=== PATIENT | male | born 1960 | race Caucasian/White ===

== ENCOUNTER 2020-01-25 19:22 | Emergency (ER) | payer OTHER, SELFPAY ==
--- NOTE | 2020-01-25 | CT_ITS ---
EXAMINATION: CT HEAD WITHOUT CONTRAST CLINICAL INFORMATION: Seizure COMPARISON: MRI 12/31/[address] head 12/30/2019 TECHNIQUE: Contiguous axial imaging was performed from the skull base to vertex without intravenous administration of contrast. This CT examination was performed using dose optimization techniques as appropriate, variously including the following: *Automated exposure control *Adjustment of mA and/or kV according to patient size (this includes techniques or standardized protocols for targeted exams where dose is matched to indication/reason for exam; i.e. extremities or head) *Use of iterative reconstruction technique DLP: 855 mGy-cm FINDINGS: No acute intracranial abnormality seen. No acute intracranial hemorrhage. The previously seen right greater than left basal ganglia have evolved and are now fairly isodense to adjacent cortex, previously hypodense. These are seen superimposed on a background of moderate patchy periventricular and subcortical white matter hypodensity consistent with chronic microvascular white matter ischemic changes. There continues to be abnormal low density throughout the cerebellum, right greater than left. The ventricles and sulci are similar in configuration to the prior study. No hydrocephalus. Globes and orbits are normal. No acute sinusitis. IMPRESSION: No acute intracranial abnormality superimposed on multiple abnormalities evident on the recent prior brain MRI. There has been evolution of the previously seen right greater than left basal ganglia calcifications.
[2020-01-25 19:37] LABS: Glucose, Whole Blood 185 mg/dL (60-115)
[2020-01-25 19:39] VITALS: BP 122/64; BP 123/73; PULSE 74; PULSE 77; RESP 18; TEMP 36.8; O2SAT 94; BMI 40.8
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
--- NOTE | 2020-01-25 19:47 | ECG_ITS ---
Test Reason : SYNCOPE Blood Pressure : / mmHG Vent. Rate : 072 BPM Atrial Rate : 072 BPM P-R Int : 138 ms QRS Dur : 082 ms QT Int : 424 ms P-R-T Axes : 077 -48 052 degrees QTc Int : 464 ms Poor data quality, interpretation may be adversely affected Normal sinus rhythm Left axis deviation Inferior infarct (cited on or before 18-JUL-2018) Abnormal ECG When compared with ECG of 28-DEC-2019 21:17, No significant change was found Referred By: Joss Patel Electronically Signed By:AC RODRIGUEZ
[2020-01-25] MEDS: 0.9 % Sodium Chloride 1,000 ML 999 ML IVCONT (19:51)
--- NOTE | 2020-01-25 20:12 | PC.NURSE ---
senior quality technician at bedside to obtain EKG and labs. Pt off to CT on hospital bed. Pt aware of plan to medicate upon return.
[2020-01-25] MEDS: levETIRAcetam 1,000 MG in 0.9 % Sodium Chloride 100 ML 400 MG IV (20:19)
--- NOTE | 2020-01-25 20:22 | PC.NURSE ---
Pt medicated per EMAR with Keppra and IVF. Awaiting CT results. Continue to monitor.
[2020-01-25 20:24] LABS: MANUAL DIFF FLAG NO
[2020-01-25 20:26] LABS: Basophils Absolute Auto 0.1 X10*3/uL (0.0-0.2); Basophils Percent Auto 0.5 % (0-2); Eosinophils Absolute Auto 0.6 X10*3/uL (0.0-0.4); Hematocrit 33.3 % (42-52); Imm Gran Abs Auto 0.12 X10*3/uL (0.00-0.03); Imm Gran Pct Auto 0.6 % (0.0-0.4); Lymphocytes Absolute Auto 2.3 X10*3/uL (1.2-4.9); Lymphocytes Percent Auto 11.5 % (20-40); Mean Corpuscular Hemoglobin 23.8 pg (27.0-33.0); Mean Corpuscular Volume 79.3 fL (80-98); Mean Platelet Volume 11.9 fL (9.4-12.4); Monocytes Percent Auto 5.1 % (2-11); Neutrophils Absolute Auto 15.6 X10*3/uL (2.0-8.3); Neutrophils Percent Auto 79.3 % (45-73); Platelet Count 400 X10*3/uL (160-400); Red Cell Distribution Width 17.9 % (11.0-16.0); White Blood Count 19.7 X10*3/uL (4.8-10.8)
[2020-01-25 20:48] LABS: Alanine Aminotransferase 50 U/L (0-40); Albumin Level 3.3 g/dL (3.5-5.0); Alkaline Phosphatase 135 U/L (39-117); Anion Gap 14 (12-20); Aspartate Amino Transferase 61 U/L (5-37); Bilirubin Direct 0.2 mg/dL (0.0-0.5); Bilirubin Total 0.3 mg/dL (0.0-1.0); Blood Urea Nitrogen 27 mg/dL (9-16); Calcium 8.3 mg/dL (8.4-10.2); Carbon Dioxide 21 mmol/L (22-29); Chloride 113 mmol/L (96-108); Creatinine Clr Calc Pharmacy 95.5; Estimated Glomerular Filt Rate > 60; Glucose Random 202 mg/dL (60-115); Sodium 144 mmol/L (135-145); Total Protein 7.2 g/dL (6.5-8.0)
[2020-01-25 21:31] VITALS: BP 195/88; PULSE 84; RESP 18; TEMP 37; O2SAT 98
--- NOTE | 2020-01-25 21:44 | PC.NURSE ---
Per MD, to obtain UA via straight cath. As this RN was preparing to straight cath pt, pt started voiding on his own. UA obtained and sent for analysis. Pt denies pain/discomfort at this time. VSSu. at bedside explaining plan of care. Continue to monitor.
[2020-01-25 21:54] LABS: Glucose Urine UA NEG (NEG); Leukocyte Esterase Urine 3+ (NEG); Nitrite Urine NEG (NEG); Urine Blood 1+ (NEG); Urine Ketones NEG (NEG); Urine Protein 1+ MG/DL (NEG-TRACE)
[2020-01-25 21:56] LABS: Appearance Urine CLOUDY; Color Urine STRAW
[2020-01-25 22:12] LABS: Bacteria Urine TRACE /LPF; Squamous Epithelial Cell Urine TRACE /LPF
[2020-01-25 23:04] VITALS: PULSE 85; RESP 16; TEMP 36.8
[2020-01-25 23:06] VITALS: BP 157/61; O2SAT 96
--- NOTE | 2020-01-25 23:10 | PC.NURSE ---
MD at bedside discussing plan of care with pt and family. Pt and family aware of plan to treat UTI with one dose IV ABX and then with an RX at home. Per MD, no BCX necessary. Continue to monitor.
[2020-01-25] MEDS: cefTRIAXone sodium 1 GM in 0.9 % Sodium Chloride 50 ML IV (23:15)
--- NOTE | 2020-01-25 23:15 | PC.NURSE ---
Ashley jon per EMAR.
--- NOTE | 2020-01-26 00:28 | PC.NURSE ---
Pt provided with DC instructions, awaiting EMS to transport pt home.
[2020-01-26 00:32] VITALS: BP 122/83; PULSE 80; RESP 18
--- NOTE | 2020-01-26 00:37 | PC.NURSE ---
IV removed. VSS. Pt found to be incontinent of urine, provided with nery care and a complete bed change. Awaiting EMS.
--- NOTE | 2020-01-26 02:09 | PC.NURSE ---
Pt yelling loudly in room. Pt asking this RN when the ambulance is coming?! Pt states I want to go home!!!!! This RN explaining to pt that the ambulance is on the way. Pt resting in bed, watching TV. Continue to monitor.
== END 2020-01-26 03:15 | disposition home or self-care (01) ==
PROVIDERS: Emergency Provider Internal Medicine
DX: R56.9 Unspecified convulsions (principal); N39.0 Urinary tract infection, site not specified; R53.83 Other fatigue; Z87.891 Personal history of nicotine dependence; Z79.899 Other long term (current) drug therapy
CPT/HCPCS: 36415; 70450; 80048; 80076; 81001; 82947; 85025; 87086; 93005; 93010; 96361; 96365; 96367; 99284

== ENCOUNTER 2020-04-08 23:42 | Inpatient (IN) | payer OTHER, SELFPAY ==
[2020-04-08 23:48] VITALS: BP 102/57; BP 98/56; PULSE 74; PULSE 76; RESP 25; TEMP 37.3; O2SAT 94; O2SAT 98; BMI 29.5
--- NOTE | 2020-04-08 23:51 | ECG_ITS ---
Test Reason : AMS Blood Pressure : / mmHG Vent. Rate : 073 BPM Atrial Rate : 073 BPM P-R Int : 158 ms QRS Dur : 096 ms QT Int : 388 ms P-R-T Axes : 020 -57 059 degrees QTc Int : 427 ms Normal sinus rhythm Left axis deviation Inferior infarct (cited on or before 18-JUL-2018) Abnormal ECG When compared with ECG of 25-JAN-2020 19:57, No significant change was found Referred By: Joss Patel Electronically Signed By:Lázaro Mancilla
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
[2020-04-09] VITALS (11 sets, daily range): BP systolic 134–187; BP diastolic 66–90; PULSE 67–88; RESP 18–22; TEMP 36.4–37.4; O2SAT 4–100
--- NOTE | 2020-04-09 00:10 | XR_ITS ---
EXAMINATION: CHEST 1 VIEW CLINICAL INFORMATION: Altered mental status. COMPARISON: 12/28/2019. TECHNIQUE: An AP view of the chest is provided. FINDINGS: The cardiac silhouette is not enlarged. The mediastinal and hilar contours are unremarkable. There are neither pleural effusions nor pneumothoraces.. There is a small focus of airspace disease in the right midlung. The osseous structures are stable. XR/XR chest 1V IMPRESSION: Small nonspecific focus of airspace disease within the right midlung.
[2020-04-09 00:34] LABS: MANUAL DIFF FLAG NO
[2020-04-09 00:47] LABS: Basophils Absolute Auto 0.1 X10*3/uL (0.0-0.2); Basophils Percent Auto 0.4 % (0-2); Eosinophils Absolute Auto 0.7 X10*3/uL (0.0-0.4); Eosinophils Percent Auto 3.2 % (0-4); Hematocrit 29.9 % (42-52); Hemoglobin 9.3 g/dl (14.0-18.0); Imm Gran Abs Auto 0.11 X10*3/uL (0.00-0.03); Imm Gran Pct Auto 0.5 % (0.0-0.4); Lymphocytes Absolute Auto 2.8 X10*3/uL (1.2-4.9); Lymphocytes Percent Auto 13.6 % (20-40); Mean Corpuscular HGB Conc 31.1 g/dl (31.0-36.0); Mean Corpuscular Volume 77.3 fL (80-98); Mean Platelet Volume 11.7 fL (9.4-12.4); Monocytes Absolute Auto 1.2 X10*3/uL (0.1-1.2); Monocytes Percent Auto 5.6 % (2-11); Neutrophils Absolute Auto 15.7 X10*3/uL (2.0-8.3); Neutrophils Percent Auto 76.7 % (45-73); Platelet Count 397 X10*3/uL (160-400); Red Blood Count 3.87 X10*6/uL (4.60-5.80); Red Cell Distribution Width 20.3 % (11.0-16.0); White Blood Count 20.4 X10*3/uL (4.8-10.8)
[2020-04-09 00:57] LABS: Anion Gap 16 (12-20); Blood Urea Nitrogen 30 mg/dL (9-16); Calcium 8.3 mg/dL (8.4-10.2); Carbon Dioxide 20 mmol/L (22-29); Chloride 106 mmol/L (96-108); Creatinine Clr Calc Pharmacy 101.3; Estimated Glomerular Filt Rate > 60; Glucose Random 119 mg/dL (60-115); Lactic Acid 0.9 mmol/L (0.5-2.0); Potassium 3.9 mmol/l (3.3-5.1); Sodium 138 mmol/L (135-145)
[2020-04-09 01:00] LABS: Alanine Aminotransferase 56 U/L (0-40); Albumin Level 2.9 g/dL (3.5-5.0); Alkaline Phosphatase 129 U/L (39-117); Aspartate Amino Transferase 78 U/L (5-37); Bilirubin Direct 0.2 mg/dL (0.0-0.5); Bilirubin Total 0.3 mg/dL (0.0-1.0); Lipase 10 U/L (8-78)
[2020-04-09 01:03] LABS: Troponin-I High Sensitivity < 3.5 ng/L (<3.5-35.0)
[2020-04-09] MEDS: 0.9 % Sodium Chloride 1,000 ML 999 ML IVCONT (01:03)
[2020-04-09 01:12] LABS: Glucose Urine UA NEG (NEG); Leukocyte Esterase Urine 2+ (NEG); Nitrite Urine NEG (NEG); Urine Blood TRACE (NEG); Urine Ketones NEG (NEG); Urine Protein TRACE MG/DL (NEG-TRACE)
[2020-04-09 01:14] LABS: Appearance Urine CLEAR; Color Urine YELLOW
[2020-04-09 01:28] LABS: Bacteria Urine TRACE /LPF; RBC Urine 0-2 /HPF (0); Squamous Epithelial Cell Urine TRACE /LPF; WBC Clumps Urine NOTED; WBC Urine TNTC /HPF (0-4)
[2020-04-09] MEDS: Piperacillin Sodium/Tazobactam 3.375 GM in 0.9 % Sodium Chloride 50 ML IV ×3 (01:28→17:41)
[2020-04-09 01:44] LABS: Influenza A PCR NEGATIVE (Negative); Influenza B PCR NEGATIVE (Negative); Resp Syncy Virus RNA Qual PCR NEGATIVE (Negative); SARS COV2 PCR INHOUSE NEGATIVE (Negative)
[2020-04-09] MEDS: Ertapenem Sodium 1 GM in 0.9 % Sodium Chloride 50 ML IV (03:11)
--- NOTE | 2020-04-09 04:59 | P.HPHOSP_ITS ---
History of Present Illness Date of Service: 04/09/20 Chief Complaint: AMS This is a 59 yo M with pmhx of stroke s/p paraplegia, among others who presents to the hospital with reported lethargy and low BP readings at home. Pt is lethargic and very hard of hearing and no family memeber at bedside, therefore history is obtained from Ed physician. Per ED physician, pt was brought in by his sister, who is his health proxy, because pt has been more lethargic, she checked his BP at home and found him to have low BP 90s/50s. he has been congested as well as having a cough for 2 days with no sob, no fever or chills. No other Review of system could be obtained. on arrival to the ed pt found to be hypotensive, with BP of 102/57, RR of 25, sating 94% on RA, HR of 78 and temp 97.5. Pt desated in the ED while being repositioned to the high 80s. Labs are significant for WBC of 20.4, last WBC from 02/07 of 19.7, Hgb/Hct of 9.3/29.9, UA positive for LE, and urine WBC with minimal epithelial cells. 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 Family: hypertension Social history: bedboud, lives with sister, hx of tobacco, alcohol and drug use Review of Systems 2 Review of Systems: Yes Unobtainable due to mental condition [facility] Medical History Depression Diabetes Hepatitis C Paraplegia Seizure Stroke TIA (transient ischemic attack) Social History Alcohol intake: never Smoking Status: Unknown if ever smoked Use of substances other than those prescribed or required for medical reasons: No Advance Directives: No Advance Directives Information Provided: No Meds Allergies Allergy/AdvReac Type Severity Reaction Status Date / Time No Known Allergies Allergy Verified 01/25/20 19:38 [No Known Allergies*] Home Medications Medication Instructions Recorded Confirmed Type Januvia 100 mg PO DAILY 04/09/20 04/09/20 History Zestril 20 mg PO DAILY 04/09/20 04/09/20 History albuterol 2 inh INHALATION Q4-6H PRN 04/09/20 04/09/20 History amlodipine benzoate 10 mg PO DAILY 04/09/20 04/09/20 History atorvastatin 40 mg PO DAILY 04/09/20 04/09/20 History carvedilol 25 mg PO BID 04/09/20 04/09/20 History gabapentin 300 mg PO DAILY 04/09/20 04/09/20 History insulin aspart U-100 See Protocol SUBCUT TID 04/09/20 04/09/20 History insulin detemir U-100 46 unit SUBCUT DAILY 04/09/20 04/09/20 History polyethylene glycol 3350 [Miralax] 17 g PO DAILY 04/09/20 04/09/20 History sertraline 200 mg PO BID 04/09/20 04/09/20 History tamsulosin [Flomax] 0.4 mg PO DAILY 04/09/20 04/09/20 History tizanidine [Zanaflex] 2 mg PO BID 04/09/20 04/09/20 History Physical Exam 2 Vital Signs and Narrative: Vital Signs: Last Vital Signs Temp 99.4 F 04/09/20 00:00 Pulse 76 04/09/20 02:00 Resp 18 04/09/20 02:00 BP 134/73 04/09/20 02:00 Pulse Ox 94 04/09/20 02:00 Body Mass Index 29.5 Results Labs CBC and Chem 7: 04/09/20 00:24 04/09/20 00:24 Labs: Laboratory Results - last 24 hr 04/09/20 04/09/20 04/09/20 00:24 00:24 00:24 MCV 77.3 L MCH 24.0 L MCHC 31.1 RDW 20.3 H Plt Count 397 MPV 11.7 Immature Gran % (Auto) 0.5 H Neut % (Auto) 76.7 H Lymph % (Auto) 13.6 L [place] % (Auto) 5.6 Eos % (Auto) 3.2 Baso % (Auto) 0.4 Lymph # (Auto) 2.8 [place] # (Auto) 1.2 Eos # (Auto) 0.7 H Baso # (Auto) 0.1 Abs Immat Gran (auto) 0.11 H Absolute Neuts (auto) 15.7 H Absolute Nucleated RBC 0.000 Nucleated RBC % (auto) 0.0 Anion Gap 16 Estim Creat Clear Calc 101.3 Estimated GFR > 60 Random Glucose 119 H D Lactic Acid Calcium 8.3 L Total Bilirubin 0.3 Direct Bilirubin 0.2 AST 78 H ALT 56 H Alkaline Phosphatase 129 H Troponin I High Sens Total Protein 7.0 Albumin 2.9 L Lipase 10 Urine Color Urine Appearance Urine pH Ur Specific Dinosaur Urine Protein Urine Glucose (UA) Urine Ketones Urine Blood Urine Nitrite Ur Leukocyte Esterase Urine RBC Urine WBC Urine WBC Clumps Ur Squamous Epith Cells Urine Bacteria Urine Yeast Coronavirus (PCR) Influenza Type A (PCR) Influenza Type B (PCR) RSV RNA Qual (PCR) 04/09/20 04/09/20 04/09/20 00:24 00:24 00:46 MCV MCH MCHC RDW Plt Count MPV Immature Gran % (Auto) Neut % (Auto) Lymph % (Auto) [place] % (Auto) Eos % (Auto) Baso % (Auto) Lymph # (Auto) [place] # (Auto) Eos # (Auto) Baso # (Auto) Abs Immat Gran (auto) Absolute Neuts (auto) Absolute Nucleated RBC Nucleated RBC % (auto) Anion Gap Estim Creat Clear Calc Estimated GFR Random Glucose Lactic Acid 0.9 Calcium Total Bilirubin Direct Bilirubin AST ALT Alkaline Phosphatase Troponin I High Sens < 3.5 Total Protein Albumin Lipase Urine Color Urine Appearance Urine pH Ur Specific Dinosaur Urine Protein Urine Glucose (UA) Urine Ketones Urine Blood Urine Nitrite Ur Leukocyte Esterase Urine RBC Urine WBC Urine WBC Clumps Ur Squamous Epith Cells Urine Bacteria Urine Yeast Coronavirus (PCR) NEGATIVE Influenza Type A (PCR) NEGATIVE Influenza Type B (PCR) NEGATIVE RSV RNA Qual (PCR) NEGATIVE 04/09/20 00:49 MCV MCH MCHC RDW Plt Count MPV Immature Gran % (Auto) Neut % (Auto) Lymph % (Auto) [place] % (Auto) Eos % (Auto) Baso % (Auto) Lymph # (Auto) [place] # (Auto) Eos # (Auto) Baso # (Auto) Abs Immat Gran (auto) Absolute Neuts (auto) Absolute Nucleated RBC Nucleated RBC % (auto) Anion Gap Estim Creat Clear Calc Estimated GFR Random Glucose Lactic Acid Calcium Total Bilirubin Direct Bilirubin AST ALT Alkaline Phosphatase Troponin I High Sens Total Protein Albumin Lipase Urine Color YELLOW Urine Appearance CLEAR Urine pH 5.0 Ur Specific Dinosaur 1.020 Urine Protein TRACE Urine Glucose (UA) NEG Urine Ketones NEG Urine Blood TRACE Urine Nitrite NEG Ur Leukocyte Esterase 2+ H Urine RBC 0-2 Urine WBC TNTC H Urine WBC Clumps NOTED Ur Squamous Epith Cells TRACE Urine Bacteria TRACE Urine Yeast 1+ Coronavirus (PCR) Influenza Type A (PCR) Influenza Type B (PCR) RSV RNA Qual (PCR) Imaging Radiologist's Impressions: Impressions Chest X-Ray 04/09/20 00:10 IMPRESSION: Small nonspecific focus of airspace disease within the right midlung. Assessment and Plan (1) Encephalopathy: Status: Acute (2) Sepsis: Qualifiers: Sepsis acute organ dysfunction status: without acute organ dysfunction Sepsis type: sepsis due to unspecified organism Qualified Code(s): A41.9 - Sepsis, unspecified organism Status: Acute (3) Acute UTI: Status: Acute (4) Hypoxic: Status: Acute (5) Pneumonia: Qualifiers: Laterality: right Lung location: middle lobe of lung Pneumonia type: due to unspecified organism Qualified Code(s): J18.9 - Pneumonia, unspecified organism Status: Acute Pt with hx as above presents to the hospital with encephalopathy # Encephalopathy - Most likely 2/2 acute infection - Pt has what appears to be PNA as well as UTI, with increased lethargy Plan: - Treat underlying infection with broad-spectrum abx - Will old sedative meds for now - Follow mental status # Sepsis - 2/2 community acquired pneumonia vs aspiration complicated by UTI - COVID 19 negative - CXR shows right middle lobe consolidation - Tachypneic, increased leukocytosis Plan: - Has hx of ESBL, will start on meropenem, as well as zosyn to cover for CAP as well as aspiration - Will follow blood and urine cultures once collected # Acute hypoxic respiratory failure - most likely secondary to pneumonia - patient desats with minimal effort to high 80s - currently placed on 3 L of oxygen sating 90+% - COVID 19 negative plan: - IV abx - Will follow blood cultures - O2 as required - monitor respiratory status # Pneumonia - Community vs aspiration - consolidation in the right middle lobe - will start abx as above - consult speech to evaluate swallowing # UTI - Hx of ESBL- will start meropenem - Pt incontinent - follow urine culture - ID consulted # DM - Start diabetic diet - LDSSI # HTN - Continue amlodipine, carvedilol DVT ppx: Lovenox
[2020-04-09 06:14] LABS: Glucose, Whole Blood 172 mg/dL (60-115)
[2020-04-09] MEDS: Enoxaparin Sodium 40 MG/0.4 ML SYRINGE SUBCUT (06:42)
[2020-04-09 07:08] LABS: Glucose, Whole Blood 173 mg/dL (60-115)
[2020-04-09] MEDS: lisinopriL 20 MG TABLET PO (08:36)
[2020-04-09] MEDS: Gabapentin 300 MG CAPSULE PO (08:36)
[2020-04-09] MEDS: 0.9 % Sodium Chloride Flush 3 ML SYRINGE IVFLUSH ×2 (08:36→17:41)
[2020-04-09] MEDS: polyethylene glycoL 3350 17 GM POWD.PACK PO (08:36)
[2020-04-09] MEDS: carvediloL 25 MG TABLET PO ×2 (08:36→21:40)
[2020-04-09] MEDS: Insulin Lispro 100 UNIT/ML 3 ML VIAL SUBCUT ×3 (08:36→21:39)
[2020-04-09] MEDS: Atorvastatin Calcium 40 MG TABLET PO (08:37)
[2020-04-09] MEDS: levETIRAcetam 500 MG TABLET PO ×2 (08:37→21:40)
[2020-04-09] MEDS: amLODIPine Besylate 10 MG TABLET PO (08:37)
[2020-04-09] MEDS: Tamsulosin HCL 0.4 MG CAPSULE PO (08:37)
[2020-04-09 11:03] LABS: Glucose, Whole Blood 166 mg/dL (60-115)
--- NOTE | 2020-04-09 12:13 | HO.PM.IMPN ---
Subjective Subjective Date of Service: 04/09/20 Interval History: seen and examined this AM appears comfortable baseline unclear ROS unreliable Physical Exam Vital Signs: Vital Signs: Last Vital Signs Temp 98.0 F 04/09/20 11:33 Pulse 67 04/09/20 11:33 Resp 20 04/09/20 11:33 BP 159/79 H 04/09/20 11:33 Pulse Ox 100 04/09/20 11:33 Body Mass Index 29.5 Const: Other: General - no acute distress, appears comfortable Cardiovascular - regular rate and rhythm, S1-S2 Lungs - no distress Abdomen - soft, nontender, no rebound or guarding Extremities - no edema bilaterally Neuro - awake and alert, no focal deficits Objective Data Current Medications Generic Name Dose Route Start Last Admin Trade Name Freq PRN Reason Stop Dose Admin Acetaminophen 650 mg 04/09/20 05:16 Acetaminophen 325 Mg Tablet PO Q6H PRN Pain, Mild (Pain Scale 1-3) Albuterol Sulfate 2 puff 04/09/20 06:47 Albuterol Sulfate 90 Mcg 8 Gm Inhaler INHALE Q4H PRN ASTHMA Amlodipine Besylate 10 mg 04/09/20 09:00 04/09/20 08:37 Amlodipine Besylate 10 Mg Tablet PO 10 mg DAILY CARNI Administration Atorvastatin Calcium 40 mg 04/09/20 09:00 04/09/20 08:37 Atorvastatin Calcium 40 Mg Tablet PO 40 mg DAILY CARIN Administration Carvedilol 25 mg 04/09/20 09:00 04/09/20 08:36 Carvedilol 25 Mg Tablet PO 25 mg BID CARIN Administration Docusate Sodium 100 mg 04/09/20 05:16 Docusate Sodium 100 Mg Capsule PO DAILY PRN Constipation Enoxaparin Sodium 40 mg 04/09/20 05:16 04/09/20 06:42 Enoxaparin Sodium 40 Mg/0.4 Ml Syringe SUBCUT 40 mg Q24H CARIN Administration Gabapentin 300 mg 04/09/20 09:00 04/09/20 08:36 Gabapentin 300 Mg Capsule PO 300 mg DAILY CARIN Administration Piperacillin Sod/Tazobactam 50 mls @ 100 mls/hr 04/09/20 06:00 04/09/20 11:59 Sod 3.375 gm/ Sodium Chloride IV 100 mls/hr Q6H CARIN Administration Insulin Glargine 32 unit 04/09/20 21:00 Insulin Glargine,Hum.Rec.Anlog 100 Unit/Ml 10 Ml Vial SUBCUT BEDTIME [facility] Insulin Human Lispro 0 unit 04/09/20 07:30 04/09/20 12:00 Insulin Lispro 100 Unit/Ml 3 Ml Vial SUBCUT 2 unit QIDACHS CARIN Administration Protocol Levetiracetam 500 mg 04/09/20 09:00 04/09/20 08:37 Levetiracetam 500 Mg Tablet PO 500 mg BID CARIN Administration Lisinopril 20 mg 04/09/20 09:00 04/09/20 08:36 Lisinopril 20 Mg Tablet PO 20 mg DAILY CARIN Administration Ondansetron HCl 4 mg 04/09/20 05:16 Ondansetron Hcl 4 Mg/2 Ml Vial IVPUSH Q8H PRN Nausea and Vomiting Polyethylene Glycol 17 gm 04/09/20 09:00 04/09/20 08:36 Polyethylene Glycol 3350 17 Gm Powd.Pack PO 17 gm DAILY CARIN Administration Sodium Chloride 3 ml 04/09/20 08:00 04/09/20 08:36 0.9 % Sodium Chloride Flush 3 Ml Syringe IVFLUSH 3 ml QSHIFT CARIN Administration Tamsulosin HCl 0.4 mg 04/09/20 09:00 04/09/20 08:37 Tamsulosin Hcl 0.4 Mg Capsule PO 0.4 mg DAILY CARIN Administration Labs CBC & Chem 7: 04/09/20 00:24 04/09/20 00:24 Assessment and Plan (1) Encephalopathy: Status: Acute Assessment and Plan: This is a 59 yo M with a history of cva, paraplegia, recurrent uti, seizures, htn, dm who presented to the hospital with increased lethargy which is felt to be infectious in etiology. He is admitted for further treatment. 1. Sepsis secondary to UTI vs Aspiration pneumonia received 1 dose invanz in the ED for his history of ESLB UTI -- hold off on Merram for the time being until evaluated by ID continue zosyn for now f/u cultures 2. Dysphagia change diet to pureed swallow eval tomorrow 3. DM basal + bolus 4. seizures keppra 5. htn norvasc / lisinopril 6. Transaminitis chronic, monitor Full Code DVT pptx, lovenox
--- NOTE | 2020-04-09 13:01 | MHC.CM.PN ---
CM SPOKE TO PTS SISTER/CAREGIVER/HCP, NADEEM ([phone]) WHO REPORTS THE PT DOES LIVE ALONE BUT SHE LIVES IN THE SAME BUILDING,. RIGHT NEXT DOOR AND SHE HAS A CAMERA IN THE PTS ROOM SO SHE CAN CHECK IN ON HIM FREQUENTLY. NADEEM REPORTS SHE IS THE PTS PRIMARY CAREGIVER AND HE HAS ANOTHER CIRCULAR HEAD SAW OPERATOR WELL. PT IS WHEEL CHAIR BOUND AT [facility]ELINE BUT [facility] GRANDSON IS USUALLY PRESENT TO HELP HER TRANSFER THE PT. NADEEM REPORTS SHE USUALLY DRIVES THE PT TO HIS APPTS HOWEVER SHE WILL NEED HIM TRANSPORTED HOME VIA BLS HER GRANDSON WILL NOT BE THERE TO ASSIST. NADEEM REPORTS THE PTS PCP IS STILL DR HART. IMM REVIEWED WITH NADEEM WHO REPORTS UNDERSTANDING. A COPY WILL BE SENT TO HER VIA CERTIFIED MAIL, SHE ASKS THAT IT BE SENT TO PTS ADDRESS. CURRENT DC PLAN IS HOME WITH RESUMPTION OF CIRCULAR HEAD SAW OPERATOR SERVICES PT WILL NEED BLS TRANSPORT
[2020-04-09 16:25] LABS: Glucose, Whole Blood 93 mg/dL (60-115)
[2020-04-09 21:07] LABS: Glucose, Whole Blood 209 mg/dL (60-115)
[2020-04-09] MEDS: Insulin Glargine,Hum.rec.anlog 100 UNIT/ML 10 ML VIAL 32 UNIT SUBCUT (21:39)
[2020-04-10] VITALS (10 sets, daily range): BP systolic 128–191; BP diastolic 75–87; PULSE 69–89; RESP 18–20; TEMP 36.4–37.1; O2SAT 94–98; BMI 29.5
[2020-04-10] MEDS: Piperacillin Sodium/Tazobactam 3.375 GM in 0.9 % Sodium Chloride 50 ML IV ×4 (00:04→19:22)
[2020-04-10] MEDS: 0.9 % Sodium Chloride Flush 3 ML SYRINGE IVFLUSH ×3 (00:12→19:09)
[2020-04-10] MEDS: Enoxaparin Sodium 40 MG/0.4 ML SYRINGE SUBCUT (05:04)
[2020-04-10 05:10] LABS: MANUAL DIFF FLAG NO
[2020-04-10 05:11] LABS: Basophils Absolute Auto 0.1 X10*3/uL (0.0-0.2); Basophils Percent Auto 0.5 % (0-2); Eosinophils Absolute Auto 0.4 X10*3/uL (0.0-0.4); Eosinophils Percent Auto 2.4 % (0-4); Hematocrit 32.3 % (42-52); Hemoglobin 9.9 g/dl (14.0-18.0); Imm Gran Abs Auto 0.08 X10*3/uL (0.00-0.03); Imm Gran Pct Auto 0.5 % (0.0-0.4); Lymphocytes Absolute Auto 1.8 X10*3/uL (1.2-4.9); Lymphocytes Percent Auto 11.9 % (20-40); Mean Corpuscular HGB Conc 30.7 g/dl (31.0-36.0); Mean Corpuscular Hemoglobin 23.7 pg (27.0-33.0); Mean Corpuscular Volume 77.5 fL (80-98); Mean Platelet Volume 11.5 fL (9.4-12.4); Monocytes Absolute Auto 0.7 X10*3/uL (0.1-1.2); Monocytes Percent Auto 4.8 % (2-11); Neutrophils Absolute Auto 12.3 X10*3/uL (2.0-8.3); Neutrophils Percent Auto 79.9 % (45-73); Platelet Count 395 X10*3/uL (160-400); Red Blood Count 4.17 X10*6/uL (4.60-5.80); Red Cell Distribution Width 20.2 % (11.0-16.0); White Blood Count 15.4 X10*3/uL (4.8-10.8)
[2020-04-10 05:39] LABS: Anion Gap 14 (12-20); Blood Urea Nitrogen 22 mg/dL (9-16); Calcium 8.3 mg/dL (8.4-10.2); Carbon Dioxide 20 mmol/L (22-29); Chloride 109 mmol/L (96-108); Creatinine Clr Calc Pharmacy 117.3; Estimated Glomerular Filt Rate > 60; Glucose Random 181 mg/dL (60-115); Potassium 4.3 mmol/l (3.3-5.1); Sodium 139 mmol/L (135-145)
[2020-04-10 07:40] LABS: Glucose, Whole Blood 175 mg/dL (60-115)
[2020-04-10] MEDS: polyethylene glycoL 3350 17 GM POWD.PACK PO (08:11)
[2020-04-10] MEDS: Insulin Lispro 100 UNIT/ML 3 ML VIAL SUBCUT ×2 (08:12→20:54)
[2020-04-10] MEDS: amLODIPine Besylate 10 MG TABLET PO (08:12)
[2020-04-10] MEDS: carvediloL 25 MG TABLET PO ×2 (08:12→20:54)
[2020-04-10] MEDS: Tamsulosin HCL 0.4 MG CAPSULE PO (08:12)
[2020-04-10] MEDS: levETIRAcetam 500 MG TABLET PO ×2 (08:12→20:54)
[2020-04-10] MEDS: Gabapentin 300 MG CAPSULE PO (08:12)
[2020-04-10] MEDS: Atorvastatin Calcium 40 MG TABLET PO (08:12)
[2020-04-10] MEDS: lisinopriL 20 MG TABLET PO (08:12)
--- NOTE | 2020-04-10 10:26 | HO.PM.IMPN ---
Subjective Subjective Date of Service: 04/10/20 Interval History: seen and examined this AM no new events reported Physical Exam Vital Signs: Vital Signs: Last Vital Signs Temp 97.6 F 04/10/20 07:45 Pulse 75 04/10/20 08:12 Resp 18 04/10/20 07:45 BP 147/75 H 04/10/20 08:12 Pulse Ox 98 04/10/20 07:45 Body Mass Index 29.5 Const: Other: General - no acute distress, appears comfortable Cardiovascular - regular rate and rhythm, S1-S2 Lungs - no distress Abdomen - soft, nontender, no rebound or guarding Extremities - no edema bilaterally Neuro - awake and alert, no focal deficits Objective Data Current Medications Generic Name Dose Route Start Last Admin Trade Name Freq PRN Reason Stop Dose Admin Acetaminophen 650 mg 04/09/20 05:16 Acetaminophen 325 Mg Tablet PO Q6H PRN Pain, Mild (Pain Scale 1-3) Albuterol Sulfate 2 puff 04/09/20 06:47 Albuterol Sulfate 90 Mcg 8 Gm Inhaler INHALE Q4H PRN ASTHMA Amlodipine Besylate 10 mg 04/09/20 09:00 04/10/20 08:12 Amlodipine Besylate 10 Mg Tablet PO 10 mg DAILY ACRIN Administration Atorvastatin Calcium 40 mg 04/09/20 09:00 04/10/20 08:12 Atorvastatin Calcium 40 Mg Tablet PO 40 mg DAILY CARIN Administration Carvedilol 25 mg 04/09/20 09:00 04/10/20 08:12 Carvedilol 25 Mg Tablet PO 25 mg BID CARIN Administration Docusate Sodium 100 mg 04/09/20 05:16 Docusate Sodium 100 Mg Capsule PO DAILY PRN Constipation Enoxaparin Sodium 40 mg 04/09/20 05:16 04/10/20 05:04 Enoxaparin Sodium 40 Mg/0.4 Ml Syringe SUBCUT 40 mg Q24H CARIN Administration Gabapentin 300 mg 04/09/20 09:00 04/10/20 08:12 Gabapentin 300 Mg Capsule PO 300 mg DAILY CARIN Administration Piperacillin Sod/Tazobactam 50 mls @ 100 mls/hr 04/09/20 06:00 04/10/20 06:24 Sod 3.375 gm/ Sodium Chloride IV Infused Q6H CARIN Infusion Insulin Glargine 32 unit 04/09/20 21:00 04/09/20 21:39 Insulin Glargine,Hum.Rec.Anlog 100 Unit/Ml 10 Ml Vial SUBCUT 32 unit BEDTIME CARIN Administration Insulin Human Lispro 0 unit 04/09/20 07:30 04/10/20 08:12 Insulin Lispro 100 Unit/Ml 3 Ml Vial SUBCUT 2 unit QIDACHS CARIN Administration Protocol Levetiracetam 500 mg 04/09/20 09:00 04/10/20 08:12 Levetiracetam 500 Mg Tablet PO 500 mg BID CARIN Administration Lisinopril 20 mg 04/09/20 09:00 04/10/20 08:12 Lisinopril 20 Mg Tablet PO 20 mg DAILY CARIN Administration Ondansetron HCl 4 mg 04/09/20 05:16 Ondansetron Hcl 4 Mg/2 Ml Vial IVPUSH Q8H PRN Nausea and Vomiting Polyethylene Glycol 17 gm 04/09/20 09:00 04/10/20 08:11 Polyethylene Glycol 3350 17 Gm Powd.Pack PO 17 gm DAILY CARIN Administration Sodium Chloride 3 ml 04/09/20 08:00 04/10/20 08:11 0.9 % Sodium Chloride Flush 3 Ml Syringe IVFLUSH 3 ml QSHIFT CARIN Administration Tamsulosin HCl 0.4 mg 04/09/20 09:00 04/10/20 08:12 Tamsulosin Hcl 0.4 Mg Capsule PO 0.4 mg DAILY CARIN Administration Labs CBC & Chem 7: 04/10/20 04:42 04/10/20 04:42 Microbiology Microbiology Results: Microbiology 04/09/20 00:00 Urine clean catch - Catheterized Urine Culture - Preliminary Yeast 04/09/20 00:24 Blood - Venous Blood Culture - Preliminary No growth after 24 hours. 04/09/20 00:24 Blood - Venous Blood Culture - Preliminary No growth after 24 hours. Assessment and Plan (1) Encephalopathy: Status: Acute Assessment and Plan: This is a 59 yo M with a history of cva, paraplegia, recurrent uti, seizures, htn, dm who presented to the hospital with increased lethargy which is felt to be infectious in etiology. He is admitted for further treatment. 1. Sepsis secondary to UTI vs Aspiration pneumonia urine growing yeast continue zosyn for aspiration coverage blood cx negative to date ID consult 2. Dysphagia Pureed + nectar thick 3. DM basal + bolus 4. seizures keppra 5. htn norvasc / lisinopril 6. Transaminitis chronic, monitor Full Code DVT pptx, lovenox dispo: home with resumption of services, anticipate next 24-48 hours
--- NOTE | 2020-04-10 10:45 | P.CDIC_ITS ---
CDI Concurrent Query Service Date: 04/10/20 Documentation Clarification: Please clarify if you are treating a proba ble/suspected/likely or confirmed: SPECIFICS: Septic encephalopathy Toxic/metabolic encephalopathy Acute encephalopathy Please specify if known Toxic/Metabolic Encephalopathy Provider Response: Other Other Diagnosis: Toxic/Metabolic Encephalopathy PLEASE DO NOT DELETE/MODIFY EXISTING CONTENT Additional information is needed in order to code to the highest accuracy and appropriate Severity of Illness (SOI). Please clarify the information noted below in your progress notes and discharge summary. Risk Factors/Clinical Indicators/Treatments Increased lethargy which is felt infectious in etiology. Sepsis secondary for UTI vs Aspiration pneumonia. Zosyn, ID consult, b/c negative CDS: Alissa Orlando CCS, CDIS Contact Number: [phone] Please Review the information above and exercise your independent professional judgment in responding to the query. If you concur, pleas document in the PROGRESS NOTES and DISCHARGE SUMMARY. If you do not agree with the query, please document in the query above. THIS QUERY IS PART OF THE PERMANENT MEDICAL RECORD
[2020-04-10 11:11] LABS: Glucose, Whole Blood 147 mg/dL (60-115)
--- NOTE | 2020-04-10 11:46 | MHC.CM.PN ---
Patient is on IV Zosyn for PNA and UTI, BC negative x 24 hrs. Waiting for ID input. Discharge plan is home with resumption of [employer] services. CM will continue to follow patient for discharge needs.
--- NOTE | 2020-04-10 14:36 | W.PM.IDCN ---
History of Present Illness Data of Consult Service Date: 04/10/20 Requesting physician: Aj Bush Primary Care Provider: Unknown Physician HPI Reason for consult: lethargy,hypotension He presents to hospital after being asked to by family member who reported he had lethargy day of admission and was found to be hypotensive with SBP in 80s. He has no nausea,vomiting or diarrhea No one else is ill He has urine unremarkable at this time CXR right middle lobe pneumonia Review of Systems Review of Systems: Yes Unobtainable due to mental status PMFSH Past Medical History Medical History Depression Diabetes Hepatitis C Paraplegia Seizure Stroke TIA (transient ischemic attack) Family History Family history: reviewed and not pertinent Social History Social History Alcohol intake: never Smoking Status: Unknown if ever smoked Use of substances other than those prescribed or required for medical reasons: No Currently Displaying Signs/Symptoms of Drug Intoxication Withdrawal: No Advance Directives: No Advance Directives Information Provided: No Do you have thoughts of harming others: None Do you have a plan to hurt others: No Plan Meds Allergies Allergy/AdvReac Type Severity Reaction Status Date / Time No Known Allergies Allergy Verified 01/25/20 19:38 [No Known Allergies*] Home Medications Medication Instructions Recorded Confirmed Type Januvia 100 mg PO DAILY 04/09/20 04/09/20 History Zestril 20 mg PO DAILY 04/09/20 04/09/20 History albuterol 2 inh INHALATION Q4-6H PRN 04/09/20 04/09/20 History amlodipine benzoate 10 mg PO DAILY 04/09/20 04/09/20 History atorvastatin 40 mg PO DAILY 04/09/20 04/09/20 History carvedilol 25 mg PO BID 04/09/20 04/09/20 History gabapentin 300 mg PO DAILY 04/09/20 04/09/20 History insulin aspart U-100 See Protocol SUBCUT TID 04/09/20 04/09/20 History insulin detemir U-100 46 unit SUBCUT DAILY 04/09/20 04/09/20 History polyethylene glycol 3350 [Miralax] 17 g PO DAILY 04/09/20 04/09/20 History sertraline 200 mg PO BID 04/09/20 04/09/20 History tamsulosin [Flomax] 0.4 mg PO DAILY 04/09/20 04/09/20 History tizanidine [Zanaflex] 2 mg PO BID 04/09/20 04/09/20 History Physical Exam Vital Signs: Vital Signs: Last Vital Signs Temp 97.8 F 04/10/20 11:17 Pulse 89 04/10/20 11:17 Resp 18 04/10/20 11:17 BP 128/78 04/10/20 11:17 Pulse Ox 96 04/10/20 11:17 Body Mass Index 29.5 Const: General: cooperative HENMT: Head: Yes normal to inspection Mouth: Normal oral and palatal mucosa present Eyes: Other: left eye strabismus Resp: Effort & Inspection: normal respiratory effort Cardio: Rate: regular rate Rhythm: regular rhythm GI: Inspection: Yes normal to inspection Palpation (GI): nontender : General: Yes no CVA tenderness Back/Spine/Pelvis: Back: no CVA tenderness Skin: General skin exam: no rashes or lesions noted Neuro: Other: weakness due to CVA motor weakness arms and legs Plantar Reflex Responses: downgoing: right and left Assessment and Plan (1) Pneumonia: Qualifiers: Laterality: right Lung location: middle lobe of lung Pneumonia type: due to unspecified organism Qualified Code(s): J18.9 - Pneumonia, unspecified organism Problem details: Patient is not hypoxic He however has RML pneumonia,likely aspiration with anerobes and gram negatives There doesnt seem to be evidence of UTI at this time Status: Acute Would continue Piperacillin/Tazobactam likely 5-7 days Would involve swallowing testing (2) Encephalopathy: Problem details: Probably due to pneumonia Status: Acute (3) Hypoxic: Status: Acute Results Labs CBC & Chem 7: 04/10/20 04:42 04/10/20 04:42 Labs: Short CBC 04/10/20 Range/Units 04:42 WBC 15.4 H (4.8-10.8) X10*3/uL Hgb 9.9 L (14.0-18.0) g/dl Hct 32.3 L (42-52) % Plt Count 395 (160-400) X10*3/uL BMP 04/10/20 04:42 Sodium 139 Potassium 4.3 Chloride 109 H Carbon Dioxide 20 L BUN 22 H Creatinine 0.70 Calcium 8.3 L Microbiology Microbiology Results: Microbiology 04/09/20 00:00 Urine clean catch - Catheterized Urine Culture - Preliminary Yeast 04/09/20 00:24 Blood - Venous Blood Culture - Preliminary No growth after 24 hours. 04/09/20 00:24 Blood - Venous Blood Culture - Preliminary No growth after 24 hours.
[2020-04-10 16:06] LABS: Glucose, Whole Blood 358 mg/dL (60-115)
[2020-04-10 19:00] LABS: Glucose, Whole Blood 165 mg/dL (60-115)
--- NOTE | 2020-04-10 19:10 | PC.NURSE ---
PATIENT POC AT 1602 WAS 358.INSULIN WAS NOT GIVEN ON TIME. RECHECKED POC AT 1857 POC WAS 165. NOTIFIED DOCTOR CANDIS. AWARE STATES RECHECK AT BEDTIME AND COVER WITH INSULIN ORDERED.
[2020-04-10 20:25] LABS: Glucose, Whole Blood 153 mg/dL (60-115)
[2020-04-10] MEDS: Insulin Glargine,Hum.rec.anlog 100 UNIT/ML 10 ML VIAL 32 UNIT SUBCUT (20:55)
[2020-04-11] MEDS: Piperacillin Sodium/Tazobactam 3.375 GM in 0.9 % Sodium Chloride 50 ML IV ×4 (00:06→19:15)
[2020-04-11] MEDS: 0.9 % Sodium Chloride Flush 3 ML SYRINGE IVFLUSH ×3 (00:07→16:28)
[2020-04-11 03:03] VITALS: BP 153/80; PULSE 68; RESP 18; TEMP 36.8; O2SAT 97
[2020-04-11] MEDS: Enoxaparin Sodium 40 MG/0.4 ML SYRINGE SUBCUT (05:29)
[2020-04-11 07:34] VITALS: BP 111/64; PULSE 65; RESP 16; TEMP 36.5; O2SAT 96
[2020-04-11 07:44] LABS: Glucose, Whole Blood 109 mg/dL (60-115)
[2020-04-11] MEDS: lisinopriL 20 MG TABLET PO (08:14)
[2020-04-11] MEDS: Gabapentin 300 MG CAPSULE PO (08:14)
[2020-04-11] MEDS: Atorvastatin Calcium 40 MG TABLET PO (08:14)
[2020-04-11] MEDS: levETIRAcetam 500 MG TABLET PO ×2 (08:14→22:32)
[2020-04-11] MEDS: Tamsulosin HCL 0.4 MG CAPSULE PO (08:14)
[2020-04-11] MEDS: carvediloL 25 MG TABLET PO ×2 (08:15→22:32)
[2020-04-11] MEDS: amLODIPine Besylate 10 MG TABLET PO (08:15)
[2020-04-11 11:29] VITALS: BP 156/82; PULSE 70; RESP 16; TEMP 36.1; O2SAT 95
[2020-04-11 11:38] LABS: Glucose, Whole Blood 195 mg/dL (60-115)
[2020-04-11] MEDS: Insulin Lispro 100 UNIT/ML 3 ML VIAL SUBCUT ×2 (12:50→22:31)
[2020-04-11 15:50] VITALS: BP 132/67; PULSE 71; RESP 20; TEMP 36.6; O2SAT 95
--- NOTE | 2020-04-11 16:06 | P.PNIM_ITS ---
Subjective Subjective Date of Service: 04/11/20 Interval History: the patient was seen and evaluated this morning Laying in bed, feels comfortable Denies any fever, chills or shortness of breath but has general lethargy and weakness No reported other overnight events. Systemic review: No fever, chills or weakness No chest pain, palpitation mild shortness of breath and coughing No abdominal pain, nausea or vomiting No urinary symptoms No any rash or wounds Physical Exam Vital Signs: Vital Signs: Last Vital Signs Temp 97.8 F 04/11/20 15:50 Pulse 71 04/11/20 15:50 Resp 20 04/11/20 15:50 BP 132/67 04/11/20 15:50 Pulse Ox 95 04/11/20 15:50 Body Mass Index 29.5 Constitutional : Alert, oriented, not in distress Neck : Normal inspection, Supple Cardiovascular : RRR, S1 S2, no lower extremity edema Respiratory : fair bilateral air entry decreased on right lower area, right lower lobe crackles, rhonchi but no wheezes Gastrointestinal: soft, lax, Normal bowel sounds, Non tender Skin : Warm/Dry, No rash Neurological : Alert & oriented to self and place, No focal deficit Objective Data Current Medications Generic Name Dose Route Start Last Admin Trade Name Freq PRN Reason Stop Dose Admin Acetaminophen 650 mg 04/09/20 05:16 Acetaminophen 325 Mg Tablet PO Q6H PRN Pain, Mild (Pain Scale 1-3) Albuterol Sulfate 2 puff 04/09/20 06:47 Albuterol Sulfate 90 Mcg 8 Gm Inhaler INHALE Q4H PRN ASTHMA Amlodipine Besylate 10 mg 04/09/20 09:00 04/11/20 08:15 Amlodipine Besylate 10 Mg Tablet PO 10 mg DAILY CARIN Administration Atorvastatin Calcium 40 mg 04/09/20 09:00 04/11/20 08:14 Atorvastatin Calcium 40 Mg Tablet PO 40 mg DAILY CARIN Administration Carvedilol 25 mg 04/09/20 09:00 04/11/20 08:15 Carvedilol 25 Mg Tablet PO 25 mg BID CARIN Administration Docusate Sodium 100 mg 04/09/20 05:16 Docusate Sodium 100 Mg Capsule PO DAILY PRN Constipation Enoxaparin Sodium 40 mg 04/09/20 05:16 04/11/20 05:29 Enoxaparin Sodium 40 Mg/0.4 Ml Syringe SUBCUT 40 mg Q24H CARIN Administration Gabapentin 300 mg 04/09/20 09:00 04/11/20 08:14 Gabapentin 300 Mg Capsule PO 300 mg DAILY CARIN Administration Piperacillin Sod/Tazobactam 50 mls @ 100 mls/hr 04/09/20 06:00 04/11/20 13:25 Sod 3.375 gm/ Sodium Chloride IV Infused Q6H CARIN Infusion Insulin Glargine 32 unit 04/09/20 21:00 04/10/20 20:55 Insulin Glargine,Hum.Rec.Anlog 100 Unit/Ml 10 Ml Vial SUBCUT 32 unit BEDTIME [facility] Administration Insulin Human Lispro 0 unit 04/09/20 07:30 04/11/20 12:50 Insulin Lispro 100 Unit/Ml 3 Ml Vial SUBCUT 2 unit QIDACHS [facility] Administration Protocol Levetiracetam 500 mg 04/09/20 09:00 04/11/20 08:14 Levetiracetam 500 Mg Tablet PO 500 mg BID [facility] Administration Lisinopril 20 mg 04/09/20 09:00 04/11/20 08:14 Lisinopril 20 Mg Tablet PO 20 mg DAILY [facility] Administration Ondansetron HCl 4 mg 04/09/20 05:16 Ondansetron Hcl 4 Mg/2 Ml Vial IVPUSH Q8H PRN Nausea and Vomiting Polyethylene Glycol 17 gm 04/09/20 09:00 04/11/20 08:16 Polyethylene Glycol 3350 17 Gm Powd.Pack PO Not Given DAILY [facility] Sodium Chloride 3 ml 04/09/20 08:00 04/11/20 08:15 0.9 % Sodium Chloride Flush 3 Ml Syringe IVFLUSH 3 ml QSHIFT [facility] Administration Tamsulosin HCl 0.4 mg 04/09/20 09:00 04/11/20 08:14 Tamsulosin Hcl 0.4 Mg Capsule PO 0.4 mg DAILY [facility] Administration Labs CBC & Chem 7: 04/10/20 04:42 04/10/20 04:42 Microbiology Microbiology Results: Microbiology 04/09/20 00:00 Urine clean catch - Catheterized Urine Culture - Final Faye rugosa 04/09/20 00:24 Blood - Venous Blood Culture - Preliminary No growth after 48 hours. 04/09/20 00:24 Blood - Venous Blood Culture - Preliminary No growth after 48 hours. Assessment and Plan (1) Encephalopathy: Problem details: Probably due to pneumonia Status: Acute Assessment and Plan: This is a 59 yo M with a history of cva, paraplegia, recurrent uti, seizures, htn, dm who presented to the hospital with increased lethargy which is felt to be infectious in etiology. He is admitted for further treatment. 1. Sepsis secondary to Aspiration pneumonia WBCs trending down next [place] urine growing yeast continue zosyn for aspiration coverage blood cx negative to date ID input appreciated 2. Dysphagia Pureed + nectar thick To do bedside swallow evaluation 3. DM continue Lantus SSI 4. seizures keppra 5. htn norvasc / lisinopril 6. Transaminitis chronic, monitor Full Code DVT pptx, lovenox dispo: home with resumption of services, anticipate next 24-48 hours
[2020-04-11 16:26] LABS: Glucose, Whole Blood 150 mg/dL (60-115)
[2020-04-11 19:17] VITALS: BP 153/75; PULSE 75; RESP 20; TEMP 36.4; O2SAT 95
--- NOTE | 2020-04-11 20:22 | PC.NURSE ---
04/11/20 20:00 monitor reading recorded by XAIV and verified by Otto HESTER RN.
[2020-04-11 21:15] LABS: Glucose, Whole Blood 205 mg/dL (60-115)
[2020-04-11] MEDS: Insulin Glargine,Hum.rec.anlog 100 UNIT/ML 10 ML VIAL 32 UNIT SUBCUT (22:31)
[2020-04-12] VITALS (8 sets, daily range): BP systolic 141–173; BP diastolic 72–77; PULSE 65–72; RESP 16–18; TEMP 36.4–36.7; O2SAT 94–96
[2020-04-12] MEDS: 0.9 % Sodium Chloride Flush 3 ML SYRINGE IVFLUSH ×3 (00:20→17:12)
[2020-04-12] MEDS: Piperacillin Sodium/Tazobactam 3.375 GM in 0.9 % Sodium Chloride 50 ML IV ×4 (00:21→20:41)
[2020-04-12] MEDS: Enoxaparin Sodium 40 MG/0.4 ML SYRINGE SUBCUT (06:11)
[2020-04-12 06:49] LABS: Hematocrit 32.5 % (42-52); Hemoglobin 9.9 g/dl (14.0-18.0); Mean Corpuscular HGB Conc 30.5 g/dl (31.0-36.0); Mean Corpuscular Hemoglobin 23.7 pg (27.0-33.0); Mean Corpuscular Volume 77.9 fL (80-98); Mean Platelet Volume 11.6 fL (9.4-12.4); Platelet Count 435 X10*3/uL (160-400); Red Blood Count 4.17 X10*6/uL (4.60-5.80); Red Cell Distribution Width 20.5 % (11.0-16.0)
[2020-04-12 07:00] LABS: Anion Gap 16 (12-20); Blood Urea Nitrogen 23 mg/dL (9-16); Calcium 8.3 mg/dL (8.4-10.2); Carbon Dioxide 20 mmol/L (22-29); Chloride 110 mmol/L (96-108); Creatinine Clr Calc Pharmacy 112.4; Estimated Glomerular Filt Rate > 60; Glucose Random 139 mg/dL (60-115); Sodium 142 mmol/L (135-145)
[2020-04-12 07:35] LABS: Glucose, Whole Blood 139 mg/dL (60-115)
[2020-04-12] MEDS: lisinopriL 20 MG TABLET PO (09:45)
[2020-04-12] MEDS: Gabapentin 300 MG CAPSULE PO (09:45)
[2020-04-12] MEDS: amLODIPine Besylate 10 MG TABLET PO (09:45)
[2020-04-12] MEDS: levETIRAcetam 500 MG TABLET PO ×2 (09:45→20:41)
[2020-04-12] MEDS: Tamsulosin HCL 0.4 MG CAPSULE PO (09:45)
[2020-04-12] MEDS: polyethylene glycoL 3350 17 GM POWD.PACK PO (09:46)
[2020-04-12] MEDS: Atorvastatin Calcium 40 MG TABLET PO (09:46)
[2020-04-12] MEDS: carvediloL 25 MG TABLET PO ×2 (09:46→20:41)
[2020-04-12 11:30] LABS: Glucose, Whole Blood 157 mg/dL (60-115)
--- NOTE | 2020-04-12 13:06 | P.PNIM_ITS ---
Subjective Subjective Date of Service: 04/12/20 Interval History: the patient was seen and evaluated this morning Laying in bed, feels comfortable Denies any fever, chills or shortness of breath No reported other overnight events. Systemic review: No fever, chills or weakness No chest pain, palpitation No shortness of breath or coughing No abdominal pain, nausea or vomiting No urinary symptoms No any rash or wounds Physical Exam 2 Vital Signs: Vital Signs: Last Vital Signs Temp 97.9 F 04/12/20 11:04 Pulse 69 04/12/20 11:04 Resp 17 04/12/20 11:04 BP 159/76 H 04/12/20 11:04 Pulse Ox 94 04/12/20 11:04 Body Mass Index 29.5 Constitutional : Alert, difficult to assist given verbal difficulty Neck : Normal inspection, Supple Cardiovascular : RRR, S1 S2, no lower extremity edema Respiratory : Good bilateral air entry, right basal crackles, wheezes or rhonchi Gastrointestinal: soft, lax, Normal bowel sounds, Non tender Skin : Warm/Dry, No rash Neurological : Alert & speech is difficult but can be understood, No new focal deficit Objective Data Current Medications Generic Name Dose Route Start Last Admin Trade Name Freq PRN Reason Stop Dose Admin Acetaminophen 650 mg 04/09/20 05:16 Acetaminophen 325 Mg Tablet PO Q6H PRN Pain, Mild (Pain Scale 1-3) Albuterol Sulfate 2 puff 04/09/20 06:47 Albuterol Sulfate 90 Mcg 8 Gm Inhaler INHALE Q4H PRN ASTHMA Amlodipine Besylate 10 mg 04/09/20 09:00 04/12/20 09:45 Amlodipine Besylate 10 Mg Tablet PO 10 mg DAILY CARIN Administration Atorvastatin Calcium 40 mg 04/09/20 09:00 04/12/20 09:46 Atorvastatin Calcium 40 Mg Tablet PO 40 mg DAILY CARIN Administration Carvedilol 25 mg 04/09/20 09:00 04/12/20 09:46 Carvedilol 25 Mg Tablet PO 25 mg BID CARIN Administration Docusate Sodium 100 mg 04/09/20 05:16 Docusate Sodium 100 Mg Capsule PO DAILY PRN Constipation Enoxaparin Sodium 40 mg 04/09/20 05:16 04/12/20 06:11 Enoxaparin Sodium 40 Mg/0.4 Ml Syringe SUBCUT 40 mg Q24H CARIN Administration Gabapentin 300 mg 04/09/20 09:00 04/12/20 09:45 Gabapentin 300 Mg Capsule PO 300 mg DAILY CARIN Administration Piperacillin Sod/Tazobactam 50 mls @ 100 mls/hr 04/09/20 06:00 04/12/20 07:52 Sod 3.375 gm/ Sodium Chloride IV Infused Q6H CARIN Infusion Insulin Glargine 32 unit 04/09/20 21:00 04/11/20 22:31 Insulin Glargine,Hum.Rec.Anlog 100 Unit/Ml 10 Ml Vial SUBCUT 32 unit BEDTIME [facility] Administration Insulin Human Lispro 0 unit 04/09/20 07:30 04/12/20 09:45 Insulin Lispro 100 Unit/Ml 3 Ml Vial SUBCUT Not Given QIDACHS [facility] Protocol Levetiracetam 500 mg 04/09/20 09:00 04/12/20 09:45 Levetiracetam 500 Mg Tablet PO 500 mg BID CARIN Administration Lisinopril 20 mg 04/09/20 09:00 04/12/20 09:45 Lisinopril 20 Mg Tablet PO 20 mg DAILY [facility] Administration Ondansetron HCl 4 mg 04/09/20 05:16 Ondansetron Hcl 4 Mg/2 Ml Vial IVPUSH Q8H PRN Nausea and Vomiting Polyethylene Glycol 17 gm 04/09/20 09:00 04/12/20 09:46 Polyethylene Glycol 3350 17 Gm Powd.Pack PO 17 gm DAILY CARIN Administration Sodium Chloride 3 ml 04/09/20 08:00 04/12/20 09:45 0.9 % Sodium Chloride Flush 3 Ml Syringe IVFLUSH 3 ml QSHIFT [facility] Administration Tamsulosin HCl 0.4 mg 04/09/20 09:00 04/12/20 09:45 Tamsulosin Hcl 0.4 Mg Capsule PO 0.4 mg DAILY [facility] Administration Labs CBC & Chem 7: 04/12/20 05:33 04/12/20 05:33 Microbiology Microbiology Results: Microbiology 04/09/20 00:00 Urine clean catch - Catheterized Urine Culture - Final Faye rugosa 04/09/20 00:24 Blood - Venous Blood Culture - Preliminary No growth after 48 hours. 04/09/20 00:24 Blood - Venous Blood Culture - Preliminary No growth after 48 hours. Assessment and Plan (1) Encephalopathy: Status: Acute (2) Pneumonia: Status: Acute (3) Sepsis: Status: Acute (4) Hypoxic: Status: Acute (5) Acute UTI: Status: Acute Assessment and Plan: This is a 59 yo M with a history of cva, paraplegia, recurrent uti, seizures, htn, dm who presented to the hospital with increased lethargy which is felt to be infectious in etiology. He is admitted for further treatment. 1. Sepsis secondary to Aspiration pneumonia WBCs trending down urine growing yeast continue zosyn for aspiration coverage blood cx negative to date ID input appreciated 2. Dysphagia Pureed + nectar thick bedside swallow evaluation 3. DM continue Lantus SSI 4. seizures keppra 5. htn norvasc / lisinopril 6. Transaminitis chronic, monitor Full Code DVT pptx, lovenox dispo: home with resumption of services, anticipate next 24 hours
[2020-04-12] MEDS: Insulin Lispro 100 UNIT/ML 3 ML VIAL SUBCUT ×2 (13:14→20:41)
--- NOTE | 2020-04-12 14:23 | MHC.CM.PN ---
Discharge plan is home tomorrow with sister Nalini via BLS transport. CM spoke with Nalini by phone and updated to discharge tomorrow, address verified. Home with resumption of [employer] services. Patient will need BLS transport. CM will continue to follow patient for discharge needs.
[2020-04-12 16:30] LABS: Glucose, Whole Blood 116 mg/dL (60-115)
[2020-04-12 20:40] LABS: Glucose, Whole Blood 177 mg/dL (60-115)
[2020-04-12] MEDS: Insulin Glargine,Hum.rec.anlog 100 UNIT/ML 10 ML VIAL 32 UNIT SUBCUT (21:33)
[2020-04-13] MEDS: Piperacillin Sodium/Tazobactam 3.375 GM in 0.9 % Sodium Chloride 50 ML IV ×3 (00:49→13:05)
[2020-04-13] MEDS: 0.9 % Sodium Chloride Flush 3 ML SYRINGE IVFLUSH ×2 (00:49→05:35)
[2020-04-13 03:42] VITALS: BP 139/66; PULSE 61; RESP 18; TEMP 36.1; O2SAT 96
[2020-04-13] MEDS: Enoxaparin Sodium 40 MG/0.4 ML SYRINGE SUBCUT (05:35)
[2020-04-13 08:00] VITALS: BP 160/70; PULSE 63; RESP 17; TEMP 36.7; O2SAT 97
[2020-04-13 08:15] LABS: Glucose, Whole Blood 122 mg/dL (60-115)
[2020-04-13] MEDS: Tamsulosin HCL 0.4 MG CAPSULE PO (09:55)
[2020-04-13 09:56] VITALS: BP 160/70; PULSE 72
[2020-04-13] MEDS: Atorvastatin Calcium 40 MG TABLET PO (09:56)
[2020-04-13] MEDS: amLODIPine Besylate 10 MG TABLET PO (09:56)
[2020-04-13] MEDS: Gabapentin 300 MG CAPSULE PO (09:56)
[2020-04-13] MEDS: carvediloL 25 MG TABLET PO (09:56)
[2020-04-13] MEDS: levETIRAcetam 500 MG TABLET PO (09:56)
[2020-04-13 09:57] VITALS: BP 160/70; PULSE 72
[2020-04-13] MEDS: lisinopriL 20 MG TABLET PO (09:57)
[2020-04-13] MEDS: polyethylene glycoL 3350 17 GM POWD.PACK PO (09:57)
[2020-04-13 11:32] LABS: Glucose, Whole Blood 197 mg/dL (60-115)
[2020-04-13 12:00] VITALS: BP 148/77; PULSE 76; RESP 18; TEMP 37.1; O2SAT 96
--- NOTE | 2020-04-13 12:59 | MHC.CM.PN ---
Patient is discharging home today no services, lives with sister/[employer]. BLS transport at 3pm. Nurse, sister Nalini updated
[2020-04-13] MEDS: Insulin Lispro 100 UNIT/ML 3 ML VIAL SUBCUT (13:06)
--- NOTE | 2020-04-13 16:42 | PM.DS ---
DS: Providers Provider Date of admission: 04/09/20 03:43 Primary care physician: Unknown Physician Consults: 04/09/20 05:16 Consult to Infectious Diseases Routine Consulting Provider: Latanya Acevedo Reason for consultation: ESBL UTI Has provider been notified: No DS: Diagnosis Discharge Diagnosis (1) Encephalopathy: Status: Acute (2) Pneumonia: Status: Acute (3) Sepsis: Status: Acute (4) Hypoxic: Status: Acute (5) Acute UTI: Status: Acute DS: Medications Discharge Medications Home Medications: Home Medications Medication Instructions Recorded Confirmed Januvia 100 mg PO DAILY 04/09/20 04/09/20 Zestril 20 mg PO DAILY 04/09/20 04/09/20 albuterol 2 inh INHALATION Q4-6H PRN 04/09/20 04/09/20 amlodipine benzoate 10 mg PO DAILY 04/09/20 04/09/20 atorvastatin 40 mg PO DAILY 04/09/20 04/09/20 carvedilol 25 mg PO BID 04/09/20 04/09/20 gabapentin 300 mg PO DAILY 04/09/20 04/09/20 insulin aspart U-100 See Protocol SUBCUT TID 04/09/20 04/09/20 insulin detemir U-100 46 unit SUBCUT DAILY 04/09/20 04/09/20 polyethylene glycol 3350 [Miralax] 17 g PO DAILY 04/09/20 04/09/20 sertraline 200 mg PO BID 04/09/20 04/09/20 tamsulosin [Flomax] 0.4 mg PO DAILY 04/09/20 04/09/20 tizanidine [Zanaflex] 2 mg PO BID 04/09/20 04/09/20 Previous Rx's Medication Instructions Recorded levetiracetam [Keppra] 500 mg PO BID #60 tab 01/25/20 cefuroxime axetil 500 mg PO BID #10 tab 04/13/20 doxycycline monohydrate 100 mg PO BID #10 cap 04/13/20 DS: Summary Hospital Course Hospital Course: Admission note HPI This is a 59 yo M with pmhx of stroke s/p paraplegia, among others who presents to the hospital with reported lethargy and low BP readings at home. Pt is lethargic and very hard of hearing and no family memeber at bedside, therefore history is obtained from Ed physician. Per ED physician, pt was brought in by his sister, who is his health proxy, because pt has been more lethargic, she checked his BP at home and found him to have low BP 90s/50s. he has been congested as well as having a cough for 2 days with no sob, no fever or chills. No other Review of system could be obtained. on arrival to the ed pt found to be hypotensive, with BP of 102/57, RR of 25, sating 94% on RA, HR of 78 and temp 97.5. Pt desated in the ED while being repositioned to the high 80s. Labs are significant for WBC of 20.4, last WBC from 02/07 of 19.7, Hgb/Hct of 9.3/29.9, UA positive for LE, and urine WBC with minimal epithelial cells. Hospital course Of sepsis secondary to aspiration pneumonia. He was started on IV antibiotics of Zosyn and evaluated by infectious disease specialist who recommended total of 5 days of IV medication before discharging him home to finish total of 10 days. The patient was weaned off the oxygen and his blood cultures remain negative during the hospital stay. He was evaluated by [employer] team for swallowing difficulties with recommendation to do pureed diet with nectar thick fluid and assistance with food. To be discharged on doxycycline and Ceftin to finish total 10 days of antibiotic To follow-up with PCP as scheduled Time Spent with Patient Time attestation: Total time spent providing and/or coordinating discharge services: Physical Exam Vital Signs: Vital Signs: Last Vital Signs Temp 98.8 F 04/13/20 12:00 Pulse 76 04/13/20 12:00 Resp 18 04/13/20 12:00 BP 148/77 H 04/13/20 12:00 Pulse Ox 96 04/13/20 12:00 Body Mass Index 29.5 Constitutional : Alert, difficult to assist given verbal difficulty Neck : Normal inspection, Supple Cardiovascular : RRR, S1 S2, no lower extremity edema Respiratory : Good bilateral air entry, right basal crackles, wheezes or rhonchi Gastrointestinal: soft, lax, Normal bowel sounds, Non tender Skin : Warm/Dry, No rash Neurological : Alert & speech is difficult but can be understood, No new focal deficit DS: Data Data Completed and Pending Labs on day of discharge: 04/08/20 23:45 0.9 % Sodium Chloride [Ns] 1,000 ml IVCONT 999 mls/hr 04/08/20 23:51 ECG 12 lead EKG Stat EKG Documentation DIRECTED IV insert/maintain .Now Basic Metabolic Panel Stat Complete Blood Count Auto Diff Stat 04/08/20 23:52 Straight Urinary Catheterization .Now Lactic Acid Stat Lipase Stat Liver Panel Stat Troponin-I High Sensitivity Stat 04/08/20 23:53 SARS-CoV2/FLU/RSV Stat 04/09/20 00:00 Urine Culture Routine 04/09/20 00:10 XR chest 1V Stat 04/09/20 01:11 Piperacillin Sodium/Tazobactam [Zosyn] 3.375 gm 0.9 % Sodium Chloride [Ns] 50 ml IV ONCE 04/09/20 01:21 Piperacillin Sodium/Tazobactam [Zosyn] 3.375 gm IV .STK-MED ONE 04/09/20 02:47 Ertapenem Sodium [INVanz] 1 gm 0.9 % Sodium Chloride [Ns] 50 ml IV ONCE 04/09/20 03:05 Ertapenem Sodium [INVanz] 1 gm .ROUTE .STK-MED ONE 04/09/20 03:30 Transfer Order Routine 04/09/20 03:32 Code Status Routine 04/09/20 05:10 Glucose, blood poc QIDACHS 04/09/20 05:16 Acetaminophen [Tylenol] 650 mg PO Q6H PRN Docusate Sodium [Colace] 100 mg PO DAILY PRN Enoxaparin Sodium [Lovenox] 40 mg SUBCUT Q24H ondansetron HCL [Zofran] 4 mg IVPUSH Q8H PRN 04/09/20 05:16 Cont. Telemetry w/Vital Sign limit Q4HR IV insert/maintain Q4HR Intake and Output Q8HR Out of bed with assist QSHIFT WHILE AWAKE Pulse Oximetry Q4HR Vital Signs Q4HR 04/09/20 06:00 Meropenem 500 mg 0.9 % Sodium Chloride [Ns] 50 ml IV Q8H Piperacillin Sodium/Tazobactam [Zosyn] 3.375 gm 0.9 % Sodium Chloride [Ns] 50 ml IV Q6H 04/09/20 06:10 Glucose, Whole Blood Routine 04/09/20 06:35 Straight Urinary Catheterization .Now 04/09/20 06:36 Speech Bedside Swallow Evaluation DIRECTED 04/09/20 06:47 Albuterol Sulfate [Ventolin] 2 puff INHALE Q4H PRN 04/09/20 07:04 Glucose, Whole Blood Routine 04/09/20 07:30 Insulin Lispro [Humalog] See Protocol SUBCUT QIDACHS 04/09/20 08:00 0.9 % Sodium Chloride Flush [NS Flush] 3 ml IVFLUSH QSHIFT 04/09/20 09:00 Atorvastatin Calcium [Lipitor] 40 mg PO DAILY Gabapentin [Neurontin] 300 mg PO DAILY Tamsulosin HCL [Flomax] 0.4 mg PO DAILY amLODIPine Besylate [Norvasc] 10 mg PO DAILY carvediloL [Coreg] 25 mg PO BID levETIRAcetam [Keppra] 500 mg PO BID lisinopriL [Zestril] 20 mg PO DAILY polyethylene glycoL 3350 [Miralax] 17 gm PO DAILY 04/09/20 09:39 Airloss Bed ONCE 04/09/20 10:58 Glucose, Whole Blood Routine 04/09/20 11:38 Piperacillin Sodium/Tazobactam [Zosyn] 3.375 gm IV .STK-MED ONE 04/09/20 16:21 Glucose, Whole Blood Routine 04/09/20 17:37 Piperacillin Sodium/Tazobactam [Zosyn] 3.375 gm IV .STK-MED ONE 04/09/20 21:00 Insulin Glargine,Hum.rec.anlog [Lantus] 32 unit SUBCUT BEDTIME 04/09/20 21:03 Glucose, Whole Blood Routine 04/09/20 23:59 Piperacillin Sodium/Tazobactam [Zosyn] 3.375 gm IV .STK-MED ONE 04/10/20 04:42 Basic Metabolic Panel Routine Complete Blood Count Auto Diff Routine 04/10/20 05:45 Piperacillin Sodium/Tazobactam [Zosyn] 3.375 gm IV .STK-MED ONE 04/10/20 07:26 Glucose, Whole Blood Routine 04/10/20 08:00 Speech Bedside Swallow Evaluation DIRECTED 04/10/20 11:01 Glucose, Whole Blood Routine 04/10/20 12:41 Piperacillin Sodium/Tazobactam [Zosyn] 3.375 gm IV .STK-MED ONE 04/10/20 16:02 Glucose, Whole Blood Routine 04/10/20 18:57 Glucose, Whole Blood Routine 04/10/20 19:10 Piperacillin Sodium/Tazobactam [Zosyn] 3.375 gm IV .STK-MED ONE 04/10/20 20:15 Glucose, Whole Blood Routine 04/10/20 23:53 Piperacillin Sodium/Tazobactam [Zosyn] 3.375 gm IV .STK-MED ONE 04/11/20 05:16 Piperacillin Sodium/Tazobactam [Zosyn] 3.375 gm IV .STK-MED ONE 04/11/20 07:36 Glucose, Whole Blood Routine 04/11/20 11:30 Glucose, Whole Blood Routine 04/11/20 12:44 Piperacillin Sodium/Tazobactam [Zosyn] 3.375 gm IV .STK-MED ONE 04/11/20 16:14 Glucose, Whole Blood Routine 04/11/20 19:05 Piperacillin Sodium/Tazobactam [Zosyn] 3.375 gm IV .STK-MED ONE 04/11/20 20:49 Glucose, Whole Blood Routine 04/12/20 00:14 Piperacillin Sodium/Tazobactam [Zosyn] 3.375 gm IV .STK-MED ONE 04/12/20 05:33 Basic Metabolic Panel DAILY@0600 Complete Blood Count no Diff DAILY@0600 04/12/20 06:02 Piperacillin Sodium/Tazobactam [Zosyn] 3.375 gm IV .STK-MED ONE 04/12/20 07:26 Glucose, Whole Blood Routine 04/12/20 11:23 Glucose, Whole Blood Routine 04/12/20 13:09 Piperacillin Sodium/Tazobactam [Zosyn] 3.375 gm IV .STK-MED ONE 04/12/20 16:24 Glucose, Whole Blood Routine 04/12/20 20:29 Glucose, Whole Blood Routine 04/12/20 20:35 Piperacillin Sodium/Tazobactam [Zosyn] 3.375 gm IV .STK-MED ONE 04/13/20 00:42 Piperacillin Sodium/Tazobactam [Zosyn] 3.375 gm IV .STK-MED ONE 04/13/20 05:03 Piperacillin Sodium/Tazobactam [Zosyn] 3.375 gm IV .STK-MED ONE 04/13/20 08:10 Glucose, Whole Blood Routine 04/13/20 11:23 Glucose, Whole Blood Routine 04/13/20 13:03 Piperacillin Sodium/Tazobactam [Zosyn] 3.375 gm IV .STK-MED ONE Laboratory Last Values WBC 17.0 X10*3/uL (4.8-10.8) H 04/12/20 05:33 RBC 4.17 X10*6/uL (4.60-5.80) L 04/12/20 05:33 Hgb 9.9 g/dl (14.0-18.0) L 04/12/20 05:33 Hct 32.5 % (42-52) L 04/12/20 05:33 MCV 77.9 fL (80-98) L 04/12/20 05:33 MCH 23.7 pg (27.0-33.0) L 04/12/20 05:33 MCHC 30.5 g/dl (31.0-36.0) L 04/12/20 05:33 RDW 20.5 % (11.0-16.0) H 04/12/20 05:33 Plt Count 435 X10*3/uL (160-400) H 04/12/20 05:33 MPV 11.6 fL (9.4-12.4) 04/12/20 05:33 Immature Gran % (Auto) 0.5 % (0.0-0.4) H 04/10/20 04:42 Neut % (Auto) 79.9 % (45-73) H 04/10/20 04:42 Lymph % (Auto) 11.9 % (20-40) L 04/10/20 04:42 [place] % (Auto) 4.8 % (2-11) 04/10/20 04:42 Eos % (Auto) 2.4 % (0-4) 04/10/20 04:42 Baso % (Auto) 0.5 % (0-2) 04/10/20 04:42 Lymph # (Auto) 1.8 X10*3/uL (1.2-4.9) 04/10/20 04:42 [place] # (Auto) 0.7 X10*3/uL (0.1-1.2) 04/10/20 04:42 Eos # (Auto) 0.4 X10*3/uL (0.0-0.4) 04/10/20 04:42 Baso # (Auto) 0.1 X10*3/uL (0.0-0.2) 04/10/20 04:42 Abs Immat Gran (auto) 0.08 X10*3/uL (0.00-0.03) H 04/10/20 04:42 Absolute Neuts (auto) 12.3 X10*3/uL (2.0-8.3) H 04/10/20 04:42 Absolute Nucleated RBC 0.000 X10*3/uL (0.0-0.012) 04/12/20 05:33 Nucleated RBC % (auto) 0.0 /100WBC (0.0-0.2) 04/12/20 05:33 Sodium 142 mmol/L (135-145) 04/12/20 05:33 Potassium 4.0 mmol/l (3.3-5.1) 04/12/20 05:33 Chloride 110 mmol/L (96-108) H 04/12/20 05:33 Carbon Dioxide 20 mmol/L (22-29) L 04/12/20 05:33 Anion Gap 16 (-20) 04/12/20 05:33 BUN 23 mg/dL (9-16) H 04/12/20 05:33 Creatinine 0.73 mg/dL (0.5-1.4) 04/12/20 05:33 Estim Creat Clear Calc 112.4 04/12/20 05:33 Estimated GFR > 60 04/12/20 05:33 POC Glucose 197 mg/dL (60-115) H 04/13/20 11:23 Random Glucose 139 mg/dL (60-115) H 04/12/20 05:33 Lactic Acid 0.9 mmol/L (0.5-2.0) 04/09/20 00:24 Calcium 8.3 mg/dL (8.4-10.2) L 04/12/20 05:33 Total Bilirubin 0.3 mg/dL (0.0-1.0) 04/09/20 00:24 Direct Bilirubin 0.2 mg/dL (0.0-0.5) 04/09/20 00:24 AST 78 U/L (5-37) H 04/09/20 00:24 ALT 56 U/L (0-40) H 04/09/20 00:24 Alkaline Phosphatase 129 U/L (39-117) H 04/09/20 00:24 Troponin I High Sens < 3.5 ng/L (<3.5-35.0) 04/09/20 00:24 Total Protein 7.0 g/dL (6.5-8.0) 04/09/20 00:24 Albumin 2.9 g/dL (3.5-5.0) L 04/09/20 00:24 Lipase 10 U/L (8-78) 04/09/20 00:24 Urine Color YELLOW 04/09/20 00:49 Urine Appearance CLEAR 04/09/20 00:49 Urine pH 5.0 (5.0-8.0) 04/09/20 00:49 Ur Specific [place] 1.020 (1.005-1.025) 04/09/20 00:49 Urine Protein TRACE MG/DL (NEG-TRACE) 04/09/20 00:49 Urine Glucose (UA) NEG MG/DL (NEG) 04/09/20 00:49 Urine Ketones NEG MG/DL (NEG) 04/09/20 00:49 Urine Blood TRACE (NEG) 04/09/20 00:49 Urine Nitrite NEG (NEG) 04/09/20 00:49 Ur Leukocyte Esterase 2+ (NEG) H 04/09/20 00:49 Urine RBC 0-2 /HPF (0) 04/09/20 00:49 Urine WBC TNTC /HPF (0-4) H 04/09/20 00:49 Urine WBC Clumps NOTED 04/09/20 00:49 Ur Squamous Epith Cells TRACE /LPF 04/09/20 00:49 Urine Bacteria TRACE /LPF 04/09/20 00:49 Urine Yeast 1+ /HPF 04/09/20 00:49 Coronavirus (PCR) NEGATIVE (Negative) 04/09/20 00:46 Influenza Type A (PCR) NEGATIVE (Negative) 04/09/20 00:46 Influenza Type B (PCR) NEGATIVE (Negative) 04/09/20 00:46 RSV RNA Qual (PCR) NEGATIVE (Negative) 04/09/20 00:46 Preliminary micro results at discharge 04/09/20 00:24 Blood Culture - Preliminary Blood - Venous No growth after 48 hours. 04/09/20 00:24 Blood Culture - Preliminary Blood - Venous No growth after 48 hours. Discharge Plan Discharge Patient Disposition: Home Health Service Referrals: Physician,Unknown [Primary Care Provider] - Discharge Medications: New doxycycline monohydrate 100 mg capsule 100 mg PO BID Qty: 10 RF: 0 cefuroxime axetil 500 mg tablet 500 mg PO BID Qty: 10 RF: 0 Continued levetiracetam [Keppra] 500 mg tablet 500 mg PO BID Qty: 60 RF: 0 atorvastatin 40 mg Tablet 40 mg PO DAILY RF: 0 gabapentin 300 mg Tablet 300 mg PO DAILY RF: 0 tizanidine [Zanaflex] 2 mg Capsule 2 mg PO BID RF: 0 insulin detemir U-100 100 unit/mL Solution 46 unit SUBCUT DAILY RF: 0 Januvia 100 mg PO DAILY RF: 0 albuterol 2 inh inhalation Q4-6H PRN (Reason: ASTHMA) RF: 0 amlodipine benzoate 10 mg PO DAILY RF: 0 insulin aspart U-100 See Protocol unit subcut TID RF: 0 sertraline 200 mg PO BID RF: 0 polyethylene glycol 3350 [Miralax] 17 gram Powder In Packet 17 g PO DAILY RF: 0 tamsulosin [Flomax] 0.4 mg Capsule 0.4 mg PO DAILY RF: 0 Zestril 20 mg PO DAILY RF: 0 carvedilol 25 mg PO BID RF: 0 Discharge Orders: Discharge Order (Routine); Ordered 04/13/20 Ordered By: Kostas De La Rosa Diet: advance to usual diet Activity on Discharge: As tolerated Discharge Date/Time: 04/13/20 15:36 Visit Report Forms: Patient Portal Discharge page Care Plan Goals: Read below Health Concerns: Read below Plan of Treatment: You were admitted to the hospital for difficulty breathing and drop in your oxygen level. Treated for aspiration pneumonia with IV antibiotics with fair response. Evaluated by infectious disease specialist and swallowing team who recommended pureed solid with nectar thick liquids and pills crushed Continue doxycycline and Ceftin for 5 more days continue home medications as prescribed To follow-up with PCP as scheduled
== END 2020-04-13 15:36 | disposition home health service (06) | DRG 871 ==
LOC: HO.ED 04-09 03:41 → HO.IMC 04-09 04:37
PROVIDERS: Family Medicine; Admitting Provider Internal Medicine; Emergency Provider Internal Medicine; Visit Provider Student in an Organized Health Care Education/Training Program
DX: A41.9 Sepsis, unspecified organism (principal); G92 Toxic encephalopathy; J69.0 Pneumonitis due to inhalation of food and vomit; N39.0 Urinary tract infection, site not specified; G82.20 Paraplegia, unspecified; E11.9 Type 2 diabetes mellitus without complications; I10 Essential (primary) hypertension; F32.9 Major depressive disorder, single episode, unspecified; Z20.828 Contact with and (suspected) exposure to other viral communicable diseases; Z79.4 Long term (current) use of insulin; Z79.899 Other long term (current) drug therapy
CPT/HCPCS: 0241U; 36415; 71045; 80048; 80076; 81001; 82947; 83605; 83690; 84484; 85025; 85027; 87040; 87086; 87088; 92526; 92610; 93005; 96361; 96365; 96367; 99285; J1335; J1650; J2543

== ENCOUNTER 2020-05-25 22:11 | Inpatient (IN) | payer OTHER, SELFPAY ==
--- NOTE | ~2020-05-25 | MR_ITS ---
EXAMINATION: MR BRAIN WITHOUT CONTRAST MRA HEAD WITHOUT CONTRAST CLINICAL INFORMATION: Vasculitis. COMPARISON: Head CT 01/25/2020. Brain MRI 12/31/2019. TECHNIQUE: Multiplanar multisequence MRI of the brain was performed without contrast. Head MRA was performed without contrast. Examination is significantly degraded by motion artifact. FINDINGS: Brain MRI: A small focus of acute infarction is seen within the right centrum semiovale on diffusion series 4 image 22/32. An additional small focus of infarction is seen involving the left ala of the corpus callosum splenium as seen on series 4 image 19/32. The previously seen subacute hematoma within the right basal ganglia has resolved. Extensive superficial siderosis is demonstrated throughout the posterior fossa and to lesser extent within the supratentorial compartment. Scattered areas of chronic parenchymal hemorrhage/hemosiderin are also demonstrated. Areas of chronic lacunar infarction are again seen within the basal ganglia, thalami, margret, and bilateral cerebellar hemispheres. Extensive patchy and confluent T2/FLAIR hyperintensity throughout the supratentorial and infratentorial white matter is similar to prior. The major arterial flow voids appear grossly preserved at the skull base. Head MRA: The exam is nearly nondiagnostic. Flow related enhancement is seen within the basilar artery, ICAs, M1 MCAs, P1 and proximal P2 teachers assistant. The ACAs are not well evaluated. MR/MR angio head wo con IMPRESSION: Brain MRI: Small focus of acute infarction the right centrum semiovale and within the left ala of the corpus callosum splenium. Redemonstration of chronic findings including extensive superficial siderosis extensive areas of chronic lacunar infarction. The degree of white matter signal abnormality within the supratentorial and infratentorial white matter appears similar to prior. Head MRA: Significantly limited an essentially nondiagnostic.
--- NOTE | ~2020-05-25 | XR_ITS ---
EXAMINATION: XR SHOULDER, LEFT CLINICAL INFORMATION: Left shoulder pain. COMPARISON: None TECHNIQUE: Two views of the left shoulder. FINDINGS: The humeral head is positioned mildly superiorly relative to the bony glenoid. Mild left glenohumeral and acromio clavicular degenerative joint changes are seen. There is no acute fracture or dislocation. The soft tissues are unremarkable. XR/XR shoulder LT min 2V IMPRESSION: Evidence for chronic rotator cuff tear with mild degenerative changes. No acute abnormality.
--- NOTE | ~2020-05-25 | CT_ITS ---
CT ANGIOGRAM BRAIN, HEAD CLINICAL INFORMATION: Rule out vasculitis. COMPARISON: MRI brain 05/29/2020. TECHNIQUE: Test bolus sequences followed by intravenous administration 75 mL of Omnipaque 350 intravenous contrast. Helical imaging was performed in the axial plane from the skull base to the vertex. Delayed postcontrast imaging of the head was also performed. The data was processed at the biochemistry technologist workstation for generation of MIP sequences. Three-dimensional volume rendered reformatted images were also generated at an offline 3-D workstation. This CT examination was performed using dose optimization techniques as appropriate, variously including the following: *Automated exposure control *Adjustment of mA and/or kV according to patient size (this includes techniques or standardized protocols for targeted exams where dose is matched to indication/reason for exam; i.e. extremities or head) *Use of iterative reconstruction technique FINDINGS: A few of the left MCA sylvian branches appear moderately stenotic. Intracranial arterial circulation is otherwise widely patent. No acute arterial occlusions intracranially. No aneurysms and no high flow vascular malformations are appreciated. Small acute infarcts within the right centrum semiovale and within the left corpus callosum are better demonstrated on the previous MRI. Extensive hypoattenuation throughout the supratentorial white matter and cerebellar white matter again noted with multiple superimposed chronic infarcts within the cerebellar hemispheres and the deep hoff nuclei bilaterally. There is no intracranial hemorrhage, hydrocephalus, extra-axial surface collection, midline shift, or other herniation pattern. Hoff to white matter differentiation is diffusely maintained without evidence of an evolved acute territorial infarct. The basilar cisterns are preserved. No significant soft tissue abnormality. No acute osseous abnormality. The paranasal sinuses and the mastoid air cells are well aerated. CT/CT angio head IMPRESSION: Small acute infarcts within the right centrum semiovale and within the left corpus callosum are better demonstrated on the previous MRI. Extensive hypoattenuation throughout the supratentorial white matter and cerebellar white matter again noted with multiple superimposed chronic infarcts within the cerebellar hemispheres and the deep hoff nuclei bilaterally. A few of the left MCA sylvian branches appear moderately stenotic. Intracranial arterial circulation is otherwise widely patent.
--- NOTE | ~2020-05-25 | FL_ITS ---
EXAMINATION: FLUOROSCOPY-GUIDED LUMBAR PUNCTURE CLINICAL INFORMATION: AMS. Dysarthria COMPARISON: None TECHNIQUE: Following explaining procedure, benefits and risk by phone to patient's sister, a telephone consent was obtained in presence of Ara the x-ray tech. Patient was placed in left thickness U on fluoroscopy table and low back area was cleaned and draped in usual sterile manner. 1% lidocaine was injected at the puncture site. A 22-gauge spinal needle was then inserted at the L3-L4 disc level on the lateral fluoroscopy. The stylet was removed and CSF was collected in 3 test tubes. The stylet was reintroduced and needle withdrawn and complete hemostasis achieved at puncture site. Patient tolerated procedure extremely well. Simple band aid applied post procedure. FINDINGS: On lateral fluoroscopy image there is a mild straightening of lumbar lordosis. The vertebral heights, alignment and disc heights are normal. At approximately 6.5 mL of clear CSF fluid was collected in 3 test tubes and sent to lab for further analysis. FLUOROSCOPY TIME: 2.2 minutes DOSE AREA PRODUCT: 42.364 uGy-m2 (microgray-meter squared) FL/FL guided lumbar puncture LP IMPRESSION: Successful fluoroscopy-guided L3-L4 lumbar puncture performed without immediate complications.
--- NOTE | ~2020-05-25 | MR_ITS ---
EXAMINATION: MR BRAIN WITHOUT CONTRAST MRA HEAD WITHOUT CONTRAST CLINICAL INFORMATION: Vasculitis. COMPARISON: Head CT 01/25/2020. Brain MRI 12/31/2019. TECHNIQUE: Multiplanar multisequence MRI of the brain was performed without contrast. Head MRA was performed without contrast. Examination is significantly degraded by motion artifact. FINDINGS: Brain MRI: A small focus of acute infarction is seen within the right centrum semiovale on diffusion series 4 image 22/32. An additional small focus of infarction is seen involving the left ala of the corpus callosum splenium as seen on series 4 image 19/32. The previously seen subacute hematoma within the right basal ganglia has resolved. Extensive superficial siderosis is demonstrated throughout the posterior fossa and to lesser extent within the supratentorial compartment. Scattered areas of chronic parenchymal hemorrhage/hemosiderin are also demonstrated. Areas of chronic lacunar infarction are again seen within the basal ganglia, thalami, margret, and bilateral cerebellar hemispheres. Extensive patchy and confluent T2/FLAIR hyperintensity throughout the supratentorial and infratentorial white matter is similar to prior. The major arterial flow voids appear grossly preserved at the skull base. Head MRA: The exam is nearly nondiagnostic. Flow related enhancement is seen within the basilar artery, ICAs, M1 MCAs, P1 and proximal P2 inorganic chemist. The ACAs are not well evaluated. MR/MR head/brain wo con IMPRESSION: Brain MRI: Small focus of acute infarction the right centrum semiovale and within the left ala of the corpus callosum splenium. Redemonstration of chronic findings including extensive superficial siderosis extensive areas of chronic lacunar infarction. The degree of white matter signal abnormality within the supratentorial and infratentorial white matter appears similar to prior. Head MRA: Significantly limited an essentially nondiagnostic.
--- NOTE | ~2020-05-25 | XR_ITS ---
EXAMINATION: CHEST 1 VIEW CLINICAL INFORMATION: Altered mental status. Fever. COMPARISON: 04/09/2020. TECHNIQUE: An AP view of the chest is provided. FINDINGS: The cardiac silhouette is not enlarged. The mediastinal and hilar contours are unremarkable. There are neither pleural effusions nor pneumothoraces. There is mild atelectasis or scarring within the right midlung. There are no consolidations. The osseous structures are unremarkable. XR/XR chest 1V IMPRESSION: No consolidations. Mild atelectasis or scarring within the right midlung.
--- NOTE | ~2020-05-25 | XR_ITS ---
EXAMINATION: XR SHOULDER, RIGHT CLINICAL INFORMATION: Right shoulder pain. COMPARISON: None TECHNIQUE: Two views of the right shoulder. FINDINGS: The humeral head is positioned mildly superior relative to the bony glenoid. Mild right glenohumeral and acromioclavicular degenerative joint changes are seen. There is no acute fracture or dislocation. The soft tissues are unremarkable. XR/XR shoulder RT min 2V IMPRESSION: Evidence for chronic rotator cuff tear with mild degenerative joint changes. No acute abnormality.
[2020-05-25 22:14] VITALS: BP 179/75; PULSE 87; RESP 24; TEMP 38.9; O2SAT 95; BMI 28.6
[2020-05-25 22:24] LABS: Glucose, Whole Blood 110 mg/dL (60-115)
--- NOTE | 2020-05-25 22:32 | ECG_ITS ---
Test Reason : SEPSIS Blood Pressure : / mmHG Vent. Rate : 091 BPM Atrial Rate : 091 BPM P-R Int : 110 ms QRS Dur : 104 ms QT Int : 404 ms P-R-T Axes : 066 -60 072 degrees QTc Int : 496 ms Baseline artifact Sinus rhythm with short LA Low voltage QRS Left axis deviation Nonspecific ST abnormality Prolonged QT Abnormal ECG No significant changes when compared with the previous EKG of 09 apr 2020 Referred By: Generic ED Physician Electronically Signed By:GRISELDA GARZON
--- NOTE | 2020-05-25 22:48 | ED_ITS ---
HPI - Altered Mental Status General Chief Complaint: Altered Mental Status Stated Complaint: ams fever Time Seen by Provider: 05/25/20 22:33 Source: patient and EMS Mode of arrival: EMS Limitations: altered mental status History of Present Illness HPI narrative: 59-year-old male with past medical history of paraplegia secondary to spinal cord injury, seizure disorder, stroke, hepatitis-C, hypertension, diabetes, urinary incontinence, orchidectomy and history of ESBL presents with altered mental status. Family called EMS because they believed that he was having a hypotensive event. Patient was treated by his primary care physician for community-acquired pneumonia and finished antibiotics on Friday. Blood sugar on arrival was 111, patient did have a large BM as well. Related Data Home Medications Medication Instructions Recorded Confirmed Januvia 100 mg PO DAILY 04/09/20 05/25/20 Zestril 20 mg PO DAILY 04/09/20 05/25/20 albuterol 2 inh INHALATION Q4-6H PRN 04/09/20 05/25/20 amlodipine benzoate 10 mg PO DAILY 04/09/20 05/25/20 atorvastatin 40 mg PO DAILY 04/09/20 05/25/20 carvedilol 25 mg PO BID 04/09/20 05/25/20 gabapentin 300 mg PO DAILY 04/09/20 05/25/20 insulin aspart U-100 See Protocol SUBCUT TID 04/09/20 05/25/20 insulin detemir U-100 46 unit SUBCUT DAILY 04/09/20 05/25/20 polyethylene glycol 3350 [Miralax] 17 g PO DAILY 04/09/20 05/25/20 sertraline 200 mg PO BID 04/09/20 05/25/20 tamsulosin [Flomax] 0.4 mg PO DAILY 04/09/20 05/25/20 tizanidine [Zanaflex] 2 mg PO BID 04/09/20 05/25/20 quetiapine 25 mg PO BEDTIME 05/25/20 05/25/20 Previous Rx's Medication Instructions Recorded levetiracetam [Keppra] 500 mg PO BID #60 tab 01/25/20 cefuroxime axetil 500 mg PO BID #10 tab 04/13/20 doxycycline monohydrate 100 mg PO BID #10 cap 04/13/20 Allergies Allergy/AdvReac Type Severity Reaction Status Date / Time No Known Allergies Allergy Verified 01/25/20 19:38 [No Known Allergies*] Review of Systems Review of Systems: Yes Unobtainable due to mental status PMFSH Past Medical History Attestation statement: The following information was validated with the patient. Source: old records reviewed Medical History Depression Diabetes Hepatitis C Paraplegia Seizure Stroke TIA (transient ischemic attack) Social History Social History Alcohol intake: former Smoking Status: Unknown if ever smoked Use of substances other than those prescribed or required for medical reasons: No Any prior treatment program specific to substance use: No Advance Directives: No Advance Directives Information Provided: No Physical Exam Vital Signs: Vital Signs: Last Vital Signs Temp 99.0 F 05/26/20 02:41 Pulse 69 05/26/20 02:41 Resp 20 05/26/20 02:41 BP 101/60 05/26/20 02:41 Pulse Ox 96 05/26/20 02:41 Body Mass Index 28.6 Const: General: ill appearing, lethargic and tired appearing Nutritional Appearance: obese Orientation/consciousness: oriented to person and lethargic Limitations: wheelchair and other limitations (Paraplegic) HENMT: Head: Yes normal to inspection Eyes: General: appearance normal, both eyes and all related structures Neck: Neck: Yes normal visual inspection Chest: Chest palpation & inspection: normal inspection of the chest Resp: Effort & Inspection: audible wheezes Auscultation: crackles and diminished lung sounds Cardio: Rate: regular rate Rhythm: regular rhythm Heart sounds: S1 normal heart sound present and S2 normal heart sound present Peripheral pulses: Peripheral pulses 2+ throughout GI: Inspection: Yes normal to inspection and Yes obesity Palpation (GI): Soft to palpation Auscultation: normal bowel sounds Rectal Exam - Male: Yes deferred Skin: General skin exam: no rashes or lesions noted Neuro: General: oriented to person Extrem: Other: Paraplegic, atrophied Course Course Course Narrative: 59-year-old male recently treated for pneumonia by primary care physician presents with altered mental status. Plan of care is to rule out sepsis, we will initiate fluid resuscitation. Patient is COVID positive, fluid resuscitation stopped after 1200 mL because this is a viral illness, discussion with family regarding plan of care, plan is for case management, social worker delinquency prevention and PT eval. Urinalysis is positive for UTI, he does have a history of ESBL, started ertapenem. Discussion with hospitalist regarding plan of care, plan is for admission. Sign-out to Dr. Coley. Consultations Consultation #1: kwabena Time: 02:20 MDM - Altered Mental Status MDM Narrative Medical decision making narrative: UTI, sepsis, viral infection, pneumonia Medical Records Attestation: I reviewed the patient's medical records. Lab Data Attestation: I reviewed the patient's lab results. Result diagrams: 05/25/20 22:45 05/25/20 22:44 Labs: Lab Results 05/25/20 05/25/20 05/25/20 Range/Units 22:21 22:44 22:44 WBC (4.8-10.8) X10*3/uL RBC (4.60-5.80) X10*6/uL Hgb (14.0-18.0) g/dl Hct (42-52) % MCV (80-98) fL MCH (27.0-33.0) pg MCHC (31.0-36.0) g/dl RDW (11.0-16.0) % Plt Count (160-400) X10*3/uL MPV (9.4-12.4) fL Immature Gran % (Auto) (0.0-0.4) % Neut % (Auto) (45-73) % Lymph % (Auto) (20-40) % [place] % (Auto) (2-11) % Eos % (Auto) (0-4) % Baso % (Auto) (0-2) % Lymph # (Auto) (1.2-4.9) X10*3/uL [place] # (Auto) (0.1-1.2) X10*3/uL Eos # (Auto) (0.0-0.4) X10*3/uL Baso # (Auto) (0.0-0.2) X10*3/uL Abs Immat Gran (auto) (0.00-0.03) X10*3/uL Absolute Neuts (auto) (2.0-8.3) X10*3/uL Absolute Nucleated RBC (0.0-0.012) X10*3/uL Nucleated RBC % (auto) (0.0-0.2) /100WBC PT 14.4 H (10.8-13.0) SEC INR 1.2 H (0.9-1.1) APTT 27.2 (24.1-38.0) SEC Sodium 145 (135-145) mmol/L Potassium 4.0 (3.3-5.1) mmol/L Chloride 111 H (96-108) mmol/L Carbon Dioxide 24 (22-29) mmol/L Anion Gap 14 (12-20) BUN 17 H (9-16) mg/dL Creatinine 0.72 (0.5-1.4) mg/dL Estim Creat Clear Calc 108.8 Estimated GFR > 60 POC Glucose 110 (60-115) mg/dL Random Glucose 108 (60-115) mg/dL Lactic Acid (0.5-2.0) mmol/L Calcium 7.9 L (8.4-10.2) mg/dL Urine Color Urine Appearance Urine pH (5.0-8.0) Ur Specific [place] (1.005-1.025) Urine Protein (NEG-TRACE) MG/DL Urine Glucose (UA) (NEG) MG/DL Urine Ketones (NEG) MG/DL Urine Blood (NEG) Urine Nitrite (NEG) Ur Leukocyte Esterase (NEG) Urine RBC (0) /HPF Urine WBC (0-4) /HPF Ur Squamous Epith Cells /LPF Ur Renal Epithelial Cell /LPF Urine Bacteria /LPF Urine Mucus /LPF Coronavirus (PCR) (Negative) Influenza Type A (PCR) (Negative) Influenza Type B (PCR) (Negative) RSV RNA Qual (PCR) (Negative) 05/25/20 05/25/20 05/25/20 Range/Units 22:45 22:45 22:57 WBC 11.4 H (4.8-10.8) X10*3/uL RBC 4.09 L (4.60-5.80) X10*6/uL Hgb 9.6 L (14.0-18.0) g/dl Hct 31.8 L (42-52) % MCV 77.8 L (80-98) fL MCH 23.5 L (27.0-33.0) pg MCHC 30.2 L (31.0-36.0) g/dl RDW 18.9 H (11.0-16.0) % Plt Count 376 (160-400) X10*3/uL MPV 11.6 (9.4-12.4) fL Immature Gran % (Auto) 0.3 (0.0-0.4) % Neut % (Auto) 77.3 H (45-73) % Lymph % (Auto) 11.6 L (20-40) % [place] % (Auto) 7.1 (2-11) % Eos % (Auto) 3.1 (0-4) % Baso % (Auto) 0.6 (0-2) % Lymph # (Auto) 1.3 (1.2-4.9) X10*3/uL [place] # (Auto) 0.8 (0.1-1.2) X10*3/uL Eos # (Auto) 0.4 (0.0-0.4) X10*3/uL Baso # (Auto) 0.1 (0.0-0.2) X10*3/uL Abs Immat Gran (auto) 0.04 H (0.00-0.03) X10*3/uL Absolute Neuts (auto) 8.8 H (2.0-8.3) X10*3/uL Absolute Nucleated RBC 0.000 (0.0-0.012) X10*3/uL Nucleated RBC % (auto) 0.0 (0.0-0.2) /100WBC PT (10.8-13.0) SEC INR (0.9-1.1) APTT (24.1-38.0) SEC Sodium (135-145) mmol/L Potassium (3.3-5.1) mmol/L Chloride (96-108) mmol/L Carbon Dioxide (22-29) mmol/L Anion Gap (12-20) BUN (9-16) mg/dL Creatinine (0.5-1.4) mg/dL Estim Creat Clear Calc Estimated GFR POC Glucose (60-115) mg/dL Random Glucose (60-115) mg/dL Lactic Acid 1.4 (0.5-2.0) mmol/L Calcium (8.4-10.2) mg/dL Urine Color Urine Appearance Urine pH (5.0-8.0) Ur Specific [place] (1.005-1.025) Urine Protein (NEG-TRACE) MG/DL Urine Glucose (UA) (NEG) MG/DL Urine Ketones (NEG) MG/DL Urine Blood (NEG) Urine Nitrite (NEG) Ur Leukocyte Esterase (NEG) Urine RBC (0) /HPF Urine WBC (0-4) /HPF Ur Squamous Epith Cells /LPF Ur Renal Epithelial Cell /LPF Urine Bacteria /LPF Urine Mucus /LPF Coronavirus (PCR) POSITIVE A (Negative) Influenza Type A (PCR) NEGATIVE (Negative) Influenza Type B (PCR) NEGATIVE (Negative) RSV RNA Qual (PCR) NEGATIVE (Negative) 05/25/20 Range/Units 22:57 WBC (4.8-10.8) X10*3/uL RBC (4.60-5.80) X10*6/uL Hgb (14.0-18.0) g/dl Hct (42-52) % MCV (80-98) fL MCH (27.0-33.0) pg MCHC (31.0-36.0) g/dl RDW (11.0-16.0) % Plt Count (160-400) X10*3/uL MPV (9.4-12.4) fL Immature Gran % (Auto) (0.0-0.4) % Neut % (Auto) (45-73) % Lymph % (Auto) (20-40) % [place] % (Auto) (2-11) % Eos % (Auto) (0-4) % Baso % (Auto) (0-2) % Lymph # (Auto) (1.2-4.9) X10*3/uL [place] # (Auto) (0.1-1.2) X10*3/uL Eos # (Auto) (0.0-0.4) X10*3/uL Baso # (Auto) (0.0-0.2) X10*3/uL Abs Immat Gran (auto) (0.00-0.03) X10*3/uL Absolute Neuts (auto) (2.0-8.3) X10*3/uL Absolute Nucleated RBC (0.0-0.012) X10*3/uL Nucleated RBC % (auto) (0.0-0.2) /100WBC PT (10.8-13.0) SEC INR (0.9-1.1) APTT (24.1-38.0) SEC Sodium (135-145) mmol/L Potassium (3.3-5.1) mmol/L Chloride (96-108) mmol/L Carbon Dioxide (22-29) mmol/L Anion Gap (12-20) BUN (9-16) mg/dL Creatinine (0.5-1.4) mg/dL Estim Creat Clear Calc Estimated GFR POC Glucose (60-115) mg/dL Random Glucose (60-115) mg/dL Lactic Acid (0.5-2.0) mmol/L Calcium (8.4-10.2) mg/dL Urine Color YELLOW Urine Appearance CLEAR Urine pH 7.0 (5.0-8.0) Ur Specific [place] 1.020 (1.005-1.025) Urine Protein 2+ H (NEG-TRACE) MG/DL Urine Glucose (UA) NEG (NEG) MG/DL Urine Ketones NEG (NEG) MG/DL Urine Blood 1+ H (NEG) Urine Nitrite NEG (NEG) Ur Leukocyte Esterase 1+ H (NEG) Urine RBC 5-9 H (0) /HPF Urine WBC 15-29 H (0-4) /HPF Ur Squamous Epith Cells 1+ /LPF Ur Renal Epithelial Cell 1+ /LPF Urine Bacteria 2+ /LPF Urine Mucus 1+ /LPF Coronavirus (PCR) (Negative) Influenza Type A (PCR) (Negative) Influenza Type B (PCR) (Negative) RSV RNA Qual (PCR) (Negative) Imaging Data Chest x-ray: Attestation: I personally reviewed and interpreted this imaging study as follows: Radiologist's impression: [address] [id number] ReportSigned Patient: Gustavo GomezMR#: [id number]: [id number]:[id number]/Sex: 59 / MADM Date: 05/25/20Loc: E[address]tt[address] Dr: Ordering Physician: Generic ED Physician Date of Service: 05/25/20 Procedure(s): XR chest 1V Accession Number(s): [id number] cc: Generic ED Physician~ EXAMINATION: CHEST 1 VIEW CLINICAL INFORMATION: Altered mental status. Fever. COMPARISON: 04/09/2020. TECHNIQUE: An AP view of the chest is provided. FINDINGS: The cardiac silhouette is not enlarged. The mediastinal and hilar contours are unremarkable. There are neither pleural effusions nor pneumothoraces. There is mild atelectasis or scarring within the right midlung. There are no consolidations. The osseous structures are unremarkable. XR/XR chest 1V IMPRESSION: No consolidations. Mild atelectasis or scarring within the right midlung. Critical Care Time Critical Care Time Critical Care Time: Yes Total Critical Care Time: 65 Attestation: I have personally provided critical care time exclusive of time spent on separately billable procedures. Time includes review of laboratory data, radiology results, discussion with consultants, and monitoring for potential decompensation. Interventions were performed as documented. Discharge Plan Discharge Clinical Impression: COVID-19, Acute UTI Altered mental status Qualifiers: Altered mental status type: unspecified Qualified Code(s): R41.82 - Altered mental status, unspecified Patient Disposition: Admitted As Inpatient
--- NOTE | 2020-05-25 22:49 | PC.NURSE ---
pt contact phone number mary [phone]
[2020-05-25 22:53] LABS: Basophils Absolute Auto 0.1 X10*3/uL (0.0-0.2); Basophils Percent Auto 0.6 % (0-2); Eosinophils Absolute Auto 0.4 X10*3/uL (0.0-0.4); Eosinophils Percent Auto 3.1 % (0-4); Hematocrit 31.8 % (42-52); Hemoglobin 9.6 g/dl (14.0-18.0); Imm Gran Abs Auto 0.04 X10*3/uL (0.00-0.03); Imm Gran Pct Auto 0.3 % (0.0-0.4); Lymphocytes Absolute Auto 1.3 X10*3/uL (1.2-4.9); Lymphocytes Percent Auto 11.6 % (20-40); MANUAL DIFF FLAG NO; Mean Corpuscular HGB Conc 30.2 g/dl (31.0-36.0); Mean Corpuscular Hemoglobin 23.5 pg (27.0-33.0); Mean Corpuscular Volume 77.8 fL (80-98); Mean Platelet Volume 11.6 fL (9.4-12.4); Monocytes Absolute Auto 0.8 X10*3/uL (0.1-1.2); Monocytes Percent Auto 7.1 % (2-11); Neutrophils Absolute Auto 8.8 X10*3/uL (2.0-8.3); Neutrophils Percent Auto 77.3 % (45-73); Platelet Count 376 X10*3/uL (160-400); Red Blood Count 4.09 X10*6/uL (4.60-5.80); Red Cell Distribution Width 18.9 % (11.0-16.0); White Blood Count 11.4 X10*3/uL (4.8-10.8)
[2020-05-25 22:59] LABS: INTERNATIONAL NORM RATIO 1.2 (0.9-1.1); Prothrombin Time 14.4 SEC (10.8-13.0)
[2020-05-25] MEDS: 0.9 % Sodium Chloride 1,000 ML 999 ML IV (23:01)
[2020-05-25 23:02] LABS: Partial Thromboplastin Time 27.2 SEC (24.1-38.0)
[2020-05-25] MEDS: Ketorolac Tromethamine 30 MG/ML VIAL IVPUSH (23:02)
[2020-05-25 23:13] LABS: Lactic Acid 1.4 mmol/L (0.5-2.0)
--- NOTE | 2020-05-25 23:15 | PC.NURSE ---
update given to sister mary at [phone], per md order temp sensing gomez placed. airway patent. vss. concerns for sepsis due to fever, tachypenic, skin breakdown (small skin tear approx 2cm by 4 cm) noted along with reddend coccyx. contusions noted on bilateral thighs.
[2020-05-25 23:16] LABS: Anion Gap 14 (12-20); Blood Urea Nitrogen 17 mg/dL (9-16); Calcium 7.9 mg/dL (8.4-10.2); Carbon Dioxide 24 mmol/L (22-29); Chloride 111 mmol/L (96-108); Creatinine Clr Calc Pharmacy 108.8; Estimated Glomerular Filt Rate > 60; Glucose Random 108 mg/dL (60-115); Sodium 145 mmol/L (135-145)
--- NOTE | 2020-05-25 23:51 | PC.NURSE ---
MLP NOTIFIED THIS SECURITY OPERATIONS SPECIALIST THAT SEPSIS BOLUS NEEDED TO BE GIVEN RATHER THAN 1000ML NS BOLUS. RATE OF 30ML/KG. DOSE TO BE 2400ML. ADDITIONAL FLUID HUNG AT THIS TIME.
[2020-05-25 23:53] VITALS: BP 143/60; PULSE 82; RESP 24; TEMP 38.3; O2SAT 97
[2020-05-25 23:57] LABS: Influenza A PCR NEGATIVE (Negative); Influenza B PCR NEGATIVE (Negative); Resp Syncy Virus RNA Qual PCR NEGATIVE (Negative)
[2020-05-26] VITALS (15 sets, daily range): BP systolic 100–191; BP diastolic 54–85; PULSE 67–74; RESP 14–22; TEMP 37–37.4; O2SAT 95–98
[2020-05-26 00:02] LABS: SARS COV2 PCR INHOUSE POSITIVE (Negative)
--- NOTE | 2020-05-26 00:02 | PC.NURSE ---
Late entry: 2300: temperature sensing gomez. placed by this senior grant writer and ert due to concerns for severe sepsis
--- NOTE | 2020-05-26 00:04 | PC.NURSE ---
pt is covid postive. rest of 1400ml ns bolus for sepsis is d/c per mlp verbal order.
--- NOTE | 2020-05-26 00:09 | PC.NURSE ---
family updated with postive covid status. family advised to follow cdc guidelines, quarantine, and seek outpatient patient covid testing.
--- NOTE | 2020-05-26 01:21 | PC.NURSE ---
family okay to become pt tomer/ case management.
[2020-05-26 02:01] LABS: Glucose Urine UA NEG (NEG); Leukocyte Esterase Urine 1+ (NEG); Nitrite Urine NEG (NEG); Urine Blood 1+ (NEG); Urine Ketones NEG (NEG); Urine Protein 2+ MG/DL (NEG-TRACE)
[2020-05-26 02:02] LABS: Appearance Urine CLEAR; Color Urine YELLOW
[2020-05-26 02:19] LABS: Bacteria Urine 2+ /LPF; Mucus Urine 1+ /LPF; Renal Epithelial Cells Urine 1+ /LPF; Squamous Epithelial Cell Urine 1+ /LPF
[2020-05-26] MEDS: Ertapenem Sodium 1 GM in 0.9 % Sodium Chloride 50 ML IV (02:39)
--- NOTE | 2020-05-26 04:24 | PM.IMHP ---
History of Present Illness Date of Service: 05/26/20 Chief Complaint: AMS 59-year-old male with a past medical history of hypertension, hyperlipidemia, diabetes, history of CVA/spinal injury-paraplegic, history of seizures, hep C, history of recurrent UTI, dysphagia presented to the hospital with a chief complaint of altered mental status. Patient is a poor historian Most of the history obtained from the patient's healthcare proxy cal, ER team and records. For family about 10 days ago patient has been having cough and PCP diagnosed her with pneumonia and given antibiotics which he finished on 05/22/2020; patient did well on Friday and Friday and patient was not himself not talking to Nalini, eyes rolling back and appears significantly weak and tired; Patient's healthcare proxy ashly mentions that he had history of seizures and a near the seizure sometime he had tonic clonic episodes and sometimes his extremely lethargic and altered. She is unsure if he had a seizure episode today. And sent him to the hospital for further evaluation. Mentioned that patient has been having cough denied any shortness of breath. Denied any chest pain. Also reported that patient has been having right-sided abdominal pain over the past month and has stool red in color. Also mentioned patient has been having constipation issues. Ashly also mentioned patient had hematuria/pinkish urine about a week ago. Complains of shoulder pain daily. Patient is mostly bedridden. Patient is on pureed diet and appetite have been good except for the last couple days. Review of all other systems is negative except mentioned above ER course: Per ER team patient noted to have a temperature of 101.0? subsequently care which came back positive. Patient was saturating at 90 7% on room air. Chest x-ray was clear. Urinalysis was abnormal consistent with UTI-given prior history of ESBL UTI patient was started on ertapenem. Admitted to the hospital for further management. Blood cultures have been sent. [facility] Medical History Depression Diabetes Hepatitis C Paraplegia Seizure Stroke TIA (transient ischemic attack) Social History Alcohol intake: former Smoking Status: Unknown if ever smoked Use of substances other than those prescribed or required for medical reasons: No Any prior treatment program specific to substance use: No Advance Directives: No Advance Directives Information Provided: No Meds Allergies Allergy/AdvReac Type Severity Reaction Status Date / Time No Known Allergies Allergy Verified 01/25/20 19:38 [No Known Allergies*] Home Medications Medication Instructions Recorded Confirmed Type Januvia 100 mg PO DAILY 04/09/20 05/25/20 History Zestril 20 mg PO DAILY 04/09/20 05/25/20 History albuterol 2 inh INHALATION Q4-6H PRN 04/09/20 05/25/20 History amlodipine benzoate 10 mg PO DAILY 04/09/20 05/25/20 History atorvastatin 40 mg PO DAILY 04/09/20 05/25/20 History carvedilol 25 mg PO BID 04/09/20 05/25/20 History gabapentin 300 mg PO DAILY 04/09/20 05/25/20 History insulin aspart U-100 See Protocol SUBCUT TID 04/09/20 05/25/20 History insulin detemir U-100 46 unit SUBCUT DAILY 04/09/20 05/25/20 History polyethylene glycol 3350 [Miralax] 17 g PO DAILY 04/09/20 05/25/20 History sertraline 200 mg PO BID 04/09/20 05/25/20 History tamsulosin [Flomax] 0.4 mg PO DAILY 04/09/20 05/25/20 History tizanidine [Zanaflex] 2 mg PO BID 04/09/20 05/25/20 History quetiapine 25 mg PO BEDTIME 05/25/20 05/25/20 History Physical Exam Vital Signs and Narrative: Vital Signs: Last Vital Signs Temp 99.0 F 05/26/20 02:41 Pulse 69 05/26/20 02:41 Resp 20 05/26/20 02:41 BP 101/60 05/26/20 02:41 Pulse Ox 96 05/26/20 02:41 Body Mass Index 28.6 Gen: Appears be in no acute distress HEENT: NCAT, Moist mucosa. Pulmonary: Vesicular breath sounds, fair air entry CVS: Normal S1-S2 Abdomen: BS+, Soft, mildly tender on the right side; no guarding no rigidity Extremities: Warm well perfused Neuro: Alert and awake. Paraplegia Results Labs CBC and Chem 7: 05/25/20 22:45 05/25/20 22:44 Labs: Laboratory Results - last 24 hr 05/25/20 05/25/20 05/25/20 22:21 22:44 22:44 MCV MCH MCHC RDW Plt Count MPV Immature Gran % (Auto) Neut % (Auto) Lymph % (Auto) [place] % (Auto) Eos % (Auto) Baso % (Auto) Lymph # (Auto) [place] # (Auto) Eos # (Auto) Baso # (Auto) Abs Immat Gran (auto) Absolute Neuts (auto) Absolute Nucleated RBC Nucleated RBC % (auto) PT 14.4 H INR 1.2 H APTT 27.2 Anion Gap 14 Estim Creat Clear Calc 108.8 Estimated GFR > 60 POC Glucose 110 Random Glucose 108 Lactic Acid Calcium 7.9 L Urine Color Urine Appearance Urine pH Ur Specific [place] Urine Protein Urine Glucose (UA) Urine Ketones Urine Blood Urine Nitrite Ur Leukocyte Esterase Urine RBC Urine WBC Ur Squamous Epith Cells Ur Renal Epithelial Cell Urine Bacteria Urine Mucus Coronavirus (PCR) Influenza Type A (PCR) Influenza Type B (PCR) RSV RNA Qual (PCR) 05/25/20 05/25/20 05/25/20 22:45 22:45 22:57 MCV 77.8 L MCH 23.5 L MCHC 30.2 L RDW 18.9 H Plt Count 376 MPV 11.6 Immature Gran % (Auto) 0.3 Neut % (Auto) 77.3 H Lymph % (Auto) 11.6 L [place] % (Auto) 7.1 Eos % (Auto) 3.1 Baso % (Auto) 0.6 Lymph # (Auto) 1.3 [place] # (Auto) 0.8 Eos # (Auto) 0.4 Baso # (Auto) 0.1 Abs Immat Gran (auto) 0.04 H Absolute Neuts (auto) 8.8 H Absolute Nucleated RBC 0.000 Nucleated RBC % (auto) 0.0 PT INR APTT Anion Gap Estim Creat Clear Calc Estimated GFR POC Glucose Random Glucose Lactic Acid 1.4 Calcium Urine Color Urine Appearance Urine pH Ur Specific [place] Urine Protein Urine Glucose (UA) Urine Ketones Urine Blood Urine Nitrite Ur Leukocyte Esterase Urine RBC Urine WBC Ur Squamous Epith Cells Ur Renal Epithelial Cell Urine Bacteria Urine Mucus Coronavirus (PCR) POSITIVE A Influenza Type A (PCR) NEGATIVE Influenza Type B (PCR) NEGATIVE RSV RNA Qual (PCR) NEGATIVE 05/25/20 22:57 MCV MCH MCHC RDW Plt Count MPV Immature Gran % (Auto) Neut % (Auto) Lymph % (Auto) [place] % (Auto) Eos % (Auto) Baso % (Auto) Lymph # (Auto) [place] # (Auto) Eos # (Auto) Baso # (Auto) Abs Immat Gran (auto) Absolute Neuts (auto) Absolute Nucleated RBC Nucleated RBC % (auto) PT INR APTT Anion Gap Estim Creat Clear Calc Estimated GFR POC Glucose Random Glucose Lactic Acid Calcium Urine Color YELLOW Urine Appearance CLEAR Urine pH 7.0 Ur Specific [place] 1.020 Urine Protein 2+ H Urine Glucose (UA) NEG Urine Ketones NEG Urine Blood 1+ H Urine Nitrite NEG Ur Leukocyte Esterase 1+ H Urine RBC 5-9 H Urine WBC 15-29 H Ur Squamous Epith Cells 1+ Ur Renal Epithelial Cell 1+ Urine Bacteria 2+ Urine Mucus 1+ Coronavirus (PCR) Influenza Type A (PCR) Influenza Type B (PCR) RSV RNA Qual (PCR) Imaging Radiologist's Impressions: Impressions Chest X-Ray 05/25/20 22:34 IMPRESSION: No consolidations. Mild atelectasis or scarring within the right midlung. Assessment and Plan (1) Altered mental status: Qualifiers: Altered mental status type: unspecified Qualified Code(s): R41.82 - Altered mental status, unspecified Status: Acute 59-year-old male with a past medical history of hypertension, hyperlipidemia, diabetes, CVA/spinal injury/paraplegia, history of recurrent UTIs, history of seizures, hep C, dysphagia, bed-bound presented to the hospital with a chief complaint of altered mental status. Alter mental status: Likely toxic metabolic encephalopathy in the setting of UTI versus postictal secondary to seizure episode. Mental status improving. Neurology consult Eeg Ativan p.r.n. for any seizure NPO for now History of seizures: Continue home antiepileptics. UTI: Patient had recurrent UTIs. Family also reported hematuria. Currently noticed microscopic hematuria. Urology consult. Blood cultures and urine cultures have been sent. Continue ertapenem Abdominal pain/question dark stool: Will obtain CT abdomen pelvis and stool guaiac. Shoulder pain: Will obtain shoulder x-rays. COVID-19 positive: Patient currently denies shortness of breath. Saturating 97% on room air. No acute findings. Id consulted Diabetes: Will give the patient on Lantus 30 units and insulin sliding scale. Monitor fingerstick glucose and adjust insulins as needed. Hypertension/hyperlipidemia: Continue home medications. History of CVA/paraplegia: Chronic. Pressure ulcer prevention care per RN. Diet: Speech and swallow eval Code status: Full code. Spoke to the patient's healthcare proxy Nalini as well.
--- NOTE | 2020-05-26 05:01 | PC.NURSE ---
per hospitalist, patient to remain npo due to ? of seziure activity. furthermore, speech therapy to do swallow eval. monitoring at this time.
--- NOTE | 2020-05-26 05:07 | PC.NURSE ---
per hospitalist, patient is to have am meds held due to pending swallow eval.
--- NOTE | 2020-05-26 05:20 | PC.NURSE ---
per md, ángela to give patient jello and nursing swallow eval preformed earlier in night. patient swallowed water without difficulty. patient to wait on meals until speech therapy to eval.
[2020-05-26] MEDS: Enoxaparin Sodium 40 MG/0.4 ML SYRINGE SUBCUT (05:46)
[2020-05-26 05:51] LABS: Basophils Percent Auto 0.3 % (0-2); Eosinophils Absolute Auto 0.2 X10*3/uL (0.0-0.4); Eosinophils Percent Auto 1.7 % (0-4); Hematocrit 29.7 % (42-52); Hemoglobin 8.9 g/dl (14.0-18.0); Imm Gran Abs Auto 0.04 X10*3/uL (0.00-0.03); Imm Gran Pct Auto 0.3 % (0.0-0.4); Lymphocytes Absolute Auto 1.9 X10*3/uL (1.2-4.9); Lymphocytes Percent Auto 15.8 % (20-40); MANUAL DIFF FLAG NO; Mean Corpuscular Hemoglobin 23.6 pg (27.0-33.0); Mean Corpuscular Volume 78.8 fL (80-98); Mean Platelet Volume 11.6 fL (9.4-12.4); Monocytes Absolute Auto 0.9 X10*3/uL (0.1-1.2); Monocytes Percent Auto 7.8 % (2-11); Neutrophils Absolute Auto 8.7 X10*3/uL (2.0-8.3); Neutrophils Percent Auto 74.1 % (45-73); Platelet Count 313 X10*3/uL (160-400); Red Blood Count 3.77 X10*6/uL (4.60-5.80); White Blood Count 11.8 X10*3/uL (4.8-10.8)
[2020-05-26 06:06] LABS: D Dimer 842 NG/ML
[2020-05-26 06:25] LABS: Anion Gap 13 (12-20); Blood Urea Nitrogen 19 mg/dL (9-16); Calcium 7.8 mg/dL (8.4-10.2); Carbon Dioxide 23 mmol/L (22-29); Chloride 112 mmol/L (96-108); Creatinine Clr Calc Pharmacy 111.9; Estimated Glomerular Filt Rate > 60; Glucose Random 123 mg/dL (60-115); Sodium 144 mmol/L (135-145)
[2020-05-26 06:54] LABS: Glucose, Whole Blood 127 mg/dL (60-115)
--- NOTE | 2020-05-26 07:58 | PC.NURSE ---
lg soft bm x 1 noted.
[2020-05-26] MEDS: 0.9 % Sodium Chloride Flush 3 ML SYRINGE IVFLUSH ×2 (08:07→15:46)
--- NOTE | 2020-05-26 10:22 | P.CNNE_ITS ---
History of Present Illness Data of Consult Service Date: 05/26/20 Primary Care Provider: Unknown Physician 59 years old man with underlying history of paraparesis related to a spinal cord injury and also seizure disorder who was brought to hospital with change in mental status. Really etiology was unclear and it was not clear if he had a seizure or not. He was telling me that he had a history flexed. Also he was trying to tell me in dysarthric speech that I could not understand. He did not seem to be in any distress. Review of Systems Review of Systems: He was unable to answer questions for review of system. [facility] Past Medical History Medical History Depression Diabetes Hepatitis C Paraplegia Seizure Stroke TIA (transient ischemic attack) Social History Social History Alcohol intake: former Smoking Status: Unknown if ever smoked Use of substances other than those prescribed or required for medical reasons: No Any prior treatment program specific to substance use: No Advance Directives: No Advance Directives Information Provided: No Meds Allergies Allergy/AdvReac Type Severity Reaction Status Date / Time No Known Allergies Allergy Verified 01/25/20 19:38 [No Known Allergies*] Home Medications Medication Instructions Recorded Confirmed Type Januvia 100 mg PO DAILY 04/09/20 05/25/20 History atorvastatin 40 mg PO DAILY 04/09/20 05/25/20 History gabapentin 300 mg PO DAILY 04/09/20 05/25/20 History insulin aspart U-100 See Protocol SUBCUT TID 04/09/20 05/25/20 History insulin detemir U-100 46 unit SUBCUT DAILY 04/09/20 05/25/20 History polyethylene glycol 3350 [Miralax] 17 g PO DAILY 04/09/20 05/25/20 History sertraline 200 mg PO BID 04/09/20 05/25/20 History tamsulosin [Flomax] 0.4 mg PO DAILY 04/09/20 05/25/20 History tizanidine [Zanaflex] 2 mg PO BID 04/09/20 05/25/20 History quetiapine 25 mg PO BEDTIME 05/25/20 05/25/20 History albuterol sulfate [ProAir HFA] 2 puff INHALATION Q4-6H PRN 05/26/20 05/26/20 History amlodipine 10 mg PO DAILY 05/26/20 05/26/20 History carvedilol 25 mg PO BID 05/26/20 05/26/20 History lisinopril 20 mg PO DAILY 05/26/20 05/26/20 History Physical Exam Vital Signs: Vital Signs: Last Vital Signs Temp 98.6 F 05/26/20 07:33 Pulse 74 05/26/20 07:33 Resp 21 H 05/26/20 07:33 BP 155/72 H 05/26/20 07:33 Pulse Ox 97 05/26/20 07:33 Body Mass Index 28.6 He was alert and awake and speaking in dysphasic/dysarthric speech. He was able to comprehend and answer simple questions. There was horizontal nystagmus bilaterally. Face seemed pendulous and symmetrical. Teeth were missing. He was using his both times and did not move his legs. Exam was limited. Results Labs CBC & Chem 7: 05/26/20 05:45 05/26/20 05:45 Labs: Short CBC 05/25/20 05/26/20 Range/Units 22:45 05:45 WBC 11.4 H 11.8 H (4.8-10.8) X10*3/uL Hgb 9.6 L 8.9 L (14.0-18.0) g/dl Hct 31.8 L 29.7 L (42-52) % Plt Count 376 313 (160-400) X10*3/uL BMP 05/25/20 05/26/20 22:44 05:45 Sodium 145 144 Potassium 4.0 4.0 Chloride 111 H 112 H Carbon Dioxide 24 23 BUN 17 H 19 H Creatinine 0.72 0.70 Calcium 7.9 L 7.8 L Urine 05/25/20 Range/Units 22:57 Urine Color YELLOW Urine Appearance CLEAR Urine pH 7.0 (5.0-8.0) Ur Specific [place] 1.020 (1.005-1.025) Urine Protein 2+ H (NEG-TRACE) MG/DL Urine Glucose (UA) NEG (NEG) MG/DL His CT scan of brain this time an MRI of brain in December of last year reviewed. His MRI brain in December revealed extensive T2 signal abnormalities in posterior fossa structures including cerebellum margret and brachium pontis with the larger right basal ganglia area bleed. This time there was no obvious bleed but hypodense signal abnormalities in posterior fossa was again noted. There was some mild to moderate diffuse atrophy. 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 This time he presented with change in mental status. His examination revealed significant dysarthria which could be explained based upon posterior fossa pathology. His unsteadiness and tremulousness can also be explained based upon that. Its exact etiology was unclear. One should consider possibility of vasculitis. My recommendation at this time is to repeat MRI of brain with and without contrast and obtain a CTA of brain to rule out any sign of vasculitis. Vasculitis was not an easy di agnosis to make but it could present in this fashion with combinations of intracerebral hemorrhage in ischemic lesions. I would also recommend obtaining serum ammonia level, antinuclear antibody titer and sed rate. We might also have to obtain a lumbar puncture to analyze the spinal fluid. Until then, if there was no obvious contraindication, I suggest trying Solu-Medrol 250 mg q.6 hours or 500 mg twice a day for 2-3 days to see if he would have any significant improvement.
--- NOTE | 2020-05-26 11:22 | PC.NURSE ---
swallow eval is being done at this time.
--- NOTE | 2020-05-26 11:39 | PC.NURSE ---
per speech for pt's swallow eval - pt needs nectar thick with puree. pills crushed and pureed. pt aware of plan of care.
[2020-05-26] MEDS: Atorvastatin Calcium 40 MG TABLET PO (11:53)
[2020-05-26] MEDS: Tamsulosin HCL 0.4 MG CAPSULE PO (11:53)
[2020-05-26] MEDS: Gabapentin 300 MG CAPSULE PO (11:53)
[2020-05-26] MEDS: levETIRAcetam 500 MG TABLET PO ×2 (11:54→20:07)
[2020-05-26] MEDS: amLODIPine Besylate 10 MG TABLET PO (11:54)
[2020-05-26] MEDS: carvediloL 25 MG TABLET PO ×2 (11:54→20:07)
[2020-05-26] MEDS: Sertraline HCL 100 MG TABLET 200 MG PO ×2 (11:55→20:07)
[2020-05-26 11:59] LABS: Ammonia 33 umol/L (13-55)
[2020-05-26 12:48] LABS: HIV AB/AG Nonreactive (Nonreactive); HIV Num 1 0.07 S/CO (0.00-0.99)
[2020-05-26 12:50] LABS: Syphilis Screen Nonreactive (Nonreactive)
[2020-05-26 13:49] LABS: Erythrocyte Sedimentation Rate 89 MM/HR (0-15)
[2020-05-26 14:49] LABS: Glucose, Whole Blood 155 mg/dL (60-115)
[2020-05-26] MEDS: Sodium Chloride 0.45 % 1,000 ML 80 ML IVCONT (14:53)
--- NOTE | 2020-05-26 14:59 | PC.NURSE ---
iv in r lower forearm infilitrated.
[2020-05-26 16:11] LABS: Glucose, Whole Blood 134 mg/dL (60-115)
--- NOTE | 2020-05-26 16:59 | P.CNID_ITS ---
History of Present Illness Data of Consult Service Date: 05/26/20 Requesting physician: Crescencio Serrano Primary Care Provider: Unknown Physician HPI Reason for consult: possible urinary or lung infection Patient brought in for lethargy He has fatigue and hypotension Fatigue for 7 days Review of Systems Review of Systems: Yes Unobtainable due to mental condition [facility] Past Medical History Medical History Depression Diabetes Hepatitis C Paraplegia Seizure Stroke TIA (transient ischemic attack) Family History Family history: reviewed and not pertinent Social History Social History Alcohol intake: former Smoking Status: Unknown if ever smoked Use of substances other than those prescribed or required for medical reasons: No Any prior treatment program specific to substance use: No Advance Directives: No Advance Directives Information Provided: No Meds Allergies Allergy/AdvReac Type Severity Reaction Status Date / Time No Known Allergies Allergy Verified 01/25/20 19:38 [No Known Allergies*] Home Medications Medication Instructions Recorded Confirmed Type Januvia 100 mg PO DAILY 04/09/20 05/25/20 History atorvastatin 40 mg PO DAILY 04/09/20 05/25/20 History gabapentin 300 mg PO DAILY 04/09/20 05/25/20 History insulin aspart U-100 See Protocol SUBCUT TID 04/09/20 05/25/20 History insulin detemir U-100 46 unit SUBCUT DAILY 04/09/20 05/25/20 History polyethylene glycol 3350 [Miralax] 17 g PO DAILY 04/09/20 05/25/20 History sertraline 200 mg PO BID 04/09/20 05/25/20 History tamsulosin [Flomax] 0.4 mg PO DAILY 04/09/20 05/25/20 History tizanidine [Zanaflex] 2 mg PO BID 04/09/20 05/25/20 History quetiapine 25 mg PO BEDTIME 05/25/20 05/25/20 History albuterol sulfate [ProAir HFA] 2 puff INHALATION Q4-6H PRN 05/26/20 05/26/20 History amlodipine 10 mg PO DAILY 05/26/20 05/26/20 History carvedilol 25 mg PO BID 05/26/20 05/26/20 History lisinopril 20 mg PO DAILY 05/26/20 05/26/20 History Physical Exam Vital Signs: Vital Signs: Last Vital Signs Temp 99.3 F 05/26/20 16:02 Pulse 71 05/26/20 16:02 Resp 22 H 05/26/20 16:02 BP 164/85 H 05/26/20 16:02 Pulse Ox 96 05/26/20 16:02 Body Mass Index 28.6 Const: General: cooperative HENMT: Head: Yes normal to inspection Mouth: Normal oral and palatal mucosa present Resp: Effort & Inspection: normal respiratory effort Cardio: Rate: regular rate Rhythm: regular rhythm GI: Palpation (GI): Soft to palpation and nontender Neuro: Other: weakness legs Extrem: General: Yes normal to inspection Assessment and Plan (1) Encephalopathy: Status: Acute (2) Altered mental status: Qualifiers: Altered mental status type: unspecified Qualified Code(s): R41.82 - Altered mental status, unspecified Status: Acute (3) Acute UTI: Problem details: May continue Ertapenem at this time Status: Acute Results Labs CBC & Chem 7: 05/26/20 05:45 05/26/20 05:45 Labs: Short CBC 05/25/20 05/26/20 Range/Units 22:45 05:45 WBC 11.4 H 11.8 H (4.8-10.8) X10*3/uL Hgb 9.6 L 8.9 L (14.0-18.0) g/dl Hct 31.8 L 29.7 L (42-52) % Plt Count 376 313 (160-400) X10*3/uL BMP 05/25/20 05/26/20 22:44 05:45 Sodium 145 144 Potassium 4.0 4.0 Chloride 111 H 112 H Carbon Dioxide 24 23 BUN 17 H 19 H Creatinine 0.72 0.70 Calcium 7.9 L 7.8 L Urine 05/25/20 Range/Units 22:57 Urine Color YELLOW Urine Appearance CLEAR Urine pH 7.0 (5.0-8.0) Ur Specific [place] 1.020 (1.005-1.025) Urine Protein 2+ H (NEG-TRACE) MG/DL Urine Glucose (UA) NEG (NEG) MG/DL
--- NOTE | 2020-05-26 16:59 | PC.NURSE ---
pt's sister mary cummins , ) called [facility] [place] and was updated on pt status.
--- NOTE | 2020-05-26 18:22 | PC.NURSE ---
PATIENT WAS FED BY THIS PCT ,PATIENT ATE 100% OF MEAL AND DRANK 480 CC OF JUICE .
--- NOTE | 2020-05-26 18:29 | PC.NURSE ---
patient is a1:1 feed on diabetic puree diet with nectar thicken liquids.
--- NOTE | 2020-05-26 18:33 | PM.EVENT ---
Event Note Date of Service: 05/27/20 Event Note: Patient already has been seen and examined by the hospital Team and this morning seen and examined again Seems more weak and could able to answer few questions-speaks low tone. Physical exam: Cvs: rrr, [id number] , no murmur res: clear to auscultation ,no rhonchii or wheezing abd: no rebound or guarding ,nt, bs present. ext pulses present , no cyanosis neuro: nonfocal. Assessment and plan coordinated in H&P note Id evaluation
[2020-05-26 18:48] LABS: OBS Int Ctl Valid YES; OBS1 NEG (NEG)
[2020-05-26] MEDS: Acetaminophen Supp 650 MG SUPP.RECT PR (19:09)
[2020-05-26] MEDS: QUEtiapine Fumarate 25 MG TABLET PO (20:07)
[2020-05-26 20:24] LABS: Glucose, Whole Blood 197 mg/dL (60-115)
[2020-05-26] MEDS: Insulin Glargine,Hum.rec.anlog 100 UNIT/ML 10 ML VIAL 30 UNIT SUBCUT (20:44)
[2020-05-26] MEDS: Insulin Lispro 100 UNIT/ML 3 ML VIAL SUBCUT (20:44)
--- NOTE | 2020-05-26 23:19 | MHC.CM.PN ---
Cm attempted to meet with patient. Pt alert, but very difficult to understand. Speech slurred and muffled. Did understand pt wants to go home. Explained that pt has UTI and needs to stay in hospital. Pt also +Covid. Conversation with HCP/Sister Nalini Chicas ([phone]). who tells CM that pt. cannot hear, and writing in large letters works best. Have to speak very loudly. IMM reviewed with HCP. Copy left at bedside. HCP is CONTROLS ENGINEER along with an additional CONTROLS ENGINEER. Services provided by [facility]. Pt has hospital bed and wheelchair. Requesting respite. Would like [facility]. Explained that CM would refer there if they accept [facility] and COVID+. Understands that facility depends on who [facility] contracts with and if they accept COVID. Referrals placed to 5 facilities that accept [facility] and +covid- [facility] ,[facility] and [facility]. [facility] is contracted with [facility] but does not accept +COVID. Nalini is requesting OT evaluation, as brother is having difficulty holding utensils, feeding himself and holding cup. Was previously feeding himself with minimal assistance. Dr. Serrano texted. Will order for am. CM will continue to follow for d/c needs.
[2020-05-27] VITALS (11 sets, daily range): BP systolic 124–180; BP diastolic 59–88; PULSE 70–84; RESP 16–22; TEMP 36.3–37.3; O2SAT 96–99
--- NOTE | 2020-05-27 00:20 | PC.NURSE ---
PATIENT REFUSED BEDTIME SNACK ,RN AWARE.
--- NOTE | 2020-05-27 01:12 | PC.NURSE ---
PATIENT HAVING AN XL BOWEL MOVEMENT, PATIENT INCONTINENT OF STOOL. PATIENT REPOSITIONED NO DISTRESS AT THIS TIME.
[2020-05-27] MEDS: Sodium Chloride 0.45 % 1,000 ML 80 ML IVCONT ×2 (02:16→20:45)
[2020-05-27] MEDS: 0.9 % Sodium Chloride Flush 3 ML SYRINGE IVFLUSH (02:16)
[2020-05-27] MEDS: Enoxaparin Sodium 40 MG/0.4 ML SYRINGE SUBCUT (06:08)
[2020-05-27 07:22] LABS: Glucose, Whole Blood 140 mg/dL (60-115)
[2020-05-27 07:33] LABS: C Reactive Protein 4.59 mg/dL (< or = 0.50); Glucose Random 149 mg/dL (60-115); Lactate Dehydrogenase 250 U/L (118-273); Magnesium 1.7 mg/dL (1.6-2.6)
[2020-05-27 07:36] LABS: Magnesium 1.7 mg/dL (1.6-2.6)
[2020-05-27] MEDS: polyethylene glycoL 3350 17 GM POWD.PACK PO (09:01)
[2020-05-27] MEDS: carvediloL 25 MG TABLET PO ×2 (09:01→20:49)
[2020-05-27] MEDS: Atorvastatin Calcium 40 MG TABLET PO (09:02)
[2020-05-27] MEDS: levETIRAcetam 500 MG TABLET PO ×2 (09:02→20:49)
[2020-05-27] MEDS: amLODIPine Besylate 10 MG TABLET PO (09:02)
[2020-05-27] MEDS: Ertapenem Sodium 1 GM in 0.9 % Sodium Chloride 50 ML IV (09:02)
[2020-05-27] MEDS: Gabapentin 300 MG CAPSULE PO (09:02)
[2020-05-27] MEDS: Tamsulosin HCL 0.4 MG CAPSULE PO (09:02)
[2020-05-27] MEDS: Sertraline HCL 100 MG TABLET 200 MG PO ×2 (09:02→20:49)
[2020-05-27 11:56] LABS: Glucose, Whole Blood 136 mg/dL (60-115)
--- NOTE | 2020-05-27 14:26 | PC.NURSE ---
spoke with sister mary. reports pt is bed bound at home. md bowen aware
--- NOTE | 2020-05-27 15:25 | HO.PM.IMPN ---
Subjective Subjective Date of Service: 05/28/20 Interval History: UTI Review of Systems Patient is loud on hearing: But denies any pain even when pressed in the abdomen. No nausea no vomiting No fever or chills Physical Exam Vital Signs: Vital Signs: Last Vital Signs Temp 98.6 F 05/27/20 13:22 Pulse 76 05/27/20 13:22 Resp 22 H 05/27/20 13:22 BP 124/59 L 05/27/20 13:22 Pulse Ox 97 05/27/20 13:22 Body Mass Index 28.6 physical exam: Cvs: [id number], [id number] , no murmur res: clear to auscultation ,no rhonchii or wheezing abd: no rebound or guarding ,nt, bs present. ext pulses present , no cyanosis neuro: nonfocal. Objective Data Current Medications Generic Name Dose Route Start Last Admin Trade Name Freq PRN Reason Stop Dose Admin Acetaminophen 650 mg 05/26/20 04:01 05/26/20 19:09 Acetaminophen Supp 650 Mg Supp.Rect [place] 650 mg Q6H PRN Administration Pain, Mild (Pain Scale 1-3) Amlodipine Besylate 10 mg 05/26/20 09:00 05/27/20 09:02 Amlodipine Besylate 10 Mg Tablet PO 10 mg DAILY CARIN Administration Atorvastatin Calcium 40 mg 05/26/20 09:00 05/27/20 09:02 Atorvastatin Calcium 40 Mg Tablet PO 40 mg DAILY CARIN Administration Carvedilol 25 mg 05/26/20 09:00 05/27/20 09:01 Carvedilol 25 Mg Tablet PO 25 mg BID CARIN Administration Enoxaparin Sodium 40 mg 05/26/20 06:00 05/27/20 06:08 Enoxaparin Sodium 40 Mg/0.4 Ml Syringe SUBCUT 40 mg Q24H CARIN Administration Gabapentin 300 mg 05/26/20 09:00 05/27/20 09:02 Gabapentin 300 Mg Capsule PO 300 mg DAILY CARIN Administration Ertapenem 1 gm/ Sodium 50 mls @ 100 mls/hr 05/27/20 09:00 05/27/20 09:35 Chloride IV Infused DAILY CARIN Infusion Sodium Chloride 1,000 mls @ 80 mls/hr 05/26/20 10:30 05/27/20 14:49 IVCONT Infused .[id number] CARIN Infusion Insulin Glargine 30 unit 05/26/20 21:00 05/26/20 20:44 Insulin Glargine,Hum.Rec.Anlog 100 Unit/Ml 10 Ml Vial SUBCUT 30 unit BEDTIME CARIN Administration Insulin Human Lispro 0 unit 05/26/20 07:30 05/27/20 12:02 Insulin Lispro 100 Unit/Ml 3 Ml Vial SUBCUT Not Given QIDACHS COUNT INCLUDES THE [facility] Protocol Levetiracetam 500 mg 05/26/20 09:00 05/27/20 09:02 Levetiracetam 500 Mg Tablet PO 500 mg BID CARIN Administration Lisinopril 20 mg 05/26/20 09:00 05/27/20 09:02 Lisinopril 20 Mg Tablet PO 20 mg DAILY CARIN Administration Lorazepam 1 mg 05/26/20 04:29 Lorazepam 2 Mg/Ml Vial IVPUSH Q2H PRN Seizures Pharmacy Consult 1 each 05/26/20 01:25 Consult Rx Perform Med Rec MISCELLANE ONCE PRN Consult order Polyethylene Glycol 17 gm 05/26/20 09:00 05/27/20 09:01 Polyethylene Glycol 3350 17 Gm Powd.Pack PO 17 gm DAILY CARIN Administration Quetiapine Fumarate 25 mg 05/26/20 21:00 05/26/20 20:07 Quetiapine Fumarate 25 Mg Tablet PO 25 mg BEDTIME CARIN Administration Sertraline HCl 200 mg 05/26/20 09:00 05/27/20 09:02 Sertraline Hcl 100 Mg Tablet PO 200 mg BID CARIN Administration Sodium Chloride 3 ml 05/26/20 08:00 05/27/20 07:21 0.9 % Sodium Chloride Flush 3 Ml Syringe IVFLUSH Not Given QSHIFT COUNT INCLUDES THE [facility] Tamsulosin HCl 0.4 mg 05/26/20 09:00 05/27/20 09:02 Tamsulosin Hcl 0.4 Mg Capsule PO 0.4 mg DAILY CARIN Administration Labs CBC & Chem 7: 05/28/20 09:19 05/27/20 06:47 Microbiology Microbiology Results: Microbiology 05/25/20 22:57 Urine Catheterized - Rogers Catheter Urine Culture - Final No growth. 05/25/20 22:45 Blood - Venous Blood Culture - Preliminary No growth after 24 hours. 05/25/20 22:45 Blood - Venous Blood Culture - Preliminary No growth after 24 hours. Assessment and Plan (1) Encephalopathy: Status: Acute (2) COVID-19: Status: Acute (3) Encephalopathy: Status: Resolved (4) Pneumonia: Status: Acute (5) Sepsis: Status: Resolved (6) Hypoxic: Status: Resolved (7) Acute UTI: Status: Resolved Assessment and Plan: 59-year-old male with a past medical history of hypertension, hyperlipidemia, diabetes, CVA/spinal injury/paraplegia, history of recurrent UTIs, history of seizures, hep C, dysphagia, bed-bound presented to the hospital with a chief complaint of altered mental status. 1.Alter mental status: Likely toxic metabolic encephalopathy in the setting of UTI versus postictal secondary to seizure episode. Mental status improving. Ativan p.r.n. for any seizure Swallow nj doing better so updated diet as per swallow evaluation. Neurology evaluation pending 2. History of seizures: Continue home antiepileptics. 3. UTI: Patient had recurrent UTIs. Family also reported hematuria. Currently noticed microscopic hematuria. Urology consult. Blood cultures and urine cultures pending Continue ertapenem day 1 4. Initially was question of Abdominal pain/question dark stool: On exam patient does not even feel any discomfort with deep abdominal palpation Fecal occult blood negative H&H is near baseline 9-10 range 5. COVID-19 positive: Patient currently not shortness of breath. Saturating 97% on room air. No acute findings. Id consulted 6.Diabetes: Continue on Lantus 30 units and insulin sliding scale. Monitor fingerstick glucose and adjust insulins as needed. 7.Hypertension/hyperlipidemia: Continue home medications. 8.History of CVA/paraplegia: Chronic. Pressure ulcer prevention care per RN. Diet: Speech and swallow eval
--- NOTE | 2020-05-27 15:26 | PC.NURSE ---
called for report
--- NOTE | 2020-05-27 16:11 | PC.NURSE ---
second attempt to give report
[2020-05-27 17:31] LABS: Lyme Abs Screen <0.90 index
[2020-05-27 18:15] LABS: Glucose, Whole Blood 125 mg/dL (60-115)
[2020-05-27 20:45] LABS: Glucose, Whole Blood 112 mg/dL (60-115)
[2020-05-27] MEDS: QUEtiapine Fumarate 25 MG TABLET PO (20:49)
[2020-05-28] VITALS (9 sets, daily range): BP systolic 135–167; BP diastolic 68–92; PULSE 62–82; RESP 18; TEMP 36.2–37.1; O2SAT 95–99
[2020-05-28] MEDS: Enoxaparin Sodium 40 MG/0.4 ML SYRINGE SUBCUT (05:03)
[2020-05-28 08:04] LABS: Glucose, Whole Blood 103 mg/dL (60-115)
[2020-05-28] MEDS: Ertapenem Sodium 1 GM in 0.9 % Sodium Chloride 50 ML IV (10:09)
[2020-05-28] MEDS: polyethylene glycoL 3350 17 GM POWD.PACK PO (10:09)
[2020-05-28] MEDS: carvediloL 25 MG TABLET PO ×2 (10:09→21:49)
[2020-05-28] MEDS: Atorvastatin Calcium 40 MG TABLET PO (10:10)
[2020-05-28] MEDS: Tamsulosin HCL 0.4 MG CAPSULE PO (10:10)
[2020-05-28] MEDS: levETIRAcetam 500 MG TABLET PO ×2 (10:10→21:50)
[2020-05-28] MEDS: Sertraline HCL 100 MG TABLET 200 MG PO ×2 (10:10→21:48)
[2020-05-28] MEDS: amLODIPine Besylate 10 MG TABLET PO (10:10)
[2020-05-28] MEDS: 0.9 % Sodium Chloride Flush 3 ML SYRINGE IVFLUSH ×2 (10:10→16:59)
[2020-05-28] MEDS: Gabapentin 300 MG CAPSULE PO (10:12)
[2020-05-28 10:20] LABS: Hematocrit 31.9 % (42-52); Hemoglobin 9.8 g/dl (14.0-18.0)
[2020-05-28 11:30] LABS: Glucose, Whole Blood 135 mg/dL (60-115)
--- NOTE | 2020-05-28 14:11 | HO.PM.IMPN ---
Subjective Subjective Date of Service: 05/28/20 Interval History: uti Review of Systems Patient seems awake, no new went over diet as per staff One BM Physical Exam Vital Signs: Vital Signs: Last Vital Signs Temp 97.2 F 05/28/20 11:21 Pulse 62 05/28/20 11:21 Resp 18 05/28/20 11:21 BP 165/92 H 05/28/20 11:21 Pulse Ox 99 05/28/20 11:21 Body Mass Index 28.6 Physical exam: Cvs: rrr, [id number] , no murmur res: clear to auscultation ,no rhonchii or wheezing abd: no rebound or guarding ,nt, bs present. ext pulses present , no cyanosis neuro: nonfocal. Objective Data Current Medications Generic Name Dose Route Start Last Admin Trade Name Freq PRN Reason Stop Dose Admin Acetaminophen 650 mg 05/26/20 04:01 05/26/20 19:09 Acetaminophen Supp 650 Mg Supp.Rect [place] 650 mg Q6H PRN Administration Pain, Mild (Pain Scale 1-3) Amlodipine Besylate 10 mg 05/26/20 09:00 05/28/20 10:10 Amlodipine Besylate 10 Mg Tablet PO 10 mg DAILY CARIN Administration Atorvastatin Calcium 40 mg 05/26/20 09:00 05/28/20 10:10 Atorvastatin Calcium 40 Mg Tablet PO 40 mg DAILY CARIN Administration Carvedilol 25 mg 05/26/20 09:00 05/28/20 10:09 Carvedilol 25 Mg Tablet PO 25 mg BID CARIN Administration Enoxaparin Sodium 40 mg 05/26/20 06:00 05/28/20 05:03 Enoxaparin Sodium 40 Mg/0.4 Ml Syringe SUBCUT 40 mg Q24H CARIN Administration Gabapentin 300 mg 05/26/20 09:00 05/28/20 10:12 Gabapentin 300 Mg Capsule PO 300 mg DAILY CARIN Administration Ertapenem 1 gm/ Sodium 50 mls @ 100 mls/hr 05/27/20 09:00 05/28/20 10:54 Chloride IV Infused DAILY [facility] Infusion Insulin Glargine 30 unit 05/26/20 21:00 05/27/20 20:46 Insulin Glargine,Hum.Rec.Anlog 100 Unit/Ml 10 Ml Vial SUBCUT Not Given BEDTIME [facility] Insulin Human Lispro 0 unit 05/26/20 07:30 05/28/20 12:02 Insulin Lispro 100 Unit/Ml 3 Ml Vial SUBCUT Not Given QIDACHS [facility] Protocol Levetiracetam 500 mg 05/26/20 09:00 05/28/20 10:10 Levetiracetam 500 Mg Tablet PO 500 mg BID CARIN Administration Lisinopril 20 mg 05/26/20 09:00 05/28/20 10:10 Lisinopril 20 Mg Tablet PO 20 mg DAILY CARIN Administration Lorazepam 1 mg 05/26/20 04:29 Lorazepam 2 Mg/Ml Vial IVPUSH Q2H PRN Seizures Pharmacy Consult 1 each 05/26/20 01:25 Consult Rx Perform Med Rec MISCELLANE ONCE PRN Consult order Polyethylene Glycol 17 gm 05/26/20 09:00 05/28/20 10:09 Polyethylene Glycol 3350 17 Gm Powd.Pack PO 17 gm DAILY CARIN Administration Quetiapine Fumarate 25 mg 05/26/20 21:00 05/27/20 20:49 Quetiapine Fumarate 25 Mg Tablet PO 25 mg BEDTIME CARIN Administration Sertraline HCl 200 mg 05/26/20 09:00 05/28/20 10:10 Sertraline Hcl 100 Mg Tablet PO 200 mg BID CARIN Administration Sodium Chloride 3 ml 05/26/20 08:00 05/28/20 10:10 0.9 % Sodium Chloride Flush 3 Ml Syringe IVFLUSH 3 ml QSHIFT CARIN Administration Tamsulosin HCl 0.4 mg 05/26/20 09:00 05/28/20 10:10 Tamsulosin Hcl 0.4 Mg Capsule PO 0.4 mg DAILY CARIN Administration Labs CBC & Chem 7: 05/28/20 09:19 05/27/20 06:47 Microbiology Microbiology Results: Microbiology 05/25/20 22:45 Blood - Venous Blood Culture - Preliminary No growth after 48 hours. 05/25/20 22:45 Blood - Venous Blood Culture - Preliminary No growth after 48 hours. 05/25/20 22:57 Urine Catheterized - Rogers Catheter Urine Culture - Final No growth. Assessment and Plan (1) Acute UTI: Problem details: May continue Ertapenem at this time Status: Acute (2) Encephalopathy: Status: Acute (3) COVID-19: Status: Acute (4) Encephalopathy: Status: Resolved (5) Pneumonia: Status: Acute (6) Sepsis: Status: Resolved (7) Hypoxic: Status: Resolved (8) Acute UTI: Status: Resolved Assessment and Plan: 59-year-old male with a past medical history of hypertension, hyperlipidemia, diabetes, CVA/spinal injury/paraplegia, history of recurrent UTIs, history of seizures, hep C, dysphagia, bed-bound presented to the hospital with a chief complaint of altered mental status. 1.Alter mental status: Likely toxic metabolic encephalopathy in the setting of UTI versus postictal secondary to seizure episode. Mental status improving. Ativan p.r.n. for any seizure, continue keppra. Swallow nj doing better so updated diet as per swallow evaluation. Neurology evaluation 2. History of seizures: Continue continue keppra. 3. UTI: Patient had recurrent UTIs. Family also reported hematuria. Currently noticed microscopic hematuria. Urology consult. Blood cultures and urine cultures pending Continue ertapenem day 2 4. Initially was question of Abdominal pain/question dark stool: no abd pain ,passed bm Fecal occult blood negative H&H is near baseline 9-10 range 5. COVID-19 positive: Patient currently not shortness of breath. Saturating 97% on room air. No acute findings. Id consulted 6.Diabetes: Continue on Lantus 30 units and insulin sliding scale. Monitor fingerstick glucose and adjust insulins as needed. 7.Hypertension/hyperlipidemia: Continue home medications. 8.History of CVA/paraplegia: Chronic. Pressure ulcer prevention care per RN.
[2020-05-28 16:32] LABS: Glucose, Whole Blood 196 mg/dL (60-115)
[2020-05-28] MEDS: Insulin Lispro 100 UNIT/ML 3 ML VIAL SUBCUT (16:58)
[2020-05-28 20:28] LABS: Glucose, Whole Blood 125 mg/dL (60-115)
[2020-05-28] MEDS: QUEtiapine Fumarate 25 MG TABLET PO (21:48)
[2020-05-28] MEDS: Insulin Glargine,Hum.rec.anlog 100 UNIT/ML 10 ML VIAL 30 UNIT SUBCUT (21:49)
[2020-05-29] VITALS (9 sets, daily range): BP systolic 124–169; BP diastolic 59–77; PULSE 69–78; RESP 18–22; TEMP 35.9–36.9; O2SAT 95–98
[2020-05-29] MEDS: 0.9 % Sodium Chloride Flush 3 ML SYRINGE IVFLUSH ×3 (00:22→15:08)
[2020-05-29] MEDS: Enoxaparin Sodium 40 MG/0.4 ML SYRINGE SUBCUT (05:30)
[2020-05-29 07:34] LABS: Glucose, Whole Blood 100 mg/dL (60-115)
[2020-05-29] MEDS: Ertapenem Sodium 1 GM in 0.9 % Sodium Chloride 50 ML IV (08:51)
[2020-05-29] MEDS: amLODIPine Besylate 10 MG TABLET PO (08:51)
[2020-05-29] MEDS: Tamsulosin HCL 0.4 MG CAPSULE PO (08:51)
[2020-05-29] MEDS: Sertraline HCL 100 MG TABLET 200 MG PO (08:51)
[2020-05-29] MEDS: Atorvastatin Calcium 40 MG TABLET PO (08:51)
[2020-05-29] MEDS: polyethylene glycoL 3350 17 GM POWD.PACK PO (08:52)
[2020-05-29] MEDS: carvediloL 25 MG TABLET PO (08:52)
[2020-05-29] MEDS: levETIRAcetam 500 MG TABLET PO (08:52)
[2020-05-29] MEDS: Gabapentin 300 MG CAPSULE PO (08:52)
--- NOTE | 2020-05-29 10:38 | P.CDIC_ITS ---
CDI Concurrent Query Service Date: 05/29/20 Documentation Clarification: Please clarify if you are treating a proba ble/suspected/likely or confirmed: UTI No Sepsis Provider Response: Other Other Diagnosis: uti PLEASE DO NOT DELETE/MODIFY EXISTING CONTENT Additional information is needed in order to code to the highest accuracy and appropriate Severity of Illness (SOI). Please clarify the information noted below in your progress notes and discharge summary. Risk Factors/Clinical Indicators/Treatments 59 year old male admitted with altered mental status, fever WBC 11.4 T 99.0, P 69, R 20, BP 101/60 LA 1.4 Per ED Impression: Sepsis, Acute UTI, COVID +, Viral infection, Pneumonia, Altered Mental Status Per MD progress note, sepsis resolved CDS: Sherley Wasserman RN Contact Number: [phone] Please Review the information above and exercise your independent professional judgment in responding to the query. If you concur, pleas document in the PROGR ESS NOTES and DISCHARGE SUMMARY. If you do not agree with the query, please document in the query above. THIS QUERY IS PART OF THE PERMANENT MEDICAL RECORD
--- NOTE | 2020-05-29 11:35 | MHC.CM.PN ---
Goal for dc is SNF/RESPITE. Patient is receiving IV Ertapenam r/t UTI, COVID (+) and not yet medically cleared for dc. CM will continue to follow.
[2020-05-29 11:42] LABS: Glucose, Whole Blood 150 mg/dL (60-115)
--- NOTE | 2020-05-29 13:45 | P.CNUR_ITS ---
History of Present Illness Consult details Consult date: 05/29/20 Narrative: 59-year-old male Background significant diabetes Known BPH with incomplete emptying and recurrent UTI Admitted to hospital with Cough, weakness and a question of UTI Current microbiology results show no known UTI Rogers catheter is in place PMF Past Medical History Medical History Depression Diabetes Hepatitis C Paraplegia Seizure Stroke TIA (transient ischemic attack) Family History Family history: reviewed and not pertinent Social History Social History Household Members: Family Do you presently have visiting nurse or other home services: Yes Unable to assess alcohol history related to: Unknown and Refusing to respond Alcohol intake: former Smoking Status: Smoker, status unknown Use of substances other than those prescribed or required for medical reasons: Refusing to respond Currently Displaying Signs/Symptoms of Drug Intoxication Withdrawal: No Any prior treatment program specific to substance use: No Advance Directives: No Advance Directives Information Provided: No Do you have thoughts of harming others: None Do you have a plan to hurt others: No Plan Recently lost weight without trying: Unsure service: No Current occupational status: disabled Meds Allergies Allergy/AdvReac Type Severity Reaction Status Date / Time No Known Allergies Allergy Verified 01/25/20 19:38 [No Known Allergies*] Home Medications Medication Instructions Recorded Confirmed Type Januvia 100 mg PO DAILY 04/09/20 05/25/20 History atorvastatin 40 mg PO DAILY 04/09/20 05/25/20 History gabapentin 300 mg PO DAILY 04/09/20 05/25/20 History insulin aspart U-100 See Protocol SUBCUT TID 04/09/20 05/25/20 History insulin detemir U-100 46 unit SUBCUT DAILY 04/09/20 05/25/20 History polyethylene glycol 3350 [Miralax] 17 g PO DAILY 04/09/20 05/25/20 History sertraline 200 mg PO BID 04/09/20 05/25/20 History tamsulosin [Flomax] 0.4 mg PO DAILY 04/09/20 05/25/20 History tizanidine [Zanaflex] 2 mg PO BID 04/09/20 05/25/20 History quetiapine 25 mg PO BEDTIME 05/25/20 05/25/20 History albuterol sulfate [ProAir HFA] 2 puff INHALATION Q4-6H PRN 05/26/20 05/26/20 History amlodipine 10 mg PO DAILY 05/26/20 05/26/20 History carvedilol 25 mg PO BID 05/26/20 05/26/20 History lisinopril 20 mg PO DAILY 05/26/20 05/26/20 History Physical Exam Vital Signs: Vital Signs: Last Vital Signs Temp 96.8 F 05/29/20 12:00 Pulse 69 05/29/20 12:00 Resp 20 05/29/20 12:00 BP 127/59 L 05/29/20 12:00 Pulse Ox 95 05/29/20 12:00 Body Mass Index 28.6 Const: General: cooperative, healthy appearing, comfortable and no acute distress Nutritional Appearance: average body habitus Orie ntation/consciousness: oriented to person, oriented to place and oriented to time Eyes: General: appearance normal, both eyes and all related structures Chest: Chest palpation & inspection: normal inspection of the chest Resp: Effort & Inspection: normal respiratory effort Cardio: Rate: regular rate GI: Inspection: Yes normal to inspection Skin: Hair: normal Neuro: General: oriented to person, oriented to place and oriented to time Extrem: General: Yes normal to inspection Results Labs Result diagrams: 05/28/20 09:19 05/27/20 06:47 Labs: Abnormal lab results 05/28/20 05/28/20 05/29/20 Range/Units 16:00 20:06 11:39 POC Glucose 196 H 125 H 150 H (60-115) mg/dL Urine 05/25/20 Range/Units 22:57 Urine Color YELLOW Urine Appearance CLEAR Urine pH 7.0 (5.0-8.0) Ur Specific [place] 1.020 (1.005-1.025) Urine Protein 2+ H (NEG-TRACE) MG/DL Urine Glucose (UA) NEG (NEG) MG/DL All other labs normal. Assessment and Plan (1) Incomplete emptying of bladder due to benign prostatic hyperplasia: Status: Acute (2) Acute UTI: Problem details: May continue Ertapenem at this time Status: Acute Bladder emptying should be optimized on Flomax and finasteride Catheter should be removed tomorrow morning He should be started on vitamin-C a 1000 mg and methenamine to try to prevent UTIs
[2020-05-29 14:17] LABS: Anti DNA DS Antibody 5 IU/mL; Myeloperoxidase Antibody <1.0 AI; Proteinase 3 PR3 Antibodies <1.0 AI
[2020-05-29 15:27] LABS: Anti Nuclear Antibody Screen NEGATIVE (NEGATIVE)
[2020-05-29 16:31] LABS: Glucose, Whole Blood 206 mg/dL (60-115)
[2020-05-29] MEDS: Insulin Lispro 100 UNIT/ML 3 ML VIAL SUBCUT (16:49)
--- NOTE | 2020-05-29 17:32 | HO.PM.IMPN ---
Subjective Subjective Date of Service: 05/29/20 Interval History: UTI, COVID infection positive Review of Systems Patient seems awake, no improvement moving his upper extremities no new events Physical Exam Vital Signs: Vital Signs: Last Vital Signs Temp 98.5 F 05/29/20 15:44 Pulse 70 05/29/20 15:44 Resp 18 05/29/20 15:44 BP 140/65 H 05/29/20 15:44 Pulse Ox 96 05/29/20 15:44 Body Mass Index 28.6 Physical exam: Cvs: rrr, [id number] , no murmur res: clear to auscultation ,no rhonchii or wheezing abd: no rebound or guarding ,nt, bs present. ext pulses present , no cyanosis neuro: awake , nonfocal. Objective Data Current Medications Generic Name Dose Route Start Last Admin Trade Name Freq PRN Reason Stop Dose Admin Acetaminophen 650 mg 05/26/20 04:01 05/26/20 19:09 Acetaminophen Supp 650 Mg Supp.Rect [place] 650 mg Q6H PRN Administration Pain, Mild (Pain Scale 1-3) Amlodipine Besylate 10 mg 05/26/20 09:00 05/29/20 08:51 Amlodipine Besylate 10 Mg Tablet PO 10 mg DAILY CARIN Administration Ascorbic Acid 1,000 mg 05/30/20 09:00 Ascorbic Acid 500 Mg Tablet PO DAILY CARIN Atorvastatin Calcium 40 mg 05/26/20 09:00 05/29/20 08:51 Atorvastatin Calcium 40 Mg Tablet PO 40 mg DAILY CARIN Administration Carvedilol 25 mg 05/26/20 09:00 05/29/20 08:52 Carvedilol 25 Mg Tablet PO 25 mg BID CARIN Administration Enoxaparin Sodium 40 mg 05/26/20 06:00 05/29/20 05:30 Enoxaparin Sodium 40 Mg/0.4 Ml Syringe SUBCUT 40 mg Q24H CARIN Administration Finasteride 5 mg 05/30/20 09:00 Finasteride 5 Mg Tablet PO DAILY CARIN Gabapentin 300 mg 05/26/20 09:00 05/29/20 08:52 Gabapentin 300 Mg Capsule PO 300 mg DAILY CARIN Administration Ertapenem 1 gm/ Sodium 50 mls @ 100 mls/hr 05/27/20 09:00 05/29/20 09:44 Chloride IV Infused DAILY [facility] Infusion Insulin Glargine 30 unit 05/26/20 21:00 05/28/20 21:49 Insulin Glargine,Hum.Rec.Anlog 100 Unit/Ml 10 Ml Vial SUBCUT 30 unit BEDTIME CARIN Administration Insulin Human Lispro 0 unit 05/26/20 07:30 05/29/20 16:49 Insulin Lispro 100 Unit/Ml 3 Ml Vial SUBCUT 4 unit QIDACHS CARIN Administration Protocol Levetiracetam 500 mg 05/26/20 09:00 05/29/20 08:52 Levetiracetam 500 Mg Tablet PO 500 mg BID CARIN Administration Lisinopril 20 mg 05/26/20 09:00 05/29/20 08:51 Lisinopril 20 Mg Tablet PO 20 mg DAILY CARIN Administration Lorazepam 1 mg 05/26/20 04:29 Lorazepam 2 Mg/Ml Vial IVPUSH Q2H PRN Seizures Pharmacy Consult 1 each 05/26/20 01:25 Consult Rx Perform Med Rec MISCELLANE ONCE PRN Consult order Polyethylene Glycol 17 gm 05/26/20 09:00 05/29/20 08:52 Polyethylene Glycol 3350 17 Gm Powd.Pack PO 17 gm DAILY CARIN Administration Quetiapine Fumarate 25 mg 05/26/20 21:00 05/28/20 21:48 Quetiapine Fumarate 25 Mg Tablet PO 25 mg BEDTIME CARIN Administration Sertraline HCl 200 mg 05/26/20 09:00 05/29/20 08:51 Sertraline Hcl 100 Mg Tablet PO 200 mg BID CARIN Administration Sodium Chloride 3 ml 05/26/20 08:00 05/29/20 15:08 0.9 % Sodium Chloride Flush 3 Ml Syringe IVFLUSH 3 ml QSHIFT CARIN Administration Tamsulosin HCl 0.4 mg 05/26/20 09:00 05/29/20 08:51 Tamsulosin Hcl 0.4 Mg Capsule PO 0.4 mg DAILY CARIN Administration Labs CBC & Chem 7: 05/28/20 09:19 05/27/20 06:47 Microbiology Microbiology Results: Microbiology 05/25/20 22:45 Blood - Venous Blood Culture - Preliminary No growth after 48 hours. 05/25/20 22:45 Blood - Venous Blood Culture - Preliminary No growth after 48 hours. 05/25/20 22:57 Urine Catheterized - Rogers Catheter Urine Culture - Final No growth. Assessment and Plan (1) Acute UTI: Problem details: May continue Ertapenem at this time Status: Acute (2) Encephalopathy: Status: Acute (3) COVID-19: Status: Acute (4) Encephalopathy: Status: Resolved (5) Pneumonia: Status: Acute (6) Sepsis: Status: Resolved (7) Hypoxic: Status: Resolved (8) Acute UTI: Status: Resolved Assessment and Plan: 59-year-old male with a past medical history of hypertension, hyperlipidemia, diabetes, CVA/spinal injury/paraplegia, history of recurrent UTIs, history of seizures, hep C, dysphagia, bed-bound presented to the hospital with a chief complaint of altered mental status. 1.Alter mental status: Likely toxic metabolic encephalopathy in the setting of UTI versus postictal secondary to seizure episode. Mental status improving. Ativan p.r.n. for any seizure, continue keppra. Swallow nj doing better so updated diet as per swallow evaluation. Neurology evaluation noted-added solumedrole , mr /cta : added ammnia normal , esr elevated . If does not improve may need further workup 2. History of seizures: Continue continue keppra. 3. UTI: Patient had recurrent UTIs. Family also reported hematuria. Currently noticed microscopic hematuria. Urology consult. Blood cultures and urine cultures pending Continue ertapenem day 3 4. Initially was question of Abdominal pain/question dark stool: no abd pain ,passed bm Fecal occult blood negative H&H is near baseline 9-10 range 5. COVID-19 positive: Patient currently not shortness of breath. Saturating 97% on room air. No acute findings. Id consulted 6.Diabetes: Continue on Lantus 30 units and insulin sliding scale. Monitor fingerstick glucose and adjust insulins as needed. 7.Hypertension/hyperlipidemia: Continue home medications. 8.History of CVA/paraplegia: Chronic. Pressure ulcer prevention care per RN.
[2020-05-29] MEDS: Omeprazole 20 MG CAPSULE.DR PO (18:21)
[2020-05-29 19:21] LABS: Ammonia 29 umol/L (13-55)
[2020-05-29 21:12] LABS: Glucose, Whole Blood 103 mg/dL (60-115)
[2020-05-29 21:39] LABS: Anion Gap 12 (12-20); Blood Urea Nitrogen 16 mg/dL (9-16); Calcium 8.2 mg/dL (8.4-10.2); Carbon Dioxide 25 mmol/L (22-29); Chloride 108 mmol/L (96-108); Creatinine Clr Calc Pharmacy 105.8; Estimated Glomerular Filt Rate > 60; Glucose Random 100 mg/dL (60-115); Sodium 141 mmol/L (135-145)
[2020-05-29] MEDS: iohexoL 350 MG/ML 100 ML INFUS..BTL IV (23:03)
[2020-05-30] VITALS (10 sets, daily range): BP systolic 138–187; BP diastolic 72–97; PULSE 67–80; RESP 18–20; TEMP 36.4–37; O2SAT 95–98
[2020-05-30] MEDS: 0.9 % Sodium Chloride Flush 3 ML SYRINGE IVFLUSH ×4 (00:03→23:36)
[2020-05-30] MEDS: Enoxaparin Sodium 40 MG/0.4 ML SYRINGE SUBCUT (05:31)
[2020-05-30] MEDS: Omeprazole 20 MG CAPSULE.DR PO ×2 (05:31→16:35)
[2020-05-30 07:31] LABS: Glucose, Whole Blood 252 mg/dL (60-115)
[2020-05-30] MEDS: Insulin Lispro 100 UNIT/ML 3 ML VIAL SUBCUT ×4 (07:33→21:18)
[2020-05-30] MEDS: carvediloL 25 MG TABLET PO ×2 (07:33)
[2020-05-30] MEDS: amLODIPine Besylate 10 MG TABLET PO (07:34)
[2020-05-30] MEDS: Tamsulosin HCL 0.4 MG CAPSULE PO (08:36)
[2020-05-30] MEDS: Sertraline HCL 100 MG TABLET 200 MG PO ×3 (08:36→21:19)
[2020-05-30] MEDS: Finasteride 5 MG TABLET PO (08:36)
[2020-05-30] MEDS: Atorvastatin Calcium 40 MG TABLET PO (08:37)
[2020-05-30] MEDS: Aspirin Enteric Coated 81 MG TABLET.DR PO (08:37)
[2020-05-30] MEDS: levETIRAcetam 500 MG TABLET PO ×3 (08:37→21:19)
[2020-05-30] MEDS: Ascorbic Acid 500 MG TABLET 1000 MG PO (08:37)
[2020-05-30] MEDS: polyethylene glycoL 3350 17 GM POWD.PACK PO (08:37)
[2020-05-30] MEDS: Ertapenem Sodium 1 GM in 0.9 % Sodium Chloride 50 ML IV (09:41)
[2020-05-30 10:27] LABS: Alanine Aminotransferase 65 U/L (0-40); Alkaline Phosphatase 138 U/L (39-117); Aspartate Amino Transferase 122 U/L (5-37); Bilirubin Direct 0.3 mg/dL (0.0-0.5); Bilirubin Total 0.3 mg/dL (0.0-1.0); Cholesterol 86 mg/dL; HDL Cholesterol 12 mg/dL; LDL Cholesterol Calculated 41 mg/dl; Total Protein 7.4 g/dL (6.5-8.0); Triglycerides 169 mg/dL
[2020-05-30 11:23] LABS: Glucose, Whole Blood 238 mg/dL (60-115)
--- NOTE | 2020-05-30 12:43 | P.CNNE_ITS ---
History of Present Illness Data of Consult Service Date: 05/30/20 Primary Care Provider: Unknown Physician Somewhat more alert and answering questions in gestures. Family stated that he was probably back to baseline except his hand dexterity was not. [facility] Past Medical History Medical History Depression Diabetes Hepatitis C Paraplegia Seizure Stroke TIA (transient ischemic attack) Family History Family history: reviewed and not pertinent Social History Social History Household Members: Family Do you presently have visiting nurse or other home services: Yes Unable to assess alcohol history related to: Unknown and Refusing to respond Alcohol intake: former Smoking Status: Smoker, status unknown Use of substances other than those prescribed or required for medical reasons: Refusing to respond Currently Displaying Signs/Symptoms of Drug Intoxication Withdrawal: No Any prior treatment program specific to substance use: No Advance Directives: No Advance Directives Information Provided: No Do you have thoughts of harming others: None Do you have a plan to hurt others: No Plan Recently lost weight without trying: Unsure service: No Current occupational status: disabled Meds Allergies Allergy/AdvReac Type Severity Reaction Status Date / Time No Known Allergies Allergy Verified 01/25/20 19:38 [No Known Allergies*] Home Medications Medication Instructions Recorded Confirmed Type Januvia 100 mg PO DAILY 04/09/20 05/25/20 History atorvastatin 40 mg PO DAILY 04/09/20 05/25/20 History gabapentin 300 mg PO DAILY 04/09/20 05/25/20 History insulin aspart U-100 See Protocol SUBCUT TID 04/09/20 05/25/20 History insulin detemir U-100 46 unit SUBCUT DAILY 04/09/20 05/25/20 History polyethylene glycol 3350 [Miralax] 17 g PO DAILY 04/09/20 05/25/20 History sertraline 200 mg PO BID 04/09/20 05/25/20 History tamsulosin [Flomax] 0.4 mg PO DAILY 04/09/20 05/25/20 History tizanidine [Zanaflex] 2 mg PO BID 04/09/20 05/25/20 History quetiapine 25 mg PO BEDTIME 05/25/20 05/25/20 History albuterol sulfate [ProAir HFA] 2 puff INHALATION Q4-6H PRN 05/26/20 05/26/20 History amlodipine 10 mg PO DAILY 05/26/20 05/26/20 History carvedilol 25 mg PO BID 05/26/20 05/26/20 History lisinopril 20 mg PO DAILY 05/26/20 05/26/20 History Physical Exam Vital Signs: Vital Signs: Last Vital Signs Temp 98.0 F 05/30/20 11:39 Pulse 70 05/30/20 11:39 Resp 18 05/30/20 11:39 BP 165/97 H 05/30/20 11:39 Pulse Ox 95 05/30/20 11:39 Body Mass Index 28.6 Alert and awake answering simple questions. dystonic posturing of hands. Results Labs CBC & Chem 7: 05/28/20 09:19 05/29/20 20:54 Labs: BMP 05/29/20 20:54 Sodium 141 Potassium 4.0 Chloride 108 Carbon Dioxide 25 BUN 16 Creatinine 0.74 Calcium 8.2 L Liver Function 05/30/20 Range/Units 09:30 Total Bilirubin 0.3 (0.0-1.0) mg/dL Direct Bilirubin 0.3 (0.0-0.5) mg/dL AST 122 H (5-37) U/L ALT 65 H (0-40) U/L Alkaline Phosphatase 138 H (39-117) U/L Albumin 3.0 L (3.5-5.0) g/dL MRI, MRA, CTA reviewed: most remarkable finding is FLAIR hyperintensity around brainsetem and mid cerebellum Microbiology Microbiology Results: Microbiology 05/25/20 22:45 Blood - Venous Blood Culture - Preliminary No growth after 48 hours. 05/25/20 22:45 Blood - Venous Blood Culture - Preliminary No growth after 48 hours. 05/25/20 22:57 Urine Catheterized - Rogers Catheter Urine Culture - Final No growth. 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 There is no particular treatment except that steroid might help. I recommend continuing the plan of getting LP and treatment with solumedrol for 3 days, followed by prednisone 60mg daily and taper. Otherwise, treatment is conservative and supportive.
--- NOTE | 2020-05-30 15:02 | P.PNIM_ITS ---
Subjective Subjective Date of Service: 05/30/20 Interval History: UTI, COVID infection positive, ? neuro Bechet dis Review of Systems Patient seems more awake, able to answer his name and able to talk little bit when we write , also on the face time seems like Physical Exam Vital Signs: Vital Signs: Last Vital Signs Temp 98.0 F 05/30/20 11:39 Pulse 70 05/30/20 11:39 Resp 18 05/30/20 11:39 BP 165/97 H 05/30/20 11:39 Pulse Ox 95 05/30/20 11:39 Body Mass Index 28.6 Physical exam: Constitutional: Not in acute distress Cvs: rrr, [id number] , no murmur res: clear to auscultation ,no rhonchii or wheezing abd: no rebound or guarding ,nt, bs present. ext pulses present , no cyanosis neuro: moves hands , seems near baseline as per his sister. Objective Data Current Medications Generic Name Dose Route Start Last Admin Trade Name Freq PRN Reason Stop Dose Admin Acetaminophen 650 mg 05/26/20 04:01 05/26/20 19:09 Acetaminophen Supp 650 Mg Supp.Rect AR 650 mg Q6H PRN Administration Pain, Mild (Pain Scale 1-3) Amlodipine Besylate 10 mg 05/26/20 09:00 05/30/20 07:34 Amlodipine Besylate 10 Mg Tablet PO 10 mg DAILY CARIN Administration Ascorbic Acid 1,000 mg 05/30/20 09:00 05/30/20 08:37 Ascorbic Acid 500 Mg Tablet PO 1,000 mg DAILY CARIN Administration Aspirin 81 mg 05/30/20 09:00 05/30/20 08:37 Aspirin Enteric Coated 81 Mg Tablet.Dr PO 81 mg DAILY CARIN Administration Atorvastatin Calcium 40 mg 05/26/20 09:00 05/30/20 08:37 Atorvastatin Calcium 40 Mg Tablet PO 40 mg DAILY CARIN Administration Carvedilol 12.5 mg 05/30/20 09:00 05/30/20 08:20 Carvedilol 12.5 Mg Tablet PO Not Given BID [facility] Enoxaparin Sodium 40 mg 05/26/20 06:00 05/30/20 05:31 Enoxaparin Sodium 40 Mg/0.4 Ml Syringe SUBCUT 40 mg Q24H CARIN Administration Finasteride 5 mg 05/30/20 09:00 05/30/20 08:36 Finasteride 5 Mg Tablet PO 5 mg DAILY CARIN Administration Gabapentin 300 mg 05/26/20 09:00 05/29/20 08:52 Gabapentin 300 Mg Capsule PO 300 mg DAILY [facility] Administration Ertapenem 1 gm/ Sodium 50 mls @ 100 mls/hr 05/27/20 09:00 05/30/20 11:09 Chloride IV Infused DAILY CARIN Infusion Methylprednisolone Sodium 108 mls @ 100 mls/hr 05/29/20 19:00 05/30/20 10:08 Succinate 500 mg/ Sodium IV Infused Chloride Q12H CARIN Infusion Insulin Glargine 25 unit 05/29/20 21:00 05/30/20 00:01 Insulin Glargine,Hum.Rec.Anlog 100 Unit/Ml 10 Ml Vial SUBCUT Not Given BEDTIME [facility] Insulin Human Lispro 0 unit 05/26/20 07:30 05/30/20 11:57 Insulin Lispro 100 Unit/Ml 3 Ml Vial SUBCUT 4 unit QIDACHS [facility] Administration Protocol Levetiracetam 500 mg 05/26/20 09:00 05/30/20 08:37 Levetiracetam 500 Mg Tablet PO 500 mg BID [facility] Administration Lisinopril 20 mg 05/31/20 09:00 Lisinopril 20 Mg Tablet PO DAILY [facility] Lorazepam 1 mg 05/26/20 04:29 Lorazepam 2 Mg/Ml Vial IVPUSH Q2H PRN Seizures Omeprazole 20 mg 05/29/20 18:15 05/30/20 05:31 Omeprazole 20 Mg Capsule. PO 20 mg BID@0630,1630 [facility] Administration Pharmacy Consult 1 each 05/26/20 01:25 Consult Rx Perform Med Rec MISCELLANE ONCE PRN Consult order Polyethylene Glycol 17 gm 05/26/20 09:00 05/30/20 08:37 Polyethylene Glycol 3350 17 Gm Powd.Pack PO 17 gm DAILY [facility] Administration Quetiapine Fumarate 25 mg 05/26/20 21:00 05/28/20 21:48 Quetiapine Fumarate 25 Mg Tablet PO 25 mg BEDTIME [facility] Administration Sertraline HCl 200 mg 05/26/20 09:00 05/30/20 08:36 Sertraline Hcl 100 Mg Tablet PO 200 mg BID [facility] Administration Sodium Chloride 3 ml 05/26/20 08:00 05/30/20 07:33 0.9 % Sodium Chloride Flush 3 Ml Syringe IVFLUSH 3 ml QSHIFT [facility] Administration Tamsulosin HCl 0.4 mg 05/26/20 09:00 05/30/20 08:36 Tamsulosin Hcl 0.4 Mg Capsule PO 0.4 mg DAILY [facility] Administration Labs CBC & Chem 7: 05/28/20 09:19 05/29/20 20:54 Microbiology Microbiology Results: Microbiology 05/25/20 22:45 Blood - Venous Blood Culture - Preliminary No growth after 48 hours. 05/25/20 22:45 Blood - Venous Blood Culture - Preliminary No growth after 48 hours. 05/25/20 22:57 Urine Catheterized - Rogers Catheter Urine Culture - Final No growth. Assessment and Plan (1) Acute UTI: Problem details: May continue Ertapenem at this time Status: Acute (2) Encephalopathy: Status: Acute (3) COVID-19: Status: Acute (4) Encephalopathy: Status: Resolved (5) Pneumonia: Status: Acute (6) Sepsis: Status: Resolved (7) Hypoxic: Status: Resolved (8) Acute UTI: Status: Resolved Assessment and Plan: 59-year-old male with a past medical history of hypertension, hyperlipidemia, diabetes, CVA/spinal injury/paraplegia, history of recurrent UTIs, history of seizures, hep C, dysphagia, bed-bound presented to the hospital with a chief complaint of altered mental status. 1. Patient was initially thought to be altered mental status secondary to toxic metabolic encephalopathy/UTI Patient was placed on neuro checks, question of seizure nj EEG was added . Subsequently patient was seen by neuro: Thought to be vasculitis probably secondary to elevated ESR. Also MRI and MRA, and CTA done: Small focus of acute infarction the right centrum semiovale and within the left ala of the corpus callosum splenium. Head MRA: Significantly limited an essentially nondiagnostic. Cta:Small acute infarcts within the right centrum semiovale and within the left corpus callosum are better demonstrated on the previous MRI. Extensive hypoattenuation throughout the supratentorial white matter and cerebellar white matter again noted with multiple superimposed chronic infarcts within the cerebellar hemispheres and the deep willoughby nuclei bilaterally. A few of the left MCA sylvian branches appear moderately stenotic. Intracranial arterial circulation is otherwise widely patent. In addition ammonia seems to be normal Blood culture and urine culture negative. Due to above MRI finding we have added aspirin, continue statin Neuro also recommended to do LP to complete the neurological workup, so placed hold both aspirin and Lovenox for now for impending LP in the morning. 2. History of seizures: Continue continue keppra. 3. UTI: Patient had recurrent UTIs. Blood cultures and urine cultures -both negative Will discontinue ertapenem , ID following. 4.Family also reported hematuria. Currently noticed microscopic hematuria. Urology consult. pending 5. Initially was question of Abdominal pain/question dark stool: no abd pain ,passed bm Fecal occult blood negative H&H is near baseline 9-10 range further workup if h/h drops further. 5. COVID-19 positive: Patient currently not shortness of breath. Saturating 97% on room air. No acute findings. Id following-no acute intervention. 6.Diabetes:fs in 100 range this mornin adjusted Lantus 10 units bedtime and insulin sliding scale. Monitor fingerstick glucose and adjust insulins as needed. Avoid coverage below 200 mg/dL. 7.Hypertension/hyperlipidemia: Continue home medications. 8.History of CVA/paraplegia: Chronic. Pressure ulcer prevention care per RN.
[2020-05-30 16:18] LABS: Glucose, Whole Blood 254 mg/dL (60-115)
--- NOTE | 2020-05-30 17:00 | P.PNUR_ITS ---
Subjective Subjective Date of Service: 05/30/20 Interval history: Failed voiding trial today Suggest replace catheter Use catheter plug so bladder can cycle every 4 hours He will have either a permanent catheter or moved to suprapubic tube This can be discussed with family as outpatient Physical Exam Vital Signs: Vital Signs: Last Vital Signs Temp 98 F 05/30/20 15:06 Pulse 72 05/30/20 15:06 Resp 20 05/30/20 15:06 BP 187/84 H 05/30/20 15:06 Pulse Ox 97 05/30/20 15:06 Body Mass Index 28.6 Const: General: cooperative, healthy appearing, comfortable and no acute distress Nutritional Appearance: average body habitus Orientation /consciousness: oriented to person, oriented to place and oriented to time Eyes: General: appearance normal, both eyes and all related structures Chest: Chest palpation & inspection: normal inspection of the chest Resp: Effort & Inspection: normal respiratory effort Cardio: Rate: regular rate GI: Inspection: Yes normal to inspection Skin: Hair: normal Neuro: General: oriented to person, oriented to place and oriented to time Extrem: General: Yes normal to inspection Urology Results Labs CBC & Chem 7: 05/28/20 09:19 05/29/20 20:54 Labs: Laboratory Results - last 24 hr 05/26/20 05/29/20 05/29/20 11:19 18:42 20:54 Sodium 141 Potassium 4.0 Chloride 108 Carbon Dioxide 25 Anion Gap 12 BUN 16 Creatinine 0.74 Estim Creat Clear Calc 105.8 Estimated GFR > 60 POC Glucose Random Glucose 100 Calcium 8.2 L Total Bilirubin Direct Bilirubin AST ALT Alkaline Phosphatase Ammonia 29 Total Protein Albumin Triglycerides Cholesterol LDL Cholesterol, Calc HDL Cholesterol CHARLES Titer TNP CHARLES Titer 2 TNP CHARLES Titer 3 TNP CHARLES Pattern TNP CHARLES Pattern 2 TNP CHARLES Pattern 3 TNP 05/29/20 05/30/20 05/30/20 21:09 07:17 09:30 Sodium Potassium Chloride Carbon Dioxide Anion Gap BUN Creatinine Estim Creat Clear Calc Estimated GFR POC Glucose 103 252 H Random Glucose Calcium Total Bilirubin 0.3 Direct Bilirubin 0.3 AST 122 H ALT 65 H Alkaline Phosphatase 138 H Ammonia Total Protein 7.4 Albumin 3.0 L Triglycerides 169 Cholesterol 86 LDL Cholesterol, Calc 41 HDL Cholesterol 12 CHARLES Titer CHARLES Titer 2 CHARLES Titer 3 CHARLES Pattern CHARLES Pattern 2 CHARLES Pattern 3 05/30/20 05/30/20 11:20 16:06 Sodium Potassium Chloride Carbon Dioxide Anion Gap BUN Creatinine Estim Creat Clear Calc Estimated GFR POC Glucose 238 H 254 H Random Glucose Calcium Total Bilirubin Direct Bilirubin AST ALT Alkaline Phosphatase Ammonia Total Protein Albumin Triglycerides Cholesterol LDL Cholesterol, Calc HDL Cholesterol CHARLES Titer CHARLES Titer 2 CHARLES Titer 3 CHARLES Pattern CHARLES Pattern 2 CHARLES Pattern 3 Progress Note: A&P Assessment and plan (1) Incomplete emptying of bladder due to benign prostatic hyperplasia: Status: Acute (2) BPH w urinary obs/LUTS: Status: Acute Assessment and Plan: Continue with Rogers catheter in plug Has neurogenic bladder Fall Risk Details Current Medications: Current Medications Generic Name Dose Route Start Last Admin Trade Name Freq PRN Reason Stop Dose Admin Acetaminophen 650 mg 05/26/20 04:01 05/26/20 19:09 Acetaminophen Supp 650 Mg Supp.Rect [place] 650 mg Q6H PRN Administration Pain, Mild (Pain Scale 1-3) Amlodipine Besylate 10 mg 05/26/20 09:00 05/30/20 07:34 Amlodipine Besylate 10 Mg Tablet PO 10 mg DAILY CARIN Administration Ascorbic Acid 1,000 mg 05/30/20 09:00 05/30/20 08:37 Ascorbic Acid 500 Mg Tablet PO 1,000 mg DAILY [facility]IN Administration Aspirin 81 mg 05/30/20 09:00 05/30/20 08:37 Aspirin Enteric Coated 81 Mg Tablet.Dr PO 81 mg DAILY [facility] Administration Atorvastatin Calcium 40 mg 05/26/20 09:00 05/30/20 08:37 Atorvastatin Calcium 40 Mg Tablet PO 40 mg DAILY [facility] Administration Carvedilol 12.5 mg 05/30/20 09:00 05/30/20 08:20 Carvedilol 12.5 Mg Tablet PO Not Given BID [facility] Enoxaparin Sodium 40 mg 05/26/20 06:00 05/30/20 05:31 Enoxaparin Sodium 40 Mg/0.4 Ml Syringe SUBCUT 40 mg Q24H CARIN Administration Finasteride 5 mg 05/30/20 09:00 05/30/20 08:36 Finasteride 5 Mg Tablet PO 5 mg DAILY [facility] Administration Gabapentin 300 mg 05/26/20 09:00 05/29/20 08:52 Gabapentin 300 Mg Capsule PO 300 mg DAILY [facility] Administration Methylprednisolone Sodium 108 mls @ 100 mls/hr 05/29/20 19:00 05/30/20 10:08 Succinate 500 mg/ Sodium IV Infused Chloride Q12H [facility]IN Infusion Insulin Glargine 15 unit 05/30/20 21:00 Insulin Glargine,Hum.Rec.Anlog 100 Unit/Ml 10 Ml Vial SUBCUT BEDTIME [facility] Insulin Human Lispro 0 unit 05/26/20 07:30 05/30/20 16:35 Insulin Lispro 100 Unit/Ml 3 Ml Vial SUBCUT 6 unit QIDACHS [facility] Administration Protocol Levetiracetam 500 mg 05/26/20 09:00 05/30/20 08:37 Levetiracetam 500 Mg Tablet PO 500 mg BID [facility] Administration Lisinopril 20 mg 05/31/20 09:00 Lisinopril 20 Mg Tablet PO DAILY [facility] Omeprazole 20 mg 05/29/20 18:15 05/30/20 16:35 Omeprazole 20 Mg Capsule. PO 20 mg BID@4049,3760 [facility] Administration Pharmacy Consult 1 each 05/26/20 01:25 Consult Rx Perform Med Rec MISCELLANE ONCE PRN Consult order Polyethylene Glycol 17 gm 05/26/20 09:00 05/30/20 08:37 Polyethylene Glycol 3350 17 Gm Powd.Pack PO 17 gm DAILY [facility] Administration Quetiapine Fumarate 25 mg 05/26/20 21:00 05/28/20 21:48 Quetiapine Fumarate 25 Mg Tablet PO 25 mg BEDTIME [facility] Administration Sertraline HCl 200 mg 05/26/20 09:00 05/30/20 08:36 Sertraline Hcl 100 Mg Tablet PO 200 mg BID [facility]IN Administration Sodium Chloride 3 ml 05/26/20 08:00 05/30/20 16:35 0.9 % Sodium Chloride Flush 3 Ml Syringe IVFLUSH 3 ml QSHIFT [facility]IN Administration Tamsulosin HCl 0.4 mg 05/26/20 09:00 05/30/20 08:36 Tamsulosin Hcl 0.4 Mg Capsule PO 0.4 mg DAILY CARIN Administration Time Spent With Patient Time: Total time spent is greater than 50% in coordination of care (as documented) at patient's floor/unit and/or counseling patient: Time with patient: less than 15 minutes
--- NOTE | 2020-05-30 18:44 | PC.NURSE ---
Patient gomez DC this morning. PT was incontinent 2 times of small-moderate amounts. Bladder scan 352ml, pt incontinent again, bladder scan 274. Replace gomez and cap, drain every 4hrs- per Dr. Simms. Will continue to monitor urinary output.
[2020-05-30 20:13] LABS: Glucose, Whole Blood 184 mg/dL (60-115)
[2020-05-30] MEDS: Insulin Glargine,Hum.rec.anlog 100 UNIT/ML 10 ML VIAL 15 UNIT SUBCUT (21:18)
[2020-05-30] MEDS: carvediloL 12.5 MG TABLET PO (21:19)
[2020-05-31] VITALS (8 sets, daily range): BP systolic 134–182; BP diastolic 76–90; PULSE 75–91; RESP 18–20; TEMP 36.4–36.9; O2SAT 93–99
[2020-05-31 07:49] LABS: Glucose, Whole Blood 239 mg/dL (60-115)
[2020-05-31 07:58] LABS: Hematocrit 29.9 % (42-52); Hemoglobin 9.2 g/dl (14.0-18.0); Mean Corpuscular HGB Conc 30.8 g/dl (31.0-36.0); Mean Corpuscular Hemoglobin 23.4 pg (27.0-33.0); Mean Corpuscular Volume 76.1 fL (80-98); Platelet Count 392 X10*3/uL (160-400); Red Blood Count 3.93 X10*6/uL (4.60-5.80); White Blood Count 9.2 X10*3/uL (4.8-10.8)
[2020-05-31 08:03] LABS: INTERNATIONAL NORM RATIO 1.2 (0.9-1.1); Prothrombin Time 14.2 SEC (10.8-13.0)
[2020-05-31 08:06] LABS: Partial Thromboplastin Time 27.7 SEC (24.1-38.0)
[2020-05-31] MEDS: levETIRAcetam 500 MG TABLET PO ×2 (08:15→20:34)
[2020-05-31] MEDS: amLODIPine Besylate 10 MG TABLET PO (08:15)
[2020-05-31] MEDS: carvediloL 12.5 MG TABLET PO ×2 (08:15→20:34)
[2020-05-31] MEDS: Finasteride 5 MG TABLET PO (08:15)
[2020-05-31] MEDS: Sertraline HCL 100 MG TABLET 200 MG PO ×2 (08:15→20:34)
[2020-05-31] MEDS: 0.9 % Sodium Chloride Flush 3 ML SYRINGE IVFLUSH ×3 (08:16→23:12)
[2020-05-31] MEDS: Insulin Lispro 100 UNIT/ML 3 ML VIAL SUBCUT ×4 (08:16→20:33)
[2020-05-31] MEDS: Tamsulosin HCL 0.4 MG CAPSULE PO (08:16)
[2020-05-31 08:25] LABS: Anion Gap 14 (12-20); Blood Urea Nitrogen 19 mg/dL (9-16); Carbon Dioxide 23 mmol/L (22-29); Chloride 108 mmol/L (96-108); Creatinine Clr Calc Pharmacy 108.8; Estimated Glomerular Filt Rate > 60; Glucose Random 229 mg/dL (60-115); Potassium 3.9 mmol/L (3.3-5.1); Sodium 141 mmol/L (135-145)
[2020-05-31 11:13] LABS: Glucose, Whole Blood 166 mg/dL (60-115)
--- NOTE | 2020-05-31 13:51 | MHC.CM.PN ---
Home with resumption of services vs Respite @ SNF is the goal for dc. Patient is not yet medically cleared for dc (IV Debbie Villatoro, OMAIRA today). CM will continue to follow to confirm a final disposition.
[2020-05-31 13:57] LABS: CSF Appearance Clear, Colorless
[2020-05-31 13:58] LABS: CSF Tube # 1
[2020-05-31 14:08] LABS: Glucose CSF 127 mg/dL
[2020-05-31 14:32] LABS: Appearance CSF HAZY; CSF Tube # 3; Color CSF COLORLESS
[2020-05-31 14:34] LABS: CSF Monos 23 %; Lymphocytes CSF 77 %; Red Blood Cell CSF 1 MM*3; White Blood Cell CSF 12 MM*3
--- NOTE | 2020-05-31 15:34 | P.PNIM_ITS ---
Subjective Subjective Date of Service: 05/31/20 Interval History: seen and examined this AM difficult to understand which appears to be baseline uanble to ROS Physical Exam Vital Signs: Vital Signs: Last Vital Signs Temp 97.8 F 05/31/20 13:43 Pulse 78 05/31/20 13:43 Resp 18 05/31/20 13:43 BP 134/83 05/31/20 13:43 Pulse Ox 96 05/31/20 13:43 Body Mass Index 28.6 Const: Other: General - no acute distress, appears comfortable Cardiovascular - regular rate and rhythm, S1-S2 Lungs - normal respiratory effort, clear to auscultation bilaterally, no wheezing Abdomen - soft, nontender, no rebound or guarding Extremities - no edema bilaterally Neuro - awake and alert, dsyarthria which is ? baseline Objective Data Current Medications Generic Name Dose Route Start Last Admin Trade Name Freq PRN Reason Stop Dose Admin Acetaminophen 650 mg 05/26/20 04:01 05/26/20 19:09 Acetaminophen Supp 650 Mg Supp.Rect [place] 650 mg Q6H PRN Administration Pain, Mild (Pain Scale 1-3) Amlodipine Besylate 10 mg 05/26/20 09:00 05/31/20 08:15 Amlodipine Besylate 10 Mg Tablet PO 10 mg DAILY CARIN Administration Ascorbic Acid 1,000 mg 05/30/20 09:00 05/31/20 08:24 Ascorbic Acid 500 Mg Tablet PO Not Given DAILY [facility] Aspirin 81 mg 05/30/20 09:00 05/30/20 08:37 Aspirin Enteric Coated 81 Mg Tablet.Dr PO 81 mg DAILY [facility]IN Administration Atorvastatin Calcium 40 mg 05/26/20 09:00 05/31/20 08:24 Atorvastatin Calcium 40 Mg Tablet PO Not Given DAILY [facility] Carvedilol 12.5 mg 05/30/20 09:00 05/31/20 08:15 Carvedilol 12.5 Mg Tablet PO 12.5 mg BID [facility] Administration Enoxaparin Sodium 40 mg 05/26/20 06:00 05/30/20 05:31 Enoxaparin Sodium 40 Mg/0.4 Ml Syringe SUBCUT 40 mg Q24H CARIN Administration Finasteride 5 mg 05/30/20 09:00 05/31/20 08:15 Finasteride 5 Mg Tablet PO 5 mg DAILY [facility] Administration Gabapentin 300 mg 05/26/20 09:00 05/29/20 08:52 Gabapentin 300 Mg Capsule PO 300 mg DAILY [facility] Administration Methylprednisolone Sodium 108 mls @ 100 mls/hr 05/29/20 19:00 05/31/20 09:51 Succinate 500 mg/ Sodium IV 06/01/20 08:05 Infused Chloride Q12H CARIN Infusion Insulin Glargine 15 unit 05/30/20 21:00 05/30/20 21:18 Insulin Glargine,Hum.Rec.Anlog 100 Unit/Ml 10 Ml Vial SUBCUT 15 unit BEDTIME [facility] Administration Insulin Human Lispro 0 unit 05/26/20 07:30 05/31/20 11:57 Insulin Lispro 100 Unit/Ml 3 Ml Vial SUBCUT 2 unit QIDACHS [facility] Administration Protocol Levetiracetam 500 mg 05/26/20 09:00 05/31/20 08:15 Levetiracetam 500 Mg Tablet PO 500 mg BID [facility] Administration Lisinopril 20 mg 05/31/20 09:00 05/31/20 08:15 Lisinopril 20 Mg Tablet PO 20 mg DAILY [facility] Administration Omeprazole 20 mg 05/29/20 18:15 05/31/20 06:15 Omeprazole 20 Mg Capsule.Dr PO Not Given BID@0630,1630 [facility] Pharmacy Consult 1 each 05/26/20 01:25 Consult Rx Perform Med Rec MISCELLANE ONCE PRN Consult order Polyethylene Glycol 17 gm 05/26/20 09:00 05/31/20 08:24 Polyethylene Glycol 3350 17 Gm Powd.Pack PO Not Given DAILY [facility] Quetiapine Fumarate 25 mg 05/26/20 21:00 05/28/20 21:48 Quetiapine Fumarate 25 Mg Tablet PO 25 mg BEDTIME [facility] Administration Sertraline HCl 200 mg 05/26/20 09:00 05/31/20 08:15 Sertraline Hcl 100 Mg Tablet PO 200 mg BID [facility] Administration Sodium Chloride 3 ml 05/26/20 08:00 05/31/20 08:16 0.9 % Sodium Chloride Flush 3 Ml Syringe IVFLUSH 3 ml QSHIFT [facility] Administration Tamsulosin HCl 0.4 mg 05/26/20 09:00 05/31/20 08:16 Tamsulosin Hcl 0.4 Mg Capsule PO 0.4 mg DAILY [facility] Administration Labs CBC & Chem 7: 05/31/20 07:14 05/31/20 07:14 Microbiology Microbiology Results: Microbiology 05/25/20 22:45 Blood - Venous Blood Culture - Final No growth after 5 days. 05/25/20 22:45 Blood - Venous Blood Culture - Final No growth after 5 days. 05/25/20 22:57 Urine Catheterized - Gomez Catheter Urine Culture - Final No growth. Assessment and Plan (1) Behcets syndrome: Status: Acute Assessment and Plan: This is a 59 yo M admitted for acute encephalopathy which was initially felt to be secondary to UTI which has been since ruled out. He has gone under extensive neurolgoical work up with the working diagnosis currently as ace-Behcet's disease. 1. Acute encephalopathy UTI ruled out -- ccultures negative; discontinued ertapenam LP done -- discussed the results with Dr. Flowers today; Meningitis/encephalitis panel sent; will hold off antibotics/antiviral until this returns solu-medrol high dose -- day 3/3 today; start prednisone 60mg tomorrow 2. UTI ruled out Ertapenam discontinued 3. Urinary retention gomez, outpatient urology f/u 4. COVID 19+ no respiratory symptoms on steriods for his neurology findings 5. Seizures keppra 6. DM lantus + sliding scale Full Code DVT pptx, lovenox (start tomorrow)
[2020-05-31 16:46] LABS: Glucose, Whole Blood 205 mg/dL (60-115)
[2020-05-31] MEDS: Omeprazole 20 MG CAPSULE.DR PO (17:21)
[2020-05-31 19:56] LABS: Glucose, Whole Blood 230 mg/dL (60-115)
[2020-05-31] MEDS: Insulin Glargine,Hum.rec.anlog 100 UNIT/ML 10 ML VIAL 15 UNIT SUBCUT (20:33)
[2020-06-01 04:00] VITALS: BP 168/74; PULSE 79; RESP 18; TEMP 36.4; O2SAT 97
[2020-06-01] MEDS: Omeprazole 20 MG CAPSULE.DR PO ×2 (05:31→16:45)
[2020-06-01 07:52] VITALS: BP 150/90; PULSE 73; RESP 20; TEMP 36.8; O2SAT 93
[2020-06-01 07:57] LABS: Glucose, Whole Blood 292 mg/dL (60-115)
[2020-06-01] MEDS: amLODIPine Besylate 10 MG TABLET PO (08:12)
[2020-06-01] MEDS: Tamsulosin HCL 0.4 MG CAPSULE PO (08:12)
[2020-06-01] MEDS: Finasteride 5 MG TABLET PO (08:12)
[2020-06-01] MEDS: polyethylene glycoL 3350 17 GM POWD.PACK PO (08:12)
[2020-06-01] MEDS: Insulin Lispro 100 UNIT/ML 3 ML VIAL SUBCUT ×3 (08:13→16:45)
[2020-06-01] MEDS: Gabapentin 300 MG CAPSULE PO (08:13)
[2020-06-01] MEDS: Sertraline HCL 100 MG TABLET 200 MG PO (08:13)
[2020-06-01] MEDS: Ascorbic Acid 500 MG TABLET 1000 MG PO (08:13)
[2020-06-01] MEDS: levETIRAcetam 500 MG TABLET PO (08:13)
[2020-06-01] MEDS: carvediloL 12.5 MG TABLET PO (08:13)
[2020-06-01] MEDS: Atorvastatin Calcium 40 MG TABLET PO (08:13)
[2020-06-01] MEDS: 0.9 % Sodium Chloride Flush 3 ML SYRINGE IVFLUSH ×2 (08:14→16:45)
--- NOTE | 2020-06-01 10:07 | P.PNIM_ITS ---
Subjective Subjective Date of Service: 06/01/20 Interval History: seen and examined comfortable, no issues reported by medical staffing coordinator unable to ROS Physical Exam Vital Signs: Vital Signs: Last Vital Signs Temp 98.2 F 06/01/20 07:52 Pulse 73 06/01/20 07:52 Resp 20 06/01/20 07:52 BP 150/90 H 06/01/20 07:52 Pulse Ox 93 06/01/20 07:52 Body Mass Index 28.6 Const: Other: General - no acute distress, appears comfortable Cardiovascular - regular rate and rhythm, S1-S2 Lungs - normal respiratory effort, clear to auscultation bilaterally, no wheezing Abdomen - soft, nontender, no rebound or guarding Extremities - no edema bilaterally Neuro - awake and alert, dsyarthria which is ? baseline Objective Data Current Medications Generic Name Dose Route Start Last Admin Trade Name Freq PRN Reason Stop Dose Admin Acetaminophen 650 mg 05/26/20 04:01 05/26/20 19:09 Acetaminophen Supp 650 Mg Supp.Rect IA 650 mg Q6H PRN Administration Pain, Mild (Pain Scale 1-3) Amlodipine Besylate 10 mg 05/26/20 09:00 06/01/20 08:12 Amlodipine Besylate 10 Mg Tablet PO 10 mg DAILY CARIN Administration Ascorbic Acid 1,000 mg 05/30/20 09:00 06/01/20 08:13 Ascorbic Acid 500 Mg Tablet PO 1,000 mg DAILY CARIN Administration Atorvastatin Calcium 40 mg 05/26/20 09:00 06/01/20 08:13 Atorvastatin Calcium 40 Mg Tablet PO 40 mg DAILY CARIN Administration Carvedilol 12.5 mg 05/30/20 09:00 06/01/20 08:13 Carvedilol 12.5 Mg Tablet PO 12.5 mg BID CARIN Administration Finasteride 5 mg 05/30/20 09:00 06/01/20 08:12 Finasteride 5 Mg Tablet PO 5 mg DAILY CARIN Administration Gabapentin 300 mg 05/26/20 09:00 06/01/20 08:13 Gabapentin 300 Mg Capsule PO 300 mg DAILY CARIN Administration Insulin Glargine 15 unit 05/30/20 21:00 05/31/20 20:33 Insulin Glargine,Hum.Rec.Anlog 100 Unit/Ml 10 Ml Vial SUBCUT 15 unit BEDTIME CARIN Administration Insulin Human Lispro 0 unit 05/26/20 07:30 06/01/20 08:13 Insulin Lispro 100 Unit/Ml 3 Ml Vial SUBCUT 6 unit QIDACHS [facility] Administration Protocol Levetiracetam 500 mg 05/26/20 09:00 06/01/20 08:13 Levetiracetam 500 Mg Tablet PO 500 mg BID CARIN Administration Lisinopril 20 mg 05/31/20 09:00 06/01/20 08:13 Lisinopril 20 Mg Tablet PO 20 mg DAILY CARIN Administration Omeprazole 20 mg 05/29/20 18:15 06/01/20 05:31 Omeprazole 20 Mg Capsule. PO 20 mg BID@4376,2550 [facility] Administration Pharmacy Consult 1 each 05/26/20 01:25 Consult Rx Perform Med Rec MISCELLANE ONCE PRN Consult order Polyethylene Glycol 17 gm 05/26/20 09:00 06/01/20 08:12 Polyethylene Glycol 3350 17 Gm Powd.Pack PO 17 gm DAILY [facility] Administration Prednisone 60 mg 06/02/20 09:00 Prednisone 20 Mg Tablet PO DAILY [facility] Quetiapine Fumarate 25 mg 05/26/20 21:00 05/28/20 21:48 Quetiapine Fumarate 25 Mg Tablet PO 25 mg BEDTIME CARIN Administration Sertraline HCl 200 mg 05/26/20 09:00 06/01/20 08:13 Sertraline Hcl 100 Mg Tablet PO 200 mg BID CARIN Administration Sodium Chloride 3 ml 05/26/20 08:00 06/01/20 08:14 0.9 % Sodium Chloride Flush 3 Ml Syringe IVFLUSH 3 ml QSHIFT [facility] Administration Tamsulosin HCl 0.4 mg 05/26/20 09:00 06/01/20 08:12 Tamsulosin Hcl 0.4 Mg Capsule PO 0.4 mg DAILY CARIN Administration Labs CBC & Chem 7: 05/31/20 07:14 05/31/20 07:14 Microbiology Microbiology Results: Microbiology 05/31/20 13:00 Cerebrospinal Fluid Gram Stain - Final 05/31/20 13:00 Cerebrospinal Fluid CSF Examination - Final 05/31/20 13:00 Cerebrospinal Fluid Fluid Description - Final 05/31/20 13:00 Cerebrospinal Fluid CSF Culture - Preliminary No growth after 1 day 05/25/20 22:45 Blood - Venous Blood Culture - Final No growth after 5 days. 05/25/20 22:45 Blood - Venous Blood Culture - Final No growth after 5 days. 05/25/20 22:57 Urine Catheterized - Gomez Catheter Urine Culture - Final No growth. Assessment and Plan (1) Behcets syndrome: Status: Acute Assessment and Plan: This is a 59 yo M admitted for acute encephalopathy which was initially felt to be secondary to UTI which has been since ruled out. He has gone under extensive neurolgoical work up with the working diagnosis currently as ace-Behcet's disease. 1. Acute encephalopathy appears improved working Diagnosis: Neuro-Bachet's -- dose 6/6 of high dose IV solu-medrol today; transition to PO prednisone 60mg by tomorrow with taper over 2 weeks as recommended by neurology. UTI ruled out -- cultures negative; discontinued ertapenam LP done/MRI done. Meningitis/Encephalitis panel -- discussed the results (include white count) with Dr. Flowers 2. UTI ruled out Ertapenam discontinued 3. Urinary retention gomez, outpatient urology f/u 4. COVID 19+ no respiratory symptoms on steroids for his neurology findings 5. Seizures keppra 6. DM lantus + sliding scale Full Code DVT pptx, lovenox (restart today, confirmed with IR) dispo: TBD
--- NOTE | 2020-06-01 11:11 | MHC.CM.PN ---
CM spoke with Sister/Nalini @ [phone] to clarify the dc plan. The goal is for STR in a close by SNF (referrals have been updated). If a bed in not available in this area, Family will take Patient home with resumption of services. CM will continue to follow for dc planning.
[2020-06-01 11:34] LABS: Glucose, Whole Blood 326 mg/dL (60-115)
[2020-06-01 11:50] VITALS: BP 145/67; PULSE 76; RESP 18; TEMP 36.6; O2SAT 98
[2020-06-01] MEDS: Enoxaparin Sodium 40 MG/0.4 ML SYRINGE SUBCUT (11:53)
--- NOTE | 2020-06-01 12:10 | PM.DS ---
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 (2) Encephalopathy: Status: Acute (3) COVID-19: Status: Acute (4) Incomplete emptying of bladder due to benign prostatic hyperplasia: Status: Acute (5) Acute UTI: Status: Acute Problem details: ruled out DS: Medications Discharge Medications Home Medications: Home Medications Medication Instructions Recorded Confirmed Januvia 100 mg PO DAILY 04/09/20 05/25/20 atorvastatin 40 mg PO DAILY 04/09/20 05/25/20 gabapentin 300 mg PO DAILY 04/09/20 05/25/20 insulin aspart U-100 See Protocol SUBCUT TID 04/09/20 05/25/20 insulin detemir U-100 46 unit SUBCUT DAILY 04/09/20 05/25/20 polyethylene glycol 3350 [Miralax] 17 g PO DAILY 04/09/20 05/25/20 sertraline 200 mg PO BID 04/09/20 05/25/20 tamsulosin [Flomax] 0.4 mg PO DAILY 04/09/20 05/25/20 tizanidine [Zanaflex] 2 mg PO BID 04/09/20 05/25/20 quetiapine 25 mg PO BEDTIME 05/25/20 05/25/20 albuterol sulfate [ProAir HFA] 2 puff INHALATION Q4-6H PRN 05/26/20 05/26/20 amlodipine 10 mg PO DAILY 05/26/20 05/26/20 carvedilol 25 mg PO BID 05/26/20 05/26/20 lisinopril 20 mg PO DAILY 05/26/20 05/26/20 Previous Rx's Medication Instructions Recorded levetiracetam [Keppra] 500 mg PO BID #60 tab 01/25/20 finasteride [Proscar] 5 mg PO DAILY #30 tab 06/01/20 prednisone See Rx Instructions .ROUTE 06/01/20 .COMPLEX #63 tab DS: Summary Hospital Course Hospital Course: Patient presented to the hospital with acute mental status changes. His initial presentation including UA was concerning for toxic/metabolic encephalopathy secondary to urinary tract infection. He was initially treated with ertapenem due to his history of ESBL. Once his blood and urine cultures returned negative, antibiotics were discontinued. Further workup for his encephalopathy was conducted with neurology evaluation who recommended MRI/MRA of the brain as well as LP. 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 He is to follow up with Neurology clinic after completion of steriod taper (appt neesd to be made). Patients hospita course was further complicated by urinary retention. He failed a voiding trial and Rogers catheter was reinserted and capped. This can be drained every 4-6 hours as needed. He needs to follow up in the Urology Clinic in the next few weeks. Lastly, patient did test positive for COVID-19. He remained without any respiratory symptoms in the hospital. Anticipate less than 30 day stay at SNF Time Spent with Patient Time attestation: Total time spent providing and/or coordinating discharge services: Discharge coordination time: Greater than 30 minutes Physical Exam Vital Signs: Vital Signs: Last Vital Signs Temp 97.8 F 06/01/20 11:50 Pulse 76 06/01/20 11:50 Resp 18 06/01/20 11:50 BP 145/67 H 06/01/20 11:50 Pulse Ox 98 06/01/20 11:50 Body Mass Index 28.6 DS: Data Data Completed and Pending Labs on day of discharge: Laboratory Tests 05/25/20 05/25/20 05/25/20 22:21 22:44 22:44 WBC RBC Hgb Hct MCV MCH MCHC RDW Plt Count MPV Immature Gran % (Auto) Neut % (Auto) Lymph % (Auto) [place] % (Auto) Eos % (Auto) Baso % (Auto) Lymph # (Auto) [place] # (Auto) Eos # (Auto) Baso # (Auto) Abs Immat Gran (auto) Absolute Neuts (auto) Absolute Nucleated RBC Nucleated RBC % (auto) ESR PT 14.4 H INR 1.2 H APTT 27.2 D-Dimer Sodium 145 Potassium 4.0 Chloride 111 H Carbon Dioxide 24 Anion Gap 14 BUN 17 H Creatinine 0.72 Estim Creat Clear Calc 108.8 Estimated GFR > 60 POC Glucose 110 Random Glucose 108 Lactic Acid Calcium 7.9 L Phosphorus Magnesium Total Bilirubin Direct Bilirubin AST ALT Alkaline Phosphatase Ammonia Lactate Dehydrogenase Total Creatine Kinase C-Reactive Protein Total Protein Albumin Triglycerides Cholesterol LDL Cholesterol, Calc HDL Cholesterol Urine Color Urine Appearance Urine pH Ur Specific [place] Urine Protein Urine Glucose (UA) Urine Ketones Urine Blood Urine Nitrite Ur Leukocyte Esterase Urine RBC Urine WBC Ur Squamous Epith Cells Ur Renal Epithelial Cell Urine Bacteria Urine Mucus CSF Tube Number CSF Volume CSF Appearance CSF Color CSF WBC CSF RBC CSF Lymphocytes CSF Monocytes % CSF Appearance (b) CSF Glucose CSF Total Protein CSF Mening/Enceph PCR Stool Occult Blood CHARLES Screen CHARLES Titer CHARLES Titer 2 CHARLES Titer 3 CHARLES Pattern CHARLES Pattern 2 CHARLES Pattern 3 Proteinase 3 (PR3) Ab Myeloperoxidase Ab Double Strand DNA Ab T.pallidum Ab (EIA) Lyme Screen IgG & IgM Lyme Progressive Test Coronavirus (PCR) HIV 1&2 Ab/P24 Ag 4thGn Influenza Type A (PCR) Influenza Type B (PCR) RSV RNA Qual (PCR) 05/25/20 05/25/20 05/25/20 22:45 22:45 22:57 WBC 11.4 H RBC 4.09 L Hgb 9.6 L Hct 31.8 L MCV 77.8 L MCH 23.5 L MCHC 30.2 L RDW 18.9 H Plt Count 376 MPV 11.6 Immature Gran % (Auto) 0.3 Neut % (Auto) 77.3 H Lymph % (Auto) 11.[address] [place] % (Auto) 7.1 Eos % (Auto) 3.1 Baso % (Auto) 0.6 Lymph # (Auto) 1.3 [place] # (Auto) 0.8 Eos # (Auto) 0.4 Baso # (Auto) 0.1 Abs Immat Gran (auto) 0.04 H Absolute Neuts (auto) 8.8 H Absolute Nucleated RBC 0.000 Nucleated RBC % (auto) 0.0 ESR PT INR APTT D-Dimer Sodium Potassium Chloride Carbon Dioxide Anion Gap BUN Creatinine Estim Creat Clear Calc Estimated GFR POC Glucose Random Glucose Lactic Acid 1.4 Calcium Phosphorus Magnesium Total Bilirubin Direct Bilirubin AST ALT Alkaline Phosphatase Ammonia Lactate Dehydrogenase Total Creatine Kinase C-Reactive Protein Total Protein Albumin Triglycerides Cholesterol LDL Cholesterol, Calc HDL Cholesterol Urine Color Urine Appearance Urine pH Ur Specific [place] Urine Protein Urine Glucose (UA) Urine Ketones Urine Blood Urine Nitrite Ur Leukocyte Esterase Urine RBC Urine WBC Ur Squamous Epith Cells Ur Renal Epithelial Cell Urine Bacteria Urine Mucus CSF Tube Number CSF Volume CSF Appearance CSF Color CSF WBC CSF RBC CSF Lymphocytes CSF Monocytes % CSF Appearance (b) CSF Glucose CSF Total Protein CSF Mening/Enceph PCR Stool Occult Blood CHARLES Screen CHARLES Titer CHARLES Titer 2 CHARLES Titer 3 CHARLES Pattern CHARLES Pattern 2 CHARLES Pattern 3 Proteinase 3 (PR3) Ab Myeloperoxidase Ab Double Strand DNA Ab T.pallidum Ab (EIA) Lyme Screen IgG & IgM Lyme Progressive Test Coronavirus (PCR) POSITIVE A HIV 1&2 Ab/P24 Ag 4thGn Influenza Type A (PCR) NEGATIVE Influenza Type B (PCR) NEGATIVE RSV RNA Qual (PCR) NEGATIVE 05/25/20 05/26/20 05/26/20 22:57 05:45 05:45 WBC 11.8 H RBC 3.77 L Hgb 8.9 L Hct 29.7 L MCV 78.8 L MCH 23.6 L MCHC 30.0 L RDW 19.0 H Plt Count 313 MPV 11.6 Immature Gran % (Auto) 0.3 Neut % (Auto) 74.1 H Lymph % (Auto) 15.[address] [place] % (Auto) 7.8 Eos % (Auto) 1.7 Baso % (Auto) 0.3 Lymph # (Auto) 1.9 [place] # (Auto) 0.9 Eos # (Auto) 0.2 Baso # (Auto) 0.0 Abs Immat Gran (auto) 0.04 H Absolute Neuts (auto) 8.7 H Absolute Nucleated RBC 0.000 Nucleated RBC % (auto) 0.0 ESR PT INR APTT D-Dimer 842 Sodium Potassium Chloride Carbon Dioxide Anion Gap BUN Creatinine Estim Creat Clear Calc Estimated GFR POC Glucose Random Glucose Lactic Acid Calcium Phosphorus Magnesium Total Bilirubin Direct Bilirubin AST ALT Alkaline Phosphatase Ammonia Lactate Dehydrogenase Total Creatine Kinase C-Reactive Protein Total Protein Albumin Triglycerides Cholesterol LDL Cholesterol, Calc HDL Cholesterol Urine Color YELLOW Urine Appearance CLEAR Urine pH 7.0 Ur Specific [place] 1.020 Urine Protein 2+ H Urine Glucose (UA) NEG Urine Ketones NEG Urine Blood 1+ H Urine Nitrite NEG Ur Leukocyte Esterase 1+ H Urine RBC 5-9 H Urine WBC 15-29 H Ur Squamous Epith Cells 1+ Ur Renal Epithelial Cell 1+ Urine Bacteria 2+ Urine Mucus 1+ CSF Tube Number CSF Volume CSF Appearance CSF Color CSF WBC CSF RBC CSF Lymphocytes CSF Monocytes % CSF Appearance (b) CSF Glucose CSF Total Protein CSF Mening/Enceph PCR Stool Occult Blood CHARLES Screen CHARLES Titer CHARLES Titer 2 CHARLES Titer 3 CHARLES Pattern CHARLES Pattern 2 CHARLES Pattern 3 Proteinase 3 (PR3) Ab Myeloperoxidase Ab Double Strand DNA Ab T.pallidum Ab (EIA) Lyme Screen IgG & IgM Lyme Progressive Test Coronavirus (PCR) HIV 1&2 Ab/P24 Ag 4thGn Influenza Type A (PCR) Influenza Type B (PCR) RSV RNA Qual (PCR) 05/26/20 05/26/20 05/26/20 05:45 06:51 11:19 WBC RBC Hgb Hct MCV MCH MCHC RDW Plt Count MPV Immature Gran % (Auto) Neut % (Auto) Lymph % (Auto) [place] % (Auto) Eos % (Auto) Baso % (Auto) Lymph # (Auto) [place] # (Auto) Eos # (Auto) Baso # (Auto) Abs Immat Gran (auto) Absolute Neuts (auto) Absolute Nucleated RBC Nucleated RBC % (auto) ESR 89 H PT INR APTT D-Dimer Sodium 144 Potassium 4.0 Chloride 112 H Carbon Dioxide 23 Anion Gap 13 BUN 19 H Creatinine 0.70 Estim Creat Clear Calc 111.9 Estimated GFR > 60 POC Glucose 127 H Random Glucose 123 H Lactic Acid Calcium 7.8 L Phosphorus Magnesium Total Bilirubin Direct Bilirubin AST ALT Alkaline Phosphatase Ammonia Lactate Dehydrogenase Total Creatine Kinase C-Reactive Protein Total Protein Albumin Triglycerides Cholesterol LDL Cholesterol, Calc HDL Cholesterol Urine Color Urine Appearance Urine pH Ur Specific [place] Urine Protein Urine Glucose (UA) Urine Ketones Urine Blood Urine Nitrite Ur Leukocyte Esterase Urine RBC Urine WBC Ur Squamous Epith Cells Ur Renal Epithelial Cell Urine Bacteria Urine Mucus CSF Tube Number CSF Volume CSF Appearance CSF Color CSF WBC CSF RBC CSF Lymphocytes CSF Monocytes % CSF Appearance (b) CSF Glucose CSF Total Protein CSF Mening/Enceph PCR Stool Occult Blood CHARLES Screen CHARLES Titer CHARLES Titer 2 CHARLES Titer 3 CHARLES Pattern CHARLES Pattern 2 CHARLES Pattern 3 Proteinase 3 (PR3) Ab Myeloperoxidase Ab Double Strand DNA Ab T.pallidum Ab (EIA) Lyme Screen IgG & IgM Lyme Progressive Test Coronavirus (PCR) HIV 1&2 Ab/P24 Ag 4thGn Influenza Type A (PCR) Influenza Type B (PCR) RSV RNA Qual (PCR) 05/26/20 05/26/20 05/26/20 11:19 11:19 11:19 WBC RBC Hgb Hct MCV MCH MCHC RDW Plt Count MPV Immature Gran % (Auto) Neut % (Auto) Lymph % (Auto) [place] % (Auto) Eos % (Auto) Baso % (Auto) Lymph # (Auto) [place] # (Auto) Eos # (Auto) Baso # (Auto) Abs Immat Gran (auto) Absolute Neuts (auto) Absolute Nucleated RBC Nucleated RBC % (auto) ESR PT INR APTT D-Dimer Sodium Potassium Chloride Carbon Dioxide Anion Gap BUN Creatinine Estim Creat Clear Calc Estimated GFR POC Glucose Random Glucose Lactic Acid Calcium Phosphorus Magnesium Total Bilirubin Direct Bilirubin AST ALT Alkaline Phosphatase Ammonia 33 Lactate Dehydrogenase Total Creatine Kinase C-Reactive Protein Total Protein Albumin Triglycerides Cholesterol LDL Cholesterol, Calc HDL Cholesterol Urine Color Urine Appearance Urine pH Ur Specific [place] Urine Protein Urine Glucose (UA) Urine Ketones Urine Blood Urine Nitrite Ur Leukocyte Esterase Urine RBC Urine WBC Ur Squamous Epith Cells Ur Renal Epithelial Cell Urine Bacteria Urine Mucus CSF Tube Number CSF Volume CSF Appearance CSF Color CSF WBC CSF RBC CSF Lymphocytes CSF Monocytes % CSF Appearance (b) CSF Glucose CSF Total Protein CSF Mening/Enceph PCR Stool Occult Blood CHARLES Screen NEGATIVE CHARLES Titer TNP CHARLES Titer 2 TNP CHARLES Titer 3 TNP CHARLES Pattern TNP CHARLES Pattern 2 TNP CHARLES Pattern 3 TNP Proteinase 3 (PR3) Ab <1.0 Myeloperoxidase Ab <1.0 Double Strand DNA Ab 5 H T.pallidum Ab (EIA) Lyme Screen IgG & IgM Lyme Progressive Test Coronavirus (PCR) HIV 1&2 Ab/P24 Ag 4thGn Influenza Type A (PCR) Influenza Type B (PCR) RSV RNA Qual (PCR) 05/26/20 05/26/20 05/26/20 11:19 11:19 11:19 WBC RBC Hgb Hct MCV MCH MCHC RDW Plt Count MPV Immature Gran % (Auto) Neut % (Auto) Lymph % (Auto) [place] % (Auto) Eos % (Auto) Baso % (Auto) Lymph # (Auto) [place] # (Auto) Eos # (Auto) Baso # (Auto) Abs Immat Gran (auto) Absolute Neuts (auto) Absolute Nucleated RBC Nucleated RBC % (auto) ESR PT INR APTT D-Dimer Sodium Potassium Chloride Carbon Dioxide Anion Gap BUN Creatinine Estim Creat Clear Calc Estimated GFR POC Glucose Random Glucose Lactic Acid Calcium Phosphorus Magnesium Total Bilirubin Direct Bilirubin AST ALT Alkaline Phosphatase Ammonia Lactate Dehydrogenase Total Creatine Kinase C-Reactive Protein Total Protein Albumin Triglycerides Cholesterol LDL Cholesterol, Calc HDL Cholesterol Urine Color Urine Appearance Urine pH Ur Specific [place] Urine Protein Urine Glucose (UA) Urine Ketones Urine Blood Urine Nitrite Ur Leukocyte Esterase Urine RBC Urine WBC Ur Squamous Epith Cells Ur Renal Epithelial Cell Urine Bacteria Urine Mucus CSF Tube Number CSF Volume CSF Appearance CSF Color CSF WBC CSF RBC CSF Lymphocytes CSF Monocytes % CSF Appearance (b) CSF Glucose CSF Total Protein CSF Mening/Enceph PCR Stool Occult Blood CHARLES Screen CHARLES Titer CHARLES Titer 2 CHARLES Titer 3 CHARLES Pattern CHARLES Pattern 2 CHARLES Pattern 3 Proteinase 3 (PR3) Ab Myeloperoxidase Ab Double Strand DNA Ab T.pallidum Ab (EIA) Nonreactive Lyme Screen IgG & IgM <0.90 Lyme Progressive Test TNP Coronavirus (PCR) HIV 1&2 Ab/P24 Ag 4thGn Nonreactive Influenza Type A (PCR) Influenza Type B (PCR) RSV RNA Qual (PCR) 05/26/20 05/26/20 05/26/20 14:46 16:01 18:44 WBC RBC Hgb Hct MCV MCH MCHC RDW Plt Count MPV Immature Gran % (Auto) Neut % (Auto) Lymph % (Auto) [place] % (Auto) Eos % (Auto) Baso % (Auto) Lymph # (Auto) [place] # (Auto) Eos # (Auto) Baso # (Auto) Abs Immat Gran (auto) Absolute Neuts (auto) Absolute Nucleated RBC Nucleated RBC % (auto) ESR PT INR APTT D-Dimer Sodium Potassium Chloride Carbon Dioxide Anion Gap BUN Creatinine Estim Creat Clear Calc Estimated GFR POC Glucose 155 H 134 H Random Glucose Lactic Acid Calcium Phosphorus Magnesium Total Bilirubin Direct Bilirubin AST ALT Alkaline Phosphatase Ammonia Lactate Dehydrogenase Total Creatine Kinase C-Reactive Protein Total Protein Albumin Triglycerides Cholesterol LDL Cholesterol, Calc HDL Cholesterol Urine Color Urine Appearance Urine pH Ur Specific [place] Urine Protein Urine Glucose (UA) Urine Ketones Urine Blood Urine Nitrite Ur Leukocyte Esterase Urine RBC Urine WBC Ur Squamous Epith Cells Ur Renal Epithelial Cell Urine Bacteria Urine Mucus CSF Tube Number CSF Volume CSF Appearance CSF Color CSF WBC CSF RBC CSF Lymphocytes CSF Monocytes % CSF Appearance (b) CSF Glucose CSF Total Protein CSF Mening/Enceph PCR Stool Occult Blood NEG CHARLES Screen CHARLES Titer CHARLES Titer 2 CHARLES Titer 3 CHARLES Pattern CHARLES Pattern 2 CHARLES Pattern 3 Proteinase 3 (PR3) Ab Myeloperoxidase Ab Double Strand DNA Ab T.pallidum Ab (EIA) Lyme Screen IgG & IgM Lyme Progressive Test Coronavirus (PCR) HIV 1&2 Ab/P24 Ag 4thGn Influenza Type A (PCR) Influenza Type B (PCR) RSV RNA Qual (PCR) 05/26/20 05/27/20 05/27/20 20:17 06:47 06:47 WBC RBC Hgb Hct MCV MCH MCHC RDW Plt Count MPV Immature Gran % (Auto) Neut % (Auto) Lymph % (Auto) [place] % (Auto) Eos % (Auto) Baso % (Auto) Lymph # (Auto) [place] # (Auto) Eos # (Auto) Baso # (Auto) Abs Immat Gran (auto) Absolute Neuts (auto) Absolute Nucleated RBC Nucleated RBC % (auto) ESR PT INR APTT D-Dimer Sodium Potassium Chloride Carbon Dioxide Anion Gap BUN Creatinine Estim Creat Clear Calc Estimated GFR POC Glucose 197 H Random Glucose 149 H Lactic Acid Calcium Phosphorus 3.0 Magnesium 1.7 1.7 Total Bilirubin Direct Bilirubin AST ALT Alkaline Phosphatase Ammonia Lactate Dehydrogenase 250 Total Creatine Kinase 102 C-Reactive Protein 4.59 H Total Protein Albumin Triglycerides Cholesterol LDL Cholesterol, Calc HDL Cholesterol Urine Color Urine Appearance Urine pH Ur Specific [place] Urine Protein Urine Glucose (UA) Urine Ketones Urine Blood Urine Nitrite Ur Leukocyte Esterase Urine RBC Urine WBC Ur Squamous Epith Cells Ur Renal Epithelial Cell Urine Bacteria Urine Mucus CSF Tube Number CSF Volume CSF Appearance CSF Color CSF WBC CSF RBC CSF Lymphocytes CSF Monocytes % CSF Appearance (b) CSF Glucose CSF Total Protein CSF Mening/Enceph PCR Stool Occult Blood CHARLES Screen CHARLES Titer CHARLES Titer 2 CHARLES Titer 3 CHARLES Pattern CHARLES Pattern 2 CHARLES Pattern 3 Proteinase 3 (PR3) Ab Myeloperoxidase Ab Double Strand DNA Ab T.pallidum Ab (EIA) Lyme Screen IgG & IgM Lyme Progressive Test Coronavirus (PCR) HIV 1&2 Ab/P24 Ag 4thGn Influenza Type A (PCR) Influenza Type B (PCR) RSV RNA Qual (PCR) 05/27/20 05/27/20 05/27/20 07:17 11:50 18:07 WBC RBC Hgb Hct MCV MCH MCHC RDW Plt Count MPV Immature Gran % (Auto) Neut % (Auto) Lymph % (Auto) [place] % (Auto) Eos % (Auto) Baso % (Auto) Lymph # (Auto) [place] # (Auto) Eos # (Auto) Baso # (Auto) Abs Immat Gran (auto) Absolute Neuts (auto) Absolute Nucleated RBC Nucleated RBC % (auto) ESR PT INR APTT D-Dimer Sodium Potassium Chloride Carbon Dioxide Anion Gap BUN Creatinine Estim Creat Clear Calc Estimated GFR POC Glucose 140 H 136 H 125 H Random Glucose Lactic Acid Calcium Phosphorus Magnesium Total Bilirubin Direct Bilirubin AST ALT Alkaline Phosphatase Ammonia Lactate Dehydrogenase Total Creatine Kinase C-Reactive Protein Total Protein Albumin Triglycerides Cholesterol LDL Cholesterol, Calc HDL Cholesterol Urine Color Urine Appearance Urine pH Ur Specific [place] Urine Protein Urine Glucose (UA) Urine Ketones Urine Blood Urine Nitrite Ur Leukocyte Esterase Urine RBC Urine WBC Ur Squamous Epith Cells Ur Renal Epithelial Cell Urine Bacteria Urine Mucus CSF Tube Number CSF Volume CSF Appearance CSF Color CSF WBC CSF RBC CSF Lymphocytes CSF Monocytes % CSF Appearance (b) CSF Glucose CSF Total Protein CSF Mening/Enceph PCR Stool Occult Blood CHARLES Screen CHARLES Titer CHARLES Titer 2 CHARLES Titer 3 CHARLES Pattern CHARLES Pattern 2 CHARLES Pattern 3 Proteinase 3 (PR3) Ab Myeloperoxidase Ab Double Strand DNA Ab T.pallidum Ab (EIA) Lyme Screen IgG & IgM Lyme Progressive Test Coronavirus (PCR) HIV 1&2 Ab/P24 Ag 4thGn Influenza Type A (PCR) Influenza Type B (PCR) RSV RNA Qual (PCR) 05/27/20 05/28/20 05/28/20 20:41 07:59 09:19 WBC RBC Hgb 9.8 L Hct 31.9 L MCV MCH MCHC RDW Plt Count MPV Immature Gran % (Auto) Neut % (Auto) Lymph % (Auto) [place] % (Auto) Eos % (Auto) Baso % (Auto) Lymph # (Auto) [place] # (Auto) Eos # (Auto) Baso # (Auto) Abs Immat Gran (auto) Absolute Neuts (auto) Absolute Nucleated RBC Nucleated RBC % (auto) ESR PT INR APTT D-Dimer Sodium Potassium Chloride Carbon Dioxide Anion Gap BUN Creatinine Estim Creat Clear Calc Estimated GFR POC Glucose 112 103 Random Glucose Lactic Acid Calcium Phosphorus Magnesium Total Bilirubin Direct Bilirubin AST ALT Alkaline Phosphatase Ammonia Lactate Dehydrogenase Total Creatine Kinase C-Reactive Protein Total Protein Albumin Triglycerides Cholesterol LDL Cholesterol, Calc HDL Cholesterol Urine Color Urine Appearance Urine pH Ur Specific [place] Urine Protein Urine Glucose (UA) Urine Ketones Urine Blood Urine Nitrite Ur Leukocyte Esterase Urine RBC Urine WBC Ur Squamous Epith Cells Ur Renal Epithelial Cell Urine Bacteria Urine Mucus CSF Tube Number CSF Volume CSF Appearance CSF Color CSF WBC CSF RBC CSF Lymphocytes CSF Monocytes % CSF Appearance (b) CSF Glucose CSF Total Protein CSF Mening/Enceph PCR Stool Occult Blood CHARLES Screen CHARLES Titer CHARLES Titer 2 CHARLES Titer 3 CHARLES Pattern CHARLES Pattern 2 CHARLES Pattern 3 Proteinase 3 (PR3) Ab Myeloperoxidase Ab Double Strand DNA Ab T.pallidum Ab (EIA) Lyme Screen IgG & IgM Lyme Progressive Test Coronavirus (PCR) HIV 1&2 Ab/P24 Ag 4thGn Influenza Type A (PCR) Influenza Type B (PCR) RSV RNA Qual (PCR) 05/28/20 05/28/20 05/28/20 11:19 16:00 20:06 WBC RBC Hgb Hct MCV MCH MCHC RDW Plt Count MPV Immature Gran % (Auto) Neut % (Auto) Lymph % (Auto) [place] % (Auto) Eos % (Auto) Baso % (Auto) Lymph # (Auto) [place] # (Auto) Eos # (Auto) Baso # (Auto) Abs Immat Gran (auto) Absolute Neuts (auto) Absolute Nucleated RBC Nucleated RBC % (auto) ESR PT INR APTT D-Dimer Sodium Potassium Chloride Carbon Dioxide Anion Gap BUN Creatinine Estim Creat Clear Calc Estimated GFR POC Glucose 135 H 196 H 125 H Random Glucose Lactic Acid Calcium Phosphorus Magnesium Total Bilirubin Direct Bilirubin AST ALT Alkaline Phosphatase Ammonia Lactate Dehydrogenase Total Creatine Kinase C-Reactive Protein Total Protein Albumin Triglycerides Cholesterol LDL Cholesterol, Calc HDL Cholesterol Urine Color Urine Appearance Urine pH Ur Specific [place] Urine Protein Urine Glucose (UA) Urine Ketones Urine Blood Urine Nitrite Ur Leukocyte Esterase Urine RBC Urine WBC Ur Squamous Epith Cells Ur Renal Epithelial Cell Urine Bacteria Urine Mucus CSF Tube Number CSF Volume CSF Appearance CSF Color CSF WBC CSF RBC CSF Lymphocytes CSF Monocytes % CSF Appearance (b) CSF Glucose CSF Total Protein CSF Mening/Enceph PCR Stool Occult Blood CHARLES Screen CHARLES Titer CHARLES Titer 2 CHARLES Titer 3 CHARLES Pattern CHARLES Pattern 2 CHARLES Pattern 3 Proteinase 3 (PR3) Ab Myeloperoxidase Ab Double Strand DNA Ab T.pallidum Ab (EIA) Lyme Screen IgG & IgM Lyme Progressive Test Coronavirus (PCR) HIV 1&2 Ab/P24 Ag 4thGn Influenza Type A (PCR) Influenza Type B (PCR) RSV RNA Qual (PCR) 05/29/20 05/29/20 05/29/20 07:20 11:39 16:18 WBC RBC Hgb Hct MCV MCH MCHC RDW Plt Count MPV Immature Gran % (Auto) Neut % (Auto) Lymph % (Auto) [place] % (Auto) Eos % (Auto) Baso % (Auto) Lymph # (Auto) [place] # (Auto) Eos # (Auto) Baso # (Auto) Abs Immat Gran (auto) Absolute Neuts (auto) Absolute Nucleated RBC Nucleated RBC % (auto) ESR PT INR APTT D-Dimer Sodium Potassium Chloride Carbon Dioxide Anion Gap BUN Creatinine Estim Creat Clear Calc Estimated GFR POC Glucose 100 150 H 206 H Random Glucose Lactic Acid Calcium Phosphorus Magnesium Total Bilirubin Direct Bilirubin AST ALT Alkaline Phosphatase Ammonia Lactate Dehydrogenase Total Creatine Kinase C-Reactive Protein Total Protein Albumin Triglycerides Cholesterol LDL Cholesterol, Calc HDL Cholesterol Urine Color Urine Appearance Urine pH Ur Specific [place] Urine Protein Urine Glucose (UA) Urine Ketones Urine Blood Urine Nitrite Ur Leukocyte Esterase Urine RBC Urine WBC Ur Squamous Epith Cells Ur Renal Epithelial Cell Urine Bacteria Urine Mucus CSF Tube Number CSF Volume CSF Appearance CSF Color CSF WBC CSF RBC CSF Lymphocytes CSF Monocytes % CSF Appearance (b) CSF Glucose CSF Total Protein CSF Mening/Enceph PCR Stool Occult Blood CHARLES Screen CHARLES Titer CHARLES Titer 2 CHARLES Titer 3 CHARLES Pattern CHARLES Pattern 2 CHARLES Pattern 3 Proteinase 3 (PR3) Ab Myeloperoxidase Ab Double Strand DNA Ab T.pallidum Ab (EIA) Lyme Screen IgG & IgM Lyme Progressive Test Coronavirus (PCR) HIV 1&2 Ab/P24 Ag 4thGn Influenza Type A (PCR) Influenza Type B (PCR) RSV RNA Qual (PCR) 05/29/20 05/29/20 05/29/20 18:42 20:54 21:09 WBC RBC Hgb Hct MCV MCH MCHC RDW Plt Count MPV Immature Gran % (Auto) Neut % (Auto) Lymph % (Auto) [place] % (Auto) Eos % (Auto) Baso % (Auto) Lymph # (Auto) [place] # (Auto) Eos # (Auto) Baso # (Auto) Abs Immat Gran (auto) Absolute Neuts (auto) Absolute Nucleated RBC Nucleated RBC % (auto) ESR PT INR APTT D-Dimer Sodium 141 Potassium 4.0 Chloride 108 Carbon Dioxide 25 Anion Gap 12 BUN 16 Creatinine 0.74 Estim Creat Clear Calc 105.8 Estimated GFR > 60 POC Glucose 103 Random Glucose 100 Lactic Acid Calcium 8.2 L Phosphorus Magnesium Total Bilirubin Direct Bilirubin AST ALT Alkaline Phosphatase Ammonia 29 Lactate Dehydrogenase Total Creatine Kinase C-Reactive Protein Total Protein Albumin Triglycerides Cholesterol LDL Cholesterol, Calc HDL Cholesterol Urine Color Urine Appearance Urine pH Ur Specific [place] Urine Protein Urine Glucose (UA) Urine Ketones Urine Blood Urine Nitrite Ur Leukocyte Esterase Urine RBC Urine WBC Ur Squamous Epith Cells Ur Renal Epithelial Cell Urine Bacteria Urine Mucus CSF Tube Number CSF Volume CSF Appearance CSF Color CSF WBC CSF RBC CSF Lymphocytes CSF Monocytes % CSF Appearance (b) CSF Glucose CSF Total Protein CSF Mening/Enceph PCR Stool Occult Blood CHARLES Screen CHARLES Titer CHARLES Titer 2 CHARLES Titer 3 CHARLES Pattern CHARLES Pattern 2 CHARLES Pattern 3 Proteinase 3 (PR3) Ab Myeloperoxidase Ab Double Strand DNA Ab T.pallidum Ab (EIA) Lyme Screen IgG & IgM Lyme Progressive Test Coronavirus (PCR) HIV 1&2 Ab/P24 Ag 4thGn Influenza Type A (PCR) Influenza Type B (PCR) RSV RNA Qual (PCR) 05/30/20 05/30/20 05/30/20 07:17 09:30 11:20 WBC RBC Hgb Hct MCV MCH MCHC RDW Plt Count MPV Immature Gran % (Auto) Neut % (Auto) Lymph % (Auto) [place] % (Auto) Eos % (Auto) Baso % (Auto) Lymph # (Auto) [place] # (Auto) Eos # (Auto) Baso # (Auto) Abs Immat Gran (auto) Absolute Neuts (auto) Absolute Nucleated RBC Nucleated RBC % (auto) ESR PT INR APTT D-Dimer Sodium Potassium Chloride Carbon Dioxide Anion Gap BUN Creatinine Estim Creat Clear Calc Estimated GFR POC Glucose 252 H 238 H Random Glucose Lactic Acid Calcium Phosphorus Magnesium Total Bilirubin 0.3 Direct Bilirubin 0.3 AST 122 H ALT 65 H Alkaline Phosphatase 138 H Ammonia Lactate Dehydrogenase Total Creatine Kinase C-Reactive Protein Total Protein 7.4 Albumin 3.0 L Triglycerides 169 Cholesterol 86 LDL Cholesterol, Calc 41 HDL Cholesterol 12 Urine Color Urine Appearance Urine pH Ur Specific [place] Urine Protein Urine Glucose (UA) Urine Ketones Urine Blood Urine Nitrite Ur Leukocyte Esterase Urine RBC Urine WBC Ur Squamous Epith Cells Ur Renal Epithelial Cell Urine Bacteria Urine Mucus CSF Tube Number CSF Volume CSF Appearance CSF Color CSF WBC CSF RBC CSF Lymphocytes CSF Monocytes % CSF Appearance (b) CSF Glucose CSF Total Protein CSF Mening/Enceph PCR Stool Occult Blood CHARLES Screen CHARLES Titer CHARLES Titer 2 CHARLES Titer 3 CHARLES Pattern CHARLES Pattern 2 CHARLES Pattern 3 Proteinase 3 (PR3) Ab Myeloperoxidase Ab Double Strand DNA Ab T.pallidum Ab (EIA) Lyme Screen IgG & IgM Lyme Progressive Test Coronavirus (PCR) HIV 1&2 Ab/P24 Ag 4thGn Influenza Type A (PCR) Influenza Type B (PCR) RSV RNA Qual (PCR) 05/30/20 05/30/20 05/31/20 16:06 20:09 06:15 WBC RBC Hgb Hct MCV MCH MCHC RDW Plt Count MPV Immature Gran % (Auto) Neut % (Auto) Lymph % (Auto) [place] % (Auto) Eos % (Auto) Baso % (Auto) Lymph # (Auto) [place] # (Auto) Eos # (Auto) Baso # (Auto) Abs Immat Gran (auto) Absolute Neuts (auto) Absolute Nucleated RBC Nucleated RBC % (auto) ESR PT 14.2 H INR 1.2 H APTT 27.7 D-Dimer Sodium Potassium Chloride Carbon Dioxide Anion Gap BUN Creatinine Estim Creat Clear Calc Estimated GFR POC Glucose 254 H 184 H Random Glucose Lactic Acid Calcium Phosphorus Magnesium Total Bilirubin Direct Bilirubin AST ALT Alkaline Phosphatase Ammonia Lactate Dehydrogenase Total Creatine Kinase C-Reactive Protein Total Protein Albumin Triglycerides Cholesterol LDL Cholesterol, Calc HDL Cholesterol Urine Color Urine Appearance Urine pH Ur Specific [place] Urine Protein Urine Glucose (UA) Urine Ketones Urine Blood Urine Nitrite Ur Leukocyte Esterase Urine RBC Urine WBC Ur Squamous Epith Cells Ur Renal Epithelial Cell Urine Bacteria Urine Mucus CSF Tube Number CSF Volume CSF Appearance CSF Color CSF WBC CSF RBC CSF Lymphocytes CSF Monocytes % CSF Appearance (b) CSF Glucose CSF Total Protein CSF Mening/Enceph PCR Stool Occult Blood CHARLES Screen CHARLES Titer CHARLES Titer 2 CHARLES Titer 3 CHARLES Pattern CHARLES Pattern 2 CHARLES Pattern 3 Proteinase 3 (PR3) Ab Myeloperoxidase Ab Double Strand DNA Ab T.pallidum Ab (EIA) Lyme Screen IgG & IgM Lyme Progressive Test Coronavirus (PCR) HIV 1&2 Ab/P24 Ag 4thGn Influenza Type A (PCR) Influenza Type B (PCR) RSV RNA Qual (PCR) 05/31/20 05/31/20 05/31/20 07:14 07:14 07:36 WBC 9.2 RBC 3.93 L Hgb 9.2 L Hct 29.9 L MCV 76.1 L MCH 23.4 L MCHC 30.8 L RDW 19.0 H Plt Count 392 D MPV 12.0 Immature Gran % (Auto) Neut % (Auto) Lymph % (Auto) [place] % (Auto) Eos % (Auto) Baso % (Auto) Lymph # (Auto) [place] # (Auto) Eos # (Auto) Baso # (Auto) Abs Immat Gran (auto) Absolute Neuts (auto) Absolute Nucleated RBC 0.000 Nucleated RBC % (auto) 0.0 ESR PT INR APTT D-Dimer Sodium 141 Potassium 3.9 Chloride 108 Carbon Dioxide 23 Anion Gap 14 BUN 19 H Creatinine 0.72 Estim Creat Clear Calc 108.8 Estimated GFR > 60 POC Glucose 239 H Random Glucose 229 H D Lactic Acid Calcium 8.0 L Phosphorus Magnesium Total Bilirubin Direct Bilirubin AST ALT Alkaline Phosphatase Ammonia Lactate Dehydrogenase Total Creatine Kinase C-Reactive Protein Total Protein Albumin Triglycerides Cholesterol LDL Cholesterol, Calc HDL Cholesterol Urine Color Urine Appearance Urine pH Ur Specific [place] Urine Protein Urine Glucose (UA) Urine Ketones Urine Blood Urine Nitrite Ur Leukocyte Esterase Urine RBC Urine WBC Ur Squamous Epith Cells Ur Renal Epithelial Cell Urine Bacteria Urine Mucus CSF Tube Number CSF Volume CSF Appearance CSF Color CSF WBC CSF RBC CSF Lymphocytes CSF Monocytes % CSF Appearance (b) CSF Glucose CSF Total Protein CSF Mening/Enceph PCR Stool Occult Blood CHARLES Screen CHARLES Titer CHARLES Titer 2 CHARLES Titer 3 CHARLES Pattern CHARLES Pattern 2 CHARLES Pattern 3 Proteinase 3 (PR3) Ab Myeloperoxidase Ab Double Strand DNA Ab T.pallidum Ab (EIA) Lyme Screen IgG & IgM Lyme Progressive Test Coronavirus (PCR) HIV 1&2 Ab/P24 Ag 4thGn Influenza Type A (PCR) Influenza Type B (PCR) RSV RNA Qual (PCR) 05/31/20 05/31/20 05/31/20 11:10 13:00 13:00 WBC RBC Hgb Hct MCV MCH MCHC RDW Plt Count MPV Immature Gran % (Auto) Neut % (Auto) Lymph % (Auto) [place] % (Auto) Eos % (Auto) Baso % (Auto) Lymph # (Auto) [place] # (Auto) Eos # (Auto) Baso # (Auto) Abs Immat Gran (auto) Absolute Neuts (auto) Absolute Nucleated RBC Nucleated RBC % (auto) ESR PT INR APTT D-Dimer Sodium Potassium Chloride Carbon Dioxide Anion Gap BUN Creatinine Estim Creat Clear Calc Estimated GFR POC Glucose 166 H Random Glucose Lactic Acid Calcium Phosphorus Magnesium Total Bilirubin Direct Bilirubin AST ALT Alkaline Phosphatase Ammonia Lactate Dehydrogenase Total Creatine Kinase C-Reactive Protein Total Protein Albumin Triglycerides Cholesterol LDL Cholesterol, Calc HDL Cholesterol Urine Color Urine Appearance Urine pH Ur Specific [place] Urine Protein Urine Glucose (UA) Urine Ketones Urine Blood Urine Nitrite Ur Leukocyte Esterase Urine RBC Urine WBC Ur Squamous Epith Cells Ur Renal Epithelial Cell Urine Bacteria Urine Mucus CSF Tube Number 1 3 CSF Volume 3.0 CSF Appearance HAZY CSF Color COLORLESS CSF WBC 12 H* CSF RBC 1 CSF Lymphocytes 77 CSF Monocytes % 23 CSF Appearance (b) Clear, Colorless CSF Glucose 127 CSF Total Protein 117.0 H CSF Mening/Enceph PCR Stool Occult Blood CHARLES Screen CHARLES Titer CHARLES Titer 2 CHARLES Titer 3 CHARLES Pattern CHARLES Pattern 2 CHARLES Pattern 3 Proteinase 3 (PR3) Ab Myeloperoxidase Ab Double Strand DNA Ab T.pallidum Ab (EIA) Lyme Screen IgG & IgM Lyme Progressive Test Coronavirus (PCR) HIV 1&2 Ab/P24 Ag 4thGn Influenza Type A (PCR) Influenza Type B (PCR) RSV RNA Qual (PCR) 05/31/20 05/31/20 05/31/20 13:00 16:39 19:50 WBC RBC Hgb Hct MCV MCH MCHC RDW Plt Count MPV Immature Gran % (Auto) Neut % (Auto) Lymph % (Auto) [place] % (Auto) Eos % (Auto) Baso % (Auto) Lymph # (Auto) [place] # (Auto) Eos # (Auto) Baso # (Auto) Abs Immat Gran (auto) Absolute Neuts (auto) Absolute Nucleated RBC Nucleated RBC % (auto) ESR PT INR APTT D-Dimer Sodium Potassium Chloride Carbon Dioxide Anion Gap BUN Creatinine Estim Creat Clear Calc Estimated GFR POC Glucose 205 H 230 H Random Glucose Lactic Acid Calcium Phosphorus Magnesium Total Bilirubin Direct Bilirubin AST ALT Alkaline Phosphatase Ammonia Lactate Dehydrogenase Total Creatine Kinase C-Reactive Protein Total Protein Albumin Triglycerides Cholesterol LDL Cholesterol, Calc HDL Cholesterol Urine Color Urine Appearance Urine pH Ur Specific [place] Urine Protein Urine Glucose (UA) Urine Ketones Urine Blood Urine Nitrite Ur Leukocyte Esterase Urine RBC Urine WBC Ur Squamous Epith Cells Ur Renal Epithelial Cell Urine Bacteria Urine Mucus CSF Tube Number CSF Volume CSF Appearance CSF Color CSF WBC CSF RBC CSF Lymphocytes CSF Monocytes % CSF Appearance (b) CSF Glucose CSF Total Protein CSF Mening/Enceph PCR SEE NOTE Stool Occult Blood CHARLES Screen CHARLES Titer CHARLES Titer 2 CHARLES Titer 3 CHARLES Pattern CHARLES Pattern 2 CHARLES Pattern 3 Proteinase 3 (PR3) Ab Myeloperoxidase Ab Double Strand DNA Ab T.pallidum Ab (EIA) Lyme Screen IgG & IgM Lyme Progressive Test Coronavirus (PCR) HIV 1&2 Ab/P24 Ag 4thGn Influenza Type A (PCR) Influenza Type B (PCR) RSV RNA Qual (PCR) 06/01/20 06/01/20 07:54 11:30 WBC RBC Hgb Hct MCV MCH MCHC RDW Plt Count MPV Immature Gran % (Auto) Neut % (Auto) Lymph % (Auto) [place] % (Auto) Eos % (Auto) Baso % (Auto) Lymph # (Auto) [place] # (Auto) Eos # (Auto) Baso # (Auto) Abs Immat Gran (auto) Absolute Neuts (auto) Absolute Nucleated RBC Nucleated RBC % (auto) ESR PT INR APTT D-Dimer Sodium Potassium Chloride Carbon Dioxide Anion Gap BUN Creatinine Estim Creat Clear Calc Estimated GFR POC Glucose 292 H 326 H Random Glucose Lactic Acid Calcium Phosphorus Magnesium Total Bilirubin Direct Bilirubin AST ALT Alkaline Phosphatase Ammonia Lactate Dehydrogenase Total Creatine Kinase C-Reactive Protein Total Protein Albumin Triglycerides Cholesterol LDL Cholesterol, Calc HDL Cholesterol Urine Color Urine Appearance Urine pH Ur Specific [place] Urine Protein Urine Glucose (UA) Urine Ketones Urine Blood Urine Nitrite Ur Leukocyte Esterase Urine RBC Urine WBC Ur Squamous Epith Cells Ur Renal Epithelial Cell Urine Bacteria Urine Mucus CSF Tube Number CSF Volume CSF Appearance CSF Color CSF WBC CSF RBC CSF Lymphocytes CSF Monocytes % CSF Appearance (b) CSF Glucose CSF Total Protein CSF Mening/Enceph PCR Stool Occult Blood CHARLES Screen CHARLES Titer CHARLES Titer 2 CHARLES Titer 3 CHARLES Pattern CHARLES Pattern 2 CHARLES Pattern 3 Proteinase 3 (PR3) Ab Myeloperoxidase Ab Double Strand DNA Ab T.pallidum Ab (EIA) Lyme Screen IgG & IgM Lyme Progressive Test Coronavirus (PCR) HIV 1&2 Ab/P24 Ag 4thGn Influenza Type A (PCR) Influenza Type B (PCR) RSV RNA Qual (PCR) Preliminary micro results at discharge 05/31/20 13:00 CSF Culture - Preliminary Cerebrospinal Fluid No growth after 1 day Discharge Plan Discharge Patient Disposition: er SNF Referrals: Adam Simms MD [Physician] - (Call in 2-3 weeks to follow up in clinic. ) Gloria Flowers MD [Physician] - (Call office to make appointment after prednisone taper done) Physician,Unknown [Primary Care Provider] - Discharge Medications: New finasteride [Proscar] 5 mg Tablet 5 mg PO DAILY Qty: 30 RF: 0 prednisone 10 mg tablet See Rx Instructions .ROUTE .COMPLEX Qty: 63 RF: 0 Continued levetiracetam [Keppra] 500 mg tablet 500 mg PO BID Qty: 60 RF: 0 atorvastatin 40 mg Tablet 40 mg PO DAILY RF: 0 gabapentin 300 mg Tablet 300 mg PO DAILY RF: 0 tizanidine [Zanaflex] 2 mg Capsule 2 mg PO BID RF: 0 insulin detemir U-100 100 unit/mL Solution 46 unit SUBCUT DAILY RF: 0 Januvia 100 mg PO DAILY RF: 0 insulin aspart U-100 See Protocol unit subcut TID RF: 0 sertraline 200 mg PO BID RF: 0 polyethylene glycol 3350 [Miralax] 17 gram Powder In Packet 17 g PO DAILY RF: 0 tamsulosin [Flomax] 0.4 mg Capsule 0.4 mg PO DAILY RF: 0 quetiapine 25 mg Tablet 25 mg PO BEDTIME RF: 0 amlodipine 10 mg Tablet 10 mg PO DAILY RF: 0 albuterol sulfate [ProAir HFA] 90 mcg/actuation Hfa Aerosol Inhaler 2 puff INHALATION Q4-6H PRN (Reason: Wheezing) RF: 0 carvedilol 25 mg Tablet 25 mg PO BID RF: 0 lisinopril 20 mg Tablet 20 mg PO DAILY RF: 0 Discontinued doxycycline monohydrate 100 mg capsule 100 mg PO BID Qty: 10 RF: 0 cefuroxime axetil 500 mg tablet 500 mg PO BID Qty: 10 RF: 0 Discharge Orders: Discharge Order (Routine); Ordered 06/01/20 Ordered By: Aj Bush Diet: advance to usual diet Activity on Discharge: As tolerated Stand Alone Forms: Patient Portal Discharge page Care Plan Goals: To stay healthy and out of the hospital. 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 After this, follow up with neurology clinic
--- NOTE | 2020-06-01 14:56 | MHC.CM.PN ---
Patient has been medically cleared for dc to SNF today. Patient will dc to [facility] today at 6 PM, via [facility]. Patient is on Covid Unit; CM spoke with Sister/Nalini and addressed second IMM with her. Nalini is aware of and in agreement with the dc plan.
[2020-06-01 16:29] LABS: Glucose, Whole Blood 226 mg/dL (60-115)
== END 2020-06-01 18:46 | disposition skilled nursing facility (03) | DRG 545 ==
LOC: HO.ED 05-26 02:32 → HO.EDOVER 05-26 04:25 → HO.IMC 05-27 15:11
PROVIDERS: Internal Medicine; Nurse Practitioner Family; Psychiatry & Neurology Neurology; Radiology Diagnostic Radiology; Admitting Provider Hospitalist; Emergency Provider Emergency Medicine; PCP Family Medicine; Visit Provider Family Medicine
DX: M35.2 Behcet's disease (principal); U07.1 COVID-19; G92 Toxic encephalopathy; G82.20 Paraplegia, unspecified; N13.8 Other obstructive and reflux uropathy; E11.9 Type 2 diabetes mellitus without complications; R31.0 Gross hematuria; E78.5 Hyperlipidemia, unspecified; N40.1 Benign prostatic hyperplasia with lower urinary tract symptoms; F32.9 Major depressive disorder, single episode, unspecified; G40.909 Epilepsy, unspecified, not intractable, without status epilepticus; Z86.73 Personal history of transient ischemic attack (TIA), and cerebral infarction without residual deficits; Z79.4 Long term (current) use of insulin; Z79.899 Other long term (current) drug therapy
CPT/HCPCS: 0241U; 36415; 62328; 70496; 70544; 70551; 71045; 73030; 80048; 80061; 80076; 81001; 81003; 82140; 82272; 82550; 82945; 82947; 83605; 83615; 83735; 84100; 84157; 85014; 85018; 85025; 85027; 85379; 85610; 85652; 85730; 86021; 86038; 86039; 86140; 86225; 86618; 86780; 87015; 87040; 87070; 87086; 87205; 87389; 89051; 92610; 93005; 96365; 96375; 97110; 97163; 97167; 99285; 99291; J1335; J1650; J1885; J2930; Q9967

== ENCOUNTER 2020-06-02 00:18 | Inpatient (IN) | payer OTHER, SELFPAY ==
[2020-06-02] VITALS (36 sets, daily range): BP systolic 104–216; BP diastolic 56–119; PULSE 66–103; RESP 16–36; TEMP 35.6–37.1; O2SAT 92–99; BMI 28.3
--- NOTE | ~2020-06-02 | XR_ITS ---
EXAMINATION: XR CHEST CLINICAL INFORMATION: Shortness of breath COMPARISON: Chest x-ray 06/02/2020 TECHNIQUE: Frontal portable view of the chest was obtained. 10:31 PM FINDINGS: No significant abnormality is noted involving the heart, lungs, mediastinum, bony thorax or soft tissues. XR/XR chest 1V IMPRESSION: Unremarkable examination.
--- NOTE | ~2020-06-02 | XR_ITS ---
EXAMINATION: XR CHEST CLINICAL INFORMATION: Worsening hypoxia, possible aspiration COMPARISON: Portable chest 06/03/2020, 06/02/2020, 05/25/2020; CT chest noncontrast 06/02/2020 TECHNIQUE: Portable upright AP view of the chest was obtained. FINDINGS: There is new subtle groundglass opacity periphery right upper lobe. Subsegmental atelectasis right posterior medial base is increased. The opacity posterior medial right middle lobe on CT is stable to decreased. Again, there is coarsening of the bronchovascular markings. There is no effusion. The vascularity is normal. The heart is normal in size. The hilar and mediastinal contours and bony structures are unremarkable. XR/XR chest 1V IMPRESSION: 1. New groundglass opacity peripherally right upper lobe. 2. Subsegmental atelectasis right posterior medial base increased. 3. Coarsening bronchiolar markings stable.
--- NOTE | ~2020-06-02 | CT_ITS ---
EXAMINATION: CT HEAD WITHOUT CONTRAST CLINICAL INFORMATION: Encephalopathy. Evaluate for stroke. COMPARISON: Previous head CT most recent 06/02/2020 TECHNIQUE: Contiguous axial imaging was performed from the skull base to vertex without intravenous administration of contrast. This CT examination was performed using dose optimization techniques as appropriate, variously including the following: *Automated exposure control *Adjustment of mA and/or kV according to patient size (this includes techniques or standardized protocols for targeted exams where dose is matched to indication/reason for exam; i.e. extremities or head) *Use of iterative reconstruction technique DLP: 861 mGy-cm FINDINGS: There is no evidence of an extra-axial collection. There is no evidence of intra-axial or extra-axial hemorrhage. The ventricles and extra-axial CSF spaces are prominent suggestive of generalized atrophy. There is nonspecific periventricular white matter disease. There are old bilateral basal ganglia lacunar infarcts. No mass, mass effect or acute infarct is seen. Review at bone windows is normal. No skull fracture is seen. Visualized mastoid air cells, middle ears and paranasal sinuses are clear. CT/CT head/brain wo con IMPRESSION: No acute findings. Generalized atrophy, nonspecific periventricular white matter disease and old bilateral basal ganglia lacunar infarcts similar to previous exams.
--- NOTE | ~2020-06-02 | CT_ITS ---
EXAMINATION: CT HEAD WITHOUT CONTRAST CLINICAL INFORMATION: Acute mental status changes COMPARISON: None TECHNIQUE: Contiguous axial imaging was performed from the skull base to vertex without intravenous administration of contrast. This CT examination was performed using dose optimization techniques as appropriate, variously including the following: *Automated exposure control *Adjustment of mA and/or kV according to patient size (this includes techniques or standardized protocols for targeted exams where dose is matched to indication/reason for exam; i.e. extremities or head) *Use of iterative reconstruction technique DLP: 786 mGy-cm FINDINGS: There is no evidence of acute intracranial hemorrhage or territorial infarction. There is lacunar infarct left basal ganglia No abnormal mass effect or midline shift is seen. Hoff to white matter differentiation is well preserved. No extra-axial fluid collections are identified. There is mild cerebellar volume loss. The ventricles are bilaterally symmetrical and enlarged. Mild prominence of cortical sulci seen. There is diffuse bilateral periventricular hypodensity in both cerebral hemispheres without mass effect. The osseous structures and soft tissues are normal. The mastoid air cells and visualized portions of the paranasal sinuses are well aerated. CT/CT head/brain wo con IMPRESSION: No acute intracranial process seen. Mild cerebral and cerebellar volume loss. Lacunar infarction left basal ganglia. Chronic small vessel ischemic changes in both cerebral hemispheres
--- NOTE | ~2020-06-02 | CT_ITS ---
EXAMINATION: CT CHEST WITHOUT CONTRAST CLINICAL INFORMATION: Hypoxia. Covid infection. COMPARISON: Previous chest x-ray most recent from earlier the same day chest CT December 2019 TECHNIQUE: Multidetector volumetric CT imaging of the chest was done. Axial MIP volume rendering provided. Sagittal and coronal reformatted images were obtained. This CT examination was performed using dose optimization techniques as appropriate, variously including the following: *Automated exposure control *Adjustment of mA and/or kV according to patient size (this includes techniques or standardized protocols for targeted exams where dose is matched to indication/reason for exam; i.e. extremities or head) *Use of iterative reconstruction technique DLP: 532 mGy-cm FINDINGS: LUNGS: Exam is limited due to artifact from respiratory motion. There are peripheral groundglass attenuation infiltrates seen in the posterior segment of the right upper lobe. There is linear scarring or subsegmental atelectasis in the anterior segment of the right upper lobe. There is dense consolidation seen in the right middle lobe near the major and minor fissures. There are patchy peripheral groundglass attenuation and denser infiltrate seen in the right lower lobe. There is minimal subsegmental atelectasis in the inferior segment of the lingula. There is minimal segmental atelectasis or small 3 the left lung base in the left lower lobe. MEDIASTINUM: There is mediastinal and right hilar lymphadenopathy. This appears increased from December 2019 exam. The heart does not appear enlarged. There is coronary artery calcification. The thoracic aorta is normal in caliber. PLEURA: There is no pleural effusion. No pleural mass or thickening. AXILLA: No lymphadenopathy. UPPER ABDOMEN: Unremarkable. OSSEOUS STRUCTURES: There are degenerative changes of the spine. CT/CT chest wo con IMPRESSION: Limited exam due to respiratory motion artifact. Patchy peripheral infiltrates in the right upper and right lower lobe compatible with Covid infection. There is denser more masslike consolidation in the central right middle lobe near the major and minor fissures increasing mediastinal and right hilar adenopathy. Appearance is atypical for Covid infection. Follow-up chest CT scan to ensure resolution is recommended. Coronary artery calcification.
--- NOTE | ~2020-06-02 | XR_ITS ---
EXAMINATION: XR CHEST CLINICAL INFORMATION: Shortness of breath COMPARISON: 05/25/2020 TECHNIQUE: Frontal view of the chest was obtained. FINDINGS: Lungs are hypoventilated. Heart size normal. No evidence of CHF. No pleural effusions are seen. Some atelectasis is noted at the left lung base. No gross consolidations. No lung masses. XR/XR chest 1V IMPRESSION: No acute intrathoracic disease.
--- NOTE | 2020-06-02 00:32 | ECG_ITS ---
Test Reason : SOB Blood Pressure : / mmHG Vent. Rate : 104 BPM Atrial Rate : 104 BPM P-R Int : 162 ms QRS Dur : 094 ms QT Int : 388 ms P-R-T Axes : 064 -68 052 degrees QTc Int : 510 ms Sinus tachycardia Left axis deviation Inferior infarct , age undetermined Abnormal ECG When compared with ECG of 25-MAY-2020 22:35, Left anterior fascicular block is no longer Present Inferior infarct is now Present Referred By: Maggi Barber Electronically Signed By:BIRD GOMEZ MD
--- NOTE | 2020-06-02 00:41 | ED_ITS ---
HPI - SOB/Dyspnea General Chief Complaint: Dyspnea Stated Complaint: ams ?pneumonia Time Seen by Provider: 06/02/20 00:21 Source: EMS and old records reviewed Mode of arrival: EMS History of Present Illness HPI Narrative: This is a 59-year-old male with COVID-19 positivity, neuro Behcet, TIA/CVA with residual right-sided deficits who is brought in by EMS after called by facility for altered mental status and decrease in oxygenation. Patient is unable to provide any additional history at this time. On review of documentation patient was discharged on 06/01 and had a recent diagnosis of neuro Behcet's, but no noted respiratory difficulty on review of note., there is documentation that they were unable to obtain an ROS and hyperglycemia noted likely secondary to patient's steroid taper. Related Data Home Medications Medication Instructions Recorded Confirmed Januvia 100 mg PO DAILY 04/09/20 06/02/20 atorvastatin 40 mg PO DAILY 04/09/20 06/02/20 gabapentin 300 mg PO DAILY 04/09/20 06/02/20 insulin aspart U-100 See Protocol SUBCUT TID 04/09/20 06/02/20 insulin detemir U-100 46 unit SUBCUT DAILY 04/09/20 06/02/20 polyethylene glycol 3350 [Miralax] 17 g PO DAILY 04/09/20 06/02/20 sertraline 200 mg PO BID 04/09/20 06/02/20 tamsulosin [Flomax] 0.4 mg PO DAILY 04/09/20 06/02/20 tizanidine [Zanaflex] 2 mg PO BID 04/09/20 06/02/20 quetiapine 25 mg PO BEDTIME 05/25/20 06/02/20 albuterol sulfate [ProAir HFA] 2 puff INHALATION Q4-6H PRN 05/26/20 06/02/20 amlodipine 10 mg PO DAILY 05/26/20 06/02/20 carvedilol 25 mg PO BID 05/26/20 06/02/20 lisinopril 20 mg PO DAILY 05/26/20 06/02/20 Previous Rx's Medication Instructions Recorded levetiracetam [Keppra] 500 mg PO BID #60 tab 01/25/20 finasteride [Proscar] 5 mg PO DAILY #30 tab 02/11/21 prednisone See Rx Instructions .ROUTE 06/01/20 .COMPLEX #63 tab Allergies Allergy/AdvReac Type Severity Reaction Status Date / Time No Known Allergies Allergy Verified 01/25/20 19:38 [No Known Allergies*] Review of Systems Review of Systems: Yes Unobtainable due to mental condition PMFSH Past Medical History Source: nursing notes reviewed Medical History Depression Diabetes Hepatitis C Paraplegia Seizure Stroke TIA (transient ischemic attack) Social History Social History Household Members: Family Alcohol intake: former Smoking Status: Smoker, status unknown Smoked in Last 30 Days: No Substance Use Type: Former Substance User Advance Directives: No service: No Current occupational status: disabled Physical Exam Vital Signs: Vital Signs: Last Vital Signs Temp 97.6 F 06/02/20 03:11 Pulse 89 06/02/20 04:20 Resp 34 H 06/02/20 04:20 BP 179/99 H 06/02/20 04:20 Pulse Ox 96 06/02/20 04:20 Body Mass Index 28.3 VITAL SIGNS: Reviewed. GENERAL: Well developed, well nourished, moderate distress. HEAD: Normocephalic/atraumatic, EYES: PERRLA, EOMI NOSE: Nares patent bilateral OROPHARYNX: no oral lesions noted, posterior pharynx clear, dry mucosa NECK: Supple, no adenopathy LUNGS: Coarse rhonchi throughout, right> left, no expiratory wheezes,+ tachypnea. SpO2<96> on BiPAP CARDIOVASCULAR: Tachycardia, regular rate and rhythm without noted murmurs, no JVD or lower extremity edema. ABDOMEN: Soft, non-tender, non-distended with bowel sounds. No rigidity. No g uarding. No palpable masses or hernias noted EXTREMITIES: No cyanosis, clubbing or edema. SKIN: Inspection of the skin reveals no rashes NEUROLOGIC: GCS- 11 on arrival. Neurologically at baseline. Course Course Course Narrative: This is a 59-year-old male with recent diagnosis of neuro Behcets and what appears to be discharge earlier today with baseline confusion as hospitalist has documented unable to obtain review of systems. Patient was treated for UTI and is on a steroid taper which is thought to contribute to his observed hyperglycemia. Otherwise he has increased work of breathing without evidence on chest x-ray of pulmonary congestion, patient placed on BiPAP, and an ABG is pending. In addition, patient's blood pressure is responding to the 2 inchs of nitropaste placed by EMS. -labs, lactic acid, EKG, chest x-ray, UA, blood cultures, BiPAP On review of all investigations acute respiratory failure is not secondary to CHF, pulmonary congestion, and there are no acute EKG changes. The ABG was reviewed and appears to be most consistent with a VBG, which is inconsistent with hypercapnia. A procalcitonin was sent to evaluate for evidence of bacterial etiology, however at this time the SIRS response is most consistent with COVID-19 pneumonia as well as medication affect (steroids with leukocytosis). As patient is requiring BiPAP at 16/6 this case was discussed with the cook night who accepted admission to the ICU. D-dimer is noted to be <200 and inconsistent with PE as an etiology for respiratory failure. ICU mid-level provider titrated patient to 6 L of nasal cannula and repeat a VBG remain stable. Inpatient hospitalist team was contacted and agrees for admission to their service. MDM - SOB/Dyspnea Lab Data Result diagrams: 06/02/20 00:39 06/02/20 00:38 Labs: Lab Results 06/02/20 06/02/20 06/02/20 Range/Units 00:38 00:38 00:38 WBC (4.8-10.8) X10*3/uL RBC (4.60-5.80) X10*6/uL Hgb (14.0-18.0) g/dl Hct (42-52) % MCV (80-98) fL MCH (27.0-33.0) pg MCHC (31.0-36.0) g/dl RDW (11.0-16.0) % Plt Count (160-400) X10*3/uL MPV (9.4-12.4) fL Immature Gran % (Auto) (0.0-0.4) % Neut % (Auto) (45-73) % Lymph % (Auto) (20-40) % [place] % (Auto) (2-11) % Eos % (Auto) (0-4) % Baso % (Auto) (0-2) % Lymph # (Auto) (1.2-4.9) X10*3/uL [place] # (Auto) (0.1-1.2) X10*3/uL Eos # (Auto) (0.0-0.4) X10*3/uL Baso # (Auto) (0.0-0.2) X10*3/uL Abs Immat Gran (auto) (0.00-0.03) X10*3/uL Absolute Neuts (auto) (2.0-8.3) X10*3/uL Absolute Nucleated RBC (0.0-0.012) X10*3/uL Nucleated RBC % (auto) (0.0-0.2) /100WBC PT 13.9 H (10.8-13.0) SEC INR 1.2 H (0.9-1.1) D-Dimer < 200 NG/ML ABG pH (7.35-7.45) ABG pCO2 (32-45) mmHg ABG pO2 (83-108) mmHg ABG HCO3 (22-26) mmol/L ABG O2 Saturation % ABG Base Excess VBG pH (7.32-7.43) VBG pCO2 mmHg VBG pO2 mmHg VBG HCO3 mmol/L VBG O2 Saturation % VBG Base Excess mmol/L Oxygen Given Sodium 143 (135-145) mmol/L Potassium 3.7 (3.3-5.1) mmol/L Chloride 108 (96-108) mmol/L Carbon Dioxide 22 (22-29) mmol/L Anion Gap 17 (12-20) BUN 26 H (9-16) mg/dL Creatinine 0.73 (0.5-1.4) mg/dL Estim Creat Clear Calc 106.7 Estimated GFR > 60 Random Glucose 340 H D (60-115) mg/dL Lactic Acid 1.9 (0.5-2.0) mmol/L Calcium 7.9 L (8.4-10.2) mg/dL Total Bilirubin 0.4 (0.0-1.0) mg/dL AST 80 H (5-37) U/L ALT 63 H (0-40) U/L Alkaline Phosphatase 143 H (39-117) U/L B-Natriuretic Peptide (<100) pg/mL Total Protein 8.1 H (6.5-8.0) g/dL Albumin 3.3 L (3.5-5.0) g/dL Lipase 18 (8-78) U/L Urine Color Urine Appearance Urine pH (5.0-8.0) Ur Specific [place] (1.005-1.025) Urine Protein (NEG-TRACE) MG/DL Urine Glucose (UA) (NEG) MG/DL Urine Ketones (NEG) MG/DL Urine Blood (NEG) Urine Nitrite (NEG) Ur Leukocyte Esterase (NEG) Urine RBC (0) /HPF Urine WBC (0-4) /HPF Ur Squamous Epith Cells /LPF Urine Bacteria /LPF Hyaline Casts /LPF Urine Mucus /LPF Urine Yeast /HPF Urine Opiates Screen (Not Detect) Ur Barbiturates Screen (Not Detect) Ur Phencyclidine Scrn (Not Detect) Ur Amphetamines Screen (Not Detect) U Benzodiazepines Scrn (Not Detect) Urine Cocaine Screen (Not Detect) U Marijuana (THC) Screen (Not Detect) Acetone, Qual Negative (Negative) 06/02/20 06/02/20 06/02/20 Range/Units 00:38 00:39 01:17 WBC 18.2 H (4.8-10.8) X10*3/uL RBC 4.60 (4.60-5.80) X10*6/uL Hgb 10.8 L (14.0-18.0) g/dl Hct 34.9 L (42-52) % MCV 75.9 L (80-98) fL MCH 23.5 L (27.0-33.0) pg MCHC 30.9 L (31.0-36.0) g/dl RDW 19.6 H (11.0-16.0) % Plt Count 477 H (160-400) X10*3/uL MPV 11.8 (9.4-12.4) fL Immature Gran % (Auto) 0.3 (0.0-0.4) % Neut % (Auto) 89.1 H (45-73) % Lymph % (Auto) 6.0 L (20-40) % [place] % (Auto) 4.5 (2-11) % Eos % (Auto) 0.0 (0-4) % Baso % (Auto) 0.1 (0-2) % Lymph # (Auto) 1.1 L (1.2-4.9) X10*3/uL [place] # (Auto) 0.8 (0.1-1.2) X10*3/uL Eos # (Auto) 0.0 (0.0-0.4) X10*3/uL Baso # (Auto) 0.0 (0.0-0.2) X10*3/uL Abs Immat Gran (auto) 0.05 H (0.00-0.03) X10*3/uL Absolute Neuts (auto) 16.2 H (2.0-8.3) X10*3/uL Absolute Nucleated RBC 0.000 (0.0-0.012) X10*3/uL Nucleated RBC % (auto) 0.0 (0.0-0.2) /100WBC PT (10.8-13.0) SEC INR (0.9-1.1) D-Dimer NG/ML ABG pH 7.42 (7.35-7.45) ABG pCO2 32 (32-45) mmHg ABG pO2 63 L (83-108) mmHg ABG HCO3 21 L (22-26) mmol/L ABG O2 Saturation 91.0 % ABG Base Excess -2.2 VBG pH (7.32-7.43) VBG pCO2 mmHg VBG pO2 mmHg VBG HCO3 mmol/L VBG O2 Saturation % VBG Base Excess mmol/L Oxygen Given 50% Sodium (135-145) mmol/L Potassium (3.3-5.1) mmol/L Chloride (96-108) mmol/L Carbon Dioxide (22-29) mmol/L Anion Gap (12-20) BUN (9-16) mg/dL Creatinine (0.5-1.4) mg/dL Estim Creat Clear Calc Estimated GFR Random Glucose (60-115) mg/dL Lactic Acid (0.5-2.0) mmol/L Calcium (8.4-10.2) mg/dL Total Bilirubin (0.0-1.0) mg/dL AST (5-37) U/L ALT (0-40) U/L Alkaline Phosphatase (39-117) U/L B-Natriuretic Peptide 39 (<100) pg/mL Total Protein (6.5-8.0) g/dL Albumin (3.5-5.0) g/dL Lipase (8-78) U/L Urine Color Urine Appearance Urine pH (5.0-8.0) Ur Specific [place] (1.005-1.025) Urine Protein (NEG-TRACE) MG/DL Urine Glucose (UA) (NEG) MG/DL Urine Ketones (NEG) MG/DL Urine Blood (NEG) Urine Nitrite (NEG) Ur Leukocyte Esterase (NEG) Urine RBC (0) /HPF Urine WBC (0-4) /HPF Ur Squamous Epith Cells /LPF Urine Bacteria /LPF Hyaline Casts /LPF Urine Mucus /LPF Urine Yeast /HPF Urine Opiates Screen (Not Detect) Ur Barbiturates Screen (Not Detect) Ur Phencyclidine Scrn (Not Detect) Ur Amphetamines Screen (Not Detect) U Benzodiazepines Scrn (Not Detect) Urine Cocaine Screen (Not Detect) U Marijuana (THC) Screen (Not Detect) Acetone, Qual (Negative) 06/02/20 06/02/20 06/02/20 Range/Units 02:38 02:38 04:15 WBC (4.8-10.8) X10*3/uL RBC (4.60-5.80) X10*6/uL Hgb (14.0-18.0) g/dl Hct (42-52) % MCV (80-98) fL MCH (27.0-33.0) pg MCHC (31.0-36.0) g/dl RDW (11.0-16.0) % Plt Count (160-400) X10*3/uL MPV (9.4-12.4) fL Immature Gran % (Auto) (0.0-0.4) % Neut % (Auto) (45-73) % Lymph % (Auto) (20-40) % [place] % (Auto) (2-11) % Eos % (Auto) (0-4) % Baso % (Auto) (0-2) % Lymph # (Auto) (1.2-4.9) X10*3/uL [place] # (Auto) (0.1-1.2) X10*3/uL Eos # (Auto) (0.0-0.4) X10*3/uL Baso # (Auto) (0.0-0.2) X10*3/uL Abs Immat Gran (auto) (0.00-0.03) X10*3/uL Absolute Neuts (auto) (2.0-8.3) X10*3/uL Absolute Nucleated RBC (0.0-0.012) X10*3/uL Nucleated RBC % (auto) (0.0-0.2) /100WBC PT (10.8-13.0) SEC INR (0.9-1.1) D-Dimer NG/ML ABG pH (7.35-7.45) ABG pCO2 (32-45) mmHg ABG pO2 (83-108) mmHg ABG HCO3 (22-26) mmol/L ABG O2 Saturation % ABG Base Excess VBG pH 7.38 (7.32-7.43) VBG pCO2 37 mmHg VBG pO2 60 mmHg VBG HCO3 22 mmol/L VBG O2 Saturation 87.0 % VBG Base Excess -1.9 mmol/L Oxygen Given Sodium (135-145) mmol/L Potassium (3.3-5.1) mmol/L Chloride (96-108) mmol/L Carbon Dioxide (22-29) mmol/L Anion Gap (12-20) BUN (9-16) mg/dL Creatinine (0.5-1.4) mg/dL Estim Creat Clear Calc Estimated GFR Random Glucose (60-115) mg/dL Lactic Acid (0.5-2.0) mmol/L Calcium (8.4-10.2) mg/dL Total Bilirubin (0.0-1.0) mg/dL AST (5-37) U/L ALT (0-40) U/L Alkaline Phosphatase (39-117) U/L B-Natriuretic Peptide (<100) pg/mL Total Protein (6.5-8.0) g/dL Albumin (3.5-5.0) g/dL Lipase (8-78) U/L Urine Color YELLOW Urine Appearance CLOUDY Urine pH 6.5 (5.0-8.0) Ur Specific [place] 1.025 (1.005-1.025) Urine Protein 3+ H (NEG-TRACE) MG/DL Urine Glucose (UA) 250 H (NEG) MG/DL Urine Ketones NEG (NEG) MG/DL Urine Blood 3+ H (NEG) Urine Nitrite NEG (NEG) Ur Leukocyte Esterase NEG (NEG) Urine RBC 76-150 H (0) /HPF Urine WBC 10-14 H (0-4) /HPF Ur Squamous Epith Cells TRACE /LPF Urine Bacteria NONE /LPF Hyaline Casts 1-4 /LPF Urine Mucus TRACE /LPF Urine Yeast TRACE /HPF Urine Opiates Screen Not Detected (Not Detect) Ur Barbiturates Screen Not Detected (Not Detect) Ur Phencyclidine Scrn Not Detected (Not Detect) Ur Amphetamines Screen Not Detected (Not Detect) U Benzodiazepines Scrn Not Detected (Not Detect) Urine Cocaine Screen Not Detected (Not Detect) U Marijuana (THC) Screen Not Detected (Not Detect) Acetone, Qual (Negative) Discharge Plan Discharge Clinical Impression: Pneumonia due to 2019 novel coronavirus Acute respiratory failure Qualifiers: Respiratory failure complication: hypoxia Qualified Code(s): J96.01 - Acute respiratory failure with hypoxia Patient Disposition: Admitted As Inpatient
[2020-06-02 00:48] LABS: Basophils Percent Auto 0.1 % (0-2); Mean Corpuscular Volume 75.9 fL (80-98); Monocytes Percent Auto 4.5 % (2-11); Neutrophils Percent Auto 89.1 % (45-73)
[2020-06-02 00:49] LABS: SCAN SMEAR FLAG 1
[2020-06-02 00:50] LABS: Hematocrit 34.9 % (42-52); Hemoglobin 10.8 g/dl (14.0-18.0); Imm Gran Abs Auto 0.05 X10*3/uL (0.00-0.03); Imm Gran Pct Auto 0.3 % (0.0-0.4); Lymphocytes Absolute Auto 1.1 X10*3/uL (1.2-4.9); Mean Corpuscular HGB Conc 30.9 g/dl (31.0-36.0); Mean Corpuscular Hemoglobin 23.5 pg (27.0-33.0); Mean Platelet Volume 11.8 fL (9.4-12.4); Monocytes Absolute Auto 0.8 X10*3/uL (0.1-1.2); Neutrophils Absolute Auto 16.2 X10*3/uL (2.0-8.3); Platelet Count 477 X10*3/uL (160-400); Red Cell Distribution Width 19.6 % (11.0-16.0); White Blood Count 18.2 X10*3/uL (4.8-10.8)
[2020-06-02 00:56] LABS: MANUAL DIFF FLAG NO; PLT ABN DIST 1
[2020-06-02 01:01] LABS: Acetone, serum QL Negative (Negative)
[2020-06-02 01:04] LABS: Lactic Acid 1.9 mmol/L (0.5-2.0)
[2020-06-02 01:05] LABS: INTERNATIONAL NORM RATIO 1.2 (0.9-1.1); Prothrombin Time 13.9 SEC (10.8-13.0)
[2020-06-02 01:11] LABS: Alanine Aminotransferase 63 U/L (0-40); Albumin Level 3.3 g/dL (3.5-5.0); Alkaline Phosphatase 143 U/L (39-117); Anion Gap 17 (12-20); Aspartate Amino Transferase 80 U/L (5-37); Bilirubin Total 0.4 mg/dL (0.0-1.0); Blood Urea Nitrogen 26 mg/dL (9-16); Calcium 7.9 mg/dL (8.4-10.2); Carbon Dioxide 22 mmol/L (22-29); Chloride 108 mmol/L (96-108); Creatinine Clr Calc Pharmacy 106.7; Estimated Glomerular Filt Rate > 60; Glucose Random 340 mg/dL (60-115); Lipase 18 U/L (8-78); Potassium 3.7 mmol/L (3.3-5.1); Sodium 143 mmol/L (135-145); Total Protein 8.1 g/dL (6.5-8.0)
[2020-06-02 01:24] LABS: Pt Ventilation O2% 50%
[2020-06-02 01:28] LABS: ABG PCO2 32 mmHg (32-45); Base Excess ABG -2.2; HCO3 ABG 21 mmol/L (22-26); PO2 ABG 63 mmHg (83-108); pH ABG 7.42 (7.35-7.45)
[2020-06-02 01:34] LABS: B Type Natriuretic Peptide 39 pg/mL (<100)
[2020-06-02 02:26] LABS: D Dimer < 200 NG/ML
--- NOTE | 2020-06-02 02:50 | PC.NURSE ---
RT AND INTESTIVIST PA TO BEDSIDE TO ATTEMPT TITRATION DOWN TO HIGHFLOW.
--- NOTE | 2020-06-02 02:58 | PC.NURSE ---
pt appears to be in minor distress during transition from bipap to highflow.
--- NOTE | 2020-06-02 03:01 | PC.NURSE ---
plan at this time, monitor rr and work of breathing for 1 hr. take take vbg, monitor for status.
[2020-06-02 03:17] LABS: Glucose Urine UA 250 MG/DL (NEG); Leukocyte Esterase Urine NEG (NEG); Nitrite Urine NEG (NEG); PH 6.5 (5.0-8.0); Specific Gravity - Urine 1.025 (1.005-1.025); Urine Blood 3+ (NEG); Urine Ketones NEG (NEG); Urine Protein 3+ MG/DL (NEG-TRACE)
[2020-06-02 03:20] LABS: Appearance Urine CLOUDY; Color Urine YELLOW; Mucus Urine TRACE /LPF; Squamous Epithelial Cell Urine TRACE /LPF; UACC CULT YES
--- NOTE | 2020-06-02 03:25 | PC.NURSE ---
Doc VERAS aware of bp. monitoring at this itmo.
[2020-06-02 03:29] LABS: Amphetamine Screen Urine Not Detected (Not Detect); Barbiturates, Urine Not Detected (Not Detect); Benzodiazepines Screen Urine Not Detected (Not Detect); Cannabinoid Screen Urine Not Detected (Not Detect); Cocaine Screen Urine Not Detected (Not Detect); Opiate Screen Urine Not Detected (Not Detect); Phencyclidine Screen Urine Not Detected (Not Detect)
--- NOTE | 2020-06-02 03:36 | PC.NURSE ---
and intesivist aware of bp and plan to draw labs at 4. per jimmy in lab, kristan is send out, [facility] will not come in am. okay to group labs.
[2020-06-02] MEDS: Labetalol HCL 100 MG/20 ML VIAL IVPUSH ×2 (03:46→04:40)
--- NOTE | 2020-06-02 04:00 | PC.NURSE ---
rt aware of audible rales. montioring status. iv site wrapped. sp02 probe wrapped with gauze. pt has increase agitation. interfering with monioring equipment.
[2020-06-02 04:21] LABS: Base Excess VBG -1.9 mmol/L; HCO3 VBG 22 mmol/L; PCO2 VBG 37 mmHg; PO2 VBG 60 mmHg; pH VBG 7.38 (7.32-7.43)
--- NOTE | 2020-06-02 04:38 | PC.NURSE ---
per icu, pt nolonger appropriate for floor. ed provider aware of bp and agitiation. plan to reach out to hospitalist. md to give labetolol fo rcurrent bp.
--- NOTE | 2020-06-02 04:45 | PC.NURSE ---
0440: 5mg given ivp per md verbal order. bp 181/100. hr 87. 0445: 168/89 hr 77
--- NOTE | 2020-06-02 04:50 | PC.NURSE ---
hands rewrapped. tele resecured to chest via tape. monitoring at this time.
--- NOTE | 2020-06-02 04:55 | PC.NURSE ---
pt offered small sips of water via sponge to wet mouth. patient immediately began coughing. cough productive. white thin sputum produced.no desaturation or increased work of breathing occured.
--- NOTE | 2020-06-02 05:09 | PC.NURSE ---
rt called for humidifed o2.
--- NOTE | 2020-06-02 05:40 | PC.NURSE ---
pt is severely agitated. pt mouthing words to communicate. i'm no t happy, i don't like this. pt re orientated, now more alert. patient sucking at cling wrap to remove iv in rt hand and spo2 on left. sites rewrapped. patient educated to not do that. pt needs frequent redirection. this rn remains 1;1
--- NOTE | 2020-06-02 05:53 | PC.NURSE ---
lino retied to add barrier to protect leads.
--- NOTE | 2020-06-02 05:54 | PM.IMHP ---
History of Present Illness Date of Service: 06/02/20 Chief Complaint: increased work of breathing, hypoxic with past medical history of diabetes, seizure, paresthesia, CVA, who presents to the hospital from skilled nursing with complaints of increased work of breathing and hypoxia. Patient has baseline CVA, and at this time he is not really giving me any history. When talked to the nurse at bedside reports that she knows am and he usually is communicated of and response questions although today he is alert, awake, but is refusing to answer my questions. Per nurse depression is mad because they moved him and he is angry that they had to also restrain him due to agitation. tharefore hisotry is obtained from EMR as well as ED physician and staff Of note patient was discharged from the hospital on 06/01 after being treated for UTI as well as Neuro Behcet's disease with iv steroids and discharged to on PO prednisone. Of note while in the hospital patient was also diagnosed with COVID-19 on 05/25, but had no respiratory symptoms at that time. EMS was called due to pt having hypoxia as well as AMS. Per EMS report, pt was found to be hypooxic on rm air in the 70s-80s. On arrival to the ED. pt was alert, awake and had tyra coma score of 11 Other findings included temp of 97.6?, heart rate of 93, respiratory rate of 30, blood pressure of 211/115. EMS had placed a nitro paste on the patient with blood pressure dropping a 40s, now on haste with a blood pressure of 174/93. Patient was initially placed on BiPAP for increased work of breathing but has now improved and is now on 4 L of oxygen satting 96%. For WBC to count of 18.2 from 9.2 on 05/31, around his baseline, PT of 13.9, INR of 1.2, pH of 7.42, BUN of 26 with a creatinine of 0.73, AST of 80, ALT of 63, alk-phos of 143, BNP of 39, D-dimer less than 200, UA negative. Chest x-ray does not show significant findings except for possible it looked assist in the left lung base [facility] Medical History Depression Diabetes Hepatitis C Paraplegia Seizure Stroke TIA (transient ischemic attack) Pertinent family history: unable to obtain from pt Social History Household Members: Family Alcohol intake: former Smoking Status: Smoker, status unknown Smoked in Last 30 Days: No Substance Use Type: Former Substance User Advance Directives: No service: No Current occupational status: disabled Meds Allergies Allergy/AdvReac Type Severity Reaction Status Date / Time No Known Allergies Allergy Verified 01/25/20 19:38 [No Known Allergies*] Home Medications Medication Instructions Recorded Confirmed Last Taken Type Januvia 100 mg PO DAILY 04/09/20 06/02/20 05/25/20 History atorvastatin 40 mg PO DAILY 04/09/20 06/02/20 05/25/20 History gabapentin 300 mg PO DAILY 04/09/20 06/02/20 05/25/20 History insulin aspart U-100 See Protocol SUBCUT TID 04/09/20 06/02/20 05/25/20 History insulin detemir U-100 46 unit SUBCUT DAILY 04/09/20 06/02/20 05/25/20 History polyethylene glycol 3350 [Miralax] 17 g PO DAILY 04/09/20 06/02/20 05/25/20 History sertraline 200 mg PO BID 04/09/20 06/02/20 05/25/20 History tamsulosin [Flomax] 0.4 mg PO DAILY 04/09/20 06/02/20 05/25/20 History tizanidine [Zanaflex] 2 mg PO BID 04/09/20 06/02/20 05/25/20 History quetiapine 25 mg PO BEDTIME 05/25/20 06/02/20 2 Days Ago History ~05/23/20 albuterol sulfate [ProAir HFA] 2 puff INHALATION Q4-6H PRN 05/26/20 06/02/20 05/25/20 History amlodipine 10 mg PO DAILY 05/26/20 06/02/20 05/25/20 History carvedilol 25 mg PO BID 05/26/20 06/02/20 05/25/20 History lisinopril 20 mg PO DAILY 05/26/20 06/02/20 05/25/20 History Physical Exam Vital Signs and Narrative: Vital Signs: Last Vital Signs Temp 97.6 F 06/02/20 03:11 Pulse 82 06/02/20 05:45 Resp 30 H 06/02/20 05:45 BP 136/86 06/02/20 05:45 Pulse Ox 96 06/02/20 05:45 Body Mass Index 28.3 Const: Other: awake, alert, but appears frustrated and flustered. Not answering my questions and only looks in my face General: no acute distress Eyes: General: appearance normal, both eyes and all related structures Resp: Effort & Inspection: normal respiratory effort Cardio: Rate: regular rate Rhythm: regular rhythm GI: Palpation (GI): Soft to palpation Auscultation: normal bowel sounds Skin: General skin exam: no rashes or lesions noted Neuro: Cognition (Neuro): normal cognition Extrem: General: Yes normal to inspection and Yes no pedal edema Results Labs CBC and Chem 7: 06/02/20 00:39 06/02/20 00:38 Labs: Laboratory Results - last 24 hr 06/02/20 06/02/20 06/02/20 00:38 00:38 00:38 MCV MCH MCHC RDW Plt Count MPV Immature Gran % (Auto) Neut % (Auto) Lymph % (Auto) Spalding % (Auto) Eos % (Auto) Baso % (Auto) Lymph # (Auto) Spalding # (Auto) Eos # (Auto) Baso # (Auto) Abs Immat Gran (auto) Absolute Neuts (auto) Absolute Nucleated RBC Nucleated RBC % (auto) PT 13.9 H INR 1.2 H D-Dimer < 200 ABG pH ABG pCO2 ABG pO2 ABG HCO3 ABG O2 Saturation ABG Base Excess VBG pH VBG pCO2 VBG pO2 VBG HCO3 VBG O2 Saturation VBG Base Excess Oxygen Given Anion Gap 17 Estim Creat Clear Calc 106.7 Estimated GFR > 60 Random Glucose 340 H D Lactic Acid 1.9 Calcium 7.9 L Total Bilirubin 0.4 AST 80 H ALT 63 H Alkaline Phosphatase 143 H B-Natriuretic Peptide Total Protein 8.1 H Albumin 3.3 L Lipase 18 Urine Color Urine Appearance Urine pH Ur Specific [place] Urine Protein Urine Glucose (UA) Urine Ketones Urine Blood Urine Nitrite Ur Leukocyte Esterase Urine RBC Urine WBC Ur Squamous Epith Cells Urine Bacteria Hyaline Casts Urine Mucus Urine Yeast Urine Opiates Screen Ur Barbiturates Screen Ur Phencyclidine Scrn Ur Amphetamines Screen U Benzodiazepines Scrn Urine Cocaine Screen U Marijuana (THC) Screen Acetone, Qual Negative 06/02/20 06/02/20 06/02/20 00:38 00:39 01:17 MCV 75.9 L MCH 23.5 L MCHC 30.9 L RDW 19.6 H Plt Count 477 H MPV 11.8 Immature Gran % (Auto) 0.3 Neut % (Auto) 89.1 H Lymph % (Auto) 6.0 L Spalding % (Auto) 4.5 Eos % (Auto) 0.0 Baso % (Auto) 0.1 Lymph # (Auto) 1.1 L Sp[place] # (Auto) 0.8 Eos # (Auto) 0.0 Baso # (Auto) 0.0 Abs Immat Gran (auto) 0.05 H Absolute Neuts (auto) 16.2 H Absolute Nucleated RBC 0.000 Nucleated RBC % (auto) 0.0 PT INR D-Dimer ABG pH 7.42 ABG pCO2 32 ABG pO2 63 L ABG HCO3 21 L ABG O2 Saturation 91.0 ABG Base Excess -2.2 VBG pH VBG pCO2 VBG pO2 VBG HCO3 VBG O2 Saturation VBG Base Excess Oxygen Given 50% Anion Gap Estim Creat Clear Calc Estimated GFR Random Glucose Lactic Acid Calcium Total Bilirubin AST ALT Alkaline Phosphatase B-Natriuretic Peptide 39 Total Protein Albumin Lipase Urine Color Urine Appearance Urine pH Ur Specific [place] Urine Protein Urine Glucose (UA) Urine Ketones Urine Blood Urine Nitrite Ur Leukocyte Esterase Urine RBC Urine WBC Ur Squamous Epith Cells Urine Bacteria Hyaline Casts Urine Mucus Urine Yeast Urine Opiates Screen Ur Barbiturates Screen Ur Phencyclidine Scrn Ur Amphetamines Screen U Benzodiazepines Scrn Urine Cocaine Screen U Marijuana (THC) Screen Acetone, Qual 06/02/20 06/02/20 06/02/20 02:38 02:38 04:15 MCV MCH MCHC RDW Plt Count MPV Immature Gran % (Auto) Neut % (Auto) Lymph % (Auto) Spalding % (Auto) Eos % (Auto) Baso % (Auto) Lymph # (Auto) Sp[place]ding # (Auto) Eos # (Auto) Baso # (Auto) Abs Immat Gran (auto) Absolute Neuts (auto) Absolute Nucleated RBC Nucleated RBC % (auto) PT INR D-Dimer ABG pH ABG pCO2 ABG pO2 ABG HCO3 ABG O2 Saturation ABG Base Excess VBG pH 7.38 VBG pCO2 37 VBG pO2 60 VBG HCO3 22 VBG O2 Saturation 87.0 VBG Base Excess -1.9 Oxygen Given Anion Gap Estim Creat Clear Calc Estimated GFR Random Glucose Lactic Acid Calcium Total Bilirubin AST ALT Alkaline Phosphatase B-Natriuretic Peptide Total Protein Albumin Lipase Urine Color YELLOW Urine Appearance CLOUDY Urine pH 6.5 Ur Specific Ogden 1.025 Urine Protein 3+ H Urine Glucose (UA) 250 H Urine Ketones NEG Urine Blood 3+ H Urine Nitrite NEG Ur Leukocyte Esterase NEG Urine RBC 76-150 H Urine WBC 10-14 H Ur Squamous Epith Cells TRACE Urine Bacteria NONE Hyaline Casts 1-4 Urine Mucus TRACE Urine Yeast TRACE Urine Opiates Screen Not Detected Ur Barbiturates Screen Not Detected Ur Phencyclidine Scrn Not Detected Ur Amphetamines Screen Not Detected U Benzodiazepines Scrn Not Detected Urine Cocaine Screen Not Detected U Marijuana (THC) Screen Not Detected Acetone, Qual Imaging Radiologist's Impressions: Impressions Chest X-Ray 06/02/20 00:32 IMPRESSION: No acute intrathoracic disease. Assessment and Plan (1) Acute respiratory failure: Qualifiers: Respiratory failure complication: hypoxia Qualified Code(s): J96.01 - Acute respiratory failure with hypoxia Status: Acute (2) Pneumonia due to 2019 novel coronavirus: Status: Acute (3) Behcets syndrome: Status: Acute This is a 5-year-old male with past medical room history of recently diagnosed neuro Behcet's ds who presents to the hospital from skilled nursing after being found hypoxic and having increased work of breathing # Acute hypoxic resp failure - most likely secondary to COVID pneumonia as patient had a bother of COVID-19 on 05/25/2020 - no evidence of heart failure as BNP is negative, D-dimer less than 200, Plan: - will start him on Decadron 6 mg daily - hold off on starting antibiotics as patient has no significant evidence of infiltrates on x-ray - pending procalcitonin level # COVID 19 infection - Although chest xray not significant for findings of infiltates, given his hypoxia and recent positive serology, this is presumed to be the cause of his respiratory failure - Management as above # Behcets syndrome - continue prednisone taper #HTN - Elevated - continue amlodipine, and carvedilol, lisinopril # DM - Continue home glargine - start LDSSI - Diabetic diet DVT prophylaxis: Lovenox
--- NOTE | 2020-06-02 05:57 | PC.NURSE ---
pt increasingly agitated. pt mouthed why won't you leave me alone. pt reducated on importance of monitoring equipment.
--- NOTE | 2020-06-02 06:13 | PC.NURSE ---
0610: contacted for non-behavioral restraints. patient unable to be redirected. pt continutes to attempt to remove medical equipment. this rn at bedside.
--- NOTE | 2020-06-02 06:32 | PC.NURSE ---
this director underwriter sales spoke to the hospitalist about phamacological options for behavior. per hospitalist, pt appears to be altered due to hypoxia and underlying confusion. patient still remains unredirectable. patietn attempted to bite this director underwriter sales twice when i attempted to remove tape securing to chest.
--- NOTE | 2020-06-02 06:39 | PC.NURSE ---
during 0630 assessment, 18g in lac done by ems, was removed by patient previously. patient remains very agitated. lights dimmed. and this rn remains at bedside.
--- NOTE | 2020-06-02 06:46 | PC.NURSE ---
update given to mary regarding overnight status.
--- NOTE | 2020-06-02 06:49 | PC.NURSE ---
md aware of need potential need for sitter on floor.
[2020-06-02 06:54] LABS: Procalcitonin 0.05 ng/mL
--- NOTE | 2020-06-02 07:28 | PC.NURSE ---
report from Deep, assumed care of pt. Approached pt to reposition and check restraints, pt initially calm then fighting restraints and attempting to grab hands of nurse. Pt has teeth clenched. Asked pt to calm himself so restraints could be removed, pt moved forward in ttempt to head strike RN with his head. Restraints remain in place. Will continue to monitor.
[2020-06-02] MEDS: methylPREDNISolone Sod Succ/PF 125 MG/2 ML VIAL 60 MG IVPUSH (07:33)
[2020-06-02] MEDS: 0.9 % Sodium Chloride Flush 3 ML SYRINGE IVFLUSH (07:33)
--- NOTE | 2020-06-02 07:58 | PC.NURSE ---
restraints released while pt repositioned. He has small areas to coccyx that appear to be healing wounds, present on admission. pt repositioned to left side.
[2020-06-02] MEDS: Enoxaparin Sodium 40 MG/0.4 ML SYRINGE SUBCUT (08:02)
[2020-06-02] MEDS: Tamsulosin HCL 0.4 MG CAPSULE PO (09:03)
[2020-06-02] MEDS: Gabapentin 300 MG CAPSULE PO (09:03)
[2020-06-02] MEDS: Atorvastatin Calcium 40 MG TABLET PO (09:03)
[2020-06-02] MEDS: Insulin Glargine,Hum.rec.anlog 100 UNIT/ML 10 ML VIAL 33 UNIT SUBCUT (09:04)
[2020-06-02] MEDS: Finasteride 5 MG TABLET PO (09:04)
[2020-06-02] MEDS: Sertraline HCL 100 MG TABLET 200 MG PO (09:04)
[2020-06-02] MEDS: TiZANidine HCL 4 MG TABLET 2 MG PO ×2 (09:54→20:52)
[2020-06-02] MEDS: levETIRAcetam 500 MG TABLET PO ×2 (09:55→20:53)
[2020-06-02] MEDS: carvediloL 25 MG TABLET PO ×2 (09:55→20:53)
[2020-06-02] MEDS: amLODIPine Besylate 10 MG TABLET PO (09:55)
--- NOTE | 2020-06-02 11:47 | PC.NURSE ---
pt nto CT scan via stretcher with RN. He has been calm and making no attempt to remove tubes or lines. Restraints released. Pt positioned to right side. Pt tolerated small amount of PO food and fluid, no aspiration or coughing. He is not answering questions. He is unable to focus eyes and track, also has mild nystagmus. aware.
--- NOTE | 2020-06-02 12:21 | HO.PM.IMPN ---
Subjective Subjective Date of Service: 06/02/20 Interval History: seen and examined in the ED. alert, attempting to speak Physical Exam Vital Signs: Vital Signs: Last Vital Signs Temp 97.6 F 06/02/20 06:21 Pulse 83 06/02/20 10:53 Resp 16 06/02/20 10:53 BP 166/79 H 06/02/20 10:53 Pulse Ox 98 06/02/20 10:53 Body Mass Index 28.3 Const: Other: General - awake and alert Cardiovascular - regular rate and rhythm, S1-S2 Lungs - normal respiratory effort, clear to auscultation bilaterally, no wheezing Abdomen - soft, nontender, no rebound or guarding Extremities - no edema bilaterally Neuro - alert, attempting to speak, moving 4 extremities, no facial asymmetry noted; EOMI, pupils reactive; unable to obey commands Objective Data Current Medications Generic Name Dose Route Start Last Admin Trade Name Freq PRN Reason Stop Dose Admin Acetaminophen 650 mg 06/02/20 06:21 Acetaminophen 325 Mg Tablet PO Q6H PRN Pain, Mild (Pain Scale 1-3) Albuterol Sulfate 2 puff 06/02/20 06:21 Albuterol Sulfate 90 Mcg 8 Gm Inhaler INHALE Q4H PRN Wheezing Amlodipine Besylate 10 mg 06/02/20 09:00 06/02/20 09:55 Amlodipine Besylate 10 Mg Tablet PO 10 mg DAILY CARIN Administration Protocol Atorvastatin Calcium 40 mg 06/02/20 09:00 06/02/20 09:03 Atorvastatin Calcium 40 Mg Tablet PO 40 mg DAILY CARIN Administration Carvedilol 25 mg 06/02/20 09:00 06/02/20 09:55 Carvedilol 25 Mg Tablet PO 25 mg BID CARIN Administration Protocol Docusate Sodium 100 mg 06/02/20 06:21 Docusate Sodium 100 Mg Capsule PO DAILY PRN Constipation Enoxaparin Sodium 40 mg 06/02/20 08:00 06/02/20 08:02 Enoxaparin Sodium 40 Mg/0.4 Ml Syringe SUBCUT 40 mg Q24H CARIN Administration Finasteride 5 mg 06/02/20 09:00 06/02/20 09:04 Finasteride 5 Mg Tablet PO 5 mg DAILY CARIN Administration Gabapentin 300 mg 06/02/20 09:00 06/02/20 09:03 Gabapentin 300 Mg Capsule PO 300 mg DAILY CARIN Administration Insulin Glargine 33 unit 06/02/20 09:00 06/02/20 09:04 Insulin Glargine,Hum.Rec.Anlog 100 Unit/Ml 10 Ml Vial SUBCUT 33 unit DAILY CARIN Administration Levetiracetam 500 mg 06/02/20 09:00 06/02/20 09:55 Levetiracetam 500 Mg Tablet PO 500 mg BID CARIN Administration Lisinopril 20 mg 06/02/20 09:00 06/02/20 09:03 Lisinopril 20 Mg Tablet PO 20 mg DAILY CARIN Administration Protocol Ondansetron HCl 4 mg 06/02/20 06:21 Ondansetron Hcl 4 Mg/2 Ml Vial IVPUSH Q8H PRN Nausea and Vomiting Polyethylene Glycol 17 gm 06/02/20 09:00 06/02/20 10:05 Polyethylene Glycol 3350 17 Gm Powd.Pack PO Not Given DAILY CARIN Quetiapine Fumarate 25 mg 06/02/20 21:00 Quetiapine Fumarate 25 Mg Tablet PO BEDTIME CARIN Sertraline HCl 200 mg 06/02/20 09:00 06/02/20 09:04 Sertraline Hcl 100 Mg Tablet PO 200 mg DAILY CARIN Administration Sodium Chloride 3 ml 06/02/20 08:00 06/02/20 07:33 0.9 % Sodium Chloride Flush 3 Ml Syringe IVFLUSH 3 ml QSHIFT CARIN Administration Tamsulosin HCl 0.4 mg 06/02/20 09:00 06/02/20 09:03 Tamsulosin Hcl 0.4 Mg Capsule PO 0.4 mg DAILY CARIN Administration Tizanidine HCl 2 mg 06/02/20 09:00 06/02/20 09:54 Tizanidine Hcl 4 Mg Tablet PO 2 mg BID CARIN Administration Labs CBC & Chem 7: 06/03/20 06:16 06/03/20 06:16 Assessment and Plan (1) Acute respiratory failure: Status: Acute (2) Pneumonia due to 2019 novel coronavirus: Status: Acute Assessment and Plan: This is a 59-year-old male with a past medical history of prior CVA and resultant hemiplegia and dysarthria. 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 He was also found to be covid positive, but had no respiratory symptoms including hypoxia. He was sent to SNF and returned less than 12 hours later for hypoxia and alerted mental status. 1. Acute Respiratory failure placed on bipap in the ED for work of breathing with improvement. Subsequently transitioned to NC and by this evening, on RA monitor 2. Acute Encephalopathy CT brain without any acute findings continue monitoring for now. Just completed extensive neurological work up ? post-ictal 3. Aspiration Pneumonia CT scan completed -- showing typical covid fidings + RML/RLL infiltrates Start Unasyn [employer] evaluation 4. Neuro-Bachet's use solu-medrol until safetly able to take PO 5. HTN continue home meds 6. DM humalog q6 hours hold lantus Full Code DVT pptx, Lovenox
--- NOTE | 2020-06-02 13:17 | MHC.CM.PN ---
IMM 06/02/20, EMR REVIEWED, PT ADMITTED FROM [facility] AFTER BEING D/C'D FROM [facility] [place]/01 W/HYPOXIC RESP FAILURE, COVID19, CM MET WITH PT'S NURSE WHO REPORTS HE IS STILL CONFUSED AND UNABLE TO ANSWER QUESTIONS, CM CONTACTED PT'S SISTER/HCP NADEEM WHO REPORTS PT IS TOTAL CARE AT HOME AND FAMILY PROVIDES 24HR CARE, PT LIVES WITH HIS BROTHER MARISA AND PT'S SISTER AND GRANDSON PROVIDE ALL CARE FOR PT, SISTER AND GRANDSON ARE PT'S SHIFT MGR'S THROUGH [facility], PT DOES NOT HAVE VNA OR OTHER HOME SERVICES, SISTER QUESTIONING IF SHE WANTS PT TO RETURN TO [facility] AND IS CONSIDERING BRINGING HIM HOME. DISCHARGE PLAN: HOME W/SERVICES VS RETURN TO [facility] FOLLOWING PT HCP: NADEEM CALDERON [phone] BROTHER: MARISA WILLIAMSON [phone]
[2020-06-02 13:56] LABS: Ammonia 42 umol/L (13-55)
[2020-06-02] MEDS: Ampicillin Sodium/Sulbactam Na 3 GM in 0.9 % Sodium Chloride 100 ML IV ×2 (14:47→20:54)
--- NOTE | 2020-06-02 15:25 | PC.NURSE ---
pt has been calm, sleeping. All restraints were released and pt did not make any further attempts to remove lines or catheter. HE continues to be unable to answer questions, will say one word in answer to questions. VS stable, will continue to monitor
[2020-06-02 15:38] LABS: Glucose, Whole Blood 317 mg/dL (60-115)
--- NOTE | 2020-06-02 19:55 | PC.NURSE ---
REPORT GIVEN TO RN ON FLOOR, PT READY FOR TRANSPORT.
[2020-06-02 20:43] LABS: Glucose, Whole Blood 254 mg/dL (60-115)
[2020-06-02] MEDS: QUEtiapine Fumarate 25 MG TABLET PO (20:52)
[2020-06-03] VITALS (13 sets, daily range): BP systolic 140–220; BP diastolic 80–110; PULSE 91–102; RESP 18–20; TEMP 35.8–36.6; O2SAT 92–97
[2020-06-03] MEDS: Ampicillin Sodium/Sulbactam Na 3 GM in 0.9 % Sodium Chloride 100 ML IV ×4 (03:27→20:33)
[2020-06-03] MEDS: 0.9 % Sodium Chloride Flush 3 ML SYRINGE IVFLUSH ×2 (03:27→20:36)
[2020-06-03 06:35] LABS: Basophils Percent Auto 0.1 % (0-2); Eosinophils Percent Auto 0.2 % (0-4); Hemoglobin 10.3 g/dl (14.0-18.0); MANUAL DIFF FLAG SCAN; PLT CLUMP 1; SCAN SMEAR FLAG 1
[2020-06-03 06:37] LABS: Eosinophils Absolute Auto 0.1 X10*3/uL (0.0-0.4); Hematocrit 33.7 % (42-52); Imm Gran Abs Auto 0.24 X10*3/uL (0.00-0.03); Imm Gran Pct Auto 0.9 % (0.0-0.4); Lymphocytes Absolute Auto 1.3 X10*3/uL (1.2-4.9); Lymphocytes Percent Auto 4.6 % (20-40); Mean Corpuscular HGB Conc 30.6 g/dl (31.0-36.0); Mean Corpuscular Hemoglobin 23.1 pg (27.0-33.0); Mean Corpuscular Volume 75.7 fL (80-98); Monocytes Absolute Auto 0.9 X10*3/uL (0.1-1.2); Monocytes Percent Auto 3.2 % (2-11); Neutrophils Absolute Auto 24.4 X10*3/uL (2.0-8.3); Platelet Count 295 X10*3/uL (160-400); Red Blood Count 4.45 X10*6/uL (4.60-5.80); Red Cell Distribution Width 19.7 % (11.0-16.0); White Blood Count 26.9 X10*3/uL (4.8-10.8)
[2020-06-03 07:00] LABS: PLT ABN DIST 1
[2020-06-03 07:05] LABS: Anion Gap 15 (12-20); Blood Urea Nitrogen 36 mg/dL (9-16); Calcium 7.9 mg/dL (8.4-10.2); Carbon Dioxide 23 mmol/L (22-29); Chloride 112 mmol/L (96-108); Creatinine Clr Calc Pharmacy 116.2; Estimated Glomerular Filt Rate > 60; Glucose Random 155 mg/dL (60-115); Potassium 3.2 mmol/L (3.3-5.1); Sodium 147 mmol/L (135-145)
[2020-06-03 07:26] LABS: Glucose, Whole Blood 150 mg/dL (60-115)
[2020-06-03 07:52] LABS: SLIDE REVIEW VERIFIED
[2020-06-03] MEDS: Dextrose 5 % 1,000 ML 100 ML IVCONT (09:04)
[2020-06-03] MEDS: Enoxaparin Sodium 40 MG/0.4 ML SYRINGE SUBCUT (09:24)
[2020-06-03 11:23] LABS: Glucose, Whole Blood 207 mg/dL (60-115)
[2020-06-03] MEDS: levETIRAcetam in NaCl (iso-os) 500 MG/100 ML PIGGYBACK 400 MG IV ×2 (14:16→20:33)
--- NOTE | 2020-06-03 15:12 | HO.PM.IMPN ---
Subjective Subjective Date of Service: 06/03/20 Interval History: seen and examined this AM appears about the same as yesterday Physical Exam Vital Signs: Vital Signs: Last Vital Signs Temp 96.5 F L 06/03/20 11:02 Pulse 92 06/03/20 11:02 Resp 18 06/03/20 11:02 BP 140/90 H 06/03/20 11:02 Pulse Ox 95 06/03/20 11:02 Body Mass Index 28.3 Const: Other: General - awake and alert Cardiovascular - regular rate and rhythm, S1-S2 Lungs - normal respiratory effort, clear to auscultation bilaterally, no wheezing Abdomen - soft, nontender, no rebound or guarding Extremities - no edema bilaterally Neuro - alert but unable to obey commands Objective Data Current Medications Generic Name Dose Route Start Last Admin Trade Name Freq PRN Reason Stop Dose Admin Acetaminophen 650 mg 06/02/20 06:21 Acetaminophen 325 Mg Tablet PO Q6H PRN Pain, Mild (Pain Scale 1-3) Albuterol Sulfate 2 puff 06/02/20 06:21 Albuterol Sulfate 90 Mcg 8 Gm Inhaler INHALE Q4H PRN Wheezing Amlodipine Besylate 10 mg 06/02/20 09:00 06/03/20 09:25 Amlodipine Besylate 10 Mg Tablet PO Not Given DAILY [facility] Protocol Atorvastatin Calcium 40 mg 06/02/20 09:00 06/03/20 09:25 Atorvastatin Calcium 40 Mg Tablet PO Not Given DAILY [facility] Carvedilol 25 mg 06/02/20 09:00 06/03/20 09:25 Carvedilol 25 Mg Tablet PO Not Given BID [facility] Protocol Docusate Sodium 100 mg 06/02/20 06:21 Docusate Sodium 100 Mg Capsule PO DAILY PRN Constipation Enoxaparin Sodium 40 mg 06/02/20 08:00 06/03/20 09:24 Enoxaparin Sodium 40 Mg/0.4 Ml Syringe SUBCUT 40 mg Q24H CARIN Administration Finasteride 5 mg 06/02/20 09:00 06/03/20 09:25 Finasteride 5 Mg Tablet PO Not Given DAILY [facility] Gabapentin 300 mg 06/02/20 09:00 06/03/20 09:26 Gabapentin 300 Mg Capsule PO Not Given DAILY [facility] Ampicillin Sodium/Sulbactam 100 mls @ 200 mls/hr 06/02/20 14:00 06/03/20 14:54 Sodium 3 gm/ Sodium Chloride IV 200 mls/hr Q6H CARIN Administration Dextrose 1,000 mls @ 100 mls/hr 06/03/20 07:45 06/03/20 09:04 D5w IVCONT 06/03/20 17:44 100 mls/hr .Q10H CARIN Administration Levetiracetam 500 mg in 100 mls @ 400 mls/hr 06/03/20 10:00 06/03/20 14:52 Keppra IV Infused Q12H [facility]IN Infusion Labetalol HCl 10 mg 06/03/20 09:22 Labetalol Hcl 100 Mg/20 Ml Vial IVPUSH Q4H PRN SBP >= 180 Lisinopril 20 mg 06/02/20 09:00 06/03/20 09:26 Lisinopril 20 Mg Tablet PO Not Given DAILY [facility] Protocol Ondansetron HCl 4 mg 06/02/20 06:21 Ondansetron Hcl 4 Mg/2 Ml Vial IVPUSH Q8H PRN Nausea and Vomiting Polyethylene Glycol 17 gm 06/02/20 09:00 06/03/20 09:26 Polyethylene Glycol 3350 17 Gm Powd.Pack PO Not Given DAILY [facility] Quetiapine Fumarate 25 mg 06/02/20 21:00 06/02/20 20:52 Quetiapine Fumarate 25 Mg Tablet PO 25 mg BEDTIME CARIN Administration Sertraline HCl 200 mg 06/02/20 09:00 06/03/20 09:26 Sertraline Hcl 100 Mg Tablet PO Not Given DAILY [facility] Sodium Chloride 3 ml 06/02/20 08:00 06/03/20 14:58 0.9 % Sodium Chloride Flush 3 Ml Syringe IVFLUSH Not Given QSHIFT [facility] Tamsulosin HCl 0.4 mg 06/02/20 09:00 06/03/20 09:26 Tamsulosin Hcl 0.4 Mg Capsule PO Not Given DAILY [facility] Tizanidine HCl 2 mg 06/02/20 09:00 06/03/20 09:26 Tizanidine Hcl 4 Mg Tablet PO Not Given BID [facility] Labs CBC & Chem 7: 06/03/20 06:16 06/03/20 06:16 Microbiology Microbiology Results: Microbiology 06/02/20 00:39 Blood - Venous Blood Culture - Preliminary No growth after 24 hours. 06/02/20 00:35 Blood - Venous Blood Culture - Preliminary Assessment and Plan (1) Acute respiratory failure: Status: Acute (2) Pneumonia due to 2019 novel coronavirus: Status: Acute Assessment and Plan: This is a 59-year-old male with a past medical history of prior CVA and resultant hemiplegia and dysarthria. 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 He was also found to be covid positive, but had no respiratory symptoms including hypoxia. He was sent to SNF and returned less than 12 hours later for hypoxia and alerted mental status. 1. Acute Respiratory failure placed on bipap in the ED for work of breathing with improvement. off Oxygen x [address] Acute [address] brain without any acute findings continue monitoring for now. Just completed extensive neurological work up ? prolonged post-ictal change to IV keppra reconsult neurology 3. Aspiration Pneumonia CT scan completed -- showing typical covid fidings + RML/RLL infiltrates Start Unasyn ACCOUNT SPECIALIST evaluation, npo until then 4. Neuro-Bachet's use solu-medrol until safetly able to take PO 5. HTN hold po use IV if needed 6. DM humalog q6 hours hold lantus 7. HyperNa hypotonic fluids Full Code DVT pptx, Lovenox
[2020-06-03 16:13] LABS: Glucose, Whole Blood 252 mg/dL (60-115)
[2020-06-03] MEDS: Labetalol HCL 100 MG/20 ML VIAL 10 MG IVPUSH (16:32)
[2020-06-03] MEDS: Labetalol HCL 100 MG/20 ML VIAL 20 MG IVPUSH (17:22)
[2020-06-03] MEDS: hydrALAZINE HCl 20 MG/ML VIAL 10 MG IVPUSH (18:45)
[2020-06-03 19:55] LABS: Glucose, Whole Blood 271 mg/dL (60-115)
[2020-06-03] MEDS: Morphine Sulfate 4 MG/ML CARTRIDGE IVPUSH (22:22)
[2020-06-04] VITALS (16 sets, daily range): BP systolic 134–192; BP diastolic 70–96; PULSE 73–102; RESP 18–22; TEMP 36.1–37; O2SAT 94–98
[2020-06-04] MEDS: Ampicillin Sodium/Sulbactam Na 3 GM in 0.9 % Sodium Chloride 100 ML IV ×4 (01:22→19:39)
[2020-06-04] MEDS: hydrALAZINE HCl 20 MG/ML VIAL 10 MG IVPUSH ×2 (03:32→18:42)
[2020-06-04 06:35] LABS: Hemoglobin 10.6 g/dl (14.0-18.0); Mean Corpuscular Hemoglobin 23.2 pg (27.0-33.0); Red Blood Count 4.57 X10*6/uL (4.60-5.80); Red Cell Distribution Width 19.7 % (11.0-16.0)
[2020-06-04 06:37] LABS: Hematocrit 34.6 % (42-52); Mean Corpuscular HGB Conc 30.6 g/dl (31.0-36.0); Mean Corpuscular Volume 75.7 fL (80-98); Mean Platelet Volume 12.4 fL (9.4-12.4); Platelet Count 387 X10*3/uL (160-400); White Blood Count 25.1 X10*3/uL (4.8-10.8)
[2020-06-04 07:21] LABS: Anion Gap 16 (12-20); Blood Urea Nitrogen 28 mg/dL (9-16); Calcium 7.8 mg/dL (8.4-10.2); Carbon Dioxide 25 mmol/L (22-29); Chloride 110 mmol/L (96-108); Creatinine Clr Calc Pharmacy 112.9; Estimated Glomerular Filt Rate > 60; Glucose Random 260 mg/dL (60-115); Potassium 2.8 mmol/L (3.3-5.1); Sodium 148 mmol/L (135-145)
[2020-06-04 07:31] LABS: PLT ABN DIST 1
[2020-06-04 07:32] LABS: Procalcitonin 0.13 ng/mL
[2020-06-04] MEDS: Dextrose 5 % 1,000 ML 100 ML IVCONT (07:46)
[2020-06-04] MEDS: Potassium Chloride/H20 10 MEQ/100 ML PIGGYBACK 100 MEQ IV ×4 (07:46→12:12)
[2020-06-04 07:52] LABS: Glucose, Whole Blood 242 mg/dL (60-115)
[2020-06-04] MEDS: 0.9 % Sodium Chloride Flush 3 ML SYRINGE IVFLUSH ×2 (07:58→15:34)
[2020-06-04] MEDS: Enoxaparin Sodium 40 MG/0.4 ML SYRINGE SUBCUT (07:58)
[2020-06-04] MEDS: Labetalol HCL 100 MG/20 ML VIAL 10 MG IVPUSH ×2 (08:08→16:17)
[2020-06-04] MEDS: levETIRAcetam in NaCl (iso-os) 500 MG/100 ML PIGGYBACK 400 MG IV ×2 (08:52→19:39)
--- NOTE | 2020-06-04 09:19 | P.PNIM_ITS ---
Subjective Subjective Date of Service: 06/04/20 Interval History: Seen and examined this AM overnight events reviewed. became hypoxic and repeat cxr unchanged this AM on 100% NRM which was removed and he was observed with saturations maintain >90% on RA after 5-10 minutes communicated with him via writing things down on pad -- he does shake his head yes to hunger and no to pain. ROS unreliable otherwise Physical Exam Vital Signs: Vital Signs: Last Vital Signs Temp 97.9 F 06/04/20 08:05 Pulse 100 06/04/20 08:08 Resp 18 06/04/20 08:05 BP 190/90 H 06/04/20 08:08 Pulse Ox 98 06/04/20 08:05 Body Mass Index 28.3 Const: Other: General - awake and alert Cardiovascular - regular rate and rhythm, S1-S2 Lungs - normal respiratory effort, clear to auscultation bilaterally, no wheezing Abdomen - soft, nontender, no rebound or guarding Extremities - no edema bilaterally Neuro - more awake and appears to be appearing to communicate Objective Data Current Medications Generic Name Dose Route Start Last Admin Trade Name Freq PRN Reason Stop Dose Admin Acetaminophen 650 mg 06/02/20 06:21 Acetaminophen 325 Mg Tablet PO Q6H PRN Pain, Mild (Pain Scale 1-3) Albuterol Sulfate 2 puff 06/02/20 06:21 Albuterol Sulfate 90 Mcg 8 Gm Inhaler INHALE Q4H PRN Wheezing Amlodipine Besylate 10 mg 06/02/20 09:00 06/04/20 07:58 Amlodipine Besylate 10 Mg Tablet PO Not Given DAILY [facility] Protocol Atorvastatin Calcium 40 mg 06/02/20 09:00 06/04/20 07:58 Atorvastatin Calcium 40 Mg Tablet PO Not Given DAILY [facility] Carvedilol 25 mg 06/02/20 09:00 06/04/20 07:59 Carvedilol 25 Mg Tablet PO Not Given BID [facility] Protocol Docusate Sodium 100 mg 06/02/20 06:21 Docusate Sodium 100 Mg Capsule PO DAILY PRN Constipation Enoxaparin Sodium 40 mg 06/02/20 08:00 06/04/20 07:58 Enoxaparin Sodium 40 Mg/0.4 Ml Syringe SUBCUT 40 mg Q24H CARIN Administration Finasteride 5 mg 06/02/20 09:00 06/04/20 07:59 Finasteride 5 Mg Tablet PO Not Given DAILY [facility] Gabapentin 300 mg 06/02/20 09:00 06/04/20 07:59 Gabapentin 300 Mg Capsule PO Not Given DAILY [facility] Hydralazine HCl 10 mg 06/03/20 18:30 06/04/20 03:32 Hydralazine Hcl 20 Mg/Ml Vial IVPUSH 10 mg Q6H PRN Administration SBP > 180 Protocol Ampicillin Sodium/Sulbactam 100 mls @ 200 mls/hr 06/02/20 14:00 06/04/20 08:30 Sodium 3 gm/ Sodium Chloride IV Infused Q6H [facility]IN Infusion Levetiracetam 500 mg in 100 mls @ 400 mls/hr 06/03/20 10:00 06/04/20 08:52 Keppra IV 400 mls/hr Q12H [facility]IN Administration Dextrose 1,000 mls @ 100 mls/hr 06/04/20 07:30 06/04/20 07:46 D5w IVCONT 100 mls/hr .Q10H CARIN Administration Potassium Chloride 10 meq in 100 mls @ 100 mls/hr 06/04/20 08:00 06/04/20 08:53 IV 06/04/20 11:59 100 mls/hr Q1H CARIN Administration Labetalol HCl 10 mg 06/03/20 09:22 06/04/20 08:08 Labetalol Hcl 100 Mg/20 Ml Vial IVPUSH 10 mg Q4H PRN Administration SBP >= 180 Lisinopril 20 mg 06/02/20 09:00 06/04/20 07:59 Lisinopril 20 Mg Tablet PO Not Given DAILY [facility] Protocol Ondansetron HCl 4 mg 06/02/20 06:21 Ondansetron Hcl 4 Mg/2 Ml Vial IVPUSH Q8H PRN Nausea and Vomiting Polyethylene Glycol 17 gm 06/02/20 09:00 06/04/20 07:59 Polyethylene Glycol 3350 17 Gm Powd.Pack PO Not Given DAILY [facility] Quetiapine Fumarate 25 mg 06/02/20 21:00 06/03/20 20:36 Quetiapine Fumarate 25 Mg Tablet PO Not Given BEDTIME [facility] Sertraline HCl 200 mg 06/02/20 09:00 06/04/20 07:59 Sertraline Hcl 100 Mg Tablet PO Not Given DAILY [facility] Sodium Chloride 3 ml 06/02/20 08:00 06/04/20 07:58 0.9 % Sodium Chloride Flush 3 Ml Syringe IVFLUSH 3 ml QSHIFT [facility] Administration Tamsulosin HCl 0.4 mg 06/02/20 09:00 06/04/20 07:59 Tamsulosin Hcl 0.4 Mg Capsule PO Not Given DAILY [facility] Tizanidine HCl 2 mg 06/02/20 09:00 06/04/20 07:59 Tizanidine Hcl 4 Mg Tablet PO Not Given BID [facility] Labs CBC & Chem 7: 06/04/20 05:47 06/04/20 05:47 Microbiology Microbiology Results: Microbiology 06/02/20 00:35 Blood - Venous Blood Culture - Final Coag negative Staphylococcus 06/02/20 00:39 Blood - Venous Blood Culture - Preliminary No growth after 48 hours. 06/02/20 Unknown Urine clean catch - Clean Catch Midstream Urine Culture - Preliminary Culture in progress. Assessment and Plan (1) Acute respiratory failure: Status: Acute (2) Pneumonia due to 2019 novel coronavirus: Status: Acute Assessment and Plan: This is a 59-year-old male with a past medical history of prior CVA and resultant hemiplegia and dysarthria. 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 He was also found to be covid positive, but had no respiratory symptoms including hypoxia. He was sent to SNF and returned less than 12 hours later for hypoxia and alerted mental status. 1. Acute Respiratory failure placed on bipap in the ED for work of breathing with improvement and subsequentl y weaned to RA. Overnight requirement 100% NRMB but again this morning is able to tolerate without. Will continue monitoring closely 2. Acute Encephalopathy CT brain without any acute findings continue monitoring for now. Just completed extensive neurological work up during the last admission ? prolonged post-ictal change to IV keppra Neruology consult pending 3. 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 Neuro-Bachet's solu-medrol 60mg (in place of PO prednisone) day #3 -- will taper to 50mg daily x 3day and wean by 10mg every 3 days 5. HTN uncontrolled unable to take PO meds due to mentation, use IV hydralzine / labetalol 6. DM humalog q6 hours hold lantus 7. HyperNa, HyperK D5W IV K repeat chem this afternoon 8. Leukocytosis infection + steroid monitor Full Code DVT pptx, Lovenox
--- NOTE | 2020-06-04 11:30 | P.CNNE_ITS ---
History of Present Illness Data of Consult Service Date: 06/04/20 Primary Care Provider: Unknown Physician 59 years old man who was recently diagnosed with neuro Behect's syndrome based upon significant MRI findings with hyperintensities in brainstem and infra cortical structures and some atrophy. A lumbar puncture was recently performed that revealed 12 WBCs in the CSF protein of about 100. he did not have any sign of fever or infection at that time. Test for Lyme and syphilis were negative. He was treated with prednisone and was referred to care home. He was brought back with change in mental status. At this time he was not able to provide any meaningful history. Review of Systems Review of Systems: Unable to do review of systems questioning. [facility] Past Medical History Medical History Depression Diabetes Hepatitis C Paraplegia Seizure Stroke TIA (transient ischemic attack) Social History Social History Household Members: Family Alcohol intake: former Smoking Status: Smoker, status unknown Smoked in Last 30 Days: No Substance Use Type: Former Substance User Currently Displaying Signs/Symptoms of Drug Intoxication Withdrawal: No Advance Directives: No Do you have thoughts of harming others: None Do you have a plan to hurt others: No Plan service: No Current occupational status: disabled Meds Allergies Allergy/AdvReac Type Severity Reaction Status Date / Time No Known Allergies Allergy Verified 01/25/20 19:38 [No Known Allergies*] Active Medications: Current Medications Generic Name Dose Route Start Last Admin Trade Name Freq PRN Reason Stop Dose Admin Acetaminophen 650 mg 06/02/20 06:21 Acetaminophen 325 Mg Tablet PO Q6H PRN Pain, Mild (Pain Scale 1-3) Albuterol Sulfate 2 puff 06/02/20 06:21 Albuterol Sulfate 90 Mcg 8 Gm Inhaler INHALE Q4H PRN Wheezing Amlodipine Besylate 10 mg 06/02/20 09:00 06/04/20 07:58 Amlodipine Besylate 10 Mg Tablet PO Not Given DAILY [facility] Protocol Atorvastatin Calcium 40 mg 06/02/20 09:00 06/04/20 07:58 Atorvastatin Calcium 40 Mg Tablet PO Not Given DAILY [facility] Carvedilol 25 mg 06/02/20 09:00 06/04/20 07:59 Carvedilol 25 Mg Tablet PO Not Given BID [facility] Protocol Docusate Sodium 100 mg 06/02/20 06:21 Docusate Sodium 100 Mg Capsule PO DAILY PRN Constipation Enoxaparin Sodium 40 mg 06/02/20 08:00 06/04/20 07:58 Enoxaparin Sodium 40 Mg/0.4 Ml Syringe SUBCUT 40 mg Q24H CARIN Administration Finasteride 5 mg 06/02/20 09:00 06/04/20 07:59 Finasteride 5 Mg Tablet PO Not Given DAILY [facility] Gabapentin 300 mg 06/02/20 09:00 06/04/20 07:59 Gabapentin 300 Mg Capsule PO Not Given DAILY [facility] Hydralazine HCl 10 mg 06/03/20 18:30 06/04/20 03:32 Hydralazine Hcl 20 Mg/Ml Vial IVPUSH 10 mg Q6H PRN Administration SBP > 180 Protocol Ampicillin Sodium/Sulbactam 100 mls @ 200 mls/hr 06/02/20 14:00 06/04/20 08:30 Sodium 3 gm/ Sodium Chloride IV Infused Q6H [facility]IN Infusion Levetiracetam 500 mg in 100 mls @ 400 mls/hr 06/03/20 10:00 06/04/20 09:10 Keppra IV Infused Q12H CARIN Infusion Dextrose 1,000 mls @ 100 mls/hr 06/04/20 07:30 06/04/20 07:46 D5w IVCONT 100 mls/hr .Q10H CARIN Administration Potassium Chloride 10 meq in 100 mls @ 100 mls/hr 06/04/20 08:00 06/04/20 11:07 IV 06/04/20 11:59 100 mls/hr Q1H CARIN Administration Labetalol HCl 10 mg 06/03/20 09:22 06/04/20 08:08 Labetalol Hcl 100 Mg/20 Ml Vial IVPUSH 10 mg Q4H PRN Administration SBP >= 180 Lisinopril 20 mg 06/02/20 09:00 06/04/20 07:59 Lisinopril 20 Mg Tablet PO Not Given DAILY [facility] Protocol Ondansetron HCl 4 mg 06/02/20 06:21 Ondansetron Hcl 4 Mg/2 Ml Vial IVPUSH Q8H PRN Nausea and Vomiting Polyethylene Glycol 17 gm 06/02/20 09:00 06/04/20 07:59 Polyethylene Glycol 3350 17 Gm Powd.Pack PO Not Given DAILY [facility] Quetiapine Fumarate 25 mg 06/02/20 21:00 06/03/20 20:36 Quetiapine Fumarate 25 Mg Tablet PO Not Given BEDTIME [facility] Sertraline HCl 200 mg 06/02/20 09:00 06/04/20 07:59 Sertraline Hcl 100 Mg Tablet PO Not Given DAILY [facility] Sodium Chloride 3 ml 06/02/20 08:00 06/04/20 07:58 0.9 % Sodium Chloride Flush 3 Ml Syringe IVFLUSH 3 ml QSHIFT [facility] Administration Tamsulosin HCl 0.4 mg 06/02/20 09:00 06/04/20 07:59 Tamsulosin Hcl 0.4 Mg Capsule PO Not Given DAILY [facility] Tizanidine HCl 2 mg 06/02/20 09:00 06/04/20 07:59 Tizanidine Hcl 4 Mg Tablet PO Not Given BID [facility] Home Medications Medication Instructions Recorded Confirmed Last Taken Type atorvastatin 40 mg PO DAILY 04/09/20 06/02/20 05/25/20 History polyethylene glycol 3350 [Miralax] 17 g PO DAILY 04/09/20 06/02/20 05/25/20 History tamsulosin [Flomax] 0.4 mg PO DAILY 04/09/20 06/02/20 05/25/20 History tizanidine [Zanaflex] 2 mg PO BID PRN 04/09/20 06/02/20 05/25/20 History quetiapine 25 mg PO BEDTIME 05/25/20 06/02/20 2 Days Ago History ~05/23/20 albuterol sulfate [ProAir HFA] 2 puff INHALATION Q4-6H PRN 05/26/20 06/02/20 05/25/20 History amlodipine 10 mg PO DAILY 05/26/20 06/02/20 05/25/20 History carvedilol 25 mg PO BID 05/26/20 06/02/20 05/25/20 History lisinopril 20 mg PO DAILY 05/26/20 06/02/20 05/25/20 History aspirin 81 mg PO DAILY 06/02/20 06/02/20 Unknown History gabapentin 300 mg PO DAILY 06/02/20 06/02/20 Unknown History insulin aspart U-100 [Novolog See Protocol SUBCUT TID 06/02/20 06/02/20 Unknown History Flexpen U-100 Insulin] insulin glargine [Lantus U-100 15 unit SUBCUT BEDTIME 06/02/20 06/02/20 Unknown History Insulin] sertraline 200 mg PO DAILY 06/02/20 06/02/20 Unknown History sitagliptin [Januvia] 100 mg PO DAILY 06/02/20 06/02/20 Unknown History Physical Exam Vital Signs: Vital Signs: Last Vital Signs Temp 97.9 F 06/04/20 08:05 Pulse 100 06/04/20 08:08 Resp 18 06/04/20 08:05 BP 190/90 H 06/04/20 08:08 Pulse Ox 98 06/04/20 08:05 Body Mass Index 28.3 He was afebrile. He was alert and awake anxious made eye contact but did not follow commands or spoken. Do was no obvious abnormal posturing or dystonic posturing. Deep tendon reflexes were trace with left extensor right flexor p lantar. Exam was limited Results Labs CBC & Chem 7: 06/04/20 05:47 06/04/20 05:47 Labs: Short CBC 06/04/20 Range/Units 05:47 WBC 25.1 H (4.8-10.8) X10*3/uL Hgb 10.6 L (14.0-18.0) g/dl Hct 34.6 L (42-52) % Plt Count 387 D (160-400) X10*3/uL BMP 06/04/20 05:47 Sodium 148 H Potassium 2.8 L Chloride 110 H Carbon Dioxide 25 BUN 28 H Creatinine 0.69 Calcium 7.8 L His chest x-ray and at this time was clear. Noncontrast head CT did not reveal any acute pathology. Microbiology Microbiology Results: Microbiology 06/02/20 Unknown Urine clean catch - Clean Catch Midstream Urine Culture - Final Faye rugosa 06/02/20 00:35 Blood - Venous Blood Culture - Final Coag negative Staphylococcus 06/02/20 00:39 Blood - Venous Blood Culture - Preliminary No growth after 48 hours. Assessment and Plan (1) Encephalopathy: Status: Acute 59 years old man who at this time likely was suffering from metabolic toxic encephalopathy. He had significant cerebral pathology suggestive of Behect's disease. One might also consider vasculitis but MRI picture was somewhat more typical of Behect's disease. There is no specific treatment for this condition. At this time my recommendation is appropriate hydration and good ruling out any alternate infection. I would make sure that herpes titer was checked on his previous lumbar puncture.
[2020-06-04 11:44] LABS: Glucose, Whole Blood 281 mg/dL (60-115)
[2020-06-04 14:12] LABS: Anion Gap 15 (12-20); Blood Urea Nitrogen 27 mg/dL (9-16); Calcium 7.8 mg/dL (8.4-10.2); Carbon Dioxide 25 mmol/L (22-29); Chloride 108 mmol/L (96-108); Creatinine Clr Calc Pharmacy 116.2; Estimated Glomerular Filt Rate > 60; Glucose Random 279 mg/dL (60-115); Potassium 3.3 mmol/L (3.3-5.1); Sodium 145 mmol/L (135-145)
[2020-06-04 16:01] LABS: Glucose, Whole Blood 280 mg/dL (60-115)
[2020-06-04 19:55] LABS: Glucose, Whole Blood 290 mg/dL (60-115)
[2020-06-04] MEDS: Dextrose 5 % and 0.45 % NaCl 1,000 ML 100 ML IVCONT (20:09)
[2020-06-05] VITALS (11 sets, daily range): BP systolic 147–182; BP diastolic 62–100; PULSE 88–99; RESP 20–24; TEMP 36–36.7; O2SAT 90–99; BMI 28.3
[2020-06-05] MEDS: Ampicillin Sodium/Sulbactam Na 3 GM in 0.9 % Sodium Chloride 100 ML IV ×4 (02:12→20:40)
[2020-06-05] MEDS: hydrALAZINE HCl 20 MG/ML VIAL 10 MG IVPUSH (03:43)
[2020-06-05] MEDS: Dextrose 5 % and 0.45 % NaCl 1,000 ML 100 ML IVCONT (04:12)
[2020-06-05 07:22] LABS: Blood Urea Nitrogen 22 mg/dL (9-16); Calcium 7.7 mg/dL (8.4-10.2); Creatinine Clr Calc Pharmacy 125.6; Estimated Glomerular Filt Rate > 60; Glucose Random 305 mg/dL (60-115)
[2020-06-05 07:44] LABS: Glucose, Whole Blood 283 mg/dL (60-115)
[2020-06-05 07:48] LABS: Hematocrit 31.7 % (42-52); Hemoglobin 9.9 g/dl (14.0-18.0); Mean Corpuscular HGB Conc 31.2 g/dl (31.0-36.0); Mean Corpuscular Hemoglobin 23.6 pg (27.0-33.0); Mean Corpuscular Volume 75.7 fL (80-98); Mean Platelet Volume 12.8 fL (9.4-12.4); NRBC Pct Auto 0.1 /100WBC (0.0-0.2); Platelet Count 353 X10*3/uL (160-400); Red Blood Count 4.19 X10*6/uL (4.60-5.80); Red Cell Distribution Width 19.9 % (11.0-16.0); White Blood Count 18.2 X10*3/uL (4.8-10.8)
[2020-06-05 07:52] LABS: Anion Gap 14 (12-20); Carbon Dioxide 24 mmol/L (22-29); Chloride 110 mmol/L (96-108); Potassium 2.9 mmol/L (3.3-5.1); Sodium 145 mmol/L (135-145)
[2020-06-05] MEDS: Enoxaparin Sodium 40 MG/0.4 ML SYRINGE SUBCUT (08:14)
[2020-06-05] MEDS: KCl 20 mEq in 5% Dex/0.45% Sod 20 MEQ/1,000 ML IV.SOLN 100 MEQ IVCONT ×2 (10:31→20:38)
[2020-06-05] MEDS: levETIRAcetam in NaCl (iso-os) 500 MG/100 ML PIGGYBACK 400 MG IV ×2 (10:31→20:39)
[2020-06-05] MEDS: Potassium Chloride/H20 10 MEQ/100 ML PIGGYBACK 100 MEQ IV ×2 (10:31→11:43)
[2020-06-05 11:49] LABS: Glucose, Whole Blood 263 mg/dL (60-115)
[2020-06-05] MEDS: Labetalol HCL 100 MG/20 ML VIAL 10 MG IVPUSH ×3 (13:20→20:40)
--- NOTE | 2020-06-05 14:08 | MHC.CLN ---
RE: CONSULT PT REMAINS NPO X DAY 4; WATER REGULATOR AND VALVE REPAIRER EVAL RECOMMENDS NPO IF PPN NEEDED; RECOMMEND D10 AA 4.25 @ 40CC/HR FOLLOWING
--- NOTE | 2020-06-05 14:56 | HO.PM.IMPN ---
Subjective Subjective Date of Service: 06/05/20 Interval History: Seen and examined this AM appears to be improving slowly in regards to his metation gives me a thumbs up ROS unreliable otherwise Physical Exam Vital Signs: Vital Signs: Last Vital Signs Temp 98.0 F 06/05/20 12:00 Pulse 99 06/05/20 13:20 Resp 24 H 06/05/20 12:00 BP 170/100 H 06/05/20 13:20 Pulse Ox 97 06/05/20 12:00 Body Mass Index 28.3 Const: Other: General - awake and alert Cardiovascular - regular rate and rhythm, S1-S2 Lungs - normal respiratory effort, clear to auscultation bilaterally, no wheezing Abdomen - soft, nontender, no rebound or guarding Extremities - no edema bilaterally Neuro - more awake and appears to be appearing to communicate Objective Data Current Medications Generic Name Dose Route Start Last Admin Trade Name Freq PRN Reason Stop Dose Admin Acetaminophen 650 mg 06/02/20 06:21 Acetaminophen 325 Mg Tablet PO Q6H PRN Pain, Mild (Pain Scale 1-3) Albuterol Sulfate 2 puff 06/02/20 06:21 Albuterol Sulfate 90 Mcg 8 Gm Inhaler INHALE Q4H PRN Wheezing Amlodipine Besylate 10 mg 06/02/20 09:00 06/05/20 08:39 Amlodipine Besylate 10 Mg Tablet PO Not Given DAILY [facility] Protocol Atorvastatin Calcium 40 mg 06/02/20 09:00 06/05/20 08:39 Atorvastatin Calcium 40 Mg Tablet PO Not Given DAILY [facility] Carvedilol 25 mg 06/02/20 09:00 06/05/20 08:39 Carvedilol 25 Mg Tablet PO Not Given BID [facility] Protocol Docusate Sodium 100 mg 06/02/20 06:21 Docusate Sodium 100 Mg Capsule PO DAILY PRN Constipation Enoxaparin Sodium 40 mg 06/02/20 08:00 06/05/20 08:14 Enoxaparin Sodium 40 Mg/0.4 Ml Syringe SUBCUT 40 mg Q24H [facility]IN Administration Finasteride 5 mg 06/02/20 09:00 06/05/20 08:40 Finasteride 5 Mg Tablet PO Not Given DAILY [facility] Gabapentin 300 mg 06/02/20 09:00 06/05/20 08:40 Gabapentin 300 Mg Capsule PO Not Given DAILY [facility] Hydralazine HCl 10 mg 06/03/20 18:30 06/05/20 03:43 Hydralazine Hcl 20 Mg/Ml Vial IVPUSH 10 mg Q6H PRN Administration SBP > 180 Protocol Ampicillin Sodium/Sulbactam 100 mls @ 200 mls/hr 06/02/20 14:00 06/05/20 08:45 Sodium 3 gm/ Sodium Chloride IV Infused Q6H [facility] Infusion Levetiracetam 500 mg in 100 mls @ 400 mls/hr 06/03/20 10:00 06/05/20 10:50 Keppra IV Infused Q12H [facility] Infusion Dextrose/Sodium Chloride 1,000 mls @ 100 mls/hr 06/04/20 18:30 06/05/20 04:12 D51/2ns IVCONT 100 mls/hr .Q10H [facility] Administration Potassium Chloride/Dextrose/Sod Cl 20 meq in 1,000 mls @ 100 mls/hr 06/05/20 09:00 06/05/20 10:31 IVCONT 100 mls/hr .Q10H [facility] Administration Labetalol HCl 10 mg 06/03/20 09:22 06/05/20 13:20 Labetalol Hcl 100 Mg/20 Ml Vial IVPUSH 10 mg Q4H PRN Administration SBP >= 180 Lisinopril 20 mg 06/02/20 09:00 06/05/20 08:40 Lisinopril 20 Mg Tablet PO Not Given DAILY [facility] Protocol Ondansetron HCl 4 mg 06/02/20 06:21 Ondansetron Hcl 4 Mg/2 Ml Vial IVPUSH Q8H PRN Nausea and Vomiting Polyethylene Glycol 17 gm 06/02/20 09:00 06/05/20 08:40 Polyethylene Glycol 3350 17 Gm Powd.Pack PO Not Given DAILY [facility] Quetiapine Fumarate 25 mg 06/02/20 21:00 06/04/20 19:40 Quetiapine Fumarate 25 Mg Tablet PO Not Given BEDTIME [facility] Sertraline HCl 200 mg 06/02/20 09:00 06/05/20 08:41 Sertraline Hcl 100 Mg Tablet PO Not Given DAILY [facility] Sodium Chloride 3 ml 06/02/20 08:00 06/05/20 08:14 0.9 % Sodium Chloride Flush 3 Ml Syringe IVFLUSH Not Given QSHIFT [facility] Tamsulosin HCl 0.4 mg 06/02/20 09:00 02/15/21 08:41 Tamsulosin Hcl 0.4 Mg Capsule PO Not Given DAILY [facility] Tizanidine HCl 2 mg 06/02/20 09:00 06/05/20 08:41 Tizanidine Hcl 4 Mg Tablet PO Not Given BID [facility] Labs CBC & Chem 7: 06/05/20 05:33 06/05/20 05:33 Microbiology Microbiology Results: Microbiology 06/02/20 Unknown Urine clean catch - Clean Catch Midstream Urine Culture - Final Faye rugosa 06/02/20 00:35 Blood - Venous Blood Culture - Final Coag negative Staphylococcus 06/02/20 00:39 Blood - Venous Blood Culture - Preliminary No growth after 48 hours. Assessment and Plan (1) Acute respiratory failure: Status: Acute (2) Pneumonia due to 2019 novel coronavirus: Status: Acute Assessment and Plan: This is a 59-year-old male with a past medical history of prior CVA and resultant hemiplegia and dysarthria. 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 He was also found to be covid positive, but had no respiratory symptoms including hypoxia. He was sent to SNF and returned less than 12 hours later for hypoxia and alerted mental status. 1. Acute Respiratory failure placed on bipap in the ED for work of breathing with improvement and subsequently weaned to NC 2. Acute Encephalopathy multifactorial slowly improving towards baseline unable to safely take PO d/w the sister (HCP) today re: nutrition; She does not think he will tolerate NG. Will start PPN tomorrow if continue to pass swallow Neurology input apprecaited 3. 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 Neuro-Bachet's Solu-Medrol (or prednisone if able to take PO) -- started on 60mg, being tapered by 10mg q3 days; now day #1 50mg daily 5. HTN uncontrolled scheduled IV labetalol with holding parameters 6. DM humalog q6 hours hold lantus 7. HyperNa, HyperK D5W with KCl 8. Leukocytosis infection + steroid monitor Full Code DVT pptx, Lovenox
[2020-06-05 16:15] LABS: Glucose, Whole Blood 274 mg/dL (60-115)
[2020-06-05] MEDS: methylPREDNISolone Sod Succ/PF 125 MG/2 ML VIAL 50 MG IVPUSH (16:18)
--- NOTE | 2020-06-05 18:10 | PC.NURSE ---
pt alert, able to answer simple assessment questions via writing on paper. according to pt's sister, he is deaf and it is easier for him to communicate this way. eyes move sporadically from left to right at times. sister states he has been doing this for about 2 weeks now. denies any pain. nods head yes when asked if hungry, although PENAL OFFICER recommends NPO due to pt not being able to elicit a swallow. mouth care given frequently. D5 1/2NS with 20 MEQ K+ @100 ml/hr. POC mid 200s, aware and he are holding sliding scale for now. sp02 97% on 3LNC. lung sounds rhonchorous throughout. pt suctioned occasionally due to not being able to manage secretions. SBP up to 190 today. labetalol scheduled q 4 hours. excoriated buttocks, barrier cream and triad applied and pt repositioned q 2 hours to prevent further skin breakdown. passive ROM given.
[2020-06-05 19:54] LABS: Glucose, Whole Blood 293 mg/dL (60-115)
[2020-06-06] VITALS (12 sets, daily range): BP systolic 131–187; BP diastolic 55–96; PULSE 61–84; RESP 18–20; TEMP 36.1–37.6; O2SAT 92–99
[2020-06-06] MEDS: Ampicillin Sodium/Sulbactam Na 3 GM in 0.9 % Sodium Chloride 100 ML IV ×4 (00:28→19:41)
[2020-06-06] MEDS: Labetalol HCL 100 MG/20 ML VIAL 10 MG IVPUSH ×5 (00:29→19:40)
[2020-06-06] MEDS: KCl 20 mEq in 5% Dex/0.45% Sod 20 MEQ/1,000 ML IV.SOLN 100 MEQ IVCONT ×2 (04:15→14:46)
[2020-06-06 07:06] LABS: Hematocrit 29.3 % (42-52); Mean Corpuscular HGB Conc 30.7 g/dl (31.0-36.0); Mean Corpuscular Hemoglobin 23.3 pg (27.0-33.0); Mean Corpuscular Volume 75.7 fL (80-98); Platelet Count 336 X10*3/uL (160-400); Red Blood Count 3.87 X10*6/uL (4.60-5.80); Red Cell Distribution Width 19.6 % (11.0-16.0); White Blood Count 15.6 X10*3/uL (4.8-10.8)
[2020-06-06 07:09] LABS: Blood Urea Nitrogen 18 mg/dL (9-16); Calcium 7.4 mg/dL (8.4-10.2); Creatinine Clr Calc Pharmacy 125.6; Estimated Glomerular Filt Rate > 60; Glucose Random 269 mg/dL (60-115)
[2020-06-06 07:18] LABS: Anion Gap 12 (12-20); Carbon Dioxide 22 mmol/L (22-29); Chloride 115 mmol/L (96-108); Potassium 3.3 mmol/L (3.3-5.1); Sodium 146 mmol/L (135-145)
[2020-06-06 07:35] LABS: Glucose, Whole Blood 214 mg/dL (60-115)
[2020-06-06] MEDS: Gabapentin 300 MG CAPSULE PO (07:58)
[2020-06-06] MEDS: Finasteride 5 MG TABLET PO (07:58)
[2020-06-06] MEDS: Atorvastatin Calcium 40 MG TABLET PO (07:59)
[2020-06-06] MEDS: amLODIPine Besylate 10 MG TABLET PO (07:59)
[2020-06-06] MEDS: Sertraline HCL 100 MG TABLET 200 MG PO (07:59)
[2020-06-06] MEDS: TiZANidine HCL 4 MG TABLET 2 MG PO (08:00)
[2020-06-06] MEDS: carvediloL 25 MG TABLET PO (08:00)
[2020-06-06] MEDS: Tamsulosin HCL 0.4 MG CAPSULE PO (08:00)
[2020-06-06] MEDS: Enoxaparin Sodium 40 MG/0.4 ML SYRINGE SUBCUT (08:01)
[2020-06-06] MEDS: polyethylene glycoL 3350 17 GM POWD.PACK PO (08:03)
[2020-06-06] MEDS: methylPREDNISolone Sod Succ/PF 125 MG/2 ML VIAL 50 MG IVPUSH (08:11)
[2020-06-06] MEDS: 0.9 % Sodium Chloride Flush 3 ML SYRINGE IVFLUSH ×3 (08:43→22:16)
--- NOTE | 2020-06-06 10:09 | P.PNIM_ITS ---
Subjective Subjective Date of Service: 06/06/20 Interval History: Seen in f/u for PNA, aspiration likely, was doing better this morning on room air but became hypoxic and had to be suctioned and put back on oxygen ROS unreliable otherwise Physical Exam Vital Signs: Vital Signs: Last Vital Signs Temp 98.2 F 06/06/20 07:50 Pulse 79 06/06/20 07:50 Resp 18 06/06/20 07:50 BP 156/88 H 06/06/20 07:50 Pulse Ox 92 06/06/20 08:46 Body Mass Index 28.3 Const: Other: General - awake and alert, doesn't follow direction Cardiovascular - regular rate and rhythm, S1-S2 Lungs - normal respiratory effort, clear to auscultation bilaterally, no wheezing Abdomen - soft, nontender, no rebound or guarding Extremities - no edema bilaterally Neuro - more awake and appears to be appearing to communicate Objective Data Current Medications Generic Name Dose Route Start Last Admin Trade Name Freq PRN Reason Stop Dose Admin Acetaminophen 650 mg 06/02/20 06:21 Acetaminophen 325 Mg Tablet PO Q6H PRN Pain, Mild (Pain Scale 1-3) Albuterol Sulfate 2 puff 06/02/20 06:21 Albuterol Sulfate 90 Mcg 8 Gm Inhaler INHALE Q4H PRN Wheezing Amlodipine Besylate 10 mg 06/02/20 09:00 06/06/20 07:59 Amlodipine Besylate 10 Mg Tablet PO 10 mg DAILY [facility] Administration Protocol Atorvastatin Calcium 40 mg 06/02/20 09:00 06/06/20 07:59 Atorvastatin Calcium 40 Mg Tablet PO 40 mg DAILY [facility] Administration Carvedilol 25 mg 06/02/20 09:00 06/06/20 08:00 Carvedilol 25 Mg Tablet PO 25 mg BID [facility] Administration Protocol Docusate Sodium 100 mg 06/02/20 06:21 Docusate Sodium 100 Mg Capsule PO DAILY PRN Constipation Enoxaparin Sodium 40 mg 06/02/20 08:00 06/06/20 08:01 Enoxaparin Sodium 40 Mg/0.4 Ml Syringe SUBCUT 40 mg Q24H CARIN Administration Finasteride 5 mg 06/02/20 09:00 06/06/20 07:58 Finasteride 5 Mg Tablet PO 5 mg DAILY [facility] Administration Gabapentin 300 mg 06/02/20 09:00 06/06/20 07:58 Gabapentin 300 Mg Capsule PO 300 mg DAILY [facility] Administration Ampicillin Sodium/Sulbactam 100 mls @ 200 mls/hr 06/02/20 14:00 06/06/20 09:20 Sodium 3 gm/ Sodium Chloride IV Infused Q6H [facility] Infusion Levetiracetam 500 mg in 100 mls @ 400 mls/hr 06/03/20 10:00 06/05/20 21:22 Keppra IV Infused Q12H [facility] Infusion Dextrose/Sodium Chloride 1,000 mls @ 100 mls/hr 06/04/20 18:30 06/06/20 00:32 D51/2ns IVCONT Not Given .Q10H [facility] Potassium Chloride/Dextrose/Sod Cl 20 meq in 1,000 mls @ 100 mls/hr 06/05/20 09:00 06/06/20 04:15 IVCONT 100 mls/hr .Q10H [facility] Administration Labetalol HCl 10 mg 06/05/20 17:00 06/06/20 08:16 Labetalol Hcl 100 Mg/20 Ml Vial IVPUSH 10 mg Q4H [facility] Administration Lisinopril 20 mg 06/02/20 09:00 06/06/20 07:59 Lisinopril 20 Mg Tablet PO 20 mg DAILY [facility] Administration Protocol Methylprednisolone Sodium Succinate 50 mg 06/05/20 15:30 06/06/20 08:11 Methylprednisolone Sod Succ/Pf 125 Mg/2 Ml Vial IVPUSH 06/07/20 09:01 50 mg DAILY [facility] Administration Ondansetron HCl 4 mg 06/02/20 06:21 Ondansetron Hcl 4 Mg/2 Ml Vial IVPUSH Q8H PRN Nausea and Vomiting Polyethylene Glycol 17 gm 06/02/20 09:00 06/06/20 08:03 Polyethylene Glycol 3350 17 Gm Powd.Pack PO 17 gm DAILY [facility] Administration Quetiapine Fumarate 25 mg 06/02/20 21:00 06/05/20 21:21 Quetiapine Fumarate 25 Mg Tablet PO Not Given BEDTIME [facility] Sertraline HCl 200 mg 06/02/20 09:00 06/06/20 07:59 Sertraline Hcl 100 Mg Tablet PO 200 mg DAILY [facility] Administration Sodium Chloride 3 ml 06/02/20 08:00 06/06/20 08:43 0.9 % Sodium Chloride Flush 3 Ml Syringe IVFLUSH 3 ml QSHIFT [facility]IN Administration Tamsulosin HCl 0.4 mg 06/02/20 09:00 06/06/20 08:00 Tamsulosin Hcl 0.4 Mg Capsule PO 0.4 mg DAILY [facility] Administration Tizanidine HCl 2 mg 06/02/20 09:00 06/06/20 08:00 Tizanidine Hcl 4 Mg Tablet PO 2 mg BID CARIN Administration Labs CBC & Chem 7: 06/06/20 05:45 06/06/20 05:45 Microbiology Microbiology Results: Microbiology 06/02/20 Unknown Urine clean catch - Clean Catch Midstream Urine Culture - Final Faye rugosa 06/02/20 00:35 Blood - Venous Blood Culture - Final Coag negative Staphylococcus 06/02/20 00:39 Blood - Venous Blood Culture - Preliminary No growth after 48 hours. Assessment and Plan (1) Acute respiratory failure: Status: Acute (2) Pneumonia due to 2019 novel coronavirus: Status: Acute Assessment and Plan: 59-year-old male with a past medical history of prior CVA and resultant hemiplegia and dysarthria. 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 He was also found to be covid positive, but had no respiratory symptoms including hypoxia. He was sent to SNF and returned less than 12 hours later for hypoxia and likely aspirated 1. Acute Respiratory failure--required BiPAP in ED but has been off since. 2. Aspiration Pneumonia CT scan completed -- showing typical covid fidings + RML/RLL infiltrates Unasyn - day #5-7 antibiotics ABLE BODIED TANKERMAN evaluation -- unable to safely swallow 2. Acute Encephalopathy multifactorial slowly improving towards baseline unable to safely take PO d/w the sister (HCP) today re: nutrition; She does not think he will tolerate NG. Speech eval again today and if not fail, then PPN and consideration for PEG 4. Neuro-Bachet's Solu-Medrol (or prednisone if able to take PO) -- started on 60mg, being tapered by 10mg q3 days; now day #2 50mg daily 5. HTN--IV Labetalol while NPO 6. DM humalog q6 hours hold lantus 7. HyperNa, HyperK--146 toay D5W with KCl 8. Leukocytosis infection + steroid Improving Full Code DVT pptx, Lovenox
[2020-06-06] MEDS: levETIRAcetam in NaCl (iso-os) 500 MG/100 ML PIGGYBACK 400 MG IV ×2 (10:36→22:14)
[2020-06-06 11:14] LABS: Glucose, Whole Blood 256 mg/dL (60-115)
[2020-06-06 12:47] LABS: Albumin Level 2.5 g/dL (3.5-5.0); Magnesium 1.9 mg/dL (1.6-2.6); Phosphorus 1.9 mg/dL (2.7-4.5); Triglycerides 146 mg/dL
--- NOTE | 2020-06-06 14:49 | MHC.CLN ---
F/U CAUSTIC ROOM OPERATOR REC PT TO REMAIN NPO PT TO START PPN D10 AA4.25 AT 40CC/HR TODAY PROVIDES 490KCALS, 41G PROTEIN DISCUSSED WITH PHARMACY DAY 2 RECOMMEND INCREASING FORMULA TO 60CC/HR TO PROVIDE 734KCALS, 61G PROTEIN MONITOR AND REPLETE LYTES NEEDED FOLLOWING
[2020-06-06 16:45] LABS: Glucose, Whole Blood 364 mg/dL (60-115)
[2020-06-06] MEDS: Insulin Lispro 100 UNIT/ML 3 ML VIAL SUBCUT ×2 (18:24→22:14)
[2020-06-06 21:12] LABS: Glucose, Whole Blood 278 mg/dL (60-115)
[2020-06-07] VITALS (11 sets, daily range): BP systolic 147–210; BP diastolic 78–97; PULSE 64–81; RESP 18–24; TEMP 36–36.5; O2SAT 97–99
[2020-06-07] MEDS: Labetalol HCL 100 MG/20 ML VIAL 10 MG IVPUSH ×6 (00:11→21:09)
[2020-06-07] MEDS: Ampicillin Sodium/Sulbactam Na 3 GM in 0.9 % Sodium Chloride 100 ML IV ×4 (02:08→19:34)
[2020-06-07 08:56] LABS: Glucose, Whole Blood 221 mg/dL (60-115)
[2020-06-07] MEDS: methylPREDNISolone Sod Succ/PF 125 MG/2 ML VIAL 50 MG IVPUSH (09:15)
[2020-06-07] MEDS: Enoxaparin Sodium 40 MG/0.4 ML SYRINGE SUBCUT (09:18)
[2020-06-07] MEDS: 0.9 % Sodium Chloride Flush 3 ML SYRINGE IVFLUSH ×2 (09:18→19:34)
[2020-06-07] MEDS: Insulin Lispro 100 UNIT/ML 3 ML VIAL SUBCUT ×4 (09:20→21:08)
[2020-06-07] MEDS: levETIRAcetam in NaCl (iso-os) 500 MG/100 ML PIGGYBACK 400 MG IV ×2 (10:07→21:09)
--- NOTE | 2020-06-07 11:13 | P.PNIM_ITS ---
Subjective Subjective Date of Service: 06/07/20 Interval History: Seen in f/u for PNA, aspiration likely. Doing well with oxygenation and no new issues. Remains NPO and started on PPN Review of Systems Review of Systems: Yes Unobtainable due to mental condition Physical Exam Vital Signs: Vital Signs: Last Vital Signs Temp 97.6 F 06/07/20 08:00 Pulse 78 06/07/20 08:00 Resp 20 06/07/20 08:00 BP 194/97 H 06/07/20 08:00 Pulse Ox 98 06/07/20 08:00 Body Mass Index 28.3 Const: Other: General - awake and alert, doesn't follow direction Cardiovascular - regular rate and rhythm, S1-S2 Lungs - normal respiratory effort, clear to auscultation bilaterally, no wheezing Abdomen - soft, nontender, no rebound or guarding Extremities - no edema bilaterally Neuro - more awake and appears to be appearing to communicate Objective Data Current Medications Generic Name Dose Route Start Last Admin Trade Name Freq PRN Reason Stop Dose Admin Acetaminophen 650 mg 06/02/20 06:21 Acetaminophen 325 Mg Tablet PO Q6H PRN Pain, Mild (Pain Scale 1-3) Albuterol Sulfate 2 puff 06/02/20 06:21 Albuterol Sulfate 90 Mcg 8 Gm Inhaler INHALE Q4H PRN Wheezing Amlodipine Besylate 10 mg 06/02/20 09:00 06/07/20 09:21 Amlodipine Besylate 10 Mg Tablet PO Not Given DAILY [facility] Protocol Atorvastatin Calcium 40 mg 06/02/20 09:00 06/07/20 09:21 Atorvastatin Calcium 40 Mg Tablet PO Not Given DAILY [facility] Carvedilol 25 mg 06/02/20 09:00 06/07/20 09:22 Carvedilol 25 Mg Tablet PO Not Given BID [facility] Protocol Docusate Sodium 100 mg 06/02/20 06:21 Docusate Sodium 100 Mg Capsule PO DAILY PRN Constipation Enoxaparin Sodium 40 mg 06/02/20 08:00 06/07/20 09:18 Enoxaparin Sodium 40 Mg/0.4 Ml Syringe SUBCUT 40 mg Q24H CARIN Administration Finasteride 5 mg 06/02/20 09:00 06/07/20 09:22 Finasteride 5 Mg Tablet PO Not Given DAILY [facility] Gabapentin 300 mg 06/02/20 09:00 06/07/20 09:22 Gabapentin 300 Mg Capsule PO Not Given DAILY [facility] Ampicillin Sodium/Sulbactam 100 mls @ 200 mls/hr 06/02/20 14:00 06/07/20 10:08 Sodium 3 gm/ Sodium Chloride IV Infused Q6H [facility] Infusion Levetiracetam 500 mg in 100 mls @ 400 mls/hr 06/03/20 10:00 06/07/20 10:37 Keppra IV Infused Q12H [facility] Infusion Dextrose/Sodium Chloride 1,000 mls @ 100 mls/hr 06/04/20 18:30 06/07/20 05:00 D51/2ns IVCONT Not Given .Q10H [facility] Potassium Chloride/Dextrose/Sod Cl 20 meq in 1,000 mls @ 100 mls/hr 06/05/20 09:00 06/07/20 10:22 IVCONT Not Given .Q10H [facility] Magnesium Sulfate 5 meq/ 960 mls @ 40 mls/hr 06/06/20 18:00 06/06/20 17:51 Potassium Phosphate 20 mmol/ IVCONT 06/07/20 17:59 40 mls/hr Calcium Gluconate 4.65 meq/ DAILY@1800 [facility] Administration Multivitamins 10 ml/ Trace Metals 1 ml/ Amino Acids/ Electrolytes/Dextrose Insulin Human Lispro 0 unit 06/06/20 21:00 06/07/20 09:20 Insulin Lispro 100 Unit/Ml 3 Ml Vial SUBCUT 4 unit QIDACHS [facility] Administration Protocol Labetalol HCl 10 mg 06/05/20 17:00 06/07/20 09:31 Labetalol Hcl 100 Mg/20 Ml Vial IVPUSH 10 mg Q4H [facility] Administration Lisinopril 20 mg 06/02/20 09:00 06/07/20 09:22 Lisinopril 20 Mg Tablet PO Not Given DAILY [facility] Protocol Ondansetron HCl 4 mg 06/02/20 06:21 Ondansetron Hcl 4 Mg/2 Ml Vial IVPUSH Q8H PRN Nausea and Vomiting Polyethylene Glycol 17 gm 06/02/20 09:00 06/07/20 09:23 Polyethylene Glycol 3350 17 Gm Powd.Pack PO Not Given DAILY [facility] Quetiapine Fumarate 25 mg 06/02/20 21:00 06/06/20 19:42 Quetiapine Fumarate 25 Mg Tablet PO Not Given BEDTIME [facility] Sertraline HCl 200 mg 06/02/20 09:00 06/07/20 09:23 Sertraline Hcl 100 Mg Tablet PO Not Given DAILY [facility] Sodium Chloride 3 ml 06/02/20 08:00 06/07/20 09:18 0.9 % Sodium Chloride Flush 3 Ml Syringe IVFLUSH 3 ml QSHIFT [facility] Administration Tamsulosin HCl 0.4 mg 06/02/20 09:00 06/07/20 09:23 Tamsulosin Hcl 0.4 Mg Capsule PO Not Given DAILY [facility] Tizanidine HCl 2 mg 06/02/20 09:00 06/07/20 09:23 Tizanidine Hcl 4 Mg Tablet PO Not Given BID [facility] Labs CBC & Chem 7: 06/06/20 05:45 06/06/20 05:45 Microbiology Microbiology Results: Microbiology 06/02/20 00:39 Blood - Venous Blood Culture - Final No growth after 5 days. 06/02/20 Unknown Urine clean catch - Clean Catch Midstream Urine Culture - Final Faye rugosa 06/02/20 00:35 Blood - Venous Blood Culture - Final Coag negative Staphylococcus Assessment and Plan (1) Acute respiratory failure: Status: Acute (2) Pneumonia due to 2019 novel coronavirus: Status: Acute Assessment and Plan: 59-year-old male with a past medical history of prior CVA and resultant hemiplegia and dysarthria. 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 He was also found to be covid positive, but had no respiratory symptoms including hypoxia. He was sent to SNF and returned less than 12 hours later for hypoxia and likely aspirated 1. Acute Respiratory failure--required BiPAP in ED but has been off since. On 2 liters at 98%, will try to wean off 2. Aspiration Pneumonia CT scan completed -- showing typical covid fidings + RML/RLL infiltrates Unasyn - day #6/7 antibiotics PROFILE SAW OPERATOR evaluation -- unable to safely swallow and hence NPO 2. Acute Encephalopathy multifactorial slowly improving towards baseline unable to safely take PO d/w the sister (HCP) today re: nutrition; She does not think he will tolerate NG. Speech continues to recommend NPO and PPN and will talk to family about PEG 4. Neuro-Bachet's Solu-Medrol (or prednisone if able to take PO) -- started on 60mg, being tapered by 10mg q3 days; now day #3 50mg daily, 40 starting tomorrow 5. HTN--IV Labetalol or Hydralazine while NPO 6. DM humalog q6 hours hold lantus 7. HyperNa, HyperK--146, recheck D5W with KCl 8. Leukocytosis infection + steroid Improving Full Code DVT pptx, Lovenox
[2020-06-07 11:24] LABS: Glucose, Whole Blood 211 mg/dL (60-115)
--- NOTE | 2020-06-07 12:16 | MHC.CLN ---
F/U DAY 2 RECOMMEND INCREASING FORMULA TO 60CC/HR TO PROVIDE 734KCALS, 61G PROTEIN MONITOR AND REPLETE LYTES NEEDED FOLLOWING
[2020-06-07 12:21] LABS: Albumin Level 2.5 g/dL (3.5-5.0); Blood Urea Nitrogen 21 mg/dL (9-16); Creatinine Clr Calc Pharmacy 134.3; Estimated Glomerular Filt Rate > 60; Glucose Random 237 mg/dL (60-115); Magnesium 1.9 mg/dL (1.6-2.6); Phosphorus 2.1 mg/dL (2.7-4.5)
[2020-06-07 12:32] LABS: Anion Gap 10 (12-20); Calcium 7.3 mg/dL (8.4-10.2); Carbon Dioxide 21 mmol/L (22-29); Chloride 115 mmol/L (96-108); Potassium 3.1 mmol/L (3.3-5.1); Sodium 143 mmol/L (135-145)
[2020-06-07 12:38] LABS: Glucose, Whole Blood 214 mg/dL (60-115)
--- NOTE | 2020-06-07 12:44 | MHC.CM.PN ---
Patient continues to be NPO r/t aspiration PNA and started on PPN yesterday. Patient is on IV Ampicillin, IV Solu-Medrol and 2 liters O2 via NC for +UTI and +COVID. MD to speak with family re: placing a peg tube. Discharge plan is pending PT eval when medically stable. CM will continue to follow patient for discharge needs.
--- NOTE | 2020-06-07 14:18 | MHC.CM.PN ---
CM returned call from sister/HCP Nalini who is looking for update on patient. instructed patient is not ready for discharge yet. Per nalini's request asked covering MD to call with an update. CM will continue to follow for discharge needs.
[2020-06-07 15:32] LABS: Levetiracetam Keppra 11.8 mcg/mL (12.0-46.0)
[2020-06-07 16:31] LABS: Glucose, Whole Blood 301 mg/dL (60-115)
[2020-06-07 20:47] LABS: Glucose, Whole Blood 196 mg/dL (60-115)
[2020-06-08] VITALS (13 sets, daily range): BP systolic 150–180; BP diastolic 70–90; PULSE 68–78; RESP 18–20; TEMP 36.2–37.2; O2SAT 96–98
[2020-06-08] MEDS: Ampicillin Sodium/Sulbactam Na 3 GM in 0.9 % Sodium Chloride 100 ML IV ×4 (01:29→21:00)
[2020-06-08] MEDS: Labetalol HCL 100 MG/20 ML VIAL 10 MG IVPUSH ×6 (01:29→21:04)
--- NOTE | 2020-06-08 02:25 | PC.NURSE ---
AWAKE..TRACKS SPEAKER..NON-VERBAL..O2 2 L/M...RESPIRATIONS EASY..SAO2 98-99%...JOSHI DRAINING SEDIMENTED YELLOW URINE...PERIPHERAL HYPERAL 60 CC/HR...SCHEDULED LABETOLOL WITH IMPROVED BP..RESTFUL
[2020-06-08 07:49] LABS: Glucose, Whole Blood 246 mg/dL (60-115)
[2020-06-08] MEDS: Insulin Lispro 100 UNIT/ML 3 ML VIAL SUBCUT ×4 (08:18→21:02)
[2020-06-08] MEDS: 0.9 % Sodium Chloride Flush 3 ML SYRINGE IVFLUSH ×3 (08:19→21:05)
[2020-06-08] MEDS: Enoxaparin Sodium 40 MG/0.4 ML SYRINGE SUBCUT (08:28)
--- NOTE | 2020-06-08 08:55 | PM.CNGS ---
History of Present Illness Consult details Consult date: 06/08/20 Narrative: 59-year-old male, with history of CVA, spinal cord injury, referred to me for PEG tube placement. He was admitted to the hospital last June 02, 2020 because of increased work of breathing and hypoxia. He was diagnosed to have aspiration pneumonia at that time. He has improved clinically and is currently not on supplemental oxygen. He had failed a swallow eval and has been referred to me for PEG tube placement especially because of his recent aspiration pneumonia. He was also admitted the hospital for UTI last 05/25/2020. He was treated with IV antibiotics and was discharged to a nursing last June 01. He had tested positive for COVID last fiber for but did not have any respiratory symptoms at that time. The patient is not verbally communicative as baseline. Review of Systems Review of Systems: Yes Unobtainable due to mental condition and Unobtainable due to mental status PMFSH Past Medical History Medical History (Updated 06/08/20 @ 08:58 by Deepak Castañeda MD) Aspiration pneumonia Depression Diabetes Hepatitis C Paraplegia Seizure Stroke TIA (transient ischemic attack) Functional capacity: bed bound Social History Social History Household Members: Family Alcohol intake: former Smoking Status: Smoker, status unknown Smoked in Last 30 Days: No Substance Use Type: Former Substance User Currently Displaying Signs/Symptoms of Drug Intoxication Withdrawal: No Advance Directives: No Do you have thoughts of harming others: None Do you have a plan to hurt others: No Plan service: No Current occupational status: disabled Meds Allergies Allergy/AdvReac Type Severity Reaction Status Date / Time No Known Allergies Allergy Verified 01/25/20 19:38 [No Known Allergies*] Active Medications: Current Medications Generic Name Dose Route Start Last Admin Trade Name Freq PRN Reason Stop Dose Admin Acetaminophen 650 mg 06/02/20 06:21 Acetaminophen 325 Mg Tablet PO Q6H PRN Pain, Mild (Pain Scale 1-3) Albuterol Sulfate 2 puff 06/02/20 06:21 Albuterol Sulfate 90 Mcg 8 Gm Inhaler INHALE Q4H PRN Wheezing Amlodipine Besylate 10 mg 06/02/20 09:00 06/08/20 08:30 Amlodipine Besylate 10 Mg Tablet PO Not Given DAILY [facility] Protocol Atorvastatin Calcium 40 mg 06/02/20 09:00 06/08/20 08:30 Atorvastatin Calcium 40 Mg Tablet PO Not Given DAILY [facility] Carvedilol 25 mg 06/02/20 09:00 06/08/20 08:30 Carvedilol 25 Mg Tablet PO Not Given BID [facility] Protocol Docusate Sodium 100 mg 06/02/20 06:21 Docusate Sodium 100 Mg Capsule PO DAILY PRN Constipation Enoxaparin Sodium 40 mg 06/02/20 08:00 06/08/20 08:28 Enoxaparin Sodium 40 Mg/0.4 Ml Syringe SUBCUT 40 mg Q24H [facility] Administration Finasteride 5 mg 06/02/20 09:00 06/08/20 08:30 Finasteride 5 Mg Tablet PO Not Given DAILY [facility] Gabapentin 300 mg 06/02/20 09:00 06/08/20 08:31 Gabapentin 300 Mg Capsule PO Not Given DAILY [facility] Ampicillin Sodium/Sulbactam 100 mls @ 200 mls/hr 06/02/20 14:00 06/08/20 08:19 Sodium 3 gm/ Sodium Chloride IV 200 mls/hr Q6H [facility] Administration Levetiracetam 500 mg in 100 mls @ 400 mls/hr 06/03/20 10:00 06/07/20 21:45 Keppra IV Infused Q12H [facility] Infusion Sodium Chloride 40 meq/ 1,440 mls @ 60 mls/hr 06/07/20 18:00 06/07/20 19:33 Magnesium Sulfate 10 meq/ IVCONT 06/08/20 17:59 60 mls/hr Potassium Phosphate 40 mmol/ DAILY@1800 [facility] Administration Calcium Gluconate 9.3 meq/ Multivitamins 14 ml/ Trace Metals 1.4 ml/ Amino Acids/ Electrolytes/Dextrose Insulin Human Lispro 0 unit 06/06/20 21:00 06/08/20 08:18 Insulin Lispro 100 Unit/Ml 3 Ml Vial SUBCUT 4 unit QIDACHS [facility] Administration Protocol Labetalol HCl 10 mg 06/05/20 17:00 06/08/20 04:41 Labetalol Hcl 100 Mg/20 Ml Vial IVPUSH 10 mg Q4H [facility] Administration Lisinopril 20 mg 06/02/20 09:00 06/08/20 08:31 Lisinopril 20 Mg Tablet PO Not Given DAILY [facility] Protocol Ondansetron HCl 4 mg 06/02/20 06:21 Ondansetron Hcl 4 Mg/2 Ml Vial IVPUSH Q8H PRN Nausea and Vomiting Polyethylene Glycol 17 gm 06/02/20 09:00 06/08/20 08:32 Polyethylene Glycol 3350 17 Gm Powd.Pack PO Not Given DAILY [facility] Quetiapine Fumarate 25 mg 06/02/20 21:00 06/07/20 22:14 Quetiapine Fumarate 25 Mg Tablet PO Not Given BEDTIME [facility] Sertraline HCl 200 mg 06/02/20 09:00 06/08/20 08:32 Sertraline Hcl 100 Mg Tablet PO Not Given DAILY [facility] Sodium Chloride 3 ml 06/02/20 08:00 06/08/20 08:19 0.9 % Sodium Chloride Flush 3 Ml Syringe IVFLUSH 3 ml QSHIFT [facility] Administration Tamsulosin HCl 0.4 mg 06/02/20 09:00 06/08/20 08:32 Tamsulosin Hcl 0.4 Mg Capsule PO Not Given DAILY [facility] Tizanidine HCl 2 mg 06/02/20 09:00 06/08/20 08:33 Tizanidine Hcl 4 Mg Tablet PO Not Given BID [facility] Home Medications Medication Instructions Recorded Confirmed Last Taken Type atorvastatin 40 mg PO DAILY 04/09/20 06/02/20 05/25/20 History polyethylene glycol 3350 [Miralax] 17 g PO DAILY 04/09/20 06/02/20 05/25/20 History tamsulosin [Flomax] 0.4 mg PO DAILY 04/09/20 06/02/20 05/25/20 History tizanidine [Zanaflex] 2 mg PO BID PRN 04/09/20 06/02/20 05/25/20 History quetiapine 25 mg PO BEDTIME 05/25/20 06/02/20 2 Days Ago History ~05/23/20 albuterol sulfate [ProAir HFA] 2 puff INHALATION Q4-6H PRN 05/26/20 06/02/20 05/25/20 History amlodipine 10 mg PO DAILY 05/26/20 06/02/20 05/25/20 History carvedilol 25 mg PO BID 05/26/20 06/02/20 05/25/20 History lisinopril 20 mg PO DAILY 05/26/20 06/02/20 05/25/20 History aspirin 81 mg PO DAILY 06/02/20 06/02/20 Unknown History gabapentin 300 mg PO DAILY 06/02/20 06/02/20 Unknown History insulin aspart U-100 [Novolog See Protocol SUBCUT TID 06/02/20 06/02/20 Unknown History Flexpen U-100 Insulin] insulin glargine [Lantus U-100 15 unit SUBCUT BEDTIME 06/02/20 06/02/20 Unknown History Insulin] sertraline 200 mg PO DAILY 06/02/20 06/02/20 Unknown History sitagliptin [Januvia] 100 mg PO DAILY 06/02/20 06/02/20 Unknown History Physical Exam Vital Signs: Vital Signs: Last Vital Signs Temp 98.3 F 06/08/20 07:45 Pulse 78 06/08/20 07:45 Resp 20 06/08/20 07:45 BP 180/84 H 06/08/20 07:45 Pulse Ox 98 06/08/20 07:45 Body Mass Index 28.3 Const: Other: Not communicative, no verbal output, opens eyes spontaneously General: comfortable and no acute distress Eyes: Sclerae: sclerae normal Resp: Effort & Inspection: normal respiratory effort Cardio: Rhythm: regular rhythm GI: Other: Abdominal surgical scars Palpation (GI): Soft to palpation, not firm and nontender Neuro: Other: Paraplegic Results Labs Result diagrams: 06/06/20 05:45 06/07/20 11:40 Labs: Abnormal lab results 06/02/20 06/07/20 06/07/20 Range/Units 04:15 08:52 11:18 Potassium (3.3-5.1) mmol/L Chloride (96-108) mmol/L Carbon Dioxide (22-29) mmol/L Anion Gap (12-20) BUN (9-16) mg/dL POC Glucose 221 H 211 H (60-115) mg/dL Random Glucose (60-115) mg/dL Calcium (8.4-10.2) mg/dL Phosphorus (2.7-4.5) mg/dL Albumin (3.5-5.0) g/dL Levetiracetam 11.8 L (12.0-46.0) mcg/mL 06/07/20 06/07/20 06/07/20 Range/Units 11:40 12:35 16:27 Potassium 3.1 L (3.3-5.1) mmol/L Chloride 115 H (96-108) mmol/L Carbon Dioxide 21 L (22-29) mmol/L Anion Gap 10 L (12-20) BUN 21 H (9-16) mg/dL POC Glucose 214 H 301 H (60-115) mg/dL Random Glucose 237 H (60-115) mg/dL Calcium 7.3 L (8.4-10.2) mg/dL Phosphorus 2.1 L (2.7-4.5) mg/dL Albumin 2.5 L (3.5-5.0) g/dL Levetiracetam (12.0-46.0) mcg/mL 06/07/20 06/08/20 Range/Units 20:43 07:39 Potassium (3.3-5.1) mmol/L Chloride (96-108) mmol/L Carbon Dioxide (22-29) mmol/L Anion Gap (12-20) BUN (9-16) mg/dL POC Glucose 196 H 246 H (60-115) mg/dL Random Glucose (60-115) mg/dL Calcium (8.4-10.2) mg/dL Phosphorus (2.7-4.5) mg/dL Albumin (3.5-5.0) g/dL Levetiracetam (12.0-46.0) mcg/mL BMP 06/07/20 11:40 Sodium 143 Potassium 3.1 L Chloride 115 H Carbon Dioxide 21 L BUN 21 H Creatinine 0.58 Calcium 7.3 L Liver Function 06/07/20 Range/Units 11:40 Albumin 2.5 L (3.5-5.0) g/dL Urine 06/02/20 Range/Units 02:38 Urine Color YELLOW Urine Appearance CLOUDY Urine pH 6.5 (5.0-8.0) Ur Specific [place] 1.025 (1.005-1.025) Urine Protein 3+ H (NEG-TRACE) MG/DL Urine Glucose (UA) 250 H (NEG) MG/DL All other labs normal. Assessment and Plan (1) Aspiration pneumonia: Status: Acute He has multiple medical problems including paraplegia from spinal cord injury, Behcet's syndrome with cognitive disability, and multiple CVAs and has failed a swallow evaluation. [place] was therefore referred [place]. I had a long discussion with his healthcare proxy Nalini Chicas ([phone]) about the technique of the procedure. I explained to her the risks including but not limited to bleeding, infections, injury to the bowel, tube dislodgement, leakage around the G-tube, loss of airway during the procedure, as well as benefits and alternatives. She says she understands and wants to go ahead with this. It is noted the patient had tested positive for COVID last May 25 without any respiratory symptoms. It has been 2 weeks since his positive test, so his infectivity should be low at this point. I will schedule him for PEG tube placement tomorrow. I have discussed the above with the hospitalist service.
[2020-06-08] MEDS: levETIRAcetam in NaCl (iso-os) 500 MG/100 ML PIGGYBACK 400 MG IV ×2 (10:10→21:03)
[2020-06-08] MEDS: Potassium Chloride/H20 10 MEQ/100 ML PIGGYBACK 100 MEQ IV ×4 (10:10→14:10)
[2020-06-08] MEDS: hydrALAZINE HCl 20 MG/ML VIAL 5 MG IVPUSH (10:10)
[2020-06-08 10:31] LABS: COVID-19 Test Positive (Negative)
--- NOTE | 2020-06-08 11:43 | MHC.SLORD ---
HERPETOLOGY TEACHER contacted MD via [place]. Per MD, patient is scheduled for PEG tube placement tomorrow. Patient was unable to elicit swallow trigger and failed bedside dysphagia evaluation on 06/05, 06/06, 06/07. Name: Gustavo Gomez Date of : 1960 Age: 59 Date of Registration: 06/02/20 Speech Language Pathology Order Status:
[2020-06-08 11:51] LABS: Glucose, Whole Blood 249 mg/dL (60-115)
--- NOTE | 2020-06-08 13:28 | P.PNIM_ITS ---
Subjective Subjective Date of Service: 06/08/20 Interval History: Patient seen and examined at bedside Patient continues to be NPO currently on PPN Physical Exam Vital Signs: Vital Signs: Last Vital Signs Temp 97.7 F 06/08/20 12:00 Pulse 74 06/08/20 13:13 Resp 18 06/08/20 12:00 BP 172/90 H 06/08/20 13:13 Pulse Ox 96 06/08/20 12:00 Body Mass Index 28.3 Const: Other: General - awake and alert, doesn't follow direction Cardiovascular - regular rate and rhythm, S1-S2 Lungs - normal respiratory effort, clear to auscultation bilaterally, no wheezing Abdomen - soft, nontender, no rebound or guarding Extremities - no edema bilaterally Neuro - more awake and appears to be appearing to communicate General: no acute distress Eyes: General: appearance normal, both eyes and all related structures Resp: Effort & Inspection: normal respiratory effort Cardio: Other: General - awake and alert, doesn't follow direction Cardiovascular - regular rate and rhythm, S1-S2 Lungs - normal respiratory effort, clear to auscultation bilaterally, no wheezing Abdomen - soft, nontender, no rebound or guarding Extremities - no edema bilaterally Neuro - more awake and appears to be appearing to communicate Rate: regular rate Rhythm: regular rhythm GI: Palpation (GI): Soft to palpation Auscultation: normal bowel sounds Skin: General skin exam: no rashes or lesions noted Neuro: Cognition (Neuro): normal cognition Extrem: General: Yes normal to inspection and Yes no pedal edema Objective Data Current Medications Generic Name Dose Route Start Last Admin Trade Name Freq PRN Reason Stop Dose Admin Acetaminophen 650 mg 06/02/20 06:21 Acetaminophen 325 Mg Tablet PO Q6H PRN Pain, Mild (Pain Scale 1-3) Albuterol Sulfate 2 puff 06/02/20 06:21 Albuterol Sulfate 90 Mcg 8 Gm Inhaler INHALE Q4H PRN Wheezing Amlodipine Besylate 10 mg 06/02/20 09:00 06/08/20 08:30 Amlodipine Besylate 10 Mg Tablet PO Not Given DAILY [facility] Protocol Atorvastatin Calcium 40 mg 06/02/20 09:00 06/08/20 08:30 Atorvastatin Calcium 40 Mg Tablet PO Not Given DAILY [facility] Carvedilol 25 mg 06/02/20 09:00 06/08/20 08:30 Carvedilol 25 Mg Tablet PO Not Given BID [facility] Protocol Docusate Sodium 100 mg 06/02/20 06:21 Docusate Sodium 100 Mg Capsule PO DAILY PRN Constipation Enoxaparin Sodium 40 mg 06/02/20 08:00 06/08/20 08:28 Enoxaparin Sodium 40 Mg/0.4 Ml Syringe SUBCUT 40 mg Q24H [facility] Administration Finasteride 5 mg 06/02/20 09:00 06/08/20 08:30 Finasteride 5 Mg Tablet PO Not Given DAILY [facility] Gabapentin 300 mg 06/02/20 09:00 06/08/20 08:31 Gabapentin 300 Mg Capsule PO Not Given DAILY [facility] Ampicillin Sodium/Sulbactam 100 mls @ 200 mls/hr 06/02/20 14:00 06/08/20 10:02 Sodium 3 gm/ Sodium Chloride IV Infused Q6H [facility] Infusion Levetiracetam 500 mg in 100 mls @ 400 mls/hr 06/03/20 10:00 06/08/20 10:28 Keppra IV Infused Q12H [facility] Infusion Sodium Chloride 40 meq/ 1,440 mls @ 60 mls/hr 06/07/20 18:00 06/07/20 19:33 Magnesium Sulfate 10 meq/ IVCONT 06/08/20 17:59 60 mls/hr Potassium Phosphate 40 mmol/ DAILY@1800 [facility] Administration Calcium Gluconate 9.3 meq/ Multivitamins 14 ml/ Trace Metals 1.4 ml/ Amino Acids/ Electrolytes/Dextrose Potassium Chloride 10 meq in 100 mls @ 100 mls/hr 06/08/20 10:00 06/08/20 13:13 IV 06/08/20 13:59 100 mls/hr Q1H [facility] Administration Cefotetan Disodium 2 gm in 50 mls @ 100 mls/hr 06/09/20 10:11 Cefotan IV 06/09/20 10:40 PREOP ONE Insulin Human Lispro 0 unit 06/06/20 21:00 06/08/20 12:09 Insulin Lispro 100 Unit/Ml 3 Ml Vial SUBCUT 4 unit QIDACHS [facility] Administration Protocol Labetalol HCl 10 mg 06/05/20 17:00 06/08/20 13:13 Labetalol Hcl 100 Mg/20 Ml Vial IVPUSH 10 mg Q4H [facility] Administration Lisinopril 20 mg 06/02/20 09:00 06/08/20 08:31 Lisinopril 20 Mg Tablet PO Not Given DAILY [facility] Protocol Ondansetron HCl 4 mg 06/02/20 06:21 Ondansetron Hcl 4 Mg/2 Ml Vial IVPUSH Q8H PRN Nausea and Vomiting Polyethylene Glycol 17 gm 06/02/20 09:00 06/08/20 08:32 Polyethylene Glycol 3350 17 Gm Powd.Pack PO Not Given DAILY [facility] Quetiapine Fumarate 25 mg 06/02/20 21:00 06/07/20 22:14 Quetiapine Fumarate 25 Mg Tablet PO Not Given BEDTIME [facility] Sertraline HCl 200 mg 06/02/20 09:00 06/08/20 08:32 Sertraline Hcl 100 Mg Tablet PO Not Given DAILY [facility] Sodium Chloride 3 ml 06/02/20 08:00 06/08/20 08:19 0.9 % Sodium Chloride Flush 3 Ml Syringe IVFLUSH 3 ml QSHIFT [facility] Administration Tamsulosin HCl 0.4 mg 06/02/20 09:00 06/08/20 08:32 Tamsulosin Hcl 0.4 Mg Capsule PO Not Given DAILY [facility] Tizanidine HCl 2 mg 06/02/20 09:00 06/08/20 08:33 Tizanidine Hcl 4 Mg Tablet PO Not Given BID [facility] Labs CBC & Chem 7: 06/06/20 05:45 06/08/20 15:17 Microbiology Microbiology Results: Microbiology 06/02/20 00:39 Blood - Venous Blood Culture - Final No growth after 5 days. 06/02/20 Unknown Urine clean catch - Clean Catch Midstream Urine Culture - Final Faye rugosa 06/02/20 00:35 Blood - Venous Blood Culture - Final Coag negative Staphylococcus Assessment and Plan (1) Acute respiratory failure: Status: Acute (2) Pneumonia due to 2019 novel coronavirus: Status: Acute Assessment and Plan: 59-year-old male with a past medical history of prior CVA and resultant h emiplegia and dysarthria. 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 He was also found to be covid positive, but had no respiratory symptoms including hypoxia. He was sent to SNF and returned less than 12 hours later for hypoxia and likely aspirated 1. Acute Respiratory failure--required BiPAP in ED but has been off since. continue oxygen supplementation currently on 2 L of oxygen 2. Aspiration Pneumonia CT scan completed -- showing typical covid fidings + RML/RLL infiltrates Unasyn - day #7 antibiotics [employer] evaluation -- unable to safely swallow and hence NPO surgery consulted for PEG tube plan for PEG tube placement tomorrow 2. Acute Encephalopathy multifactorial slowly improving towards baseline unable to safely take PO Speech continues to recommend NPO and PPN and plan for PEG tube tomorrow 4. Neuro-Bachet's Solu-Medrol (or prednisone if able to take PO) -- started on 60mg, being tapered by 10mg q3 days;currently on 40 mg daily 5. HTN--IVHydralazine while NPO 6. DM humalog q6 hours hold lantus 7. HyperNa, HyperK--146, recheck D5W with KCl 8. Leukocytosis infection + steroid Improving Full Code DVT pptx, Lovenox
--- NOTE | 2020-06-08 13:42 | MHC.CLN ---
F/U PT CONTINUES WITH PPN PEG TUBE PLACEMENT TOMORROW PER MD WHEN TF PLACED, RECOMMEND GLUCERNA AT MAX GOAL RATE 70CC/HR WITH 240CC FREE WATER FLUSH Q SHIFT TO PROVIDE 1680KCALS (24KCALS/KG), 70G PROTEIN (1.0G/KG), 2153CC TOTAL WATER FROM FORMULA AND FLUSHES (30CC/KG) MONITOR TOLERANCE, RESIDUALS AND LYTES
[2020-06-08 16:00] LABS: Anion Gap 11 (12-20); Blood Urea Nitrogen 16 mg/dL (9-16); Calcium 7.5 mg/dL (8.4-10.2); Carbon Dioxide 22 mmol/L (22-29); Chloride 112 mmol/L (96-108); Estimated Glomerular Filt Rate > 60; Glucose Random 272 mg/dL (60-115); Magnesium 1.9 mg/dL (1.6-2.6); Phosphorus 2.7 mg/dL (2.7-4.5); Potassium 3.8 mmol/L (3.3-5.1); Sodium 141 mmol/L (135-145)
[2020-06-08 16:16] LABS: Glucose, Whole Blood 297 mg/dL (60-115)
--- NOTE | 2020-06-08 17:41 | PC.NURSE ---
MD NOTIFIED OF ELEVATED BPS, MEDICATIONS CHANGED TO IV. PEG TUBE PLACEMENT SCHEDULED FOR TOMORROW PER MD. FAMILY UPDATED BY THIS RN.
[2020-06-08 20:09] LABS: Glucose, Whole Blood 277 mg/dL (60-115)
[2020-06-09] VITALS (11 sets, daily range): BP systolic 148–184; BP diastolic 68–85; PULSE 69–80; RESP 18–24; TEMP 36.2–37.4; O2SAT 96–100
[2020-06-09] MEDS: Labetalol HCL 100 MG/20 ML VIAL 10 MG IVPUSH ×6 (01:30→22:01)
[2020-06-09] MEDS: Ampicillin Sodium/Sulbactam Na 3 GM in 0.9 % Sodium Chloride 100 ML IV ×2 (02:23→08:34)
[2020-06-09 07:56] LABS: Glucose, Whole Blood 220 mg/dL (60-115)
[2020-06-09] MEDS: 0.9 % Sodium Chloride Flush 3 ML SYRINGE IVFLUSH ×2 (08:18→15:48)
[2020-06-09 10:02] LABS: Anion Gap 12 (12-20); Blood Urea Nitrogen 16 mg/dL (9-16); Calcium 7.6 mg/dL (8.4-10.2); Carbon Dioxide 21 mmol/L (22-29); Chloride 109 mmol/L (96-108); Estimated Glomerular Filt Rate > 60; Glucose Random 273 mg/dL (60-115); Potassium 3.5 mmol/L (3.3-5.1); Sodium 138 mmol/L (135-145)
[2020-06-09 11:01] LABS: Albumin Level 2.4 g/dL (3.5-5.0); Magnesium 1.8 mg/dL (1.6-2.6); Phosphorus 2.9 mg/dL (2.7-4.5)
[2020-06-09 11:25] LABS: Glucose, Whole Blood 336 mg/dL (60-115)
--- NOTE | 2020-06-09 11:35 | MHC.CM.PN ---
Patient continues to be NPO for aspiration PNA and will be getting a peg tube placed today. Patient is on IV Ampicillin, IV Keppra and IV Labetalol. Discharge disposition is pending PT eval when patient is medically stable. CM will continue to follow patient for discharge needs.
[2020-06-09] MEDS: levETIRAcetam in NaCl (iso-os) 500 MG/100 ML PIGGYBACK 400 MG IV ×2 (11:40→22:08)
[2020-06-09] MEDS: Insulin Lispro 100 UNIT/ML 3 ML VIAL SUBCUT ×2 (13:35→14:16)
--- NOTE | 2020-06-09 13:43 | MHC.CLN ---
F/U PT CONTINUES WITH PPN AWAITING PEG TUBE PLACEMENT TODAY PER MD RECOMMEND GLUCERNA AT MAX GOAL RATE 70CC/HR WITH 240CC FREE WATER FLUSH Q SHIFT TO PROVIDE 1680KCALS (24KCALS/KG), 70G PROTEIN (1.0G/KG), 2153CC TOTAL WATER FROM FORMULA AND FLUSHES (30CC/KG) START GLUCERNA AT 20CC/HR AND INCREASE BY 10CC Q 4 HRS UNTIL MAX GOAL RATE 70CC/HR IS ACHIEVED MONITOR TOLERANCE, RESIDUALS AND LYTES
--- NOTE | 2020-06-09 13:57 | P.CONAN_ITS ---
HPI - Anesthesia Eval Consult details Narrative: 59yo male patient here for PEG tube placement PMFSH Active Problems Active Problems: All Active Problems (Updated 06/09/20 @ 00:01 by Mehul Toledo) Aspiration pneumonia (Acute) Acute respiratory failure (Acute) Pneumonia due to 2019 novel coronavirus (Acute) Behcets syndrome (Acute) Incomplete emptying of bladder due to benign prostatic hyperplasia (Acute) BPH w urinary obs/LUTS (Acute) Past Medical History Medical History Acute UTI Altered mental status Aspiration pneumonia COVID-19 Depression Diabetes Hepatitis C Paraplegia Pneumonia Seizure Stroke TIA (transient ischemic attack) Functional capacity: bed bound Social History Social History Household Members: Family Alcohol intake: former Smoking Status: Smoker, status unknown Smoked in Last 30 Days: No Substance Use Type: Former Substance User Currently Displaying Signs/Symptoms of Drug Intoxication Withdrawal: No Advance Directives: No Do you have thoughts of harming others: None Do you have a plan to hurt others: No Plan service: No Current occupational status: disabled Meds Allergies Allergy/AdvReac Type Severity Reaction Status Date / Time No Known Allergies Allergy Verified 01/25/20 19:38 [No Known Allergies*] Active Medications: Current Medications Generic Name Dose Route Start Last Admin Trade Name Freq PRN Reason Stop Dose Admin Acetaminophen 650 mg 06/02/20 06:21 Acetaminophen 325 Mg Tablet PO Q6H PRN Pain, Mild (Pain Scale 1-3) Albuterol Sulfate 2 puff 06/02/20 06:21 Albuterol Sulfate 90 Mcg 8 Gm Inhaler INHALE Q4H PRN Wheezing Amlodipine Besylate 10 mg 06/02/20 09:00 06/09/20 08:19 Amlodipine Besylate 10 Mg Tablet PO Not Given DAILY CARIN Protocol Atorvastatin Calcium 40 mg 06/02/20 09:00 06/09/20 08:19 Atorvastatin Calcium 40 Mg Tablet PO Not Given DAILY CARIN Carvedilol 25 mg 06/02/20 09:00 06/09/20 08:19 Carvedilol 25 Mg Tablet PO Not Given BID [facility] Protocol Docusate Sodium 100 mg 06/02/20 06:21 Docusate Sodium 100 Mg Capsule PO DAILY PRN Constipation Enoxaparin Sodium 40 mg 06/02/20 08:00 06/09/20 08:19 Enoxaparin Sodium 40 Mg/0.4 Ml Syringe SUBCUT Not Given Q24H [facility] Finasteride 5 mg 06/02/20 09:00 06/09/20 08:19 Finasteride 5 Mg Tablet PO Not Given DAILY [facility] Gabapentin 300 mg 06/02/20 09:00 06/09/20 08:19 Gabapentin 300 Mg Capsule PO Not Given DAILY [facility] Ampicillin Sodium/Sulbactam 100 mls @ 200 mls/hr 06/02/20 14:00 06/09/20 09:42 Sodium 3 gm/ Sodium Chloride IV Infused Q6H [facility] Infusion Levetiracetam 500 mg in 100 mls @ 400 mls/hr 06/03/20 10:00 06/09/20 12:00 Keppra IV Infused Q12H [facility] Infusion Sodium Chloride 40 meq/ 1,440 mls @ 60 mls/hr 06/08/20 18:00 06/08/20 18:23 Magnesium Sulfate 10 meq/ IVCONT 60 mls/hr Potassium Phosphate 40 mmol/ DAILY@1800 [facility] Administration Calcium Gluconate 9.3 meq/ Multivitamins 14 ml/ Trace Metals 1.4 ml/ Amino Acids/ Electrolytes/Dextrose Insulin Human Lispro 0 unit 06/06/20 21:00 06/09/20 13:35 Insulin Lispro 100 Unit/Ml 3 Ml Vial SUBCUT 8 unit QIDACHS [facility] Administration Protocol Labetalol HCl 10 mg 06/05/20 17:00 06/09/20 13:33 Labetalol Hcl 100 Mg/20 Ml Vial IVPUSH 10 mg Q4H CARIN Administration Lisinopril 20 mg 06/02/20 09:00 06/09/20 08:20 Lisinopril 20 Mg Tablet PO Not Given DAILY [facility] Protocol Methylprednisolone Sodium Succinate 32 mg 06/08/20 13:45 06/09/20 08:35 Methylprednisolone Sod Succ/Pf 40 Mg/Ml Vial IVPUSH 06/10/20 09:01 32 mg DAILY [facility] Administration Ondansetron HCl 4 mg 06/02/20 06:21 Ondansetron Hcl 4 Mg/2 Ml Vial IVPUSH Q8H PRN Nausea and Vomiting Polyethylene Glycol 17 gm 06/02/20 09:00 06/09/20 08:20 Polyethylene Glycol 3350 17 Gm Powd.Pack PO Not Given DAILY [facility] Quetiapine Fumarate 25 mg 06/02/20 21:00 06/08/20 21:05 Quetiapine Fumarate 25 Mg Tablet PO Not Given BEDTIME [facility] Sertraline HCl 200 mg 06/02/20 09:00 06/09/20 08:21 Sertraline Hcl 100 Mg Tablet PO Not Given DAILY [facility] Sodium Chloride 3 ml 06/02/20 08:00 06/09/20 08:18 0.9 % Sodium Chloride Flush 3 Ml Syringe IVFLUSH 3 ml QSHIFT [facility] Administration Tamsulosin HCl 0.4 mg 06/02/20 09:00 06/09/20 08:21 Tamsulosin Hcl 0.4 Mg Capsule PO Not Given DAILY [facility] Tizanidine HCl 2 mg 06/02/20 09:00 06/09/20 08:21 Tizanidine Hcl 4 Mg Tablet PO Not Given BID [facility] Home Medications Medication Instructions Recorded Confirmed Last Taken Type atorvastatin 40 mg PO DAILY 04/09/20 06/02/20 05/25/20 History polyethylene glycol 3350 [Miralax] 17 g PO DAILY 04/09/20 06/02/20 05/25/20 History tamsulosin [Flomax] 0.4 mg PO DAILY 04/09/20 06/02/20 05/25/20 History tizanidine [Zanaflex] 2 mg PO BID PRN 04/09/20 06/02/20 05/25/20 History quetiapine 25 mg PO BEDTIME 05/25/20 06/02/20 2 Days Ago History ~05/23/20 albuterol sulfate [ProAir HFA] 2 puff INHALATION Q4-6H PRN 05/26/20 06/02/20 05/25/20 History amlodipine 10 mg PO DAILY 05/26/20 06/02/20 05/25/20 History carvedilol 25 mg PO BID 05/26/20 06/02/20 05/25/20 History lisinopril 20 mg PO DAILY 05/26/20 06/02/20 05/25/20 History aspirin 81 mg PO DAILY 06/02/20 06/02/20 Unknown History gabapentin 300 mg PO DAILY 06/02/20 06/02/20 Unknown History insulin aspart U-100 [Novolog See Protocol SUBCUT TID 06/02/20 06/02/20 Unknown History Flexpen U-100 Insulin] insulin glargine [Lantus U-100 15 unit SUBCUT BEDTIME 06/02/20 06/02/20 Unknown History Insulin] sertraline 200 mg PO DAILY 06/02/20 06/02/20 Unknown History sitagliptin [Januvia] 100 mg PO DAILY 06/02/20 06/02/20 Unknown History Exam Exam Date and Time: June 09, 2020 1357 Height,Weight and Vital Signs: Height 5 ft 6 in Weight 79.6 kg Last Vital Signs Temp 99.3 F 06/09/20 11:57 Pulse 73 06/09/20 11:57 Resp 22 H 06/09/20 11:57 BP 184/85 H 06/09/20 11:57 Pulse Ox 100 06/09/20 11:57 Pertinent Lab Results Pertinent Lab Results: Laboratory Tests 06/02/20 06/02/20 06/02/20 00:38 00:38 00:38 WBC RBC Hgb Hct MCV MCH MCHC RDW Plt Count MPV Immature Gran % (Auto) Neut % (Auto) Lymph % (Auto) [place] % (Auto) Eos % (Auto) Baso % (Auto) Lymph # (Auto) [place] # (Auto) Eos # (Auto) Baso # (Auto) Abs Immat Gran (auto) Absolute Neuts (auto) Absolute Nucleated RBC Nucleated RBC % (auto) Smear Tech's Comments PT 13.9 H INR 1.2 H D-Dimer < 200 ABG pH ABG pCO2 ABG pO2 ABG HCO3 ABG O2 Saturation ABG Base Excess VBG pH VBG pCO2 VBG pO2 VBG HCO3 VBG O2 Saturation VBG Base Excess Oxygen Given Sodium 143 Potassium 3.7 Chloride 108 Carbon Dioxide 22 Anion Gap 17 BUN 26 H Creatinine 0.73 Estim Creat Clear Calc 106.7 Estimated GFR > 60 POC Glucose Random Glucose 340 H D Lactic Acid 1.9 Calcium 7.9 L Phosphorus Magnesium Total Bilirubin 0.4 AST 80 H ALT 63 H Alkaline Phosphatase 143 H Ammonia B-Natriuretic Peptide Total Protein 8.1 H Albumin 3.3 L Triglycerides Lipase 18 Procalcitonin Urine Color Urine Appearance Urine pH Ur Specific [place] Urine Protein Urine Glucose (UA) Urine Ketones Urine Blood Urine Nitrite Ur Leukocyte Esterase Urine RBC Urine WBC Ur Squamous Epith Cells Urine Bacteria Hyaline Casts Urine Mucus Urine Yeast Urine Opiates Screen Ur Barbiturates Screen Levetiracetam Ur Phencyclidine Scrn Ur Amphetamines Screen U Benzodiazepines Scrn Urine Cocaine Screen U Marijuana (THC) Screen Acetone, Qual Negative COVID-19 (GENIE) COVID-19 [employer] 06/02/20 06/02/20 06/02/20 00:38 00:39 01:17 WBC 18.2 H RBC 4.60 Hgb 10.8 L Hct 34.9 L MCV 75.9 L MCH 23.5 L MCHC 30.9 L RDW 19.6 H Plt Count 477 H MPV 11.8 Immature Gran % (Auto) 0.3 Neut % (Auto) 89.1 H Lymph % (Auto) 6.0 L [place] % (Auto) 4.5 Eos % (Auto) 0.0 Baso % (Auto) 0.1 Lymph # (Auto) 1.1 L [place] # (Auto) 0.8 Eos # (Auto) 0.0 Baso # (Auto) 0.0 Abs Immat Gran (auto) 0.05 H Absolute Neuts (auto) 16.2 H Absolute Nucleated RBC 0.000 Nucleated RBC % (auto) 0.0 Smear Tech's Comments PT INR D-Dimer ABG pH 7.42 ABG pCO2 32 ABG pO2 63 L ABG HCO3 21 L ABG O2 Saturation 91.0 ABG Base Excess -2.2 VBG pH VBG pCO2 VBG pO2 VBG HCO3 VBG O2 Saturation VBG Base Excess Oxygen Given 50% Sodium Potassium Chloride Carbon Dioxide Anion Gap BUN Creatinine Estim Creat Clear Calc Estimated GFR POC Glucose Random Glucose Lactic Acid Calcium Phosphorus Magnesium Total Bilirubin AST ALT Alkaline Phosphatase Ammonia B-Natriuretic Peptide 39 Total Protein Albumin Triglycerides Lipase Procalcitonin Urine Color Urine Appearance Urine pH Ur Specific [place] Urine Protein Urine Glucose (UA) Urine Ketones Urine Blood Urine Nitrite Ur Leukocyte Esterase Urine RBC Urine WBC Ur Squamous Epith Cells Urine Bacteria Hyaline Casts Urine Mucus Urine Yeast Urine Opiates Screen Ur Barbiturates Screen Levetiracetam Ur Phencyclidine Scrn Ur Amphetamines Screen U Benzodiazepines Scrn Urine Cocaine Screen U Marijuana (THC) Screen Acetone, Qual COVID-19 (GENIE) COVID-19 [employer] [facility] 06/02/20 06/02/20 06/02/20 02:38 02:38 04:15 WBC RBC Hgb Hct MCV MCH MCHC RDW Plt Count MPV Immature Gran % (Auto) Neut % (Auto) Lymph % (Auto) [place] % (Auto) Eos % (Auto) Baso % (Auto) Lymph # (Auto) [place] # (Auto) Eos # (Auto) Baso # (Auto) Abs Immat Gran (auto) Absolute Neuts (auto) Absolute Nucleated RBC Nucleated RBC % (auto) Smear Tech's Comments PT INR D-Dimer ABG pH ABG pCO2 ABG pO2 ABG HCO3 ABG O2 Saturation ABG Base Excess VBG pH VBG pCO2 VBG pO2 VBG HCO3 VBG O2 Saturation VBG Base Excess Oxygen Given Sodium Potassium Chloride Carbon Dioxide Anion Gap BUN Creatinine Estim Creat Clear Calc Estimated GFR POC Glucose Random Glucose Lactic Acid Calcium Phosphorus Magnesium Total Bilirubin AST ALT Alkaline Phosphatase Ammonia B-Natriuretic Peptide Total Protein Albumin Triglycerides Lipase Procalcitonin Urine Color YELLOW Urine Appearance CLOUDY Urine pH 6.5 Ur Specific [place] 1.025 Urine Protein 3+ H Urine Glucose (UA) 250 H Urine Ketones NEG Urine Blood 3+ H Urine Nitrite NEG Ur Leukocyte Esterase NEG Urine RBC 76-150 H Urine WBC 10-14 H Ur Squamous Epith Cells TRACE Urine Bacteria NONE Hyaline Casts 1-4 Urine Mucus TRACE Urine Yeast TRACE Urine Opiates Screen Not Detected Ur Barbiturates Screen Not Detected Levetiracetam 11.8 L Ur Phencyclidine Scrn Not Detected Ur Amphetamines Screen Not Detected U Benzodiazepines Scrn Not Detected Urine Cocaine Screen Not Detected U Marijuana (THC) Screen Not Detected Acetone, Qual COVID-19 (GENIE) COVID-19 Clin Com 06/02/20 06/02/20 06/02/20 04:15 04:15 13:36 WBC RBC Hgb Hct MCV MCH MCHC RDW Plt Count MPV Immature Gran % (Auto) Neut % (Auto) Lymph % (Auto) [place] % (Auto) Eos % (Auto) Baso % (Auto) Lymph # (Auto) [place] # (Auto) Eos # (Auto) Baso # (Auto) Abs Immat Gran (auto) Absolute Neuts (auto) Absolute Nucleated RBC Nucleated RBC % (auto) Smear Tech's Comments PT INR D-Dimer ABG pH ABG pCO2 ABG pO2 ABG HCO3 ABG O2 Saturation ABG Base Excess VBG pH 7.38 VBG pCO2 37 VBG pO2 60 VBG HCO3 22 VBG O2 Saturation 87.0 VBG Base Excess -1.9 Oxygen Given Sodium Potassium Chloride Carbon Dioxide Anion Gap BUN Creatinine Estim Creat Clear Calc Estimated GFR POC Glucose Random Glucose Lactic Acid Calcium Phosphorus Magnesium Total Bilirubin AST ALT Alkaline Phosphatase Ammonia 42 B-Natriuretic Peptide Total Protein Albumin Triglycerides Lipase Procalcitonin 0.05 Urine Color Urine Appearance Urine pH Ur Specific [place] Urine Protein Urine Glucose (UA) Urine Ketones Urine Blood Urine Nitrite Ur Leukocyte Esterase Urine RBC Urine WBC Ur Squamous Epith Cells Urine Bacteria Hyaline Casts Urine Mucus Urine Yeast Urine Opiates Screen Ur Barbiturates Screen Levetiracetam Ur Phencyclidine Scrn Ur Amphetamines Screen U Benzodiazepines Scrn Urine Cocaine Screen U Marijuana (THC) Screen Acetone, Qual COVID-19 (GENIE) COVID-19 Clin Com 06/02/20 06/02/20 06/03/20 15:34 20:39 06:16 WBC 26.9 H RBC 4.45 L Hgb 10.3 L Hct 33.7 L MCV 75.7 L MCH 23.1 L MCHC 30.6 L RDW 19.7 H Plt Count 295 D MPV Not Reportable Immature Gran % (Auto) 0.9 H Neut % (Auto) 91.0 H Lymph % (Auto) 4.6 L [place] % (Auto) 3.2 Eos % (Auto) 0.2 Baso % (Auto) 0.1 Lymph # (Auto) 1.3 [place] # (Auto) 0.9 Eos # (Auto) 0.1 Baso # (Auto) 0.0 Abs Immat Gran (auto) 0.24 H Absolute Neuts (auto) 24.4 H Absolute Nucleated RBC 0.000 Nucleated RBC % (auto) 0.0 Smear Tech's Comments VERIFIED PT INR D-Dimer ABG pH ABG pCO2 ABG pO2 ABG HCO3 ABG O2 Saturation ABG Base Excess VBG pH VBG pCO2 VBG pO2 VBG HCO3 VBG O2 Saturation VBG Base Excess Oxygen Given Sodium Potassium Chloride Carbon Dioxide Anion Gap BUN Creatinine Estim Creat Clear Calc Estimated GFR POC Glucose 317 H 254 H Random Glucose Lactic Acid Calcium Phosphorus Magnesium Total Bilirubin AST ALT Alkaline Phosphatase Ammonia B-Natriuretic Peptide Total Protein Albumin Triglycerides Lipase Procalcitonin Urine Color Urine Appearance Urine pH Ur Specific [place] Urine Protein Urine Glucose (UA) Urine Ketones Urine Blood Urine Nitrite Ur Leukocyte Esterase Urine RBC Urine WBC Ur Squamous Epith Cells Urine Bacteria Hyaline Casts Urine Mucus Urine Yeast Urine Opiates Screen Ur Barbiturates Screen Levetiracetam Ur Phencyclidine Scrn Ur Amphetamines Screen U Benzodiazepines Scrn Urine Cocaine Screen U Marijuana (THC) Screen Acetone, Qual COVID-19 (GENIE) [employer] 06/03/20 06/03/20 06/03/20 06:16 07:04 11:02 WBC RBC Hgb Hct MCV MCH MCHC RDW Plt Count MPV Immature Gran % (Auto) Neut % (Auto) Lymph % (Auto) [place] % (Auto) Eos % (Auto) Baso % (Auto) Lymph # (Auto) [place] # (Auto) Eos # (Auto) Baso # (Auto) Abs Immat Gran (auto) Absolute Neuts (auto) Absolute Nucleated RBC Nucleated RBC % (auto) Smear Tech's Comments PT INR D-Dimer ABG pH ABG pCO2 ABG pO2 ABG HCO3 ABG O2 Saturation ABG Base Excess VBG pH VBG pCO2 VBG pO2 VBG HCO3 VBG O2 Saturation VBG Base Excess Oxygen Given Sodium 147 H Potassium 3.2 L Chloride 112 H Carbon Dioxide 23 Anion Gap 15 BUN 36 H Creatinine 0.67 Estim Creat Clear Calc 116.2 Estimated GFR > 60 POC Glucose 150 H 207 H Random Glucose 155 H D Lactic Acid Calcium 7.9 L Phosphorus Magnesium Total Bilirubin AST ALT Alkaline Phosphatase Ammonia B-Natriuretic Peptide Total Protein Albumin Triglycerides Lipase Procalcitonin Urine Color Urine Appearance Urine pH Ur Specific [place] Urine Protein Urine Glucose (UA) Urine Ketones Urine Blood Urine Nitrite Ur Leukocyte Esterase Urine RBC Urine WBC Ur Squamous Epith Cells Urine Bacteria Hyaline Casts Urine Mucus Urine Yeast Urine Opiates Screen Ur Barbiturates Screen Levetiracetam Ur Phencyclidine Scrn Ur Amphetamines Screen U Benzodiazepines Scrn Urine Cocaine Screen U Marijuana (THC) Screen Acetone, Qual COVID-19 (GENIE) COVID-19 [employer] 06/03/20 06/03/20 06/04/20 16:09 19:51 05:47 WBC 25.1 H RBC 4.57 L Hgb 10.6 L Hct 34.6 L MCV 75.7 L MCH 23.2 L MCHC 30.6 L RDW 19.7 H Plt Count 387 D MPV 12.4 Immature Gran % (Auto) Neut % (Auto) Lymph % (Auto) [place] % (Auto) Eos % (Auto) Baso % (Auto) Lymph # (Auto) [place] # (Auto) Eos # (Auto) Baso # (Auto) Abs Immat Gran (auto) Absolute Neuts (auto) Absolute Nucleated RBC 0.000 Nucleated RBC % (auto) 0.0 Smear Tech's Comments PT INR D-Dimer ABG pH ABG pCO2 ABG pO2 ABG HCO3 ABG O2 Saturation ABG Base Excess VBG pH VBG pCO2 VBG pO2 VBG HCO3 VBG O2 Saturation VBG Base Excess Oxygen Given Sodium Potassium Chloride Carbon Dioxide Anion Gap BUN Creatinine Estim Creat Clear Calc Estimated GFR POC Glucose 252 H 271 H Random Glucose Lactic Acid Calcium Phosphorus Magnesium Total Bilirubin AST ALT Alkaline Phosphatase Ammonia B-Natriuretic Peptide Total Protein Albumin Triglycerides Lipase Procalcitonin Urine Color Urine Appearance Urine pH Ur Specific [place] Urine Protein Urine Glucose (UA) Urine Ketones Urine Blood Urine Nitrite Ur Leukocyte Esterase Urine RBC Urine WBC Ur Squamous Epith Cells Urine Bacteria Hyaline Casts Urine Mucus Urine Yeast Urine Opiates Screen Ur Barbiturates Screen Levetiracetam Ur Phencyclidine Scrn Ur Amphetamines Screen U Benzodiazepines Scrn Urine Cocaine Screen U Marijuana (THC) Screen Acetone, Qual COVID-19 (GENIE) COVID-19 Clin Com 06/04/20 06/04/20 06/04/20 05:47 05:47 07:47 WBC RBC Hgb Hct MCV MCH MCHC RDW Plt Count MPV Immature Gran % (Auto) Neut % (Auto) Lymph % (Auto) [place] % (Auto) Eos % (Auto) Baso % (Auto) Lymph # (Auto) [place] # (Auto) Eos # (Auto) Baso # (Auto) Abs Immat Gran (auto) Absolute Neuts (auto) Absolute Nucleated RBC Nucleated RBC % (auto) Smear Tech's Comments PT INR D-Dimer ABG pH ABG pCO2 ABG pO2 ABG HCO3 ABG O2 Saturation ABG Base Excess VBG pH VBG pCO2 VBG pO2 VBG HCO3 VBG O2 Saturation VBG Base Excess Oxygen Given Sodium 148 H Potassium 2.8 L Chloride 110 H Carbon Dioxide 25 Anion Gap 16 BUN 28 H Creatinine 0.69 Estim Creat Clear Calc 112.9 Estimated GFR > 60 POC Glucose 242 H Random Glucose 260 H D Lactic Acid Calcium 7.8 L Phosphorus Magnesium Total Bilirubin AST ALT Alkaline Phosphatase Ammonia B-Natriuretic Peptide Total Protein Albumin Triglycerides Lipase Procalcitonin 0.13 Urine Color Urine Appearance Urine pH Ur Specific [place] Urine Protein Urine Glucose (UA) Urine Ketones Urine Blood Urine Nitrite Ur Leukocyte Esterase Urine RBC Urine WBC Ur Squamous Epith Cells Urine Bacteria Hyaline Casts Urine Mucus Urine Yeast Urine Opiates Screen Ur Barbiturates Screen Levetiracetam Ur Phencyclidine Scrn Ur Amphetamines Screen U Benzodiazepines Scrn Urine Cocaine Screen U Marijuana (THC) Screen Acetone, Qual COVID-19 (GENIE) COVID-19 [employer] 06/04/20 06/04/20 06/04/20 11:40 13:25 15:58 WBC RBC Hgb Hct MCV MCH MCHC RDW Plt Count MPV Immature Gran % (Auto) Neut % (Auto) Lymph % (Auto) [place] % (Auto) Eos % (Auto) Baso % (Auto) Lymph # (Auto) [place] # (Auto) Eos # (Auto) Baso # (Auto) Abs Immat Gran (auto) Absolute Neuts (auto) Absolute Nucleated RBC Nucleated RBC % (auto) Smear Tech's Comments PT INR D-Dimer ABG pH ABG pCO2 ABG pO2 ABG HCO3 ABG O2 Saturation ABG Base Excess VBG pH VBG pCO2 VBG pO2 VBG HCO3 VBG O2 Saturation VBG Base Excess Oxygen Given Sodium 145 Potassium 3.3 Chloride 108 Carbon Dioxide 25 Anion Gap 15 BUN 27 H Creatinine 0.67 Estim Creat Clear Calc 116.2 Estimated GFR > 60 POC Glucose 281 H 280 H Random Glucose 279 H Lactic Acid Calcium 7.8 L Phosphorus Magnesium Total Bilirubin AST ALT Alkaline Phosphatase Ammonia B-Natriuretic Peptide Total Protein Albumin Triglycerides Lipase Procalcitonin Urine Color Urine Appearance Urine pH Ur Specific [place] Urine Protein Urine Glucose (UA) Urine Ketones Urine Blood Urine Nitrite Ur Leukocyte Esterase Urine RBC Urine WBC Ur Squamous Epith Cells Urine Bacteria Hyaline Casts Urine Mucus Urine Yeast Urine Opiates Screen Ur Barbiturates Screen Levetiracetam Ur Phencyclidine Scrn Ur Amphetamines Screen U Benzodiazepines Scrn Urine Cocaine Screen U Marijuana (THC) Screen Acetone, Qual COVID-19 (GENIE) COVID-19 Clin Com 06/04/20 06/05/20 06/05/20 19:52 05:33 05:33 WBC 18.2 H RBC 4.19 L Hgb 9.9 L Hct 31.7 L MCV 75.7 L MCH 23.6 L MCHC 31.2 RDW 19.9 H Plt Count 353 MPV 12.8 H Immature Gran % (Auto) Neut % (Auto) Lymph % (Auto) [place] % (Auto) Eos % (Auto) Baso % (Auto) Lymph # (Auto) [place] # (Auto) Eos # (Auto) Baso # (Auto) Abs Immat Gran (auto) Absolute Neuts (auto) Absolute Nucleated RBC 0.020 H Nucleated RBC % (auto) 0.1 Smear Tech's Comments PT INR D-Dimer ABG pH ABG pCO2 ABG pO2 ABG HCO3 ABG O2 Saturation ABG Base Excess VBG pH VBG pCO2 VBG pO2 VBG HCO3 VBG O2 Saturation VBG Base Excess Oxygen Given Sodium 145 Potassium 2.9 L Chloride 110 H Carbon Dioxide 24 Anion Gap 14 BUN 22 H Creatinine 0.62 Estim Creat Clear Calc 125.6 Estimated GFR > 60 POC Glucose 290 H Random Glucose 305 H Lactic Acid Calcium 7.7 L Phosphorus Magnesium Total Bilirubin AST ALT Alkaline Phosphatase Ammonia B-Natriuretic Peptide Total Protein Albumin Triglycerides Lipase Procalcitonin Urine Color Urine Appearance Urine pH Ur Specific [place] Urine Protein Urine Glucose (UA) Urine Ketones Urine Blood Urine Nitrite Ur Leukocyte Esterase Urine RBC Urine WBC Ur Squamous Epith Cells Urine Bacteria Hyaline Casts Urine Mucus Urine Yeast Urine Opiates Screen Ur Barbiturates Screen Levetiracetam Ur Phencyclidine Scrn Ur Amphetamines Screen U Benzodiazepines Scrn Urine Cocaine Screen U Marijuana (THC) Screen Acetone, Qual COVID-19 (GENIE) COVID-19 Clin Com 06/05/20 06/05/20 06/05/20 07:38 11:40 16:11 WBC RBC Hgb Hct MCV MCH MCHC RDW Plt Count MPV Immature Gran % (Auto) Neut % (Auto) Lymph % (Auto) [place] % (Auto) Eos % (Auto) Baso % (Auto) Lymph # (Auto) [place] # (Auto) Eos # (Auto) Baso # (Auto) Abs Immat Gran (auto) Absolute Neuts (auto) Absolute Nucleated RBC Nucleated RBC % (auto) Smear Tech's Comments PT INR D-Dimer ABG pH ABG pCO2 ABG pO2 ABG HCO3 ABG O2 Saturation ABG Base Excess VBG pH VBG pCO2 VBG pO2 VBG HCO3 VBG O2 Saturation VBG Base Excess Oxygen Given Sodium Potassium Chloride Carbon Dioxide Anion Gap BUN Creatinine Estim Creat Clear Calc Estimated GFR POC Glucose 283 H 263 H 274 H Random Glucose Lactic Acid Calcium Phosphorus Magnesium Total Bilirubin AST ALT Alkaline Phosphatase Ammonia B-Natriuretic Peptide Total Protein Albumin Triglycerides Lipase Procalcitonin Urine Color Urine Appearance Urine pH Ur Specific [place] Urine Protein Urine Glucose (UA) Urine Ketones Urine Blood Urine Nitrite Ur Leukocyte Esterase Urine RBC Urine WBC Ur Squamous Epith Cells Urine Bacteria Hyaline Casts Urine Mucus Urine Yeast Urine Opiates Screen Ur Barbiturates Screen Levetiracetam Ur Phencyclidine Scrn Ur Amphetamines Screen U Benzodiazepines Scrn Urine Cocaine Screen U Marijuana (THC) Screen Acetone, Qual COVID-19 (GENIE) COVID-19 Clin Com 06/05/20 06/06/20 06/06/20 19:50 05:45 05:45 WBC 15.6 H RBC 3.87 L Hgb 9.0 L Hct 29.3 L MCV 75.7 L MCH 23.3 L MCHC 30.7 L RDW 19.6 H Plt Count 336 MPV Not Reportable Immature Gran % (Auto) Neut % (Auto) Lymph % (Auto) [place] % (Auto) Eos % (Auto) Baso % (Auto) Lymph # (Auto) [place] # (Auto) Eos # (Auto) Baso # (Auto) Abs Immat Gran (auto) Absolute Neuts (auto) Absolute Nucleated RBC 0.000 Nucleated RBC % (auto) 0.0 Smear Tech's Comments PT INR D-Dimer ABG pH ABG pCO2 ABG pO2 ABG HCO3 ABG O2 Saturation ABG Base Excess VBG pH VBG pCO2 VBG pO2 VBG HCO3 VBG O2 Saturation VBG Base Excess Oxygen Given Sodium 146 H Potassium 3.3 Chloride 115 H Carbon Dioxide 22 Anion Gap 12 BUN 18 H Creatinine 0.62 Estim Creat Clear Calc 125.6 Estimated GFR > 60 POC Glucose 293 H Random Glucose 269 H Lactic Acid Calcium 7.4 L Phosphorus 1.9 L Magnesium 1.9 Total Bilirubin AST ALT Alkaline Phosphatase Ammonia B-Natriuretic Peptide Total Protein Albumin 2.5 L D Triglycerides 146 Lipase Procalcitonin Urine Color Urine Appearance Urine pH Ur Specific [place] Urine Protein Urine Glucose (UA) Urine Ketones Urine Blood Urine Nitrite Ur Leukocyte Esterase Urine RBC Urine WBC Ur Squamous Epith Cells Urine Bacteria Hyaline Casts Urine Mucus Urine Yeast Urine Opiates Screen Ur Barbiturates Screen Levetiracetam Ur Phencyclidine Scrn Ur Amphetamines Screen U Benzodiazepines Scrn Urine Cocaine Screen U Marijuana (THC) Screen Acetone, Qual COVID-19 (GENIE) COVID-19 Clin Com 06/06/20 06/06/20 06/06/20 07:24 11:00 16:40 WBC RBC Hgb Hct MCV MCH MCHC RDW Plt Count MPV Immature Gran % (Auto) Neut % (Auto) Lymph % (Auto) [place] % (Auto) Eos % (Auto) Baso % (Auto) Lymph # (Auto) [place] # (Auto) Eos # (Auto) Baso # (Auto) Abs Immat Gran (auto) Absolute Neuts (auto) Absolute Nucleated RBC Nucleated RBC % (auto) Smear Tech's Comments PT INR D-Dimer ABG pH ABG pCO2 ABG pO2 ABG HCO3 ABG O2 Saturation ABG Base Excess VBG pH VBG pCO2 VBG pO2 VBG HCO3 VBG O2 Saturation VBG Base Excess Oxygen Given Sodium Potassium Chloride Carbon Dioxide Anion Gap BUN Creatinine Estim Creat Clear Calc Estimated GFR POC Glucose 214 H 256 H 364 H* Random Glucose Lactic Acid Calcium Phosphorus Magnesium Total Bilirubin AST ALT Alkaline Phosphatase Ammonia B-Natriuretic Peptide Total Protein Albumin Triglycerides Lipase Procalcitonin Urine Color Urine Appearance Urine pH Ur Specific [place] Urine Protein Urine Glucose (UA) Urine Ketones Urine Blood Urine Nitrite Ur Leukocyte Esterase Urine RBC Urine WBC Ur Squamous Epith Cells Urine Bacteria Hyaline Casts Urine Mucus Urine Yeast Urine Opiates Screen Ur Barbiturates Screen Levetiracetam Ur Phencyclidine Scrn Ur Amphetamines Screen U Benzodiazepines Scrn Urine Cocaine Screen U Marijuana (THC) Screen Acetone, Qual COVID-19 (GENIE) COVID-19 [employer] 06/06/20 06/07/20 06/07/20 21:07 08:52 11:18 WBC RBC Hgb Hct MCV MCH MCHC RDW Plt Count MPV Immature Gran % (Auto) Neut % (Auto) Lymph % (Auto) [place] % (Auto) Eos % (Auto) Baso % (Auto) Lymph # (Auto) [place] # (Auto) Eos # (Auto) Baso # (Auto) Abs Immat Gran (auto) Absolute Neuts (auto) Absolute Nucleated RBC Nucleated RBC % (auto) Smear Tech's Comments PT INR D-Dimer ABG pH ABG pCO2 ABG pO2 ABG HCO3 ABG O2 Saturation ABG Base Excess VBG pH VBG pCO2 VBG pO2 VBG HCO3 VBG O2 Saturation VBG Base Excess Oxygen Given Sodium Potassium Chloride Carbon Dioxide Anion Gap BUN Creatinine Estim Creat Clear Calc Estimated GFR POC Glucose 278 H 221 H 211 H Random Glucose Lactic Acid Calcium Phosphorus Magnesium Total Bilirubin AST ALT Alkaline Phosphatase Ammonia B-Natriuretic Peptide Total Protein Albumin Triglycerides Lipase Procalcitonin Urine Color Urine Appearance Urine pH Ur Specific [place] Urine Protein Urine Glucose (UA) Urine Ketones Urine Blood Urine Nitrite Ur Leukocyte Esterase Urine RBC Urine WBC Ur Squamous Epith Cells Urine Bacteria Hyaline Casts Urine Mucus Urine Yeast Urine Opiates Screen Ur Barbiturates Screen Levetiracetam Ur Phencyclidine Scrn Ur Amphetamines Screen U Benzodiazepines Scrn Urine Cocaine Screen U Marijuana (THC) Screen Acetone, Qual COVID-19 (GENIE) COVID-19 [employer] 06/07/20 06/07/20 06/07/20 11:40 12:35 16:27 WBC RBC Hgb Hct MCV MCH MCHC RDW Plt Count MPV Immature Gran % (Auto) Neut % (Auto) Lymph % (Auto) [place] % (Auto) Eos % (Auto) Baso % (Auto) Lymph # (Auto) [place] # (Auto) Eos # (Auto) Baso # (Auto) Abs Immat Gran (auto) Absolute Neuts (auto) Absolute Nucleated RBC Nucleated RBC % (auto) Smear Tech's Comments PT INR D-Dimer ABG pH ABG pCO2 ABG pO2 ABG HCO3 ABG O2 Saturation ABG Base Excess VBG pH VBG pCO2 VBG pO2 VBG HCO3 VBG O2 Saturation VBG Base Excess Oxygen Given Sodium 143 Potassium 3.1 L Chloride 115 H Carbon Dioxide 21 L Anion Gap 10 L BUN 21 H Creatinine 0.58 Estim Creat Clear Calc 134.3 Estimated GFR > 60 POC Glucose 214 H 301 H Random Glucose 237 H Lactic Acid Calcium 7.3 L Phosphorus 2.1 L Magnesium 1.9 Total Bilirubin AST ALT Alkaline Phosphatase Ammonia B-Natriuretic Peptide Total Protein Albumin 2.5 L Triglycerides Lipase Procalcitonin Urine Color Urine Appearance Urine pH Ur Specific [place] Urine Protein Urine Glucose (UA) Urine Ketones Urine Blood Urine Nitrite Ur Leukocyte Esterase Urine RBC Urine WBC Ur Squamous Epith Cells Urine Bacteria Hyaline Casts Urine Mucus Urine Yeast Urine Opiates Screen Ur Barbiturates Screen Levetiracetam Ur Phencyclidine Scrn Ur Amphetamines Screen U Benzodiazepines Scrn Urine Cocaine Screen U Marijuana (THC) Screen Acetone, Qual COVID-19 (GENIE) COVID-19 [employer] 06/07/20 06/08/20 06/08/20 20:43 07:39 10:05 WBC RBC Hgb Hct MCV MCH MCHC RDW Plt Count MPV Immature Gran % (Auto) Neut % (Auto) Lymph % (Auto) [place] % (Auto) Eos % (Auto) Baso % (Auto) Lymph # (Auto) [place] # (Auto) Eos # (Auto) Baso # (Auto) Abs Immat Gran (auto) Absolute Neuts (auto) Absolute Nucleated RBC Nucleated RBC % (auto) Smear Tech's Comments PT INR D-Dimer ABG pH ABG pCO2 ABG pO2 ABG HCO3 ABG O2 Saturation ABG Base Excess VBG pH VBG pCO2 VBG pO2 VBG HCO3 VBG O2 Saturation VBG Base Excess Oxygen Given Sodium Potassium Chloride Carbon Dioxide Anion Gap BUN Creatinine Estim Creat Clear Calc Estimated GFR POC Glucose 196 H 246 H Random Glucose Lactic Acid Calcium Phosphorus Magnesium Total Bilirubin AST ALT Alkaline Phosphatase Ammonia B-Natriuretic Peptide Total Protein Albumin Triglycerides Lipase Procalcitonin Urine Color Urine Appearance Urine pH Ur Specific [place] Urine Protein Urine Glucose (UA) Urine Ketones Urine Blood Urine Nitrite Ur Leukocyte Esterase Urine RBC Urine WBC Ur Squamous Epith Cells Urine Bacteria Hyaline Casts Urine Mucus Urine Yeast Urine Opiates Screen Ur Barbiturates Screen Levetiracetam Ur Phencyclidine Scrn Ur Amphetamines Screen U Benzodiazepines Scrn Urine Cocaine Screen U Marijuana (THC) Screen Acetone, Qual COVID-19 (GENIE) Positive A COVID-19 Clin Com See Note 06/08/20 06/08/20 06/08/20 11:47 15:17 16:07 WBC RBC Hgb Hct MCV MCH MCHC RDW Plt Count MPV Immature Gran % (Auto) Neut % (Auto) Lymph % (Auto) [place] % (Auto) Eos % (Auto) Baso % (Auto) Lymph # (Auto) [place] # (Auto) Eos # (Auto) Baso # (Auto) Abs Immat Gran (auto) Absolute Neuts (auto) Absolute Nucleated RBC Nucleated RBC % (auto) Smear Tech's Comments PT INR D-Dimer ABG pH ABG pCO2 ABG pO2 ABG HCO3 ABG O2 Saturation ABG Base Excess VBG pH VBG pCO2 VBG pO2 VBG HCO3 VBG O2 Saturation VBG Base Excess Oxygen Given Sodium 141 Potassium 3.8 D Chloride 112 H Carbon Dioxide 22 Anion Gap 11 L BUN 16 Creatinine 0.59 Estim Creat Clear Calc 132.0 Estimated GFR > 60 POC Glucose 249 H 297 H Random Glucose 272 H Lactic Acid Calcium 7.5 L Phosphorus 2.7 Magnesium 1.9 Total Bilirubin AST ALT Alkaline Phosphatase Ammonia B-Natriuretic Peptide Total Protein Albumin Triglycerides Lipase Procalcitonin Urine Color Urine Appearance Urine pH Ur Specific [place] Urine Protein Urine Glucose (UA) Urine Ketones Urine Blood Urine Nitrite Ur Leukocyte Esterase Urine RBC Urine WBC Ur Squamous Epith Cells Urine Bacteria Hyaline Casts Urine Mucus Urine Yeast Urine Opiates Screen Ur Barbiturates Screen Levetiracetam Ur Phencyclidine Scrn Ur Amphetamines Screen U Benzodiazepines Scrn Urine Cocaine Screen U Marijuana (THC) Screen Acetone, Qual COVID-19 (GENIE) COVID-19 Clin Com 06/08/20 06/09/20 06/09/20 20:01 07:48 09:29 WBC RBC Hgb Hct MCV MCH MCHC RDW Plt Count MPV Immature Gran % (Auto) Neut % (Auto) Lymph % (Auto) [place] % (Auto) Eos % (Auto) Baso % (Auto) Lymph # (Auto) [place] # (Auto) Eos # (Auto) Baso # (Auto) Abs Immat Gran (auto) Absolute Neuts (auto) Absolute Nucleated RBC Nucleated RBC % (auto) Smear Tech's Comments PT INR D-Dimer ABG pH ABG pCO2 ABG pO2 ABG HCO3 ABG O2 Saturation ABG Base Excess VBG pH VBG pCO2 VBG pO2 VBG HCO3 VBG O2 Saturation VBG Base Excess Oxygen Given Sodium 138 Potassium 3.5 Chloride 109 H Carbon Dioxide 21 L Anion Gap 12 BUN 16 Creatinine 0.59 Estim Creat Clear Calc 132.0 Estimated GFR > 60 POC Glucose 277 H 220 H Random Glucose 273 H Lactic Acid Calcium 7.6 L Phosphorus 2.9 Magnesium 1.8 Total Bilirubin AST ALT Alkaline Phosphatase Ammonia B-Natriuretic Peptide Total Protein Albumin 2.4 L Triglycerides Lipase Procalcitonin Urine Color Urine Appearance Urine pH Ur Specific [place] Urine Protein Urine Glucose (UA) Urine Ketones Urine Blood Urine Nitrite Ur Leukocyte Esterase Urine RBC Urine WBC Ur Squamous Epith Cells Urine Bacteria Hyaline Casts Urine Mucus Urine Yeast Urine Opiates Screen Ur Barbiturates Screen Levetiracetam Ur Phencyclidine Scrn Ur Amphetamines Screen U Benzodiazepines Scrn Urine Cocaine Screen U Marijuana (THC) Screen Acetone, Qual COVID-19 (GENIE) COVID-19 Clin Com 06/09/20 11:20 WBC RBC Hgb Hct MCV MCH MCHC RDW Plt Count MPV Immature Gran % (Auto) Neut % (Auto) Lymph % (Auto) [place] % (Auto) Eos % (Auto) Baso % (Auto) Lymph # (Auto) [place] # (Auto) Eos # (Auto) Baso # (Auto) Abs Immat Gran (auto) Absolute Neuts (auto) Absolute Nucleated RBC Nucleated RBC % (auto) Smear Tech's Comments PT INR D-Dimer ABG pH ABG pCO2 ABG pO2 ABG HCO3 ABG O2 Saturation ABG Base Excess VBG pH VBG pCO2 VBG pO2 VBG HCO3 VBG O2 Saturation VBG Base Excess Oxygen Given Sodium Potassium Chloride Carbon Dioxide Anion Gap BUN Creatinine Estim Creat Clear Calc Estimated GFR POC Glucose 336 H Random Glucose Lactic Acid Calcium Phosphorus Magnesium Total Bilirubin AST ALT Alkaline Phosphatase Ammonia B-Natriuretic Peptide Total Protein Albumin Triglycerides Lipase Procalcitonin Urine Color Urine Appearance Urine pH Ur Specific [place] Urine Protein Urine Glucose (UA) Urine Ketones Urine Blood Urine Nitrite Ur Leukocyte Esterase Urine RBC Urine WBC Ur Squamous Epith Cells Urine Bacteria Hyaline Casts Urine Mucus Urine Yeast Urine Opiates Screen Ur Barbiturates Screen Levetiracetam Ur Phencyclidine Scrn Ur Amphetamines Screen U Benzodiazepines Scrn Urine Cocaine Screen U Marijuana (THC) Screen Acetone, Qual COVID-19 (GENIE) COVID-19 Clin Com
[2020-06-09 14:05] LABS: Glucose, Whole Blood 342 mg/dL (60-115)
[2020-06-09 14:32] LABS: Glucose, Whole Blood 330 mg/dL (60-115)
--- NOTE | 2020-06-09 14:46 | PM.EVENT ---
Event Note Date of Service: 06/09/20 Event Note: pt was scheduled for PEG placement today anesthesia however was concerned because blood sugar was 340 pt was on PPN earlier, sliding scale insulin was not given by nurse because of NPO status discussed with Hospitalist will place on the schedule for Friday will update daughter pt seen and examined - no apparent change in mental status
--- NOTE | 2020-06-09 15:30 | P.PNIM_ITS ---
Subjective Subjective Date of Service: 06/09/20 Interval History: Patient seen and examined at bedside Patient continues to be NPO currently on PPN Physical Exam Vital Signs: Vital Signs: Last Vital Signs Temp 99.3 F 06/09/20 11:57 Pulse 73 06/09/20 11:57 Resp 22 H 06/09/20 11:57 BP 184/85 H 06/09/20 11:57 Pulse Ox 100 06/09/20 11:57 Body Mass Index 28.3 Const: Other: General - awake and alert, doesn't follow direction Cardiovascular - regular rate and rhythm, S1-S2 Lungs - normal respiratory effort, clear to auscultation bilaterally, no wheezing Abdomen - soft, nontender, no rebound or guarding Extremities - no edema bilaterally Neuro - more awake and appears to be appearing to communicate General: no acute distress Eyes: General: appearance normal, both eyes and all related structures Resp: Effort & Inspection: normal respiratory effort Cardio: Other: General - awake and alert, doesn't follow direction Cardiovascular - regular rate and rhythm, S1-S2 Lungs - normal respiratory effort, clear to auscultation bilaterally, no wheezing Abdomen - soft, nontender, no rebound or guarding Extremities - no edema bilaterally Neuro - more awake and appears to be appearing to communicate Rate: regular rate Rhythm: regular rhythm GI: Palpation (GI): Soft to palpation Auscultation: normal bowel sounds Skin: General skin exam: no rashes or lesions noted Neuro: Cognition (Neuro): normal cognition Extrem: General: Yes normal to inspection and Yes no pedal edema Objective Data Current Medications Generic Name Dose Route Start Last Admin Trade Name Freq PRN Reason Stop Dose Admin Acetaminophen 650 mg 06/02/20 06:21 Acetaminophen 325 Mg Tablet PO Q6H PRN Pain, Mild (Pain Scale 1-3) Albuterol Sulfate 2 puff 06/02/20 06:21 Albuterol Sulfate 90 Mcg 8 Gm Inhaler INHALE Q4H PRN Wheezing Amlodipine Besylate 10 mg 06/02/20 09:00 06/09/20 08:19 Amlodipine Besylate 10 Mg Tablet PO Not Given DAILY [facility] Protocol Atorvastatin Calcium 40 mg 06/02/20 09:00 06/09/20 08:19 Atorvastatin Calcium 40 Mg Tablet PO Not Given DAILY [facility] Carvedilol 25 mg 06/02/20 09:00 06/09/20 08:19 Carvedilol 25 Mg Tablet PO Not Given BID [facility] Protocol Docusate Sodium 100 mg 06/02/20 06:21 Docusate Sodium 100 Mg Capsule PO DAILY PRN Constipation Enoxaparin Sodium 40 mg 06/02/20 08:00 06/09/20 08:19 Enoxaparin Sodium 40 Mg/0.4 Ml Syringe SUBCUT Not Given Q24H [facility] Finasteride 5 mg 06/02/20 09:00 06/09/20 08:19 Finasteride 5 Mg Tablet PO Not Given DAILY [facility] Gabapentin 300 mg 06/02/20 09:00 06/09/20 08:19 Gabapentin 300 Mg Capsule PO Not Given DAILY [facility] Levetiracetam 500 mg in 100 mls @ 400 mls/hr 06/03/20 10:00 06/09/20 12:00 Keppra IV Infused Q12H [facility] Infusion Sodium Chloride 40 meq/ 1,440 mls @ 60 mls/hr 06/08/20 18:00 06/08/20 18:23 Magnesium Sulfate 10 meq/ IVCONT 60 mls/hr Potassium Phosphate 40 mmol/ DAILY@1800 [facility] Administration Calcium Gluconate 9.3 meq/ Multivitamins 14 ml/ Trace Metals 1.4 ml/ Amino Acids/ Electrolytes/Dextrose Insulin Glargine 10 unit 06/09/20 14:52 Insulin Glargine,Hum.Rec.Anlog 100 Unit/Ml 10 Ml Vial SUBCUT DAILY [facility] Insulin Human Lispro 0 unit 06/06/20 21:00 06/09/20 13:35 Insulin Lispro 100 Unit/Ml 3 Ml Vial SUBCUT 8 unit QIDACHS [facility] Administration Protocol Labetalol HCl 10 mg 06/05/20 17:00 06/09/20 13:33 Labetalol Hcl 100 Mg/20 Ml Vial IVPUSH 10 mg Q4H [facility] Administration Lisinopril 20 mg 06/02/20 09:00 06/09/20 08:20 Lisinopril 20 Mg Tablet PO Not Given DAILY [facility] Protocol Methylprednisolone Sodium Succinate 32 mg 06/08/20 13:45 06/09/20 08:35 Methylprednisolone Sod Succ/Pf 40 Mg/Ml Vial IVPUSH 06/10/20 09:01 32 mg DAILY [facility]IN Administration Ondansetron HCl 4 mg 06/02/20 06:21 Ondansetron Hcl 4 Mg/2 Ml Vial IVPUSH Q8H PRN Nausea and Vomiting Polyethylene Glycol 17 gm 06/02/20 09:00 06/09/20 08:20 Polyethylene Glycol 3350 17 Gm Powd.Pack PO Not Given DAILY [facility] Quetiapine Fumarate 25 mg 06/02/20 21:00 06/08/20 21:05 Quetiapine Fumarate 25 Mg Tablet PO Not Given BEDTIME [facility] Sertraline HCl 200 mg 06/02/20 09:00 06/09/20 08:21 Sertraline Hcl 100 Mg Tablet PO Not Given DAILY [facility] Sodium Chloride 3 ml 06/02/20 08:00 06/09/20 08:18 0.9 % Sodium Chloride Flush 3 Ml Syringe IVFLUSH 3 ml QSHIFT [facility] Administration Tamsulosin HCl 0.4 mg 06/02/20 09:00 06/09/20 08:21 Tamsulosin Hcl 0.4 Mg Capsule PO Not Given DAILY [facility] Tizanidine HCl 2 mg 06/02/20 09:00 06/09/20 08:21 Tizanidine Hcl 4 Mg Tablet PO Not Given BID [facility] Labs CBC & Chem 7: 06/06/20 05:45 06/09/20 09:29 Microbiology Microbiology Results: Microbiology 06/02/20 00:39 Blood - Venous Blood Culture - Final No growth after 5 days. 06/02/20 Unknown Urine clean catch - Clean Catch Midstream Urine Culture - Final Faye rugosa 06/02/20 00:35 Blood - Venous Blood Culture - Final Coag negative Staphylococcus Assessment and Plan (1) Acute respiratory failure: Status: Acute (2) Pneumonia due to 2019 novel coronavirus: Status: Acute Assessment and Plan: 59-year-old male with a past medical history of prior CVA and resultant hemiplegia and dysarthria. 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 He was also found to be covid positive, but had no respiratory symptoms including hypoxia. He was sent to SNF and returned less than 12 hours later for hypoxia and likely aspirated 1. Acute Respiratory failure--required BiPAP in ED but has been off since. continue oxygen supplementation currently on 2 L of oxygen 2. 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 Acute Encephalopathy multifactorial slowly improving towards baseline unable to safely take PO Speech continues to recommend NPO and continue PPN and plan for PEG tube on Friday 4. Neuro-Bachet's Solu-Medrol (or prednisone if able to take PO) -- started on 60mg, being tapered by 10mg q3 days;currently on 40 mg daily 5. HTN--IVHydralazine while NPO 6. DM blood glucose elevated likely secondary to steroid humalog q6 hours Lantus restarted monitor blood glucose 7. HyperNa resolved sodium 138 today D5W with KCl 8. Leukocytosis infection + steroid Improving Full Code DVT pptx, Lovenox
[2020-06-09] MEDS: Insulin Glargine,Hum.rec.anlog 100 UNIT/ML 10 ML VIAL 10 UNIT SUBCUT (15:47)
[2020-06-09 16:28] LABS: Glucose, Whole Blood 185 mg/dL (60-115)
[2020-06-09 17:51] LABS: Glucose, Whole Blood 130 mg/dL (60-115)
[2020-06-09 20:25] LABS: Glucose, Whole Blood 128 mg/dL (60-115)
[2020-06-10] VITALS (10 sets, daily range): BP systolic 144–177; BP diastolic 70–83; PULSE 64–84; RESP 18–20; TEMP 36.2–37.1; O2SAT 95–97
[2020-06-10 00:28] LABS: Glucose, Whole Blood 127 mg/dL (60-115)
[2020-06-10] MEDS: 0.9 % Sodium Chloride Flush 3 ML SYRINGE IVFLUSH ×4 (01:23→21:05)
[2020-06-10] MEDS: Labetalol HCL 100 MG/20 ML VIAL 10 MG IVPUSH ×5 (01:30→21:02)
[2020-06-10 07:20] LABS: Anion Gap 14 (12-20); Blood Urea Nitrogen 15 mg/dL (9-16); Calcium 7.7 mg/dL (8.4-10.2); Carbon Dioxide 19 mmol/L (22-29); Chloride 113 mmol/L (96-108); Creatinine Clr Calc Pharmacy 144.2; Estimated Glomerular Filt Rate > 60; Glucose Random 129 mg/dL (60-115); Potassium 3.7 mmol/L (3.3-5.1); Sodium 142 mmol/L (135-145)
[2020-06-10 07:55] LABS: Glucose, Whole Blood 145 mg/dL (60-115)
[2020-06-10] MEDS: levETIRAcetam in NaCl (iso-os) 500 MG/100 ML PIGGYBACK 400 MG IV ×2 (10:06→21:04)
[2020-06-10] MEDS: Enoxaparin Sodium 40 MG/0.4 ML SYRINGE SUBCUT (10:07)
[2020-06-10 11:20] LABS: Glucose, Whole Blood 186 mg/dL (60-115)
--- NOTE | 2020-06-10 13:18 | P.PNIM_ITS ---
Subjective Subjective Date of Service: 06/10/20 Interval History: Patient seen and examined at bedside Patient continues to be NPO and weak currently on PPN Physical Exam Vital Signs: Vital Signs: Last Vital Signs Temp 97.2 F 06/10/20 11:24 Pulse 72 06/10/20 11:24 Resp 20 06/10/20 11:24 BP 145/75 H 06/10/20 11:24 Pulse Ox 95 06/10/20 11:24 Body Mass Index 28.3 Const: Other: General - awake and alert, doesn't follow direction Cardiovascular - regular rate and rhythm, S1-S2 Lungs - normal respiratory effort, clear to auscultation bilaterally, no wheezing Abdomen - soft, nontender, no rebound or guarding Extremities - no edema bilaterally Neuro - more awake and appears to be appearing to communicate General: no acut e distress Eyes: General: appearance normal, both eyes and all related structures Resp: Effort & Inspection: normal respiratory effort Cardio: Other: General - awake and alert, doesn't follow direction Cardiovascular - regular rate and rhythm, S1-S2 Lungs - normal respiratory effort, clear to auscultation bilaterally, no whe ezing Abdomen - soft, nontender, no rebound or guarding Extremities - no edema bilaterally Neuro - more awake and appears to be appearing to communicate Rate: regular rate Rhythm: regular rhythm GI: Palpation (GI): Soft to palpation Auscultation: normal bowel sounds Skin: General skin exam: no rashes or lesions noted Neuro: Cognition (Neuro): normal cognition Extrem: General: Yes normal to inspection and Yes no pedal edema Objective Data Current Medications Generic Name Dose Route Start Last Admin Trade Name Franq PRN Reason Stop Dose Admin Acetaminophen 650 mg 06/02/20 06:21 Acetaminophen 325 Mg Tablet PO Q6H PRN Pain, Mild (Pain Scale 1-3) Albuterol Sulfate 2 puff 06/02/20 06:21 Albuterol Sulfate 90 Mcg 8 Gm Inhaler INHALE Q4H PRN Wheezing Amlodipine Besylate 10 mg 06/02/20 09:00 06/10/20 10:01 Amlodipine Besylate 10 Mg Tablet PO Not Given DAILY [facility] Protocol Atorvastatin Calcium 40 mg 06/02/20 09:00 06/10/20 10:01 Atorvastatin Calcium 40 Mg Tablet PO Not Given DAILY [facility] Carvedilol 25 mg 06/02/20 09:00 06/10/20 10:01 Carvedilol 25 Mg Tablet PO Not Given BID [facility] Protocol Docusate Sodium 100 mg 06/02/20 06:21 Docusate Sodium 100 Mg Capsule PO DAILY PRN Constipation Enoxaparin Sodium 40 mg 06/02/20 08:00 06/10/20 10:07 Enoxaparin Sodium 40 Mg/0.4 Ml Syringe SUBCUT 40 mg Q24H [facility] Administration Finasteride 5 mg 06/02/20 09:00 06/10/20 10:01 Finasteride 5 Mg Tablet PO Not Given DAILY [facility] Gabapentin 300 mg 06/02/20 09:00 06/10/20 10:01 Gabapentin 300 Mg Capsule PO Not Given DAILY [facility] Levetiracetam 500 mg in 100 mls @ 400 mls/hr 06/03/20 10:00 06/10/20 10:21 Keppra IV Infused Q12H [facility] Infusion Insulin Glargine 10 unit 06/09/20 14:52 06/10/20 10:02 Insulin Glargine,Hum.Rec.Anlog 100 Unit/Ml 10 Ml Vial SUBCUT Not Given DAILY [facility] Insulin Human Lispro 0 unit 06/06/20 21:00 06/10/20 12:18 Insulin Lispro 100 Unit/Ml 3 Ml Vial SUBCUT Not Given QIDACHS [facility] Protocol Labetalol HCl 10 mg 06/05/20 17:00 06/10/20 10:02 Labetalol Hcl 100 Mg/20 Ml Vial IVPUSH Not Given Q4H [facility] Lisinopril 20 mg 06/02/20 09:00 06/10/20 10:02 Lisinopril 20 Mg Tablet PO Not Given DAILY [facility] Protocol Ondansetron HCl 4 mg 06/02/20 06:21 Ondansetron Hcl 4 Mg/2 Ml Vial IVPUSH Q8H PRN Nausea and Vomiting Polyethylene Glycol 17 gm 06/02/20 09:00 06/10/20 10:03 Polyethylene Glycol 3350 17 Gm Powd.Pack PO Not Given DAILY [facility] Quetiapine Fumarate 25 mg 06/02/20 21:00 06/09/20 22:06 Quetiapine Fumarate 25 Mg Tablet PO Not Given BEDTIME [facility] Sertraline HCl 200 mg 06/02/20 09:00 06/10/20 10:03 Sertraline Hcl 100 Mg Tablet PO Not Given DAILY [facility] Sodium Chloride 3 ml 06/02/20 08:00 06/10/20 10:07 0.9 % Sodium Chloride Flush 3 Ml Syringe IVFLUSH 3 ml QSHIFT [facility] Administration Tamsulosin HCl 0.4 mg 06/02/20 09:00 06/10/20 10:03 Tamsulosin Hcl 0.4 Mg Capsule PO Not Given DAILY [facility] Tizanidine HCl 2 mg 06/02/20 09:00 06/10/20 10:03 Tizanidine Hcl 4 Mg Tablet PO Not Given BID [facility] Labs CBC & Chem 7: 06/06/20 05:45 06/10/20 05:59 Microbiology Microbiology Results: Microbiology 06/02/20 00:39 Blood - Venous Blood Culture - Final No growth after 5 days. 06/02/20 Unknown Urine clean catch - Clean Catch Midstream Urine Culture - Final Faye rugosa 06/02/20 00:35 Blood - Venous Blood Culture - Final Coag negative Staphylococcus Assessment and Plan (1) Acute respiratory failure: Status: Acute (2) Pneumonia due to 2019 novel coronavirus: Status: Acute Assessment and Plan: 59-year-old male with a past medical history of prior CVA and resultant hem iplegia and dysarthria. 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 He was also found to be covid positive, but had no respiratory symptoms including hypoxia. He was sent to SNF and returned less than 12 hours later for hypoxia and likely aspirated 1. Acute Respiratory failure--required BiPAP in ED but has been off since. continue oxygen supplementation currently on 2 L of oxygen 2. 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 Acute Encephalopathy multifactorial slowly improving towards baseline unable to safely take PO Speech continues to recommend NPO and continue PPN and plan for PEG tube on Friday 4. Neuro-Bachet's Solu-Medrol -- started on 60mg, being tapered by 10mg q3 days;currently on 40 mg daily will switch to p.o. once will have PEG tube 5. HTN--IVHydralazine while NPO 6. DM blood glucose elevated likely secondary to steroid humalog q6 hours Lantus restarted monitor blood glucose 7. HyperNa resolved sodium 138 today 8. Leukocytosis infection + steroid Improving Full Code DVT pptx, Lovenox
[2020-06-10 13:48] LABS: Albumin Level 2.5 g/dL (3.5-5.0); Magnesium 1.8 mg/dL (1.6-2.6); Phosphorus 2.8 mg/dL (2.7-4.5)
[2020-06-10 16:27] LABS: Glucose, Whole Blood 267 mg/dL (60-115)
--- NOTE | 2020-06-10 18:00 | PC.NURSE ---
Addendum entered by Socorro Cortes RN 06/10/20 18:01: repo q2 hr Original Note: Pt resting on and off entire shift. Cooperative with care. NPO, waiting for peg tube placement. Pt POCs have been stable.
[2020-06-10] MEDS: Insulin Lispro 100 UNIT/ML 3 ML VIAL SUBCUT (18:06)
[2020-06-10 21:10] LABS: Glucose, Whole Blood 128 mg/dL (60-115)
[2020-06-11] VITALS (12 sets, daily range): BP systolic 145–185; BP diastolic 68–87; PULSE 74–94; RESP 18–20; TEMP 36.4–36.7; O2SAT 92–96
[2020-06-11] MEDS: Labetalol HCL 100 MG/20 ML VIAL 10 MG IVPUSH ×6 (00:35→21:50)
[2020-06-11 07:40] LABS: Glucose, Whole Blood 251 mg/dL (60-115)
[2020-06-11 07:46] LABS: Anion Gap 13 (12-20); Blood Urea Nitrogen 17 mg/dL (9-16); Calcium 7.5 mg/dL (8.4-10.2); Carbon Dioxide 20 mmol/L (22-29); Chloride 112 mmol/L (96-108); Creatinine Clr Calc Pharmacy 141.6; Estimated Glomerular Filt Rate > 60; Glucose Random 217 mg/dL (60-115); Potassium 3.7 mmol/L (3.3-5.1); Sodium 141 mmol/L (135-145)
[2020-06-11 08:04] LABS: MANUAL DIFF FLAG NO
[2020-06-11 08:08] LABS: Basophils Percent Auto 0.1 % (0-2); Eosinophils Absolute Auto 0.3 X10*3/uL (0.0-0.4); Eosinophils Percent Auto 1.5 % (0-4); Hematocrit 26.9 % (42-52); Hemoglobin 8.2 g/dl (14.0-18.0); Imm Gran Abs Auto 0.16 X10*3/uL (0.00-0.03); Imm Gran Pct Auto 0.9 % (0.0-0.4); Lymphocytes Absolute Auto 2.7 X10*3/uL (1.2-4.9); Lymphocytes Percent Auto 15.9 % (20-40); Mean Corpuscular HGB Conc 30.5 g/dl (31.0-36.0); Mean Corpuscular Hemoglobin 23.1 pg (27.0-33.0); Mean Corpuscular Volume 75.8 fL (80-98); Monocytes Absolute Auto 0.7 X10*3/uL (0.1-1.2); Monocytes Percent Auto 4.1 % (2-11); Neutrophils Absolute Auto 13.4 X10*3/uL (2.0-8.3); Neutrophils Percent Auto 77.5 % (45-73); Platelet Count 251 X10*3/uL (160-400); Red Blood Count 3.55 X10*6/uL (4.60-5.80); White Blood Count 17.2 X10*3/uL (4.8-10.8)
[2020-06-11] MEDS: Enoxaparin Sodium 40 MG/0.4 ML SYRINGE SUBCUT (09:53)
[2020-06-11] MEDS: Insulin Glargine,Hum.rec.anlog 100 UNIT/ML 10 ML VIAL 10 UNIT SUBCUT (09:53)
[2020-06-11] MEDS: 0.9 % Sodium Chloride Flush 3 ML SYRINGE IVFLUSH ×3 (09:53→21:50)
[2020-06-11] MEDS: levETIRAcetam in NaCl (iso-os) 500 MG/100 ML PIGGYBACK 400 MG IV ×2 (09:53→21:50)
[2020-06-11] MEDS: Insulin Lispro 100 UNIT/ML 3 ML VIAL SUBCUT ×4 (09:55→21:50)
[2020-06-11 10:37] LABS: Albumin Level 2.5 g/dL (3.5-5.0); Magnesium 1.8 mg/dL (1.6-2.6); Phosphorus 2.9 mg/dL (2.7-4.5)
[2020-06-11 11:32] LABS: Glucose, Whole Blood 225 mg/dL (60-115)
--- NOTE | 2020-06-11 12:44 | HO.PM.IMPN ---
Subjective Subjective Date of Service: 06/11/20 Interval History: Patient seen and examined at bedside Patient continues to be NPO and weak currently on PPN Physical Exam Vital Signs: Vital Signs: Last Vital Signs Temp 98.0 F 06/11/20 11:02 Pulse 84 06/11/20 11:02 Resp 18 06/11/20 11:02 BP 168/87 H 06/11/20 11:02 Pulse Ox 94 06/11/20 11:02 Body Mass Index 28.3 Const: Other: General - awake and alert, doesn't follow direction Cardiovascular - regular rate and rhythm, S1-S2 Lungs - normal respiratory effort, clear to auscultation bilaterally, no wheezing Abdomen - soft, nontender, no rebound or guarding Extremities - no edema bilaterally Neuro - more awake and appears to be appearing to communicate General: no acute distress Eyes: General: appearance normal, both eyes and all related structures Resp: Effort & Inspection: normal respiratory effort Cardio: Other: General - awake and alert, doesn't follow direction Cardiovascular - regular rate and rhythm, S1-S2 Lungs - normal respiratory effort, clear to auscultation bilaterally, no wheezing Abdomen - soft, nontender, no rebound or guarding Extremities - no edema bilaterally Neuro - more awake and appears to be appearing to communicate Rate: regular rate Rhythm: regular rhythm GI: Palpation (GI): Soft to palpation Auscultation: normal bowel sounds Skin: General skin exam: no rashes or lesions noted Neuro: Cognition (Neuro): normal cognition Extrem: General: Yes normal to inspection and Yes no pedal edema Objective Data Current Medications Generic Name Dose Route Start Last Admin Trade Name Freq PRN Reason Stop Dose Admin Acetaminophen 650 mg 06/02/20 06:21 Acetaminophen 325 Mg Tablet PO Q6H PRN Pain, Mild (Pain Scale 1-3) Albuterol Sulfate 2 puff 06/02/20 06:21 Albuterol Sulfate 90 Mcg 8 Gm Inhaler INHALE Q4H PRN Wheezing Amlodipine Besylate 10 mg 06/02/20 09:00 06/11/20 09:37 Amlodipine Besylate 10 Mg Tablet PO Not Given DAILY [facility] Protocol Atorvastatin Calcium 40 mg 06/02/20 09:00 06/11/20 09:37 Atorvastatin Calcium 40 Mg Tablet PO Not Given DAILY [facility] Carvedilol 25 mg 06/02/20 09:00 06/11/20 09:37 Carvedilol 25 Mg Tablet PO Not Given BID [facility] Protocol Docusate Sodium 100 mg 06/02/20 06:21 Docusate Sodium 100 Mg Capsule PO DAILY PRN Constipation Enoxaparin Sodium 40 mg 06/02/20 08:00 06/11/20 09:53 Enoxaparin Sodium 40 Mg/0.4 Ml Syringe SUBCUT 40 mg Q24H [facility] Administration Finasteride 5 mg 06/02/20 09:00 06/11/20 09:38 Finasteride 5 Mg Tablet PO Not Given DAILY [facility] Gabapentin 300 mg 06/02/20 09:00 06/11/20 09:38 Gabapentin 300 Mg Capsule PO Not Given DAILY [facility] Levetiracetam 500 mg in 100 mls @ 400 mls/hr 06/03/20 10:00 06/11/20 10:12 Keppra IV Infused Q12H [facility] Infusion Sodium Chloride 40 meq/ 1,440 mls @ 60 mls/hr 06/10/20 18:00 06/10/20 20:27 Magnesium Sulfate 10 meq/ IVCONT 06/11/20 17:59 60 mls/hr Potassium Phosphate 40 mmol/ DAILY@1800 [facility] Infusion Calcium Gluconate 9.3 meq/ Multivitamins 14 ml/ Trace Metals 1.4 ml/ Amino Acids/ Electrolytes/Dextrose Sodium Chloride 40 meq/ 1,440 mls @ 60 mls/hr 06/11/20 18:00 Magnesium Sulfate 10 meq/ IVCONT 06/12/20 17:59 Potassium Phosphate 40 mmol/ DAILY@1800 [facility] Calcium Gluconate 9.3 meq/ Multivitamins 14 ml/ Trace Metals 1.4 ml/ Amino Acids/ Electrolytes/Dextrose Insulin Glargine 10 unit 06/09/20 14:52 06/11/20 09:53 Insulin Glargine,Hum.Rec.Anlog 100 Unit/Ml 10 Ml Vial SUBCUT 10 unit DAILY [facility] Administration Insulin Human Lispro 0 unit 06/06/20 21:00 06/11/20 12:20 Insulin Lispro 100 Unit/Ml 3 Ml Vial SUBCUT 4 unit QIDACHS [facility] Administration Protocol Labetalol HCl 10 mg 06/05/20 17:00 06/11/20 10:12 Labetalol Hcl 100 Mg/20 Ml Vial IVPUSH 10 mg Q4H [facility] Administration Lisinopril 20 mg 06/02/20 09:00 06/11/20 09:41 Lisinopril 20 Mg Tablet PO Not Given DAILY [facility] Protocol Ondansetron HCl 4 mg 06/02/20 06:21 Ondansetron Hcl 4 Mg/2 Ml Vial IVPUSH Q8H PRN Nausea and Vomiting Polyethylene Glycol 17 gm 06/02/20 09:00 06/11/20 09:42 Polyethylene Glycol 3350 17 Gm Powd.Pack PO Not Given DAILY [facility] Quetiapine Fumarate 25 mg 06/02/20 21:00 06/10/20 20:45 Quetiapine Fumarate 25 Mg Tablet PO Not Given BEDTIME [facility] Sertraline HCl 200 mg 06/02/20 09:00 06/11/20 09:42 Sertraline Hcl 100 Mg Tablet PO Not Given DAILY [facility] Sodium Chloride 3 ml 06/02/20 08:00 06/11/20 09:53 0.9 % Sodium Chloride Flush 3 Ml Syringe IVFLUSH 3 ml QSHIFT [facility] Administration Tamsulosin HCl 0.4 mg 06/02/20 09:00 06/11/20 09:42 Tamsulosin Hcl 0.4 Mg Capsule PO Not Given DAILY [facility] Tizanidine HCl 2 mg 06/02/20 09:00 06/11/20 09:42 Tizanidine Hcl 4 Mg Tablet PO Not Given BID [facility] Labs CBC & Chem 7: 06/11/20 05:41 06/11/20 05:41 Microbiology Microbiology Results: Microbiology 06/02/20 00:39 Blood - Venous Blood Culture - Final No growth after 5 days. 06/02/20 Unknown Urine clean catch - Clean Catch Midstream Urine Culture - Final Faye rugosa 06/02/20 00:35 Blood - Venous Blood Culture - Final Coag negative Staphylococcus Assessment and Plan (1) Acute respiratory failure: Status: Acute (2) Pneumonia due to 2019 novel coronavirus: Status: Acute Assessment and Plan: 59-year-old male with a past medical history of prior CVA and resultant hemiplegia and dysarthria. 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 He was also found to be covid positive, but had no respiratory symptoms including hypoxia. He was sent to SNF and returned less than 12 hours later for hypoxia and likely aspirated 1. Acute Respiratory failure--required BiPAP in ED but has been off since. continue oxygen supplementation currently on 2 L of oxygen 2. Aspiration Pneumonia CT scan completed -- showing typical covid fidings + RML/RLL infiltrates recieved Unas[employer] evaluation -- unable to safely swallow and hence NPO surgery consulted for PEG tube plan for PEG tube on Friday 2. Acute Encephalopathy multifactorial slowly improving towards baseline unable to safely take PO Speech continues to recommend NPO and continue PPN and plan for PEG tube on Friday 4. Neuro-Bachet's Solu-Medrol -- started on 60mg, being tapered by 10mg q3 days;currently on 40 mg daily will switch to p.o. once will have PEG tube 5. HTN--IVHydralazine while NPO 6. DM blood glucose elevated likely secondary to steroid humalog q6 hours Lantus restarted monitor blood glucose 7. HyperNa resolved sodium 138 today 8. Leukocytosis infection + steroid Improving Full Code DVT pptx, Lovenox
[2020-06-11 16:37] LABS: Glucose, Whole Blood 163 mg/dL (60-115)
[2020-06-11 20:20] LABS: Glucose, Whole Blood 196 mg/dL (60-115)
[2020-06-12] VITALS (20 sets, daily range): BP systolic 165–214; BP diastolic 79–100; PULSE 84–119; RESP 16–32; TEMP 35.9–37.8; O2SAT 84–98
[2020-06-12] MEDS: Labetalol HCL 100 MG/20 ML VIAL 10 MG IVPUSH ×5 (01:06→22:19)
[2020-06-12 06:11] LABS: Eosinophils Absolute Auto 0.2 X10*3/uL (0.0-0.4); Eosinophils Percent Auto 1.7 % (0-4); Mean Corpuscular Volume 75.5 fL (80-98); NRBC Pct Auto 0.1 /100WBC (0.0-0.2); Red Cell Distribution Width 19.9 % (11.0-16.0); SCAN SMEAR FLAG 1
[2020-06-12 06:13] LABS: Basophils Percent Auto 0.2 % (0-2); Hematocrit 28.1 % (42-52); Hemoglobin 8.6 g/dl (14.0-18.0); Imm Gran Abs Auto 0.16 X10*3/uL (0.00-0.03); Imm Gran Pct Auto 1.2 % (0.0-0.4); Lymphocytes Absolute Auto 2.6 X10*3/uL (1.2-4.9); Mean Corpuscular HGB Conc 30.6 g/dl (31.0-36.0); Mean Corpuscular Hemoglobin 23.1 pg (27.0-33.0); Monocytes Absolute Auto 0.7 X10*3/uL (0.1-1.2); Monocytes Percent Auto 4.8 % (2-11); Neutrophils Absolute Auto 9.9 X10*3/uL (2.0-8.3); Neutrophils Percent Auto 73.1 % (45-73); Platelet Count 239 X10*3/uL (160-400); Red Blood Count 3.72 X10*6/uL (4.60-5.80); White Blood Count 13.6 X10*3/uL (4.8-10.8)
[2020-06-12 06:30] LABS: MANUAL DIFF FLAG NO; PLT ABN DIST 1
[2020-06-12 07:33] LABS: Glucose, Whole Blood 263 mg/dL (60-115)
[2020-06-12 08:25] LABS: Anion Gap 14 (12-20); Blood Urea Nitrogen 16 mg/dL (9-16); Calcium 7.4 mg/dL (8.4-10.2); Carbon Dioxide 18 mmol/L (22-29); Chloride 111 mmol/L (96-108); Estimated Glomerular Filt Rate > 60; Glucose Random 239 mg/dL (60-115); Potassium 3.7 mmol/L (3.3-5.1); Sodium 139 mmol/L (135-145)
[2020-06-12] MEDS: Insulin Glargine,Hum.rec.anlog 100 UNIT/ML 10 ML VIAL 10 UNIT SUBCUT (08:27)
[2020-06-12] MEDS: Insulin Lispro 100 UNIT/ML 3 ML VIAL SUBCUT ×4 (08:28→22:18)
--- NOTE | 2020-06-12 08:40 | HO.ANESPROP2 ---
[facility] Active Problems Active Problems: All Active Problems (Updated 06/09/20 @ 00:01 by Mehul Toledo) Aspiration pneumonia (Acute) Acute respiratory failure (Acute) Pneumonia due to 2019 novel coronavirus (Acute) Behcets syndrome (Acute) Incomplete emptying of bladder due to benign prostatic hyperplasia (Acute) BPH w urinary obs/LUTS (Acute) Past Medical History Medical History Acute UTI Altered mental status Aspiration pneumonia COVID-19 Depression Diabetes Hepatitis C Paraplegia Pneumonia Seizure Stroke TIA (transient ischemic attack) Functional capacity: bed bound Social History Social History Household Members: Family Alcohol intake: former Smoking Status: Smoker, status unknown Smoked in Last 30 Days: No Substance Use Type: Former Substance User Currently Displaying Signs/Symptoms of Drug Intoxication Withdrawal: No Advance Directives: No Do you have thoughts of harming others: None Do you have a plan to hurt others: No Plan service: No Current occupational status: disabled Meds Allergies Allergy/AdvReac Type Severity Reaction Status Date / Time No Known Allergies Allergy Verified 01/25/20 19:38 [No Known Allergies*] Active Medications: Current Medications Generic Name Dose Route Start Last Admin Trade Name Freq PRN Reason Stop Dose Admin Acetaminophen 650 mg 06/02/20 06:21 Acetaminophen 325 Mg Tablet PO Q6H PRN Pain, Mild (Pain Scale 1-3) Albuterol Sulfate 2 puff 06/02/20 06:21 Albuterol Sulfate 90 Mcg 8 Gm Inhaler INHALE Q4H PRN Wheezing Amlodipine Besylate 10 mg 06/02/20 09:00 06/11/20 09:37 Amlodipine Besylate 10 Mg Tablet PO Not Given DAILY CARIN Protocol Atorvastatin Calcium 40 mg 06/02/20 09:00 06/11/20 09:37 Atorvastatin Calcium 40 Mg Tablet PO Not Given DAILY CARIN Carvedilol 25 mg 06/02/20 09:00 06/11/20 22:19 Carvedilol 25 Mg Tablet PO Not Given BID [facility] Protocol Docusate Sodium 100 mg 06/02/20 06:21 Docusate Sodium 100 Mg Capsule PO DAILY PRN Constipation Enoxaparin Sodium 40 mg 06/02/20 08:00 06/12/20 08:37 Enoxaparin Sodium 40 Mg/0.4 Ml Syringe SUBCUT Not Given Q24H [facility] Finasteride 5 mg 06/02/20 09:00 06/11/20 09:38 Finasteride 5 Mg Tablet PO Not Given DAILY [facility] Gabapentin 300 mg 06/02/20 09:00 06/11/20 09:38 Gabapentin 300 Mg Capsule PO Not Given DAILY [facility] Levetiracetam 500 mg in 100 mls @ 400 mls/hr 06/03/20 10:00 06/11/20 23:04 Keppra IV Infused Q12H [facility] Infusion Sodium Chloride 40 meq/ 1,440 mls @ 60 mls/hr 06/11/20 18:00 06/11/20 17:57 Magnesium Sulfate 10 meq/ IVCONT 06/12/20 17:59 60 mls/hr Potassium Phosphate 40 mmol/ DAILY@1800 [facility] Administration Calcium Gluconate 9.3 meq/ Multivitamins 14 ml/ Trace Metals 1.4 ml/ Amino Acids/ Electrolytes/Dextrose Insulin Glargine 10 unit 06/09/20 14:52 06/12/20 08:27 Insulin Glargine,Hum.Rec.Anlog 100 Unit/Ml 10 Ml Vial SUBCUT 10 unit DAILY [facility] Administration Insulin Human Lispro 0 unit 06/06/20 21:00 06/12/20 08:28 Insulin Lispro 100 Unit/Ml 3 Ml Vial SUBCUT 6 unit QIDACHS [facility] Administration Protocol Labetalol HCl 10 mg 06/05/20 17:00 06/12/20 05:01 Labetalol Hcl 100 Mg/20 Ml Vial IVPUSH 10 mg Q4H [facility] Administration Lisinopril 20 mg 06/02/20 09:00 06/11/20 09:41 Lisinopril 20 Mg Tablet PO Not Given DAILY [facility] Protocol Ondansetron HCl 4 mg 06/02/20 06:21 Ondansetron Hcl 4 Mg/2 Ml Vial IVPUSH Q8H PRN Nausea and Vomiting Polyethylene Glycol 17 gm 06/02/20 09:00 06/11/20 09:42 Polyethylene Glycol 3350 17 Gm Powd.Pack PO Not Given DAILY [facility] Quetiapine Fumarate 25 mg 06/02/20 21:00 06/11/20 22:19 Quetiapine Fumarate 25 Mg Tablet PO Not Given BEDTIME [facility] Sertraline HCl 200 mg 06/02/20 09:00 06/11/20 09:42 Sertraline Hcl 100 Mg Tablet PO Not Given DAILY [facility] Sodium Chloride 3 ml 06/02/20 08:00 06/12/20 08:36 0.9 % Sodium Chloride Flush 3 Ml Syringe IVFLUSH Not Given QSHIFT [facility] Tamsulosin HCl 0.4 mg 06/02/20 09:00 06/11/20 09:42 Tamsulosin Hcl 0.4 Mg Capsule PO Not Given DAILY [facility] Tizanidine HCl 2 mg 06/02/20 09:00 06/11/20 22:18 Tizanidine Hcl 4 Mg Tablet PO Not Given BID [facility] Home Medications Medication Instructions Recorded Confirmed Last Taken Type atorvastatin 40 mg PO DAILY 04/09/20 06/02/20 05/25/20 History polyethylene glycol 3350 [Miralax] 17 g PO DAILY 04/09/20 06/02/20 05/25/20 History tamsulosin [Flomax] 0.4 mg PO DAILY 04/09/20 06/02/20 05/25/20 History tizanidine [Zanaflex] 2 mg PO BID PRN 04/09/20 06/02/20 05/25/20 History quetiapine 25 mg PO BEDTIME 05/25/20 06/02/20 2 Days Ago History ~05/23/20 albuterol sulfate [ProAir HFA] 2 puff INHALATION Q4-6H PRN 05/26/20 06/02/20 05/25/20 History amlodipine 10 mg PO DAILY 05/26/20 06/02/20 05/25/20 History carvedilol 25 mg PO BID 05/26/20 06/02/20 05/25/20 History lisinopril 20 mg PO DAILY 05/26/20 06/02/20 05/25/20 History aspirin 81 mg PO DAILY 06/02/20 06/02/20 Unknown History gabapentin 300 mg PO DAILY 06/02/20 06/02/20 Unknown History insulin aspart U-100 [Novolog See Protocol SUBCUT TID 06/02/20 06/02/20 Unknown History Flexpen U-100 Insulin] insulin glargine [Lantus U-100 15 unit SUBCUT BEDTIME 06/02/20 06/02/20 Unknown History Insulin] sertraline 200 mg PO DAILY 06/02/20 06/02/20 Unknown History sitagliptin [Januvia] 100 mg PO DAILY 06/02/20 06/02/20 Unknown History Exam Exam Date and Time: June 12, 2020 0840 Height,Weight and Vital Signs: Height 5 ft 6 in Weight 79.6 kg Last Vital Signs Temp 98.1 F 06/12/20 07:53 Pulse 98 06/12/20 07:53 Resp 28 H 06/12/20 07:53 BP 166/79 H 06/12/20 07:53 Pulse Ox 96 06/12/20 07:53 Pertinent Lab Results Pertinent Lab Results: Laboratory Tests 06/02/20 06/02/20 06/02/20 00:38 00:38 00:38 WBC RBC Hgb Hct MCV MCH MCHC RDW Plt Count MPV Immature Gran % (Auto) Neut % (Auto) Lymph % (Auto) Stanley % (Auto) Eos % (Auto) Baso % (Auto) Lymph # (Auto) Stanley # (Auto) Eos # (Auto) Baso # (Auto) Abs Immat Gran (auto) Absolute Neuts (auto) Absolute Nucleated RBC Nucleated RBC % (auto) Smear Tech's Comments PT 13.9 H INR 1.2 H D-Dimer < 200 ABG pH ABG pCO2 ABG pO2 ABG HCO3 ABG O2 Saturation ABG Base Excess VBG pH VBG pCO2 VBG pO2 VBG HCO3 VBG O2 Saturation VBG Base Excess Oxygen Given Sodium 143 Potassium 3.7 Chloride 108 Carbon Dioxide 22 Anion Gap 17 BUN 26 H Creatinine 0.73 Estim Creat Clear Calc 106.7 Estimated GFR > 60 POC Glucose Random Glucose 340 H D Lactic Acid 1.9 Calcium 7.9 L Phosphorus Magnesium Total Bilirubin 0.4 AST 80 H ALT 63 H Alkaline Phosphatase 143 H Ammonia B-Natriuretic Peptide Total Protein 8.1 H Albumin 3.3 L Triglycerides Lipase 18 Procalcitonin Urine Color Urine Appearance Urine pH Ur Specific [place] Urine Protein Urine Glucose (UA) Urine Ketones Urine Blood Urine Nitrite Ur Leukocyte Esterase Urine RBC Urine WBC Ur Squamous Epith Cells Urine Bacteria Hyaline Casts Urine Mucus Urine Yeast Urine Opiates Screen Ur Barbiturates Screen Levetiracetam Ur Phencyclidine Scrn Ur Amphetamines Screen U Benzodiazepines Scrn Urine Cocaine Screen U Marijuana (THC) Screen Acetone, Qual Negative COVID-19 (GENIE) COVID-19 Clin Com 06/02/20 06/02/2021 00:38 00:39 01:17 WBC 18.2 H RBC 4.60 Hgb 10.8 L Hct 34.9 L MCV 75.9 L MCH 23.5 L MCHC 30.9 L RDW 19.6 H Plt Count 477 H MPV 11.8 Immature Gran % (Auto) 0.3 Neut % (Auto) 89.1 H Lymph % (Auto) 6.0 L Stanley % (Auto) 4.5 Eos % (Auto) 0.0 Baso % (Auto) 0.1 Lymph # (Auto) 1.1 L Stanley # (Auto) 0.8 Eos # (Auto) 0.0 Baso # (Auto) 0.0 Abs Immat Gran (auto) 0.05 H Absolute Neuts (auto) 16.2 H Absolute Nucleated RBC 0.000 Nucleated RBC % (auto) 0.0 Smear Tech's Comments PT INR D-Dimer ABG pH 7.42 ABG pCO2 32 ABG pO2 63 L ABG HCO3 21 L ABG O2 Saturation 91.0 ABG Base Excess -2.2 VBG pH VBG pCO2 VBG pO2 VBG HCO3 VBG O2 Saturation VBG Base Excess Oxygen Given 50% Sodium Potassium Chloride Carbon Dioxide Anion Gap BUN Creatinine Estim Creat Clear Calc Estimated GFR POC Glucose Random Glucose Lactic Acid Calcium Phosphorus Magnesium Total Bilirubin AST ALT Alkaline Phosphatase Ammonia B-Natriuretic Peptide 39 Total Protein Albumin Triglycerides Lipase Procalcitonin Urine Color Urine Appearance Urine pH Ur Specific [place] Urine Protein Urine Glucose (UA) Urine Ketones Urine Blood Urine Nitrite Ur Leukocyte Esterase Urine RBC Urine WBC Ur Squamous Epith Cells Urine Bacteria Hyaline Casts Urine Mucus Urine Yeast Urine Opiates Screen Ur Barbiturates Screen Levetiracetam Ur Phencyclidine Scrn Ur Amphetamines Screen U Benzodiazepines Scrn Urine Cocaine Screen U Marijuana (THC) Screen Acetone, Qual COVID-19 (GENIE) COVID-19 Clin Com 06/02/20 06/02/20 06/02/20 02:38 02:38 04:15 WBC RBC Hgb Hct MCV MCH MCHC RDW Plt Count MPV Immature Gran % (Auto) Neut % (Auto) Lymph % (Auto) Stanley % (Auto) Eos % (Auto) Baso % (Auto) Lymph # (Auto) Stanley # (Auto) Eos # (Auto) Baso # (Auto) Abs Immat Gran (auto) Absolute Neuts (auto) Absolute Nucleated RBC Nucleated RBC % (auto) Smear Tech's Comments PT INR D-Dimer ABG pH ABG pCO2 ABG pO2 ABG HCO3 ABG O2 Saturation ABG Base Excess VBG pH VBG pCO2 VBG pO2 VBG HCO3 VBG O2 Saturation VBG Base Excess Oxygen Given Sodium Potassium Chloride Carbon Dioxide Anion Gap BUN Creatinine Estim Creat Clear Calc Estimated GFR POC Glucose Random Glucose Lactic Acid Calcium Phosphorus Magnesium Total Bilirubin AST ALT Alkaline Phosphatase Ammonia B-Natriuretic Peptide Total Protein Albumin Triglycerides Lipase Procalcitonin Urine Color YELLOW Urine Appearance CLOUDY Urine pH 6.5 Ur Specific [place] 1.025 Urine Protein 3+ H Urine Glucose (UA) 250 H Urine Ketones NEG Urine Blood 3+ H Urine Nitrite NEG Ur Leukocyte Esterase NEG Urine RBC 76-150 H Urine WBC 10-14 H Ur Squamous Epith Cells TRACE Urine Bacteria NONE Hyaline Casts 1-4 Urine Mucus TRACE Urine Yeast TRACE Urine Opiates Screen Not Detected Ur Barbiturates Screen Not Detected Levetiracetam 11.8 L Ur Phencyclidine Scrn Not Detected Ur Amphetamines Screen Not Detected U Benzodiazepines Scrn Not Detected Urine Cocaine Screen Not Detected U Marijuana (THC) Screen Not Detected Acetone, Qual COVID-19 (GENIE) COVID-19 Clin Com 06/02/20 06/02/20 06/02/20 04:15 04:15 13:36 WBC RBC Hgb Hct MCV MCH MCHC RDW Plt Count MPV Immature Gran % (Auto) Neut % (Auto) Lymph % (Auto) Stanley % (Auto) Eos % (Auto) Baso % (Auto) Lymph # (Auto) Stanley # (Auto) Eos # (Auto) Baso # (Auto) Abs Immat Gran (auto) Absolute Neuts (auto) Absolute Nucleated RBC Nucleated RBC % (auto) Smear Tech's Comments PT INR D-Dimer ABG pH ABG pCO2 ABG pO2 ABG HCO3 ABG O2 Saturation ABG Base Excess VBG pH 7.38 VBG pCO2 37 VBG pO2 60 VBG HCO3 22 VBG O2 Saturation 87.0 VBG Base Excess -1.9 Oxygen Given Sodium Potassium Chloride Carbon Dioxide Anion Gap BUN Creatinine Estim Creat Clear Calc Estimated GFR POC Glucose Random Glucose Lactic Acid Calcium Phosphorus Magnesium Total Bilirubin AST ALT Alkaline Phosphatase Ammonia 42 B-Natriuretic Peptide Total Protein Albumin Triglycerides Lipase Procalcitonin 0.05 Urine Color Urine Appearance Urine pH Ur Specific [place] Urine Protein Urine Glucose (UA) Urine Ketones Urine Blood Urine Nitrite Ur Leukocyte Esterase Urine RBC Urine WBC Ur Squamous Epith Cells Urine Bacteria Hyaline Casts Urine Mucus Urine Yeast Urine Opiates Screen Ur Barbiturates Screen Levetiracetam Ur Phencyclidine Scrn Ur Amphetamines Screen U Benzodiazepines Scrn Urine Cocaine Screen U Marijuana (THC) Screen Acetone, Qual COVID-19 (GENIE) COVID-19 Clin Com 06/02/20 06/02/20 06/03/20 15:34 20:39 06:16 WBC 26.9 H RBC 4.45 L Hgb 10.3 L Hct 33.7 L MCV 75.7 L MCH 23.1 L MCHC 30.6 L RDW 19.7 H Plt Count 295 D MPV Not Reportable Immature Gran % (Auto) 0.9 H Neut % (Auto) 91.0 H Lymph % (Auto) 4.6 L Stanley % (Auto) 3.2 Eos % (Auto) 0.2 Baso % (Auto) 0.1 Lymph # (Auto) 1.3 Stanley # (Auto) 0.9 Eos # (Auto) 0.1 Baso # (Auto) 0.0 Abs Immat Gran (auto) 0.24 H Absolute Neuts (auto) 24.4 H Absolute Nucleated RBC 0.000 Nucleated RBC % (auto) 0.0 Smear Tech's Comments VERIFIED PT INR D-Dimer ABG pH ABG pCO2 ABG pO2 ABG HCO3 ABG O2 Saturation ABG Base Excess VBG pH VBG pCO2 VBG pO2 VBG HCO3 VBG O2 Saturation VBG Base Excess Oxygen Given Sodium Potassium Chloride Carbon Dioxide Anion Gap BUN Creatinine Estim Creat Clear Calc Estimated GFR POC Glucose 317 H 254 H Random Glucose Lactic Acid Calcium Phosphorus Magnesium Total Bilirubin AST ALT Alkaline Phosphatase Ammonia B-Natriuretic Peptide Total Protein Albumin Triglycerides Lipase Procalcitonin Urine Color Urine Appearance Urine pH Ur Specific [place] Urine Protein Urine Glucose (UA) Urine Ketones Urine Blood Urine Nitrite Ur Leukocyte Esterase Urine RBC Urine WBC Ur Squamous Epith Cells Urine Bacteria Hyaline Casts Urine Mucus Urine Yeast Urine Opiates Screen Ur Barbiturates Screen Levetiracetam Ur Phencyclidine Scrn Ur Amphetamines Screen U Benzodiazepines Scrn Urine Cocaine Screen U Marijuana (THC) Screen Acetone, Qual COVID-19 (GENIE) COVID-19 Clin Com 06/03/20 06/03/20 06/03/20 06:16 07:04 11:02 WBC RBC Hgb Hct MCV MCH MCHC RDW Plt Count MPV Immature Gran % (Auto) Neut % (Auto) Lymph % (Auto) Stanley % (Auto) Eos % (Auto) Baso % (Auto) Lymph # (Auto) Stanley # (Auto) Eos # (Auto) Baso # (Auto) Abs Immat Gran (auto) Absolute Neuts (auto) Absolute Nucleated RBC Nucleated RBC % (auto) Smear Tech's Comments PT INR D-Dimer ABG pH ABG pCO2 ABG pO2 ABG HCO3 ABG O2 Saturation ABG Base Excess VBG pH VBG pCO2 VBG pO2 VBG HCO3 VBG O2 Saturation VBG Base Excess Oxygen Given Sodium 147 H Potassium 3.2 L Chloride 112 H Carbon Dioxide 23 Anion Gap 15 BUN 36 H Creatinine 0.67 Estim Creat Clear Calc 116.2 Estimated GFR > 60 POC Glucose 150 H 207 H Random Glucose 155 H D Lactic Acid Calcium 7.9 L Phosphorus Magnesium Total Bilirubin AST ALT Alkaline Phosphatase Ammonia B-Natriuretic Peptide Total Protein Albumin Triglycerides Lipase Procalcitonin Urine Color Urine Appearance Urine pH Ur Specific [place] Urine Protein Urine Glucose (UA) Urine Ketones Urine Blood Urine Nitrite Ur Leukocyte Esterase Urine RBC Urine WBC Ur Squamous Epith Cells Urine Bacteria Hyaline Casts Urine Mucus Urine Yeast Urine Opiates Screen Ur Barbiturates Screen Levetiracetam Ur Phencyclidine Scrn Ur Amphetamines Screen U Benzodiazepines Scrn Urine Cocaine Screen U Marijuana (THC) Screen Acetone, Qual COVID-19 (GENIE) COVID-19 Clin Com 06/03/20 06/03/20 06/04/20 16:09 19:51 05:47 WBC 25.1 H RBC 4.57 L Hgb 10.6 L Hct 34.6 L MCV 75.7 L MCH 23.2 L MCHC 30.6 L RDW 19.7 H Plt Count 387 D MPV 12.4 Immature Gran % (Auto) Neut % (Auto) Lymph % (Auto) Stanley % (Auto) Eos % (Auto) Baso % (Auto) Lymph # (Auto) Stanley # (Auto) Eos # (Auto) Baso # (Auto) Abs Immat Gran (auto) Absolute Neuts (auto) Absolute Nucleated RBC 0.000 Nucleated RBC % (auto) 0.0 Smear Tech's Comments PT INR D-Dimer ABG pH ABG pCO2 ABG pO2 ABG HCO3 ABG O2 Saturation ABG Base Excess VBG pH VBG pCO2 VBG pO2 VBG HCO3 VBG O2 Saturation VBG Base Excess Oxygen Given Sodium Potassium Chloride Carbon Dioxide Anion Gap BUN Creatinine Estim Creat Clear Calc Estimated GFR POC Glucose 252 H 271 H Random Glucose Lactic Acid Calcium Phosphorus Magnesium Total Bilirubin AST ALT Alkaline Phosphatase Ammonia B-Natriuretic Peptide Total Protein Albumin Triglycerides Lipase Procalcitonin Urine Color Urine Appearance Urine pH Ur Specific [place] Urine Protein Urine Glucose (UA) Urine Ketones Urine Blood Urine Nitrite Ur Leukocyte Esterase Urine RBC Urine WBC Ur Squamous Epith Cells Urine Bacteria Hyaline Casts Urine Mucus Urine Yeast Urine Opiates Screen Ur Barbiturates Screen Levetiracetam Ur Phencyclidine Scrn Ur Amphetamines Screen U Benzodiazepines Scrn Urine Cocaine Screen U Marijuana (THC) Screen Acetone, Qual COVID-19 (GENIE) COVID-19 Clin Com 06/04/20 06/04/20 06/04/20 05:47 05:47 07:47 WBC RBC Hgb Hct MCV MCH MCHC RDW Plt Count MPV Immature Gran % (Auto) Neut % (Auto) Lymph % (Auto) Stanley % (Auto) Eos % (Auto) Baso % (Auto) Lymph # (Auto) Stanley # (Auto) Eos # (Auto) Baso # (Auto) Abs Immat Gran (auto) Absolute Neuts (auto) Absolute Nucleated RBC Nucleated RBC % (auto) Smear Tech's Comments PT INR D-Dimer ABG pH ABG pCO2 ABG pO2 ABG HCO3 ABG O2 Saturation ABG Base Excess VBG pH VBG pCO2 VBG pO2 VBG HCO3 VBG O2 Saturation VBG Base Excess Oxygen Given Sodium 148 H Potassium 2.8 L Chloride 110 H Carbon Dioxide 25 Anion Gap 16 BUN 28 H Creatinine 0.69 Estim Creat Clear Calc 112.9 Estimated GFR > 60 POC Glucose 242 H Random Glucose 260 H D Lactic Acid Calcium 7.8 L Phosphorus Magnesium Total Bilirubin AST ALT Alkaline Phosphatase Ammonia B-Natriuretic Peptide Total Protein Albumin Triglycerides Lipase Procalcitonin 0.13 Urine Color Urine Appearance Urine pH Ur Specific [place] Urine Protein Urine Glucose (UA) Urine Ketones Urine Blood Urine Nitrite Ur Leukocyte Esterase Urine RBC Urine WBC Ur Squamous Epith Cells Urine Bacteria Hyaline Casts Urine Mucus Urine Yeast Urine Opiates Screen Ur Barbiturates Screen Levetiracetam Ur Phencyclidine Scrn Ur Amphetamines Screen U Benzodiazepines Scrn Urine Cocaine Screen U Marijuana (THC) Screen Acetone, Qual COVID-19 (GENIE) COVID-19 [place] Com 06/04/20 06/04/20 06/04/20 11:40 13:25 15:58 WBC RBC Hgb Hct MCV MCH MCHC RDW Plt Count MPV Immature Gran % (Auto) Neut % (Auto) Lymph % (Auto) Stanley % (Auto) Eos % (Auto) Baso % (Auto) Lymph # (Auto) Stanley # (Auto) Eos # (Auto) Baso # (Auto) Abs Immat Gran (auto) Absolute Neuts (auto) Absolute Nucleated RBC Nucleated RBC % (auto) Smear Tech's Comments PT INR D-Dimer ABG pH ABG pCO2 ABG pO2 ABG HCO3 ABG O2 Saturation ABG Base Excess VBG pH VBG pCO2 VBG pO2 VBG HCO3 VBG O2 Saturation VBG Base Excess Oxygen Given Sodium 145 Potassium 3.3 Chloride 108 Carbon Dioxide 25 Anion Gap 15 BUN 27 H Creatinine 0.67 Estim Creat Clear Calc 116.2 Estimated GFR > 60 POC Glucose 281 H 280 H Random Glucose 279 H Lactic Acid Calcium 7.8 L Phosphorus Magnesium Total Bilirubin AST ALT Alkaline Phosphatase Ammonia B-Natriuretic Peptide Total Protein Albumin Triglycerides Lipase Procalcitonin Urine Color Urine Appearance Urine pH Ur Specific [place] Urine Protein Urine Glucose (UA) Urine Ketones Urine Blood Urine Nitrite Ur Leukocyte Esterase Urine RBC Urine WBC Ur Squamous Epith Cells Urine Bacteria Hyaline Casts Urine Mucus Urine Yeast Urine Opiates Screen Ur Barbiturates Screen Levetiracetam Ur Phencyclidine Scrn Ur Amphetamines Screen U Benzodiazepines Scrn Urine Cocaine Screen U Marijuana (THC) Screen Acetone, Qual COVID-19 (GENIE) COVID-19 [place] Com 06/04/20 06/05/20 06/05/20 19:52 05:33 05:33 WBC 18.2 H RBC 4.19 L Hgb 9.9 L Hct 31.7 L MCV 75.7 L MCH 23.6 L MCHC 31.2 RDW 19.9 H Plt Count 353 MPV 12.8 H Immature Gran % (Auto) Neut % (Auto) Lymph % (Auto) Stanley % (Auto) Eos % (Auto) Baso % (Auto) Lymph # (Auto) Stanley # (Auto) Eos # (Auto) Baso # (Auto) Abs Immat Gran (auto) Absolute Neuts (auto) Absolute Nucleated RBC 0.020 H Nucleated RBC % (auto) 0.1 Smear Tech's Comments PT INR D-Dimer ABG pH ABG pCO2 ABG pO2 ABG HCO3 ABG O2 Saturation ABG Base Excess VBG pH VBG pCO2 VBG pO2 VBG HCO3 VBG O2 Saturation VBG Base Excess Oxygen Given Sodium 145 Potassium 2.9 L Chloride 110 H Carbon Dioxide 24 Anion Gap 14 BUN 22 H Creatinine 0.62 Estim Creat Clear Calc 125.6 Estimated GFR > 60 POC Glucose 290 H Random Glucose 305 H Lactic Acid Calcium 7.7 L Phosphorus Magnesium Total Bilirubin AST ALT Alkaline Phosphatase Ammonia B-Natriuretic Peptide Total Protein Albumin Triglycerides Lipase Procalcitonin Urine Color Urine Appearance Urine pH Ur Specific [place] Urine Protein Urine Glucose (UA) Urine Ketones Urine Blood Urine Nitrite Ur Leukocyte Esterase Urine RBC Urine WBC Ur Squamous Epith Cells Urine Bacteria Hyaline Casts Urine Mucus Urine Yeast Urine Opiates Screen Ur Barbiturates Screen Levetiracetam Ur Phencyclidine Scrn Ur Amphetamines Screen U Benzodiazepines Scrn Urine Cocaine Screen U Marijuana (THC) Screen Acetone, Qual COVID-19 (GENIE) COVID-19 Clin Com 06/05/20 06/05/20 06/05/20 07:38 11:40 16:11 WBC RBC Hgb Hct MCV MCH MCHC RDW Plt Count MPV Immature Gran % (Auto) Neut % (Auto) Lymph % (Auto) Stanley % (Auto) Eos % (Auto) Baso % (Auto) Lymph # (Auto) Stanley # (Auto) Eos # (Auto) Baso # (Auto) Abs Immat Gran (auto) Absolute Neuts (auto) Absolute Nucleated RBC Nucleated RBC % (auto) Smear Tech's Comments PT INR D-Dimer ABG pH ABG pCO2 ABG pO2 ABG HCO3 ABG O2 Saturation ABG Base Excess VBG pH VBG pCO2 VBG pO2 VBG HCO3 VBG O2 Saturation VBG Base Excess Oxygen Given Sodium Potassium Chloride Carbon Dioxide Anion Gap BUN Creatinine Estim Creat Clear Calc Estimated GFR POC Glucose 283 H 263 H 274 H Random Glucose Lactic Acid Calcium Phosphorus Magnesium Total Bilirubin AST ALT Alkaline Phosphatase Ammonia B-Natriuretic Peptide Total Protein Albumin Triglycerides Lipase Procalcitonin Urine Color Urine Appearance Urine pH Ur Specific [place] Urine Protein Urine Glucose (UA) Urine Ketones Urine Blood Urine Nitrite Ur Leukocyte Esterase Urine RBC Urine WBC Ur Squamous Epith Cells Urine Bacteria Hyaline Casts Urine Mucus Urine Yeast Urine Opiates Screen Ur Barbiturates Screen Levetiracetam Ur Phencyclidine Scrn Ur Amphetamines Screen U Benzodiazepines Scrn Urine Cocaine Screen U Marijuana (THC) Screen Acetone, Qual COVID-19 (GENIE) COVID-19 [place] Com 06/05/20 06/06/20 06/06/20 19:50 05:45 05:45 WBC 15.6 H RBC 3.87 L Hgb 9.0 L Hct 29.3 L MCV 75.7 L MCH 23.3 L MCHC 30.7 L RDW 19.6 H Plt Count 336 MPV Not Reportable Immature Gran % (Auto) Neut % (Auto) Lymph % (Auto) Stanley % (Auto) Eos % (Auto) Baso % (Auto) Lymph # (Auto) Stanley # (Auto) Eos # (Auto) Baso # (Auto) Abs Immat Gran (auto) Absolute Neuts (auto) Absolute Nucleated RBC 0.000 Nucleated RBC % (auto) 0.0 Smear Tech's Comments PT INR D-Dimer ABG pH ABG pCO2 ABG pO2 ABG HCO3 ABG O2 Saturation ABG Base Excess VBG pH VBG pCO2 VBG pO2 VBG HCO3 VBG O2 Saturation VBG Base Excess Oxygen Given Sodium 146 H Potassium 3.3 Chloride 115 H Carbon Dioxide 22 Anion Gap 12 BUN 18 H Creatinine 0.62 Estim Creat Clear Calc 125.6 Estimated GFR > 60 POC Glucose 293 H Random Glucose 269 H Lactic Acid Calcium 7.4 L Phosphorus 1.9 L Magnesium 1.9 Total Bilirubin AST ALT Alkaline Phosphatase Ammonia B-Natriuretic Peptide Total Protein Albumin 2.5 L D Triglycerides 146 Lipase Procalcitonin Urine Color Urine Appearance Urine pH Ur Specific [place] Urine Protein Urine Glucose (UA) Urine Ketones Urine Blood Urine Nitrite Ur Leukocyte Esterase Urine RBC Urine WBC Ur Squamous Epith Cells Urine Bacteria Hyaline Casts Urine Mucus Urine Yeast Urine Opiates Screen Ur Barbiturates Screen Levetiracetam Ur Phencyclidine Scrn Ur Amphetamines Screen U Benzodiazepines Scrn Urine Cocaine Screen U Marijuana (THC) Screen Acetone, Qual COVID-19 (GENIE) COVID-19 [place] Com 06/06/20 06/06/20 06/06/20 07:24 11:00 16:40 WBC RBC Hgb Hct MCV MCH MCHC RDW Plt Count MPV Immature Gran % (Auto) Neut % (Auto) Lymph % (Auto) Stanley % (Auto) Eos % (Auto) Baso % (Auto) Lymph # (Auto) Stanley # (Auto) Eos # (Auto) Baso # (Auto) Abs Immat Gran (auto) Absolute Neuts (auto) Absolute Nucleated RBC Nucleated RBC % (auto) Smear Tech's Comments PT INR D-Dimer ABG pH ABG pCO2 ABG pO2 ABG HCO3 ABG O2 Saturation ABG Base Excess VBG pH VBG pCO2 VBG pO2 VBG HCO3 VBG O2 Saturation VBG Base Excess Oxygen Given Sodium Potassium Chloride Carbon Dioxide Anion Gap BUN Creatinine Estim Creat Clear Calc Estimated GFR POC Glucose 214 H 256 H 364 H* Random Glucose Lactic Acid Calcium Phosphorus Magnesium Total Bilirubin AST ALT Alkaline Phosphatase Ammonia B-Natriuretic Peptide Total Protein Albumin Triglycerides Lipase Procalcitonin Urine Color Urine Appearance Urine pH Ur Specific [place] Urine Protein Urine Glucose (UA) Urine Ketones Urine Blood Urine Nitrite Ur Leukocyte Esterase Urine RBC Urine WBC Ur Squamous Epith Cells Urine Bacteria Hyaline Casts Urine Mucus Urine Yeast Urine Opiates Screen Ur Barbiturates Screen Levetiracetam Ur Phencyclidine Scrn Ur Amphetamines Screen U Benzodiazepines Scrn Urine Cocaine Screen U Marijuana (THC) Screen Acetone, Qual COVID-19 (GENIE) COVID-19 Clin Com 06/06/20 06/07/20 06/07/20 21:07 08:52 11:18 WBC RBC Hgb Hct MCV MCH MCHC RDW Plt Count MPV Immature Gran % (Auto) Neut % (Auto) Lymph % (Auto) Stanley % (Auto) Eos % (Auto) Baso % (Auto) Lymph # (Auto) Stanley # (Auto) Eos # (Auto) Baso # (Auto) Abs Immat Gran (auto) Absolute Neuts (auto) Absolute Nucleated RBC Nucleated RBC % (auto) Smear Tech's Comments PT INR D-Dimer ABG pH ABG pCO2 ABG pO2 ABG HCO3 ABG O2 Saturation ABG Base Excess VBG pH VBG pCO2 VBG pO2 VBG HCO3 VBG O2 Saturation VBG Base Excess Oxygen Given Sodium Potassium Chloride Carbon Dioxide Anion Gap BUN Creatinine Estim Creat Clear Calc Estimated GFR POC Glucose 278 H 221 H 211 H Random Glucose Lactic Acid Calcium Phosphorus Magnesium Total Bilirubin AST ALT Alkaline Phosphatase Ammonia B-Natriuretic Peptide Total Protein Albumin Triglycerides Lipase Procalcitonin Urine Color Urine Appearance Urine pH Ur Specific [place] Urine Protein Urine Glucose (UA) Urine Ketones Urine Blood Urine Nitrite Ur Leukocyte Esterase Urine RBC Urine WBC Ur Squamous Epith Cells Urine Bacteria Hyaline Casts Urine Mucus Urine Yeast Urine Opiates Screen Ur Barbiturates Screen Levetiracetam Ur Phencyclidine Scrn Ur Amphetamines Screen U Benzodiazepines Scrn Urine Cocaine Screen U Marijuana (THC) Screen Acetone, Qual COVID-19 (GENIE) COVID-19 Clin Com 06/07/20 06/07/20 06/07/20 11:40 12:35 16:27 WBC RBC Hgb Hct MCV MCH MCHC RDW Plt Count MPV Immature Gran % (Auto) Neut % (Auto) Lymph % (Auto) Stanley % (Auto) Eos % (Auto) Baso % (Auto) Lymph # (Auto) Stanley # (Auto) Eos # (Auto) Baso # (Auto) Abs Immat Gran (auto) Absolute Neuts (auto) Absolute Nucleated RBC Nucleated RBC % (auto) Smear Tech's Comments PT INR D-Dimer ABG pH ABG pCO2 ABG pO2 ABG HCO3 ABG O2 Saturation ABG Base Excess VBG pH VBG pCO2 VBG pO2 VBG HCO3 VBG O2 Saturation VBG Base Excess Oxygen Given Sodium 143 Potassium 3.1 L Chloride 115 H Carbon Dioxide 21 L Anion Gap 10 L BUN 21 H Creatinine 0.58 Estim Creat Clear Calc 134.3 Estimated GFR > 60 POC Glucose 214 H 301 H Random Glucose 237 H Lactic Acid Calcium 7.3 L Phosphorus 2.1 L Magnesium 1.9 Total Bilirubin AST ALT Alkaline Phosphatase Ammonia B-Natriuretic Peptide Total Protein Albumin 2.5 L Triglycerides Lipase Procalcitonin Urine Color Urine Appearance Urine pH Ur Specific [place] Urine Protein Urine Glucose (UA) Urine Ketones Urine Blood Urine Nitrite Ur Leukocyte Esterase Urine RBC Urine WBC Ur Squamous Epith Cells Urine Bacteria Hyaline Casts Urine Mucus Urine Yeast Urine Opiates Screen Ur Barbiturates Screen Levetiracetam Ur Phencyclidine Scrn Ur Amphetamines Screen U Benzodiazepines Scrn Urine Cocaine Screen U Marijuana (THC) Screen Acetone, Qual COVID-19 (GENIE) COVID-19 Clin Com 06/07/20 06/08/20 06/08/20 20:43 07:39 10:05 WBC RBC Hgb Hct MCV MCH MCHC RDW Plt Count MPV Immature Gran % (Auto) Neut % (Auto) Lymph % (Auto) Stanley % (Auto) Eos % (Auto) Baso % (Auto) Lymph # (Auto) Stanley # (Auto) Eos # (Auto) Baso # (Auto) Abs Immat Gran (auto) Absolute Neuts (auto) Absolute Nucleated RBC Nucleated RBC % (auto) Smear Tech's Comments PT INR D-Dimer ABG pH ABG pCO2 ABG pO2 ABG HCO3 ABG O2 Saturation ABG Base Excess VBG pH VBG pCO2 VBG pO2 VBG HCO3 VBG O2 Saturation VBG Base Excess Oxygen Given Sodium Potassium Chloride Carbon Dioxide Anion Gap BUN Creatinine Estim Creat Clear Calc Estimated GFR POC Glucose 196 H 246 H Random Glucose Lactic Acid Calcium Phosphorus Magnesium Total Bilirubin AST ALT Alkaline Phosphatase Ammonia B-Natriuretic Peptide Total Protein Albumin Triglycerides Lipase Procalcitonin Urine Color Urine Appearance Urine pH Ur Specific [place] Urine Protein Urine Glucose (UA) Urine Ketones Urine Blood Urine Nitrite Ur Leukocyte Esterase Urine RBC Urine WBC Ur Squamous Epith Cells Urine Bacteria Hyaline Casts Urine Mucus Urine Yeast Urine Opiates Screen Ur Barbiturates Screen Levetiracetam Ur Phencyclidine Scrn Ur Amphetamines Screen U Benzodiazepines Scrn Urine Cocaine Screen U Marijuana (THC) Screen Acetone, Qual COVID-19 (GENIE) Positive A COVID-19 Clin Com See Note 06/08/20 06/08/20 06/08/20 11:47 15:17 16:07 WBC RBC Hgb Hct MCV MCH MCHC RDW Plt Count MPV Immature Gran % (Auto) Neut % (Auto) Lymph % (Auto) Stanley % (Auto) Eos % (Auto) Baso % (Auto) Lymph # (Auto) Stanley # (Auto) Eos # (Auto) Baso # (Auto) Abs Immat Gran (auto) Absolute Neuts (auto) Absolute Nucleated RBC Nucleated RBC % (auto) Smear Tech's Comments PT INR D-Dimer ABG pH ABG pCO2 ABG pO2 ABG HCO3 ABG O2 Saturation ABG Base Excess VBG pH VBG pCO2 VBG pO2 VBG HCO3 VBG O2 Saturation VBG Base Excess Oxygen Given Sodium 141 Potassium 3.8 D Chloride 112 H Carbon Dioxide 22 Anion Gap 11 L BUN 16 Creatinine 0.59 Estim Creat Clear Calc 132.0 Estimated GFR > 60 POC Glucose 249 H 297 H Random Glucose 272 H Lactic Acid Calcium 7.5 L Phosphorus 2.7 Magnesium 1.9 Total Bilirubin AST ALT Alkaline Phosphatase Ammonia B-Natriuretic Peptide Total Protein Albumin Triglycerides Lipase Procalcitonin Urine Color Urine Appearance Urine pH Ur Specific [place] Urine Protein Urine Glucose (UA) Urine Ketones Urine Blood Urine Nitrite Ur Leukocyte Esterase Urine RBC Urine WBC Ur Squamous Epith Cells Urine Bacteria Hyaline Casts Urine Mucus Urine Yeast Urine Opiates Screen Ur Barbiturates Screen Levetiracetam Ur Phencyclidine Scrn Ur Amphetamines Screen U Benzodiazepines Scrn Urine Cocaine Screen U Marijuana (THC) Screen Acetone, Qual COVID-19 (GENIE) COVID-19 [place] Com 06/08/20 06/09/20 06/09/20 20:01 07:48 09:29 WBC RBC Hgb Hct MCV MCH MCHC RDW Plt Count MPV Immature Gran % (Auto) Neut % (Auto) Lymph % (Auto) Stanley % (Auto) Eos % (Auto) Baso % (Auto) Lymph # (Auto) Stanley # (Auto) Eos # (Auto) Baso # (Auto) Abs Immat Gran (auto) Absolute Neuts (auto) Absolute Nucleated RBC Nucleated RBC % (auto) Smear Tech's Comments PT INR D-Dimer ABG pH ABG pCO2 ABG pO2 ABG HCO3 ABG O2 Saturation ABG Base Excess VBG pH VBG pCO2 VBG pO2 VBG HCO3 VBG O2 Saturation VBG Base Excess Oxygen Given Sodium 138 Potassium 3.5 Chloride 109 H Carbon Dioxide 21 L Anion Gap 12 BUN 16 Creatinine 0.59 Estim Creat Clear Calc 132.0 Estimated GFR > 60 POC Glucose 277 H 220 H Random Glucose 273 H Lactic Acid Calcium 7.6 L Phosphorus 2.9 Magnesium 1.8 Total Bilirubin AST ALT Alkaline Phosphatase Ammonia B-Natriuretic Peptide Total Protein Albumin 2.4 L Triglycerides Lipase Procalcitonin Urine Color Urine Appearance Urine pH Ur Specific [place] Urine Protein Urine Glucose (UA) Urine Ketones Urine Blood Urine Nitrite Ur Leukocyte Esterase Urine RBC Urine WBC Ur Squamous Epith Cells Urine Bacteria Hyaline Casts Urine Mucus Urine Yeast Urine Opiates Screen Ur Barbiturates Screen Levetiracetam Ur Phencyclidine Scrn Ur Amphetamines Screen U Benzodiazepines Scrn Urine Cocaine Screen U Marijuana (THC) Screen Acetone, Qual COVID-19 (GENIE) COVID-19 [place] Com 06/09/20 06/09/20 06/09/20 11:20 14:01 14:28 WBC RBC Hgb Hct MCV MCH MCHC RDW Plt Count MPV Immature Gran % (Auto) Neut % (Auto) Lymph % (Auto) Stanley % (Auto) Eos % (Auto) Baso % (Auto) Lymph # (Auto) Stanley # (Auto) Eos # (Auto) Baso # (Auto) Abs Immat Gran (auto) Absolute Neuts (auto) Absolute Nucleated RBC Nucleated RBC % (auto) Smear Tech's Comments PT INR D-Dimer ABG pH ABG pCO2 ABG pO2 ABG HCO3 ABG O2 Saturation ABG Base Excess VBG pH VBG pCO2 VBG pO2 VBG HCO3 VBG O2 Saturation VBG Base Excess Oxygen Given Sodium Potassium Chloride Carbon Dioxide Anion Gap BUN Creatinine Estim Creat Clear Calc Estimated GFR POC Glucose 336 H 342 H 330 H Random Glucose Lactic Acid Calcium Phosphorus Magnesium Total Bilirubin AST ALT Alkaline Phosphatase Ammonia B-Natriuretic Peptide Total Protein Albumin Triglycerides Lipase Procalcitonin Urine Color Urine Appearance Urine pH Ur Specific [place] Urine Protein Urine Glucose (UA) Urine Ketones Urine Blood Urine Nitrite Ur Leukocyte Esterase Urine RBC Urine WBC Ur Squamous Epith Cells Urine Bacteria Hyaline Casts Urine Mucus Urine Yeast Urine Opiates Screen Ur Barbiturates Screen Levetiracetam Ur Phencyclidine Scrn Ur Amphetamines Screen U Benzodiazepines Scrn Urine Cocaine Screen U Marijuana (THC) Screen Acetone, Qual COVID-19 (GENIE) COVID-19 Clin Com 06/09/20 06/09/20 06/09/20 16:23 17:47 20:20 WBC RBC Hgb Hct MCV MCH MCHC RDW Plt Count MPV Immature Gran % (Auto) Neut % (Auto) Lymph % (Auto) Stanley % (Auto) Eos % (Auto) Baso % (Auto) Lymph # (Auto) Stanley # (Auto) Eos # (Auto) Baso # (Auto) Abs Immat Gran (auto) Absolute Neuts (auto) Absolute Nucleated RBC Nucleated RBC % (auto) Smear Tech's Comments PT INR D-Dimer ABG pH ABG pCO2 ABG pO2 ABG HCO3 ABG O2 Saturation ABG Base Excess VBG pH VBG pCO2 VBG pO2 VBG HCO3 VBG O2 Saturation VBG Base Excess Oxygen Given Sodium Potassium Chloride Carbon Dioxide Anion Gap BUN Creatinine Estim Creat Clear Calc Estimated GFR POC Glucose 185 H 130 H 128 H Random Glucose Lactic Acid Calcium Phosphorus Magnesium Total Bilirubin AST ALT Alkaline Phosphatase Ammonia B-Natriuretic Peptide Total Protein Albumin Triglycerides Lipase Procalcitonin Urine Color Urine Appearance Urine pH Ur Specific [place] Urine Protein Urine Glucose (UA) Urine Ketones Urine Blood Urine Nitrite Ur Leukocyte Esterase Urine RBC Urine WBC Ur Squamous Epith Cells Urine Bacteria Hyaline Casts Urine Mucus Urine Yeast Urine Opiates Screen Ur Barbiturates Screen Levetiracetam Ur Phencyclidine Scrn Ur Amphetamines Screen U Benzodiazepines Scrn Urine Cocaine Screen U Marijuana (THC) Screen Acetone, Qual COVID-19 (GENIE) COVID-19 [place] 06/10/20 06/10/20 06/10/20 00:20 05:59 07:48 WBC RBC Hgb Hct MCV MCH MCHC RDW Plt Count MPV Immature Gran % (Auto) Neut % (Auto) Lymph % (Auto) Stanley % (Auto) Eos % (Auto) Baso % (Auto) Lymph # (Auto) Stanley # (Auto) Eos # (Auto) Baso # (Auto) Abs Immat Gran (auto) Absolute Neuts (auto) Absolute Nucleated RBC Nucleated RBC % (auto) Smear Tech's Comments PT INR D-Dimer ABG pH ABG pCO2 ABG pO2 ABG HCO3 ABG O2 Saturation ABG Base Excess VBG pH VBG pCO2 VBG pO2 VBG HCO3 VBG O2 Saturation VBG Base Excess Oxygen Given Sodium 142 Potassium 3.7 Chloride 113 H Carbon Dioxide 19 L Anion Gap 14 BUN 15 Creatinine 0.54 Estim Creat Clear Calc 144.2 Estimated GFR > 60 POC Glucose 127 H 145 H Random Glucose 129 H D Lactic Acid Calcium 7.7 L Phosphorus 2.8 Magnesium 1.8 Total Bilirubin AST ALT Alkaline Phosphatase Ammonia B-Natriuretic Peptide Total Protein Albumin 2.5 L Triglycerides Lipase Procalcitonin Urine Color Urine Appearance Urine pH Ur Specific [place] Urine Protein Urine Glucose (UA) Urine Ketones Urine Blood Urine Nitrite Ur Leukocyte Esterase Urine RBC Urine WBC Ur Squamous Epith Cells Urine Bacteria Hyaline Casts Urine Mucus Urine Yeast Urine Opiates Screen Ur Barbiturates Screen Levetiracetam Ur Phencyclidine Scrn Ur Amphetamines Screen U Benzodiazepines Scrn Urine Cocaine Screen U Marijuana (THC) Screen Acetone, Qual COVID-19 (GENIE) COVID-19 [place] 06/10/20 06/10/20 06/10/20 11:06 16:14 20:37 WBC RBC Hgb Hct MCV MCH MCHC RDW Plt Count MPV Immature Gran % (Auto) Neut % (Auto) Lymph % (Auto) Stanley % (Auto) Eos % (Auto) Baso % (Auto) Lymph # (Auto) Stanley # (Auto) Eos # (Auto) Baso # (Auto) Abs Immat Gran (auto) Absolute Neuts (auto) Absolute Nucleated RBC Nucleated RBC % (auto) Smear Tech's Comments PT INR D-Dimer ABG pH ABG pCO2 ABG pO2 ABG HCO3 ABG O2 Saturation ABG Base Excess VBG pH VBG pCO2 VBG pO2 VBG HCO3 VBG O2 Saturation VBG Base Excess Oxygen Given Sodium Potassium Chloride Carbon Dioxide Anion Gap BUN Creatinine Estim Creat Clear Calc Estimated GFR POC Glucose 186 H 267 H 128 H Random Glucose Lactic Acid Calcium Phosphorus Magnesium Total Bilirubin AST ALT Alkaline Phosphatase Ammonia B-Natriuretic Peptide Total Protein Albumin Triglycerides Lipase Procalcitonin Urine Color Urine Appearance Urine pH Ur Specific [place] Urine Protein Urine Glucose (UA) Urine Ketones Urine Blood Urine Nitrite Ur Leukocyte Esterase Urine RBC Urine WBC Ur Squamous Epith Cells Urine Bacteria Hyaline Casts Urine Mucus Urine Yeast Urine Opiates Screen Ur Barbiturates Screen Levetiracetam Ur Phencyclidine Scrn Ur Amphetamines Screen U Benzodiazepines Scrn Urine Cocaine Screen U Marijuana (THC) Screen Acetone, Qual COVID-19 (GENIE) COVID-19 Clin Com 06/11/20 06/11/20 06/11/20 05:41 05:41 07:26 WBC 17.2 H RBC 3.55 L Hgb 8.2 L Hct 26.9 L MCV 75.8 L MCH 23.1 L MCHC 30.5 L RDW 20.0 H Plt Count 251 D MPV Not Reportable Immature Gran % (Auto) 0.9 H Neut % (Auto) 77.5 H Lymph % (Auto) 15.9 L Stanley % (Auto) 4.1 Eos % (Auto) 1.5 Baso % (Auto) 0.1 Lymph # (Auto) 2.7 Stanley # (Auto) 0.7 Eos # (Auto) 0.3 Baso # (Auto) 0.0 Abs Immat Gran (auto) 0.16 H Absolute Neuts (auto) 13.4 H Absolute Nucleated RBC 0.000 Nucleated RBC % (auto) 0.0 Smear Tech's Comments PT INR D-Dimer ABG pH ABG pCO2 ABG pO2 ABG HCO3 ABG O2 Saturation ABG Base Excess VBG pH VBG pCO2 VBG pO2 VBG HCO3 VBG O2 Saturation VBG Base Excess Oxygen Given Sodium 141 Potassium 3.7 Chloride 112 H Carbon Dioxide 20 L Anion Gap 13 BUN 17 H Creatinine 0.55 Estim Creat Clear Calc 141.6 Estimated GFR > 60 POC Glucose 251 H Random Glucose 217 H D Lactic Acid Calcium 7.5 L Phosphorus 2.9 Magnesium 1.8 Total Bilirubin AST ALT Alkaline Phosphatase Ammonia B-Natriuretic Peptide Total Protein Albumin 2.5 L Triglycerides Lipase Procalcitonin Urine Color Urine Appearance Urine pH Ur Specific [place] Urine Protein Urine Glucose (UA) Urine Ketones Urine Blood Urine Nitrite Ur Leukocyte Esterase Urine RBC Urine WBC Ur Squamous Epith Cells Urine Bacteria Hyaline Casts Urine Mucus Urine Yeast Urine Opiates Screen Ur Barbiturates Screen Levetiracetam Ur Phencyclidine Scrn Ur Amphetamines Screen U Benzodiazepines Scrn Urine Cocaine Screen U Marijuana (THC) Screen Acetone, Qual COVID-19 (GENIE) COVID-[employer] 06/11/20 06/11/20 06/11/20 11:21 16:28 20:06 WBC RBC Hgb Hct MCV MCH MCHC RDW Plt Count MPV Immature Gran % (Auto) Neut % (Auto) Lymph % (Auto) Stanley % (Auto) Eos % (Auto) Baso % (Auto) Lymph # (Auto) Stanley # (Auto) Eos # (Auto) Baso # (Auto) Abs Immat Gran (auto) Absolute Neuts (auto) Absolute Nucleated RBC Nucleated RBC % (auto) Smear Tech's Comments PT INR D-Dimer ABG pH ABG pCO2 ABG pO2 ABG HCO3 ABG O2 Saturation ABG Base Excess VBG pH VBG pCO2 VBG pO2 VBG HCO3 VBG O2 Saturation VBG Base Excess Oxygen Given Sodium Potassium Chloride Carbon Dioxide Anion Gap BUN Creatinine Estim Creat Clear Calc Estimated GFR POC Glucose 225 H 163 H 196 H Random Glucose Lactic Acid Calcium Phosphorus Magnesium Total Bilirubin AST ALT Alkaline Phosphatase Ammonia B-Natriuretic Peptide Total Protein Albumin Triglycerides Lipase Procalcitonin Urine Color Urine Appearance Urine pH Ur Specific [place] Urine Protein Urine Glucose (UA) Urine Ketones Urine Blood Urine Nitrite Ur Leukocyte Esterase Urine RBC Urine WBC Ur Squamous Epith Cells Urine Bacteria Hyaline Casts Urine Mucus Urine Yeast Urine Opiates Screen Ur Barbiturates Screen Levetiracetam Ur Phencyclidine Scrn Ur Amphetamines Screen U Benzodiazepines Scrn Urine Cocaine Screen U Marijuana (THC) Screen Acetone, Qual COVID-19 (GENIE) COVID-19 [place]ool [place] Com 06/12/20 06/12/20 06/12/20 05:20 05:20 07:29 WBC 13.6 H RBC 3.72 L Hgb 8.6 L Hct 28.1 L MCV 75.5 L MCH 23.1 L MCHC 30.6 L RDW 19.9 H Plt Count 239 MPV Not Reportable Immature Gran % (Auto) 1.2 H Neut % (Auto) 73.1 H Lymph % (Auto) 19.0 L Stanley % (Auto) 4.8 Eos % (Auto) 1.7 Baso % (Auto) 0.2 Lymph # (Auto) 2.6 Stanley # (Auto) 0.7 Eos # (Auto) 0.2 Baso # (Auto) 0.0 Abs Immat Gran (auto) 0.16 H Absolute Neuts (auto) 9.9 H Absolute Nucleated RBC 0.020 H Nucleated RBC % (auto) 0.1 Smear Tech's Comments PT INR D-Dimer ABG pH ABG pCO2 ABG pO2 ABG HCO3 ABG O2 Saturation ABG Base Excess VBG pH VBG pCO2 VBG pO2 VBG HCO3 VBG O2 Saturation VBG Base Excess Oxygen Given Sodium 139 Potassium 3.7 Chloride 111 H Carbon Dioxide 18 L Anion Gap 14 BUN 16 Creatinine 0.59 Estim Creat Clear Calc 132.0 Estimated GFR > 60 POC Glucose 263 H Random Glucose 239 H Lactic Acid Calcium 7.4 L Phosphorus Magnesium Total Bilirubin AST ALT Alkaline Phosphatase Ammonia B-Natriuretic Peptide Total Protein Albumin Triglycerides Lipase Procalcitonin Urine Color Urine Appearance Urine pH Ur Specific [place] Urine Protein Urine Glucose (UA) Urine Ketones Urine Blood Urine Nitrite Ur Leukocyte Esterase Urine RBC Urine WBC Ur Squamous Epith Cells Urine Bacteria Hyaline Casts Urine Mucus Urine Yeast Urine Opiates Screen Ur Barbiturates Screen Levetiracetam Ur Phencyclidine Scrn Ur Amphetamines Screen U Benzodiazepines Scrn Urine Cocaine Screen U Marijuana (THC) Screen Acetone, Qual COVID-19 (GENIE) COVID-19 Clin Com Airway Mallampati Class: II TM Dist: <=3cm Neck ROM: Limited Denture: Upper and Lower Assessment and Plan Assessment Anesthesia Assessment: Anesthesia Plan Discussed Final Anesthetic Review NPO: Yes ASA Class: IV Final Preanesthetic Review: No Changes in Pt Med Stat, Meds/Allgs Chart Reviewed, Consent Obtained/Reviewed and Anes Risks/Benef Reviewed Patient Risk: Intermediate Procedure Risk: Low Anesthetic Plan Anesthetic Plan: MAC: Disposition: Standard PACU
--- NOTE | 2020-06-12 09:25 | W.PM.OPN ---
Operative Note Operative Note Date of Service: 06/12/20 Narrative: Preop diagnosis: dysphagia Postop diagnosis: dysphagia Procedure: PEG tube placement Surgeon: Deepak Castañeda M.D. The patient is a 59M with Behcet's syndrome,, with recent aspiration pneumonia and failed swallow eval, referred to me for PEG placement for nutrition access. I reviewed the procedure with his daughter Khai. She understood the risks, benefits and alternatives and she had given consent on his behalf. The patient was brought to the OR and placed supine on his hospital bed with some reclining position. A bite block was placed. He was in monitored anesthesia care. A surgical timeout was done. He received cefazolin preop for prophylaxis. I inserted the Olympus gastroscope through the biteblock into the oropahrynx. The vocal chords were visuzalized and the esophageal slit was seen posterior to this. The esophageal slit was intubated and the scope was gently advanced through the esophagus into the stomach. The stomach was insufflated and examined. There were no ulcers or lesions. Transillumination was easily seen in the epigastric area. Indentation on the anterior wall of the stomach was seen with pressure on the abdominal wall with a finger. This area was therefore prepped and draped. Lidocaine 1% was used for local anesthesia. Good position was noted with visualization of the needle in the stomach lumen.I made a short stab incision using a blade 11. I inserted the large gauge needle with the plastic cannula through the incision into the stomach lumen. The needle was removed and the guidewire was inserted through the cannula and was grasped with a snare. the guidewire was pulled out with the scope through the oral cavity. The PEG tube was looped around the guide wire, and the wire was pulled out through the abdominal wall without difficulty. I reinserted the scope into the stomach to confirm good position of the inner mushroom bolster. I then pulled out the scope completely. I applied the external bolster snug on the skin. The procedure was then completed. The patient tolerated the procedure well. There were no immediate complications. Blood loss was minimal. The patient was recovered in the OR because he was COVID positive..
--- NOTE | 2020-06-12 10:51 | MHC.SLORD ---
Per MD notes, procedure for PEG tube placement on 06/09 was canceled by anesthesiology due to patient's elevated blood sugar. Procedure is reportedly scheduled for today. [employer] will continue to follow. Name: Gustavo Gomez Date of : 1960 Age: 59 Date of Registration: 06/02/20 Speech Language Pathology Order Status:
--- NOTE | 2020-06-12 11:35 | MHC.CM.PN ---
Patient is still requiring O2 at 2 liters via NC. Patient is NPO and is having a peg tube placed today, tube feeds will most likely begin tomorrow. Patient is also going for LE angiogram tomorrow. Discharge plan is pending TC [email or web address]. CM will continue to follow patient for discharge needs.
[2020-06-12] MEDS: levETIRAcetam in NaCl (iso-os) 500 MG/100 ML PIGGYBACK 400 MG IV ×2 (11:55→22:27)
[2020-06-12 12:10] LABS: Glucose, Whole Blood 275 mg/dL (60-115)
--- NOTE | 2020-06-12 13:38 | MHC.CLN ---
F/U PT CONTINUES WITH PPN D10 4.25AA AT 60CC/HR PROVIDES 734KCALS, 61G PROTEIN PEG TUBE TODAY PER MD RECOMMEND GLUCERNA AT MAX GOAL RATE 70CC/HR WITH 240CC FREE WATER FLUSH Q SHIFT TO PROVIDE 1680KCALS (24KCALS/KG), 70G PROTEIN (1.0G/KG), 2153CC TOTAL WATER FROM FORMULA AND FLUSHES (30CC/KG) START GLUCERNA AT 20CC/HR AND INCREASE BY 10CC Q 4 HRS UNTIL MAX GOAL RATE 70CC/HR IS ACHIEVED MONITOR TOLERANCE, RESIDUALS AND LYTES
--- NOTE | 2020-06-12 14:32 | PM.EVENT ---
Event Note Date of Service: 06/12/20 Event Note: Underwent peg tube placement earlier today Looks comfortable Peg tube in place Stable vital sign Okay to start PEG tube feeds tomorrow Keep external bolster snug on the skin Alec Ridley updated by phone
--- NOTE | 2020-06-12 15:27 | P.PNIM_ITS ---
Subjective Subjective Date of Service: 06/12/20 Interval History: Patient seen and examined at bedside Patient continues to be NPO and weak currently on PPN Physical Exam Vital Signs: Vital Signs: Last Vital Signs Temp 97.7 F 06/12/20 12:00 Pulse 84 06/12/20 12:30 Resp 32 H 06/12/20 12:00 BP 184/84 H 06/12/20 12:30 Pulse Ox 84 L 06/12/20 12:00 Body Mass Index 28.3 Const: Other: General - awake and alert, doesn't follow direction Cardiovascular - regular rate and rhythm, S1-S2 Lungs - normal respiratory effort, clear to auscultation bilaterally, no wheezing Abdomen - soft, nontender, no rebound or guarding Extremities - no edema bilaterally Neuro - more awake and appears to be appearing to communicate General: no acut e distress Eyes: General: appearance normal, both eyes and all related structures Resp: Effort & Inspection: normal respiratory effort Cardio: Other: General - awake and alert, doesn't follow direction Cardiovascular - regular rate and rhythm, S1-S2 Lungs - normal respiratory effort, clear to auscultation bilaterally, no whe ezing Abdomen - soft, nontender, no rebound or guarding Extremities - no edema bilaterally Neuro - more awake and appears to be appearing to communicate Rate: regular rate Rhythm: regular rhythm GI: Palpation (GI): Soft to palpation Auscultation: normal bowel sounds Skin: General skin exam: no rashes or lesions noted Neuro: Cognition (Neuro): normal cognition Extrem: General: Yes normal to inspection and Yes no pedal edema Objective Data Current Medications Generic Name Dose Route Start Last Admin Trade Name Franq PRN Reason Stop Dose Admin Acetaminophen 650 mg 06/02/20 06:21 Acetaminophen 325 Mg Tablet PO Q6H PRN Pain, Mild (Pain Scale 1-3) Albuterol Sulfate 2 puff 06/02/20 06:21 Albuterol Sulfate 90 Mcg 8 Gm Inhaler INHALE Q4H PRN Wheezing Amlodipine Besylate 10 mg 06/02/20 09:00 06/12/20 10:10 Amlodipine Besylate 10 Mg Tablet PO Not Given DAILY [facility] Protocol Atorvastatin Calcium 40 mg 06/02/20 09:00 06/12/20 10:11 Atorvastatin Calcium 40 Mg Tablet PO Not Given DAILY [facility] Carvedilol 25 mg 06/02/20 09:00 06/12/20 10:11 Carvedilol 25 Mg Tablet PO Not Given BID [facility] Protocol Docusate Sodium 100 mg 06/02/20 06:21 Docusate Sodium 100 Mg Capsule PO DAILY PRN Constipation Enoxaparin Sodium 40 mg 06/02/20 08:00 06/12/20 08:37 Enoxaparin Sodium 40 Mg/0.4 Ml Syringe SUBCUT Not Given Q24H [facility] Finasteride 5 mg 06/02/20 09:00 06/12/20 10:11 Finasteride 5 Mg Tablet PO Not Given DAILY [facility] Gabapentin 300 mg 06/02/20 09:00 06/12/20 10:11 Gabapentin 300 Mg Capsule PO Not Given DAILY [facility] Levetiracetam 500 mg in 100 mls @ 400 mls/hr 06/03/20 10:00 06/12/20 15:06 Keppra IV Infused Q12H [facility] Infusion Sodium Chloride 40 meq/ 1,440 mls @ 60 mls/hr 06/11/20 18:00 06/11/20 17:57 Magnesium Sulfate 10 meq/ IVCONT 06/12/20 17:59 60 mls/hr Potassium Phosphate 40 mmol/ DAILY@1800 [facility] Administration Calcium Gluconate 9.3 meq/ Multivitamins 14 ml/ Trace Metals 1.4 ml/ Amino Acids/ Electrolytes/Dextrose Insulin Glargine 10 unit 06/09/20 14:52 06/12/20 08:27 Insulin Glargine,Hum.Rec.Anlog 100 Unit/Ml 10 Ml Vial SUBCUT 10 unit DAILY [facility] Administration Insulin Human Lispro 0 unit 06/06/20 21:00 06/12/20 12:42 Insulin Lispro 100 Unit/Ml 3 Ml Vial SUBCUT 6 unit QIDACHS [facility] Administration Protocol Labetalol HCl 10 mg 06/05/20 17:00 06/12/20 14:22 Labetalol Hcl 100 Mg/20 Ml Vial IVPUSH Not Given Q4H [facility] Lisinopril 20 mg 06/02/20 09:00 06/12/20 10:12 Lisinopril 20 Mg Tablet PO Not Given DAILY [facility] Protocol Ondansetron HCl 4 mg 06/02/20 06:21 Ondansetron Hcl 4 Mg/2 Ml Vial IVPUSH Q8H PRN Nausea and Vomiting Polyethylene Glycol 17 gm 06/02/20 09:00 06/12/20 10:12 Polyethylene Glycol 3350 17 Gm Powd.Pack PO Not Given DAILY [facility] Quetiapine Fumarate 25 mg 06/02/20 21:00 06/11/20 22:19 Quetiapine Fumarate 25 Mg Tablet PO Not Given BEDTIME [facility] Sertraline HCl 200 mg 06/02/20 09:00 06/12/20 10:12 Sertraline Hcl 100 Mg Tablet PO Not Given DAILY [facility] Sodium Chloride 3 ml 06/02/20 08:00 06/12/20 08:36 0.9 % Sodium Chloride Flush 3 Ml Syringe IVFLUSH Not Given QSHIFT [facility] Tamsulosin HCl 0.4 mg 06/02/20 09:00 06/12/20 10:12 Tamsulosin Hcl 0.4 Mg Capsule PO Not Given DAILY [facility] Tizanidine HCl 2 mg 06/02/20 09:00 06/12/20 10:12 Tizanidine Hcl 4 Mg Tablet PO Not Given BID [facility] Labs CBC & Chem 7: 06/12/20 05:20 06/12/20 05:20 Microbiology Microbiology Results: Microbiology 06/02/20 00:39 Blood - Venous Blood Culture - Final No growth after 5 days. 06/02/20 Unknown Urine clean catch - Clean Catch Midstream Urine Culture - Final Faye rugosa 06/02/20 00:35 Blood - Venous Blood Culture - Final Coag negative Staphylococcus Assessment and Plan (1) Acute respiratory failure: Status: Acute (2) Pneumonia due to 2019 novel coronavirus: Status: Acute Assessment and Plan: 59-year-old male with a past medical history of prior CVA and resultant hemiplegia and dysarthria. 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 He was also found to be covid positive, but had no respiratory symptoms including hypoxia. He was sent to SNF and returned less than 12 hours later for hypoxia and likely aspirated 1. Acute Respiratory failure--required BiPAP in ED but has been off since. continue oxygen supplementation currently on 2 L of oxygen 2. Aspiration Pneumonia CT scan completed -- showing typical covid fidings + RML/RLL infiltrates recieved Unasyn [employer] evaluation -- unable to safely swallow and hence NPO surgery consulted for PEG tube plan for PEG tube on Friday 2. Acute Encephalopathy multifactorial slowly improving towards baseline unable to safely take PO Speech continues to recommend NPO and continue PPN and plan for PEG tube on Friday 4. Neuro-Bachet's Solu-Medrol -- started on 60mg, being tapered by 10mg q3 days;currently on 40 mg daily will switch to p.o. once will have PEG tube 5. HTN--IVHydralazine while NPO 6. DM blood glucose improving humalog q6 hours continue Lantus monitor blood glucose 7. HyperNa resolved sodium 138 today 8. Leukocytosis infection + steroid Improving Full Code DVT pptx, Lovenox
[2020-06-12] MEDS: 0.9 % Sodium Chloride Flush 3 ML SYRINGE IVFLUSH (15:42)
[2020-06-12] MEDS: hydrALAZINE HCl 20 MG/ML VIAL 5 MG IVPUSH (16:09)
[2020-06-12 16:15] LABS: PCO2 VBG 31 mmHg
[2020-06-12 16:17] LABS: HCO3 VBG 19 mmol/L; PO2 VBG 58 mmHg
[2020-06-12 16:18] LABS: Base Excess VBG -4.3 mmol/L
[2020-06-12 16:54] LABS: Glucose, Whole Blood 252 mg/dL (60-115)
--- NOTE | 2020-06-12 19:25 | PC.NURSE ---
Patient's O2 was in the low 80's on 2L O2 NC , RR 35 BP 184/84, after returning from PEG placement. Patient placed on nonrebreather with good effect , O2 sats 96-98%. Dr. Gregory notified, CXR, and ABG's ordered. CXR showed groundglass opacities RUL , atelectasis right posterior base, coarsening bronchial markings. VBG's normal. Patient's BP as high as 214/100 today scheduled dose of Labetolol, and one time dose of Hydralazine administered. BP 170/80 at present , will continue to monitor.
[2020-06-12 20:47] LABS: Glucose, Whole Blood 229 mg/dL (60-115)
[2020-06-12] MEDS: carvediloL 25 MG TABLET PO (22:18)
[2020-06-12] MEDS: QUEtiapine Fumarate 25 MG TABLET PO (22:19)
[2020-06-12] MEDS: TiZANidine HCL 4 MG TABLET 2 MG PO (22:19)
[2020-06-13] VITALS (14 sets, daily range): BP systolic 94–145; BP diastolic 54–74; PULSE 58–105; RESP 18–23; TEMP 35.8–36.6; O2SAT 96–100
--- NOTE | 2020-06-13 06:49 | HO.POSTANES ---
Post Anesthesia Evaluation Post Anesthesia Evaluation Vital Signs: Vital Signs Temp Pulse Resp BP Pulse Ox 06/13/20 05:09 76 109/63 06/13/20 04:00 97.7 F 79 20 117/54 L 99 06/13/20 02:33 88 111/74 06/13/20 00:00 97.4 F 88 18 111/74 98 06/12/20 22:19 88 190/90 H 06/12/20 22:18 88 190/90 H 06/12/20 20:06 97.9 F 88 16 190/90 H 98 Anesthesia: Monitored Mental Status: Awake Pain Control: Satisfactory Nausea/Vomiting: None Hydration: Adequate Anesthesia-Related Issues: No Anes. Related Issues
[2020-06-13 06:53] LABS: Basophils Percent Auto 0.2 % (0-2); Imm Gran Pct Auto 0.7 % (0.0-0.4); MANUAL DIFF FLAG SCAN; SCAN SMEAR FLAG 1
[2020-06-13 06:55] LABS: Eosinophils Absolute Auto 0.3 X10*3/uL (0.0-0.4); Eosinophils Percent Auto 1.7 % (0-4); Hematocrit 25.6 % (42-52); Hemoglobin 7.9 g/dl (14.0-18.0); Imm Gran Abs Auto 0.11 X10*3/uL (0.00-0.03); Lymphocytes Absolute Auto 2.8 X10*3/uL (1.2-4.9); Lymphocytes Percent Auto 17.4 % (20-40); Mean Corpuscular HGB Conc 30.9 g/dl (31.0-36.0); Mean Corpuscular Hemoglobin 23.6 pg (27.0-33.0); Mean Corpuscular Volume 76.4 fL (80-98); Monocytes Absolute Auto 0.7 X10*3/uL (0.1-1.2); Monocytes Percent Auto 4.2 % (2-11); Neutrophils Absolute Auto 12.4 X10*3/uL (2.0-8.3); Neutrophils Percent Auto 75.8 % (45-73); Platelet Count 222 X10*3/uL (160-400); Red Blood Count 3.35 X10*6/uL (4.60-5.80); Red Cell Distribution Width 20.3 % (11.0-16.0); White Blood Count 16.3 X10*3/uL (4.8-10.8)
[2020-06-13 07:05] LABS: PLT ABN DIST 1
[2020-06-13 07:13] LABS: Anion Gap 13 (12-20); Blood Urea Nitrogen 22 mg/dL (9-16); Calcium 7.8 mg/dL (8.4-10.2); Carbon Dioxide 19 mmol/L (22-29); Chloride 111 mmol/L (96-108); Creatinine Clr Calc Pharmacy 111.3; Estimated Glomerular Filt Rate > 60; Glucose Random 235 mg/dL (60-115); Potassium 4.3 mmol/L (3.3-5.1); Sodium 139 mmol/L (135-145)
[2020-06-13 07:38] LABS: Glucose, Whole Blood 222 mg/dL (60-115)
[2020-06-13 07:50] LABS: SLIDE REVIEW VERIFIED
[2020-06-13] MEDS: 0.9 % Sodium Chloride Flush 3 ML SYRINGE IVFLUSH ×3 (08:24→21:08)
[2020-06-13] MEDS: Insulin Lispro 100 UNIT/ML 3 ML VIAL SUBCUT ×2 (08:32→11:45)
[2020-06-13] MEDS: Enoxaparin Sodium 40 MG/0.4 ML SYRINGE SUBCUT (08:33)
[2020-06-13] MEDS: levETIRAcetam in NaCl (iso-os) 500 MG/100 ML PIGGYBACK 400 MG IV ×2 (08:34→21:08)
[2020-06-13] MEDS: Insulin Glargine,Hum.rec.anlog 100 UNIT/ML 10 ML VIAL 10 UNIT SUBCUT (08:34)
--- NOTE | 2020-06-13 11:18 | MHC.CM.PN ---
Addendum entered by Krystle Yadav 06/13/20 11:38: CM spoke with nurse on floor and visualized patient is arousable but very lethargic and would not be able to participate in a face to face call. Nalini verbalizes understanding and CM will assess patient for alertness daily. Original Note: CM spoke with patient's sister/HCP Nalini by phone, updated to patient's plan. Nalini reports patient is dependent for care and she does have 24/7 care for patient. Also reports he understands written commands. CM asked covering MD to call Nalini with update. Nalini is asking for a Facetime call with patient. CM will look into this and return call to Nalini. CM will follow patient for discharge needs.
[2020-06-13 11:22] LABS: Glucose, Whole Blood 180 mg/dL (60-115)
[2020-06-13] MEDS: Furosemide 40 MG/4 ML VIAL IVPUSH (11:32)
--- NOTE | 2020-06-13 12:15 | MHC.SLORD ---
Per CM note, pt is too lethargic to participate in Facetime call with sister, Nalini. PEG tube placed yesterday and pt is receiving tube feeds today. PO trials not appropriate due to increased lethargy. FILLER IN will continue to monitor during hospitalization. Name: Gustavo Gomez Date of : 1960 Age: 59 Date of Registration: 06/02/20 Speech Language Pathology Order Status:
--- NOTE | 2020-06-13 14:06 | PM.PNGS ---
Subjective Subjective Date of Service: 06/13/20 Interval history: no events reported pt remains not comunicative mental status at baseline Physical Exam Vital Signs: Vital Signs: Last Vital Signs Temp 97.8 F 06/13/20 11:58 Pulse 58 06/13/20 13:07 Resp 20 06/13/20 11:58 BP 145/69 H 06/13/20 13:07 Pulse Ox 100 06/13/20 11:58 Body Mass Index 28.3 Const: Other: lethargic, not in distress, no verbal output GI: Other: PEG tube in place Palpation (GI): Soft to palpation Progress Note: A&P Assessment and plan (1) Aspiration pneumonia: Status: Acute Assessment and Plan: S/P PEG placement ok to start feeds slowly today rest of management as per Hospitalist service Fall Risk Details Current Medications: Current Medications Generic Name Dose Route Start Last Admin Trade Name Freq PRN Reason Stop Dose Admin Acetaminophen 650 mg 06/02/20 06:21 Acetaminophen 325 Mg Tablet PO Q6H PRN Pain, Mild (Pain Scale 1-3) Albuterol Sulfate 2 puff 06/02/20 06:21 Albuterol Sulfate 90 Mcg 8 Gm Inhaler INHALE Q4H PRN Wheezing Amlodipine Besylate 10 mg 06/02/20 09:00 06/13/20 08:24 Amlodipine Besylate 10 Mg Tablet PO Not Given DAILY [facility] Protocol Atorvastatin Calcium 40 mg 06/02/20 09:00 06/13/20 08:25 Atorvastatin Calcium 40 Mg Tablet PO Not Given DAILY [facility] Carvedilol 25 mg 06/02/20 09:00 06/13/20 08:25 Carvedilol 25 Mg Tablet PO Not Given BID [facility] Protocol Docusate Sodium 100 mg 06/02/20 06:21 Docusate Sodium 100 Mg Capsule PO DAILY PRN Constipation Enoxaparin Sodium 40 mg 06/02/20 08:00 06/13/20 08:33 Enoxaparin Sodium 40 Mg/0.4 Ml Syringe SUBCUT 40 mg Q24H [facility] Administration Finasteride 5 mg 06/02/20 09:00 06/13/20 08:25 Finasteride 5 Mg Tablet PO Not Given DAILY [facility] Gabapentin 300 mg 06/02/20 09:00 06/13/20 08:25 Gabapentin 300 Mg Capsule PO Not Given DAILY [facility] Levetiracetam 500 mg in 100 mls @ 400 mls/hr 06/03/20 10:00 06/13/20 09:40 Keppra IV Infused Q12H [facility] Infusion Insulin Glargine 10 unit 06/09/20 14:52 06/13/20 08:34 Insulin Glargine,Hum.Rec.Anlog 100 Unit/Ml 10 Ml Vial SUBCUT 10 unit DAILY [facility] Administration Insulin Human Lispro 0 unit 06/06/20 21:00 06/13/20 11:45 Insulin Lispro 100 Unit/Ml 3 Ml Vial SUBCUT 2 unit QIDACHS [facility] Administration Protocol Labetalol HCl 10 mg 06/05/20 17:00 06/13/20 13:07 Labetalol Hcl 100 Mg/20 Ml Vial IVPUSH Not Given Q4H [facility] Lisinopril 20 mg 06/02/20 09:00 06/13/20 08:25 Lisinopril 20 Mg Tablet PO Not Given DAILY [facility] Protocol Ondansetron HCl 4 mg 06/02/20 06:21 Ondansetron Hcl 4 Mg/2 Ml Vial IVPUSH Q8H PRN Nausea and Vomiting Polyethylene Glycol 17 gm 06/02/20 09:00 06/13/20 08:25 Polyethylene Glycol 3350 17 Gm Powd.Pack PO Not Given DAILY [facility] Quetiapine Fumarate 25 mg 06/02/20 21:00 06/12/20 22:19 Quetiapine Fumarate 25 Mg Tablet PO 25 mg BEDTIME [facility] Administration Sertraline HCl 200 mg 06/02/20 09:00 06/13/20 08:25 Sertraline Hcl 100 Mg Tablet PO Not Given DAILY [facility] Sodium Chloride 3 ml 06/02/20 08:00 06/13/20 08:24 0.9 % Sodium Chloride Flush 3 Ml Syringe IVFLUSH 3 ml QSHIFT [facility] Administration Tamsulosin HCl 0.4 mg 06/02/20 09:00 06/13/20 08:25 Tamsulosin Hcl 0.4 Mg Capsule PO Not Given DAILY [facility] Tizanidine HCl 2 mg 06/02/20 09:00 06/13/20 08:25 Tizanidine Hcl 4 Mg Tablet PO Not Given BID [facility] Time Spent With Patient Time: Total time spent is greater than 50% in coordination of care (as documented) at patient's floor/unit and/or counseling patient: Time with patient: 15 - 24 minutes Procedures Date of Service Date of Service: 06/13/20
--- NOTE | 2020-06-13 15:30 | P.PNIM_ITS ---
Subjective Subjective Date of Service: 06/13/20 Interval History: Patient seen and examined at bedside Patient became more hypoxic yesterday hypoxia improving Patient was sleepy this morning but was more awake later Physical Exam Vital Signs: Vital Signs: Last Vital Signs Temp 97.8 F 06/13/20 11:58 Pulse 58 06/13/20 13:07 Resp 20 06/13/20 11:58 BP 145/69 H 06/13/20 13:07 Pulse Ox 96 06/13/20 14:24 Body Mass Index 28.3 Const: Other: General - awake and alert, doesn't follow direction Cardiovascular - regular rate and rhythm, S1-S2 Lungs - normal respiratory effort, clear to auscultation bilaterally, no wheezing Abdomen - soft, nontender, no rebound or guarding Extremities - no edema bilaterally Neuro - more awake and appears to be appearing to communicate General: no acute distress Eyes: General: appearance normal, both eyes and all related structures Resp: Effort & Inspection: normal respiratory effort Cardio: Other: General - awake and alert, doesn't follow direction Cardiovascular - regular rate and rhythm, S1-S2 Lungs - normal respiratory effort, clear to auscultation bilaterally, no wheezing Abdomen - soft, nontender, no rebound or guarding Extremities - no edema bilaterally Neuro - more awake and appears to be appearing to communicate Rate: regular rate Rhythm: regular rhythm GI: Palpation (GI): Soft to palpation Auscultation: normal bowel sounds Skin: General skin exam: no rashes or lesions noted Neuro: Cognition (Neuro): normal cognition Extrem: General: Yes normal to inspection and Yes no pedal edema Objective Data Current Medications Generic Name Dose Route Start Last Admin Trade Name Crescencio PRN Reason Stop Dose Admin Acetaminophen 650 mg 06/02/20 06:21 Acetaminophen 325 Mg Tablet PO Q6H PRN Pain, Mild (Pain Scale 1-3) Albuterol Sulfate 2 puff 06/02/20 06:21 Albuterol Sulfate 90 Mcg 8 Gm Inhaler INHALE Q4H PRN Wheezing Amlodipine Besylate 10 mg 06/02/20 09:00 06/13/20 08:24 Amlodipine Besylate 10 Mg Tablet PO Not Given DAILY [facility] Protocol Atorvastatin Calcium 40 mg 06/02/20 09:00 06/13/20 08:25 Atorvastatin Calcium 40 Mg Tablet PO Not Given DAILY [facility] Carvedilol 25 mg 06/02/20 09:00 06/13/20 08:25 Carvedilol 25 Mg Tablet PO Not Given BID [facility] Protocol Docusate Sodium 100 mg 06/02/20 06:21 Docusate Sodium 100 Mg Capsule PO DAILY PRN Constipation Enoxaparin Sodium 40 mg 06/02/20 08:00 06/13/20 08:33 Enoxaparin Sodium 40 Mg/0.4 Ml Syringe SUBCUT 40 mg Q24H [facility] Administration Finasteride 5 mg 06/02/20 09:00 06/13/20 08:25 Finasteride 5 Mg Tablet PO Not Given DAILY [facility] Gabapentin 300 mg 06/02/20 09:00 06/13/20 08:25 Gabapentin 300 Mg Capsule PO Not Given DAILY [facility] Levetiracetam 500 mg in 100 mls @ 400 mls/hr 06/03/20 10:00 06/13/20 09:40 Keppra IV Infused Q12H [facility] Infusion Insulin Glargine 10 unit 06/09/20 14:52 06/13/20 08:34 Insulin Glargine,Hum.Rec.Anlog 100 Unit/Ml 10 Ml Vial SUBCUT 10 unit DAILY [facility] Administration Insulin Human Lispro 0 unit 06/06/20 21:00 06/13/20 11:45 Insulin Lispro 100 Unit/Ml 3 Ml Vial SUBCUT 2 unit QIDACHS [facility] Administration Protocol Labetalol HCl 10 mg 06/05/20 17:00 06/13/20 13:07 Labetalol Hcl 100 Mg/20 Ml Vial IVPUSH Not Given Q4H [facility] Lisinopril 20 mg 06/02/20 09:00 06/13/20 08:25 Lisinopril 20 Mg Tablet PO Not Given DAILY [facility] Protocol Ondansetron HCl 4 mg 06/02/20 06:21 Ondansetron Hcl 4 Mg/2 Ml Vial IVPUSH Q8H PRN Nausea and Vomiting Polyethylene Glycol 17 gm 06/02/20 09:00 06/13/20 08:25 Polyethylene Glycol 3350 17 Gm Powd.Pack PO Not Given DAILY [facility] Quetiapine Fumarate 25 mg 06/02/20 21:00 06/12/20 22:19 Quetiapine Fumarate 25 Mg Tablet PO 25 mg BEDTIME [facility] Administration Sertraline HCl 200 mg 06/02/20 09:00 06/13/20 08:25 Sertraline Hcl 100 Mg Tablet PO Not Given DAILY [facility] Sodium Chloride 3 ml 06/02/20 08:00 06/13/20 08:24 0.9 % Sodium Chloride Flush 3 Ml Syringe IVFLUSH 3 ml QSHIFT [facility] Administration Tamsulosin HCl 0.4 mg 06/02/20 09:00 06/13/20 08:25 Tamsulosin Hcl 0.4 Mg Capsule PO Not Given DAILY [facility] Tizanidine HCl 2 mg 06/02/20 09:00 06/13/20 08:25 Tizanidine Hcl 4 Mg Tablet PO Not Given BID [facility] Labs CBC & Chem 7: 06/13/20 05:56 06/13/20 05:56 Microbiology Microbiology Results: Microbiology 06/02/20 00:39 Blood - Venous Blood Culture - Final No growth after 5 days. 06/02/20 Unknown Urine clean catch - Clean Catch Midstream Urine Culture - Final Faye rugosa 06/02/20 00:35 Blood - Venous Blood Culture - Final Coag negative Staphylococcus Assessment and Plan (1) Acute respiratory failure: Status: Acute (2) Pneumonia due to 2019 novel coronavirus: Status: Acute Assessment and Plan: 59-year-old male with a past medical history of prior CVA and resultant hemipleg ia and dysarthria. 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 He was also found to be covid positive, but had no respiratory symptoms including hypoxia. He was sent to SNF and returned less than 12 hours later for hypoxia and likely aspirated 1. Acute Respiratory failure--required BiPAP in ED but has been off since. continue oxygen supplementation Became more hypoxic yesterday placed on non-rebreather improving weaned down to 2 L currently on 2 L of oxygen 2. Aspiration Pneumonia improving CT scan completed -- showing typical covid fidings + RML/RLL infiltrates recieved Unasyn [employer] evaluation -- unable to safely swallow and hence NPO surgery consulted for PEG tube plan for PEG tube on Friday 2. Acute Encephalopathy multifactorial slowly improving towards baseline unable to safely take PO Speech continues to recommend NPO and status post PEG tube Difficulty swallowing poor nutrition Status post PEG tube Will start tube feeding 4. Neuro-Bachet's Solu-Medrol -- started on 60mg, being tapered by 10mg q3 days;currently on 40 mg daily will switch to p.o today 5. HTN--IVHydralazine while NPO 6. DM blood glucose improving humalog q6 hours continue Lantus monitor blood glucose 7. HyperNa resolved sodium 138 today 8. Leukocytosis infection + steroid Improving Full Code DVT pptx, Lovenox
[2020-06-13 16:36] LABS: Glucose, Whole Blood 147 mg/dL (60-115)
[2020-06-13 20:42] LABS: Glucose, Whole Blood 146 mg/dL (60-115)
[2020-06-13] MEDS: carvediloL 12.5 MG TABLET 25 MG G-TUBE (21:06)
[2020-06-13] MEDS: QUEtiapine Fumarate 25 MG TABLET PO (21:06)
[2020-06-13] MEDS: TiZANidine HCL 4 MG TABLET 2 MG PO (21:07)
[2020-06-14] VITALS (15 sets, daily range): BP systolic 115–162; BP diastolic 63–88; PULSE 78–100; RESP 18–20; TEMP 35.5–36.4; O2SAT 9–97
[2020-06-14 06:29] LABS: SCAN SMEAR FLAG 1
[2020-06-14 06:32] LABS: Basophils Absolute Auto 0.1 X10*3/uL (0.0-0.2); Basophils Percent Auto 0.2 % (0-2); Eosinophils Absolute Auto 0.3 X10*3/uL (0.0-0.4); Eosinophils Percent Auto 1.3 % (0-4); Hematocrit 25.6 % (42-52); Hemoglobin 7.9 g/dl (14.0-18.0); Imm Gran Pct Auto 0.5 % (0.0-0.4); Lymphocytes Absolute Auto 1.9 X10*3/uL (1.2-4.9); Lymphocytes Percent Auto 9.2 % (20-40); Mean Corpuscular HGB Conc 30.9 g/dl (31.0-36.0); Mean Corpuscular Hemoglobin 23.4 pg (27.0-33.0); Mean Corpuscular Volume 75.7 fL (80-98); Monocytes Absolute Auto 0.8 X10*3/uL (0.1-1.2); Monocytes Percent Auto 3.7 % (2-11); Neutrophils Absolute Auto 17.8 X10*3/uL (2.0-8.3); Neutrophils Percent Auto 85.1 % (45-73); Platelet Count 279 X10*3/uL (160-400); Red Blood Count 3.38 X10*6/uL (4.60-5.80); Red Cell Distribution Width 20.7 % (11.0-16.0); White Blood Count 20.9 X10*3/uL (4.8-10.8)
[2020-06-14 06:42] LABS: PLT ABN DIST 1
[2020-06-14 06:43] LABS: MANUAL DIFF FLAG NO
[2020-06-14 07:17] LABS: Glucose, Whole Blood 206 mg/dL (60-115)
[2020-06-14] MEDS: Insulin Lispro 100 UNIT/ML 3 ML VIAL SUBCUT ×4 (07:35→21:52)
[2020-06-14] MEDS: Enoxaparin Sodium 40 MG/0.4 ML SYRINGE SUBCUT (07:36)
[2020-06-14] MEDS: 0.9 % Sodium Chloride Flush 3 ML SYRINGE IVFLUSH ×3 (07:36→21:53)
[2020-06-14] MEDS: Gabapentin 300 MG CAPSULE PO (09:56)
[2020-06-14] MEDS: Atorvastatin Calcium 40 MG TABLET PO (09:57)
[2020-06-14] MEDS: carvediloL 12.5 MG TABLET 25 MG G-TUBE ×2 (09:57→21:59)
[2020-06-14] MEDS: amLODIPine Besylate 5 MG TABLET 10 MG G-TUBE (09:57)
[2020-06-14] MEDS: Tamsulosin HCL 0.4 MG CAPSULE PO (09:57)
[2020-06-14] MEDS: levETIRAcetam in NaCl (iso-os) 500 MG/100 ML PIGGYBACK 400 MG IV ×2 (09:58→21:52)
[2020-06-14] MEDS: Sertraline HCL 100 MG TABLET 200 MG PO (09:58)
[2020-06-14] MEDS: TiZANidine HCL 4 MG TABLET 2 MG PO ×2 (09:58→21:53)
[2020-06-14] MEDS: Insulin Glargine,Hum.rec.anlog 100 UNIT/ML 10 ML VIAL 10 UNIT SUBCUT (09:59)
[2020-06-14] MEDS: polyethylene glycoL 3350 17 GM POWD.PACK PO (09:59)
[2020-06-14 11:15] LABS: Glucose, Whole Blood 164 mg/dL (60-115)
--- NOTE | 2020-06-14 11:55 | MHC.CM.PN ---
Patient has improved from yesterday and on RA and more alert today. Peg tube feeds have started, not up to goal of 70CC/hr. CM spoke with HCP Nalini and updated to patient's progress, reports she just spoke with nurse who will do a face time call with her and patient today. Discharge plan is home with resumption of [employer] services and 24/7 care from family. CM will continue to follow patient for discharge needs.
--- NOTE | 2020-06-14 12:33 | MHC.SLORD ---
Per RN, pt started Peg feeds and is tolerating well. Pt is much more alert this date compared to yesterday. At baseline, pt is on nectar thick liquids and pureed solids. [employer]PERATOR will continue to follow. Name: Gustavo Gomez Date of : 1960 Age: 59 Date of Registration: 06/02/20 Speech Language Pathology Order Status:
--- NOTE | 2020-06-14 14:25 | MHC.CLN ---
F/U PT TO RECEIVE GLUCERNA AT MAX GOAL RATE 70CC/HR WITH 240CC FREE WATER FLUSH Q SHIFT TO PROVIDE 1680KCALS (24KCALS/KG), 70G PROTEIN (1.0G/KG), 2153CC TOTAL WATER FROM FORMULA AND FLUSHES (30CC/KG) MONITOR TOLERANCE, RESIDUALS AND LYTES
--- NOTE | 2020-06-14 16:32 | P.PNIM_ITS ---
Subjective Subjective Date of Service: 06/14/20 Interval History: Patient seen and examined at bedside Patient is more awake today Weaned down to room air Physical Exam Vital Signs: Vital Signs: Last Vital Signs Temp 96.5 F L 06/14/20 15:57 Pulse 87 06/14/20 15:57 Resp 18 06/14/20 15:57 BP 137/80 06/14/20 15:57 Pulse Ox 93 06/14/20 15:57 Body Mass Index 28.3 Const: General: no acute distress Eyes: General: appearance normal, both eyes and all related structures Resp: Effort & Inspection: normal respiratory effort Cardio: Other: General - awake and alert, doesn't follow direction Cardiovascular - regular rate and rhythm, S1-S2 Lungs - normal respiratory effort, clear to auscultation bilaterally, no wheezing Abdomen - soft, nontender, no rebound or guarding Extremities - no edema bilaterally Neuro - more awake and appears to be appearing to communicate Rate: regular rate Rhythm: regular rhythm GI: Palpation (GI): Soft to palpation Auscultation: normal bowel sounds Skin: General skin exam: no rashes or lesions noted Neuro: Cognition (Neuro): normal cognition Extrem: General: Yes normal to inspection and Yes no pedal edema Objective Data Current Medications Generic Name Dose Route Start Last Admin Trade Name Freq PRN Reason Stop Dose Admin Acetaminophen 650 mg 06/02/20 06:21 Acetaminophen 325 Mg Tablet PO Q6H PRN Pain, Mild (Pain Scale 1-3) Albuterol Sulfate 2 puff 06/02/20 06:21 Albuterol Sulfate 90 Mcg 8 Gm Inhaler INHALE Q4H PRN Wheezing Amlodipine Besylate 10 mg 06/14/20 09:00 06/14/20 09:57 Amlodipine Besylate 5 Mg Tablet G-TUBE 10 mg DAILY CARIN Administration Protocol Atorvastatin Calcium 40 mg 06/02/20 09:00 06/14/20 09:57 Atorvastatin Calcium 40 Mg Tablet PO 40 mg DAILY CARIN Administration Carvedilol 25 mg 06/13/20 21:00 06/14/20 09:57 Carvedilol 12.5 Mg Tablet G-TUBE 25 mg BID CARIN Administration Protocol Docusate Sodium 100 mg 06/02/20 06:21 Docusate Sodium 100 Mg Capsule PO DAILY PRN Constipation Enoxaparin Sodium 40 mg 06/02/20 08:00 06/14/20 07:36 Enoxaparin Sodium 40 Mg/0.4 Ml Syringe SUBCUT 40 mg Q24H CARIN Administration Finasteride 5 mg 06/02/20 09:00 06/14/20 10:25 Finasteride 5 Mg Tablet PO Not Given DAILY CARIN Gabapentin 300 mg 06/02/20 09:00 06/14/20 09:56 Gabapentin 300 Mg Capsule PO 300 mg DAILY CARIN Administration Levetiracetam 500 mg in 100 mls @ 400 mls/hr 06/03/20 10:00 06/14/20 10:27 Keppra IV Infused Q12H CARIN Infusion Insulin Glargine 10 unit 06/09/20 14:52 06/14/20 09:59 Insulin Glargine,Hum.Rec.Anlog 100 Unit/Ml 10 Ml Vial SUBCUT 1 unit DAILY CARIN Administration Insulin Human Lispro 0 unit 06/06/20 21:00 06/14/20 12:54 Insulin Lispro 100 Unit/Ml 3 Ml Vial SUBCUT 2 unit QIDACHS [facility] Administration Protocol Labetalol HCl 10 mg 06/05/20 17:00 06/14/20 12:58 Labetalol Hcl 100 Mg/20 Ml Vial IVPUSH Not Given Q4H CARIN Lisinopril 20 mg 06/14/20 09:00 06/14/20 09:57 Lisinopril 20 Mg Tablet G-TUBE 20 mg DAILY [facility] Administration Protocol Ondansetron HCl 4 mg 06/02/20 06:21 Ondansetron Hcl 4 Mg/2 Ml Vial IVPUSH Q8H PRN Nausea and Vomiting Polyethylene Glycol 17 gm 06/02/20 09:00 06/14/20 09:59 Polyethylene Glycol 3350 17 Gm Powd.Pack PO 17 gm DAILY CARIN Administration Quetiapine Fumarate 25 mg 06/02/20 21:00 06/13/20 21:06 Quetiapine Fumarate 25 Mg Tablet PO 25 mg BEDTIME CARIN Administration Sertraline HCl 200 mg 06/02/20 09:00 06/14/20 09:58 Sertraline Hcl 100 Mg Tablet PO 200 mg DAILY CARIN Administration Sodium Chloride 3 ml 06/02/20 08:00 06/14/20 15:31 0.9 % Sodium Chloride Flush 3 Ml Syringe IVFLUSH 3 ml QSHIFT CARIN Administration Tamsulosin HCl 0.4 mg 06/02/20 09:00 06/14/20 09:57 Tamsulosin Hcl 0.4 Mg Capsule PO 0.4 mg DAILY CARIN Administration Tizanidine HCl 2 mg 06/02/20 09:00 06/14/20 09:58 Tizanidine Hcl 4 Mg Tablet PO 2 mg BID CARIN Administration Labs CBC & Chem 7: 06/14/20 05:31 06/13/20 05:56 Microbiology Microbiology Results: Microbiology 06/02/20 00:39 Blood - Venous Blood Culture - Final No growth after 5 days. 06/02/20 Unknown Urine clean catch - Clean Catch Midstream Urine Culture - Final Faye rugosa 06/02/20 00:35 Blood - Venous Blood Culture - Final Coag negative Staphylococcus Assessment and Plan (1) Acute respiratory failure: Status: Acute (2) Pneumonia due to 2019 novel coronavirus: Status: Acute Assessment and Plan: 59-year-old male with a past medical history of prior CVA and resultant hemiplegia and dysarthria. 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 He was also found to be covid positive, but had no respiratory symptoms including hypoxia. He was sent to SNF and returned less than 12 hours later for hypoxia and likely aspirated 1. Acute Respiratory failure-- continue oxygen supplementation Became more hypoxic on placed on non-rebreather improving weaned down to 2 L currently on 2 L of oxygen 2. 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 Acute Encephalopathy improving multifactorial slowly improving towards baseline Difficulty swallowing poor nutrition Speech continues to recommend NPO and status post PEG tube Status post PEG tube continue tube feeding 4. Neuro-Bachet's Solu-Medrol -- started on 60mg, being tapered by 10mg q3 days;currently on 40 mg daily switched to po prednisone 5. HTN-- restarted Bp medication 6. DM blood glucose improving humalog q6 hours continue Lantus monitor blood glucose 7. HyperNa resolved sodium 138 today 8. Leukocytosis infection + steroid Improving Full Code DVT pptx, Lovenox
[2020-06-14 16:33] LABS: Glucose, Whole Blood 169 mg/dL (60-115)
[2020-06-14 21:16] LABS: Glucose, Whole Blood 177 mg/dL (60-115)
[2020-06-14] MEDS: QUEtiapine Fumarate 25 MG TABLET PO (21:53)
[2020-06-15] VITALS (16 sets, daily range): BP systolic 108–167; BP diastolic 55–87; PULSE 66–89; RESP 18–20; TEMP 36.3–37.1; O2SAT 95–98
[2020-06-15 06:17] LABS: MANUAL DIFF FLAG NO
[2020-06-15 06:55] LABS: Basophils Percent Auto 0.2 % (0-2); Eosinophils Absolute Auto 0.2 X10*3/uL (0.0-0.4); Eosinophils Percent Auto 1.4 % (0-4); Hematocrit 28.3 % (42-52); Hemoglobin 9.1 g/dl (14.0-18.0); Imm Gran Pct Auto 0.6 % (0.0-0.4); Lymphocytes Absolute Auto 2.2 X10*3/uL (1.2-4.9); Lymphocytes Percent Auto 13.2 % (20-40); Mean Corpuscular HGB Conc 32.2 g/dl (31.0-36.0); Mean Corpuscular Hemoglobin 24.6 pg (27.0-33.0); Mean Corpuscular Volume 76.5 fL (80-98); Monocytes Absolute Auto 0.7 X10*3/uL (0.1-1.2); Monocytes Percent Auto 3.8 % (2-11); Neutrophils Absolute Auto 13.8 X10*3/uL (2.0-8.3); Neutrophils Percent Auto 80.8 % (45-73); Platelet Count 307 X10*3/uL (160-400); Red Cell Distribution Width 20.9 % (11.0-16.0)
[2020-06-15 07:29] LABS: Glucose, Whole Blood 225 mg/dL (60-115)
--- NOTE | 2020-06-15 08:30 | P.PNGS_ITS ---
Subjective Subjective Date of Service: 06/15/20 Interval history: Tolerating tube feed No events reported Physical Exam Vital Signs: Vital Signs: Last Vital Signs Temp 97.4 F 06/15/20 03:51 Pulse 85 06/15/20 03:51 Resp 18 06/15/20 03:51 BP 142/67 H 06/15/20 03:51 Pulse Ox 95 06/15/20 03:51 Body Mass Index 28.3 Const: Other: Mental status as baseline, no distress Resp: Effort & Inspection: normal respiratory effort Progress Note: A&P Assessment and plan (1) Aspiration pneumonia: Status: Acute Assessment and Plan: Status post PEG placement Tolerating tube feeds Continue current care Management as per the hospitalist service Fall Risk Details Current Medications: Current Medications Generic Name Dose Route Start Last Admin Trade Name Freq PRN Reason Stop Dose Admin Acetaminophen 650 mg 06/02/20 06:21 Acetaminophen 325 Mg Tablet PO Q6H PRN Pain, Mild (Pain Scale 1-3) Albuterol Sulfate 2 puff 06/02/20 06:21 Albuterol Sulfate 90 Mcg 8 Gm Inhaler INHALE Q4H PRN Wheezing Amlodipine Besylate 10 mg 06/14/20 09:00 06/14/20 09:57 Amlodipine Besylate 5 Mg Tablet G-TUBE 10 mg DAILY CARIN Administration Protocol Atorvastatin Calcium 40 mg 06/02/20 09:00 06/14/20 09:57 Atorvastatin Calcium 40 Mg Tablet PO 40 mg DAILY CARIN Administration Carvedilol 25 mg 06/13/20 21:00 06/14/20 21:59 Carvedilol 12.5 Mg Tablet G-TUBE 25 mg BID CARIN Administration Protocol Docusate Sodium 100 mg 06/02/20 06:21 Docusate Sodium 100 Mg Capsule PO DAILY PRN Constipation Enoxaparin Sodium 40 mg 06/02/20 08:00 06/14/20 07:36 Enoxaparin Sodium 40 Mg/0.4 Ml Syringe SUBCUT 40 mg Q24H CARIN Administration Finasteride 5 mg 06/02/20 09:00 06/14/20 10:25 Finasteride 5 Mg Tablet PO Not Given DAILY CARIN Gabapentin 300 mg 06/02/20 09:00 06/14/20 09:56 Gabapentin 300 Mg Capsule PO 300 mg DAILY CARIN Administration Levetiracetam 500 mg in 100 mls @ 400 mls/hr 06/03/20 10:00 06/14/20 22:40 Keppra IV Infused Q12H CARIN Infusion Insulin Glargine 10 unit 06/09/20 14:52 06/14/20 09:59 Insulin Glargine,Hum.Rec.Anlog 100 Unit/Ml 10 Ml Vial SUBCUT 1 unit DAILY CARIN Administration Insulin Human Lispro 0 unit 06/06/20 21:00 06/14/20 21:52 Insulin Lispro 100 Unit/Ml 3 Ml Vial SUBCUT 2 unit QIDACHS CARIN Administration Protocol Labetalol HCl 10 mg 06/05/20 17:00 06/15/20 05:13 Labetalol Hcl 100 Mg/20 Ml Vial IVPUSH Not Given Q4H [facility] Lisinopril 20 mg 06/14/20 09:00 06/14/20 09:57 Lisinopril 20 Mg Tablet G-TUBE 20 mg DAILY CARIN Administration Protocol Ondansetron HCl 4 mg 06/02/20 06:21 Ondansetron Hcl 4 Mg/2 Ml Vial IVPUSH Q8H PRN Nausea and Vomiting Polyethylene Glycol 17 gm 06/02/20 09:00 06/14/20 09:59 Polyethylene Glycol 3350 17 Gm Powd.Pack PO 17 gm DAILY CARIN Administration Quetiapine Fumarate 25 mg 06/02/20 21:00 06/14/20 21:53 Quetiapine Fumarate 25 Mg Tablet PO 25 mg BEDTIME CARIN Administration Sertraline HCl 200 mg 06/02/20 09:00 06/14/20 09:58 Sertraline Hcl 100 Mg Tablet PO 200 mg DAILY CARIN Administration Sodium Chloride 3 ml 06/02/20 08:00 06/14/20 21:53 0.9 % Sodium Chloride Flush 3 Ml Syringe IVFLUSH 3 ml QSHIFT CARIN Administration Tamsulosin HCl 0.4 mg 06/02/20 09:00 06/14/20 09:57 Tamsulosin Hcl 0.4 Mg Capsule PO 0.4 mg DAILY CARIN Administration Tizanidine HCl 2 mg 06/02/20 09:00 06/14/20 21:53 Tizanidine Hcl 4 Mg Tablet PO 2 mg BID CARIN Administration Time Spent With Patient Time: Total time spent is greater than 50% in coordination of care (as documented) at patient's floor/unit and/or counseling patient: Time with patient: less than 15 minutes Procedures Date of Service Date of Service: 06/15/20
[2020-06-15] MEDS: Insulin Lispro 100 UNIT/ML 3 ML VIAL SUBCUT ×4 (10:23→21:35)
[2020-06-15] MEDS: Insulin Glargine,Hum.rec.anlog 100 UNIT/ML 10 ML VIAL 10 UNIT SUBCUT (10:23)
[2020-06-15] MEDS: Labetalol HCL 100 MG/20 ML VIAL 10 MG IVPUSH ×2 (10:24→21:39)
[2020-06-15] MEDS: Enoxaparin Sodium 40 MG/0.4 ML SYRINGE SUBCUT (10:28)
[2020-06-15] MEDS: Finasteride 5 MG TABLET PO (10:28)
[2020-06-15] MEDS: Gabapentin 300 MG CAPSULE PO (10:28)
[2020-06-15] MEDS: Atorvastatin Calcium 40 MG TABLET PO (10:29)
[2020-06-15] MEDS: carvediloL 12.5 MG TABLET 25 MG G-TUBE ×2 (10:29→21:38)
[2020-06-15] MEDS: amLODIPine Besylate 5 MG TABLET 10 MG G-TUBE (10:29)
[2020-06-15] MEDS: Tamsulosin HCL 0.4 MG CAPSULE PO (10:30)
[2020-06-15] MEDS: TiZANidine HCL 4 MG TABLET 2 MG PO ×2 (10:30→21:37)
[2020-06-15] MEDS: Sertraline HCL 100 MG TABLET 200 MG PO (10:30)
[2020-06-15] MEDS: levETIRAcetam in NaCl (iso-os) 500 MG/100 ML PIGGYBACK 400 MG IV ×2 (10:30→21:35)
[2020-06-15] MEDS: polyethylene glycoL 3350 17 GM POWD.PACK PO (10:30)
[2020-06-15] MEDS: 0.9 % Sodium Chloride Flush 3 ML SYRINGE IVFLUSH ×2 (10:31→15:14)
[2020-06-15 11:52] LABS: Glucose, Whole Blood 212 mg/dL (60-115)
--- NOTE | 2020-06-15 13:31 | MHC.CM.PN ---
ZION spoke with Nicolle at [facility] who reports they use [facility] for their tube feed supplies. Referral made via [employer] and updated covering .
--- NOTE | 2020-06-15 14:42 | HO.PM.IMPN ---
Subjective Subjective Date of Service: 06/15/20 Interval History: Patient seen and examined at bedside Patient is more awake Physical Exam Vital Signs: Vital Signs: Last Vital Signs Temp 98.4 F 06/15/20 12:00 Pulse 80 06/15/20 12:00 Resp 20 06/15/20 12:00 BP 112/71 06/15/20 12:00 Pulse Ox 96 06/15/20 12:00 Body Mass Index 28.3 Const: Other: General - awake and alert, doesn't follow direction Cardiovascular - regular rate and rhythm, S1-S2 Lungs - normal respiratory effort, b/l rales, no wheezing Abdomen - soft, nontender, no rebound or guarding Extremities - no edema bilaterally Neuro - more awake and appears to be appearing to communicate General: no acute distress Eyes: General: appearance normal, both eyes and all related structures Resp: Effort & Inspection: normal respiratory effort Cardio: Other: General - awake and alert, doesn't follow direction Cardiovascular - regular rate and rhythm, S1-S2 Lungs - normal respiratory effort, clear to auscultation bilaterally, no wheezing Abdomen - soft, nontender, no rebound or guarding Extremities - no edema bilaterally Neuro - more awake and appears to be appearing to communicate Rate: regular rate Rhythm: regular rhythm GI: Palpation (GI): Soft to palpation Auscultation: normal bowel sounds Skin: General skin exam: no rashes or lesions noted Neuro: Cognition (Neuro): normal cognition Extrem: General: Yes normal to inspection and Yes no pedal edema Objective Data Current Medications Generic Name Dose Route Start Last Admin Trade Name Freq PRN Reason Stop Dose Admin Acetaminophen 650 mg 06/02/20 06:21 Acetaminophen 325 Mg Tablet PO Q6H PRN Pain, Mild (Pain Scale 1-3) Albuterol Sulfate 2 puff 06/02/20 06:21 Albuterol Sulfate 90 Mcg 8 Gm Inhaler INHALE Q4H PRN Wheezing Amlodipine Besylate 10 mg 06/14/20 09:00 06/15/20 10:29 Amlodipine Besylate 5 Mg Tablet G-TUBE 10 mg DAILY CARIN Administration Protocol Atorvastatin Calcium 40 mg 06/02/20 09:00 06/15/20 10:29 Atorvastatin Calcium 40 Mg Tablet PO 40 mg DAILY CARIN Administration Carvedilol 25 mg 06/13/20 21:00 06/15/20 10:29 Carvedilol 12.5 Mg Tablet G-TUBE 25 mg BID CARIN Administration Protocol Docusate Sodium 100 mg 06/02/20 06:21 Docusate Sodium 100 Mg Capsule PO DAILY PRN Constipation Enoxaparin Sodium 40 mg 06/02/20 08:00 06/15/20 10:28 Enoxaparin Sodium 40 Mg/0.4 Ml Syringe SUBCUT 40 mg Q24H CARIN Administration Finasteride 5 mg 06/02/20 09:00 06/15/20 10:28 Finasteride 5 Mg Tablet PO 5 mg DAILY CARIN Administration Gabapentin 300 mg 06/02/20 09:00 06/15/20 10:28 Gabapentin 300 Mg Capsule PO 300 mg DAILY CARIN Administration Levetiracetam 500 mg in 100 mls @ 400 mls/hr 06/03/20 10:00 06/15/20 10:45 Keppra IV Infused Q12H CARIN Infusion Insulin Glargine 10 unit 06/09/20 14:52 06/15/20 10:23 Insulin Glargine,Hum.Rec.Anlog 100 Unit/Ml 10 Ml Vial SUBCUT 10 unit DAILY CARIN Administration Insulin Human Lispro 0 unit 06/06/20 21:00 06/15/20 12:56 Insulin Lispro 100 Unit/Ml 3 Ml Vial SUBCUT 4 unit QIDACHS [facility] Administration Protocol Labetalol HCl 10 mg 06/05/20 17:00 06/15/20 10:24 Labetalol Hcl 100 Mg/20 Ml Vial IVPUSH 10 mg Q4H CARIN Administration Lisinopril 20 mg 06/14/20 09:00 06/15/20 10:28 Lisinopril 20 Mg Tablet G-TUBE 20 mg DAILY ACRIN Administration Protocol Ondansetron HCl 4 mg 06/02/20 06:21 Ondansetron Hcl 4 Mg/2 Ml Vial IVPUSH Q8H PRN Nausea and Vomiting Polyethylene Glycol 17 gm 06/02/20 09:00 06/15/20 10:30 Polyethylene Glycol 3350 17 Gm Powd.Pack PO 17 gm DAILY CARIN Administration Quetiapine Fumarate 25 mg 06/02/20 21:00 06/14/20 21:53 Quetiapine Fumarate 25 Mg Tablet PO 25 mg BEDTIME CARIN Administration Sertraline HCl 200 mg 06/02/20 09:00 06/15/20 10:30 Sertraline Hcl 100 Mg Tablet PO 200 mg DAILY CARIN Administration Sodium Chloride 3 ml 06/02/20 08:00 06/15/20 10:31 0.9 % Sodium Chloride Flush 3 Ml Syringe IVFLUSH 3 ml QSHIFT CARIN Administration Tamsulosin HCl 0.4 mg 06/02/20 09:00 06/15/20 10:30 Tamsulosin Hcl 0.4 Mg Capsule PO 0.4 mg DAILY CARIN Administration Tizanidine HCl 2 mg 06/02/20 09:00 06/15/20 10:30 Tizanidine Hcl 4 Mg Tablet PO 2 mg BID CARIN Administration Labs CBC & Chem 7: 06/15/20 05:28 06/13/20 05:56 Microbiology Microbiology Results: Microbiology 06/02/20 00:39 Blood - Venous Blood Culture - Final No growth after 5 days. 06/02/20 Unknown Urine clean catch - Clean Catch Midstream Urine Culture - Final Faye rugosa 06/02/20 00:35 Blood - Venous Blood Culture - Final Coag negative Staphylococcus Assessment and Plan (1) Acute respiratory failure: Status: Acute (2) Pneumonia due to 2019 novel coronavirus: Status: Acute Assessment and Plan: 59-year-old male with a past medical history of prior CVA and resultant hemiplegia and dysarthria. 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 He was also found to be covid positive, but had no respiratory symptoms including hypoxia. 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 -- unable to safely swallow and hence NPO s/p peg tube Acute Encephalopathy improving multifactorial slowly improving towards baseline Difficulty swallowing poor nutrition Speech continues to recommend NPO and status post PEG tube Status post PEG tube Tolerating tube feeding Neuro-Bachet's Solu-Medrol -- started on 60mg, being tapered by 10mg q3 days;currently on 30 mg daily for 3 days HTN-- restarted Bp medication DM blood glucose improving humalog q6 hours continue Lantus monitor blood glucose HyperNa resolved sodium 138 today Leukocytosis likely secondary to steroid Monitor CBC Full Code DVT pptx, Lovenox
[2020-06-15 16:07] LABS: Glucose, Whole Blood 173 mg/dL (60-115)
[2020-06-15 20:34] LABS: Glucose, Whole Blood 178 mg/dL (60-115)
[2020-06-15] MEDS: QUEtiapine Fumarate 25 MG TABLET PO (21:38)
[2020-06-16] VITALS (11 sets, daily range): BP systolic 121–167; BP diastolic 61–87; PULSE 71–85; RESP 18–22; TEMP 35.8–36.9; O2SAT 93–98
[2020-06-16] MEDS: 0.9 % Sodium Chloride Flush 3 ML SYRINGE IVFLUSH ×4 (00:52→23:48)
[2020-06-16] MEDS: Labetalol HCL 100 MG/20 ML VIAL 10 MG IVPUSH (02:14)
[2020-06-16 07:50] LABS: Glucose, Whole Blood 198 mg/dL (60-115)
[2020-06-16 08:46] LABS: Basophils Absolute Auto 0.1 X10*3/uL (0.0-0.2); Basophils Percent Auto 0.3 % (0-2); Eosinophils Absolute Auto 0.3 X10*3/uL (0.0-0.4); Eosinophils Percent Auto 1.8 % (0-4); Hematocrit 27.2 % (42-52); Hemoglobin 8.7 g/dl (14.0-18.0); Imm Gran Abs Auto 0.06 X10*3/uL (0.00-0.03); Imm Gran Pct Auto 0.4 % (0.0-0.4); Lymphocytes Absolute Auto 2.4 X10*3/uL (1.2-4.9); Lymphocytes Percent Auto 16.5 % (20-40); MANUAL DIFF FLAG SCAN; Mean Corpuscular Hemoglobin 24.6 pg (27.0-33.0); Mean Corpuscular Volume 76.8 fL (80-98); Mean Platelet Volume 12.2 fL (9.4-12.4); Monocytes Absolute Auto 0.5 X10*3/uL (0.1-1.2); Monocytes Percent Auto 3.5 % (2-11); Neutrophils Absolute Auto 11.1 X10*3/uL (2.0-8.3); Neutrophils Percent Auto 77.5 % (45-73); PLT CLUMP 1; Red Blood Count 3.54 X10*6/uL (4.60-5.80); Red Cell Distribution Width 20.9 % (11.0-16.0); SCAN SMEAR FLAG 1
[2020-06-16 09:08] LABS: Platelet Count 343 X10*3/uL (160-400); White Blood Count 14.3 X10*3/uL (4.8-10.8)
[2020-06-16 09:14] LABS: Anion Gap 12 (12-20); Blood Urea Nitrogen 21 mg/dL (9-16); Calcium 7.5 mg/dL (8.4-10.2); Carbon Dioxide 20 mmol/L (22-29); Chloride 110 mmol/L (96-108); Creatinine Clr Calc Pharmacy 139.1; Estimated Glomerular Filt Rate > 60; Glucose Random 194 mg/dL (60-115); Potassium 3.8 mmol/L (3.3-5.1); Sodium 138 mmol/L (135-145)
--- NOTE | 2020-06-16 10:17 | MHC.CM.PN ---
CM spoke with Nicolle at [facility] and HCP Nalini who approved [facility] referral. Referral made via [employer]. Discharge plan is home with [facility] for tube feeds and [facility] to teach family. Patient will need transport home. CM will continue to follow patient for discharge needs.
[2020-06-16] MEDS: Tamsulosin HCL 0.4 MG CAPSULE PO (10:18)
[2020-06-16] MEDS: amLODIPine Besylate 5 MG TABLET 10 MG G-TUBE (10:18)
[2020-06-16] MEDS: predniSONE 10 MG TABLET 30 MG PO (10:21)
[2020-06-16] MEDS: Sertraline HCL 100 MG TABLET 200 MG PO (10:21)
[2020-06-16] MEDS: carvediloL 12.5 MG TABLET 25 MG G-TUBE ×2 (10:21→23:05)
[2020-06-16] MEDS: TiZANidine HCL 4 MG TABLET 2 MG PO ×2 (10:22→23:05)
[2020-06-16] MEDS: Gabapentin 300 MG CAPSULE PO (10:23)
[2020-06-16] MEDS: Atorvastatin Calcium 40 MG TABLET PO (10:23)
[2020-06-16] MEDS: Insulin Glargine,Hum.rec.anlog 100 UNIT/ML 10 ML VIAL 10 UNIT SUBCUT (10:24)
[2020-06-16] MEDS: polyethylene glycoL 3350 17 GM POWD.PACK PO (10:25)
[2020-06-16] MEDS: levETIRAcetam in NaCl (iso-os) 500 MG/100 ML PIGGYBACK 400 MG IV ×2 (10:25→23:03)
[2020-06-16] MEDS: Enoxaparin Sodium 40 MG/0.4 ML SYRINGE SUBCUT (10:47)
[2020-06-16 11:31] LABS: Glucose, Whole Blood 197 mg/dL (60-115)
[2020-06-16] MEDS: Insulin Lispro 100 UNIT/ML 3 ML VIAL SUBCUT ×3 (12:02→23:12)
[2020-06-16 12:28] LABS: SLIDE REVIEW VERIFIED
--- NOTE | 2020-06-16 14:22 | MHC.CLN ---
F/U PT RECEIVING GLUCERNA AT MAX GOAL RATE 70CC/HR WITH 240CC FREE WATER FLUSH Q 6HRS PROVIDES 1680KCALS (24KCALS/KG), 70G PROTEIN (1.0G/KG), 2393CC TOTAL WATER FROM FORMULA AND FLUSHES (34CC/KG) NSG REPORTS LOW RESIDUALS AND TOLERATING AT FS MONITOR TOLERANCE, RESIDUALS AND LYTES COORDINATING D/C WITH CM AND [facility] FOR BOLUS FEEDINGS AT HOME
[2020-06-16 16:09] LABS: Glucose, Whole Blood 286 mg/dL (60-115)
--- NOTE | 2020-06-16 16:55 | P.PNIM_ITS ---
Subjective Subjective Date of Service: 06/16/20 Interval History: Patient seen and examined at bedside Patient is more awake today Physical Exam Vital Signs: Vital Signs: Last Vital Signs Temp 96.5 F L 06/16/20 15:28 Pulse 83 06/16/20 15:28 Resp 20 06/16/20 15:28 BP 162/87 H 06/16/20 15:28 Pulse Ox 96 06/16/20 15:28 Body Mass Index 28.3 Const: Other: General - awake and alert, doesn't follow direction Cardiovascular - regular rate and rhythm, S1-S2 Lungs - normal respiratory effort, clear to auscultation bilaterally, no wheezing Abdomen - soft, nontender, no rebound or guarding Extremities - mild edema bilaterally Neuro - more awake General: no acute distress Eyes: General: appearance normal, both eyes and all related structures Resp: Effort & Inspection: normal respiratory effort Cardio: Rate: regular rate Rhythm: regular rhythm GI: Palpation (GI): Soft to palpation Auscultation: normal bowel sounds Skin: General skin exam: no rashes or lesions noted Neuro: Cognition (Neuro): normal cognition Extrem: General: Yes normal to inspection and Yes no pedal edema Objective Data Current Medications Generic Name Dose Route Start Last Admin Trade Name Freq PRN Reason Stop Dose Admin Acetaminophen 650 mg 06/02/20 06:21 Acetaminophen 325 Mg Tablet PO Q6H PRN Pain, Mild (Pain Scale 1-3) Albuterol Sulfate 2 puff 06/02/20 06:21 Albuterol Sulfate 90 Mcg 8 Gm Inhaler INHALE Q4H PRN Wheezing Amlodipine Besylate 10 mg 06/14/20 09:00 06/16/20 10:18 Amlodipine Besylate 5 Mg Tablet G-TUBE 10 mg DAILY CARIN Administration Protocol Atorvastatin Calcium 40 mg 06/02/20 09:00 06/16/20 10:23 Atorvastatin Calcium 40 Mg Tablet PO 40 mg DAILY CARIN Administration Carvedilol 25 mg 06/13/20 21:00 06/16/20 10:21 Carvedilol 12.5 Mg Tablet G-TUBE 25 mg BID CARIN Administration Protocol Docusate Sodium 100 mg 06/02/20 06:21 Docusate Sodium 100 Mg Capsule PO DAILY PRN Constipation Enoxaparin Sodium 40 mg 06/02/20 08:00 06/16/20 10:47 Enoxaparin Sodium 40 Mg/0.4 Ml Syringe SUBCUT 40 mg Q24H CARIN Administration Finasteride 5 mg 06/02/20 09:00 06/16/20 10:24 Finasteride 5 Mg Tablet PO Not Given DAILY CARIN Gabapentin 300 mg 06/02/20 09:00 06/16/20 10:23 Gabapentin 300 Mg Capsule PO 300 mg DAILY CARIN Administration Levetiracetam 500 mg in 100 mls @ 400 mls/hr 06/03/20 10:00 06/16/20 10:49 Keppra IV Infused Q12H CARIN Infusion Insulin Glargine 10 unit 06/09/20 14:52 06/16/20 10:24 Insulin Glargine,Hum.Rec.Anlog 100 Unit/Ml 10 Ml Vial SUBCUT 10 unit DAILY CARIN Administration Insulin Human Lispro 0 unit 06/06/20 21:00 06/16/20 12:02 Insulin Lispro 100 Unit/Ml 3 Ml Vial SUBCUT 2 unit QIDACHS [facility] Administration Protocol Labetalol HCl 10 mg 06/05/20 17:00 06/16/20 12:35 Labetalol Hcl 100 Mg/20 Ml Vial IVPUSH Not Given Q4H CARIN Lisinopril 20 mg 06/14/20 09:00 06/16/20 10:22 Lisinopril 20 Mg Tablet G-TUBE 20 mg DAILY CARIN Administration Protocol Ondansetron HCl 4 mg 06/02/20 06:21 Ondansetron Hcl 4 Mg/2 Ml Vial IVPUSH Q8H PRN Nausea and Vomiting Polyethylene Glycol 17 gm 06/02/20 09:00 06/16/20 10:25 Polyethylene Glycol 3350 17 Gm Powd.Pack PO 17 gm DAILY CARIN Administration Prednisone 30 mg 06/16/20 09:00 06/16/20 10:21 Prednisone 10 Mg Tablet PO 06/18/20 23:59 30 mg DAILY CARIN Administration Quetiapine Fumarate 25 mg 06/02/20 21:00 06/15/20 21:38 Quetiapine Fumarate 25 Mg Tablet PO 25 mg BEDTIME CARIN Administration Sertraline HCl 200 mg 06/02/20 09:00 06/16/20 10:21 Sertraline Hcl 100 Mg Tablet PO 200 mg DAILY CARIN Administration Sodium Chloride 3 ml 06/02/20 08:00 06/16/20 10:47 0.9 % Sodium Chloride Flush 3 Ml Syringe IVFLUSH 3 ml QSHIFT CARIN Administration Tamsulosin HCl 0.4 mg 06/02/20 09:00 06/16/20 10:18 Tamsulosin Hcl 0.4 Mg Capsule PO 0.4 mg DAILY CARIN Administration Tizanidine HCl 2 mg 06/02/20 09:00 06/16/20 10:22 Tizanidine Hcl 4 Mg Tablet PO 2 mg BID CARIN Administration Labs CBC & Chem 7: 06/16/20 08:31 06/16/20 08:31 Microbiology Microbiology Results: Microbiology 06/02/20 00:39 Blood - Venous Blood Culture - Final No growth after 5 days. 06/02/20 Unknown Urine clean catch - Clean Catch Midstream Urine Culture - Final Faye rugosa 06/02/20 00:35 Blood - Venous Blood Culture - Final Coag negative Staphylococcus Assessment and Plan (1) Acute respiratory failure: Status: Acute (2) Pneumonia due to 2019 novel coronavirus: Status: Acute Assessment and Plan: 59-year-old male with a past medical history of prior CVA and resultant hemiplegia and dysarthria. 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 He was also found to be covid positive, but had no respiratory symptoms including hypoxia. 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 -- unable to safely swallow s/p peg tube Acute Encephalopathy improving multifactorial Mental status improved Difficulty swallowing poor nutrition Speech continues to recommend NPO and status post PEG tube Tolerating tube feeding Neuro-Bachet's Solu-Medrol -- started on 60mg, being tapered by 10mg q3 days;currently on 30 mg daily for 3 days HTN-- Continue Coreg labetalol amlodipine DM blood glucose improving Continue SSI continue Lantus monitor blood glucose HyperNa resolved Monitor sodium Leukocytosis likely secondary to steroid Monitor CBC Full Code DVT pptx, Lovenox Plan to discharge home on bolus tube feeding on friday case management making arrangement for VNS Friday
[2020-06-16 20:03] LABS: Glucose, Whole Blood 225 mg/dL (60-115)
[2020-06-16] MEDS: QUEtiapine Fumarate 25 MG TABLET PO (23:05)
[2020-06-17] VITALS (9 sets, daily range): BP systolic 124–165; BP diastolic 63–92; PULSE 71–84; RESP 18–22; TEMP 35.5–37.1; O2SAT 92–98
[2020-06-17 07:18] LABS: Glucose, Whole Blood 193 mg/dL (60-115)
[2020-06-17] MEDS: Insulin Lispro 100 UNIT/ML 3 ML VIAL SUBCUT ×4 (07:54→21:08)
[2020-06-17] MEDS: Sertraline HCL 100 MG TABLET 200 MG PO (09:24)
[2020-06-17] MEDS: Gabapentin 300 MG CAPSULE PO (09:24)
[2020-06-17] MEDS: amLODIPine Besylate 5 MG TABLET 10 MG G-TUBE (09:25)
[2020-06-17] MEDS: carvediloL 12.5 MG TABLET 25 MG G-TUBE ×2 (09:25→21:07)
[2020-06-17] MEDS: Acetaminophen 325 MG TABLET 650 MG PO (09:25)
[2020-06-17] MEDS: predniSONE 10 MG TABLET 30 MG PO (09:25)
[2020-06-17] MEDS: Tamsulosin HCL 0.4 MG CAPSULE PO (09:26)
[2020-06-17] MEDS: TiZANidine HCL 4 MG TABLET 2 MG PO ×2 (09:26→21:07)
[2020-06-17] MEDS: Atorvastatin Calcium 40 MG TABLET PO (09:26)
[2020-06-17] MEDS: Insulin Glargine,Hum.rec.anlog 100 UNIT/ML 10 ML VIAL 10 UNIT SUBCUT (09:27)
[2020-06-17] MEDS: polyethylene glycoL 3350 17 GM POWD.PACK PO (09:27)
[2020-06-17] MEDS: levETIRAcetam in NaCl (iso-os) 500 MG/100 ML PIGGYBACK 400 MG IV ×2 (09:27→21:23)
[2020-06-17] MEDS: 0.9 % Sodium Chloride Flush 3 ML SYRINGE IVFLUSH ×3 (09:29→21:24)
[2020-06-17] MEDS: Enoxaparin Sodium 40 MG/0.4 ML SYRINGE SUBCUT (09:29)
[2020-06-17 11:20] LABS: Glucose, Whole Blood 227 mg/dL (60-115)
--- NOTE | 2020-06-17 15:25 | P.PNIM_ITS ---
Subjective Subjective Date of Service: 06/17/20 Interval History: Seen in f/u for PNA, aspiration likely. No new issues, tolerating tube feed Physical Exam Vital Signs: Vital Signs: Last Vital Signs Temp 96.6 F L 06/17/20 15:20 Pulse 80 06/17/20 15:20 Resp 20 06/17/20 15:20 BP 142/81 H 06/17/20 15:20 Pulse Ox 96 06/17/20 15:20 Body Mass Index 28.3 Const: Other: General - awake and alert, doesn't follow direction Cardiovascular - regular rate and rhythm, S1-S2, body fluid fluid overaload, no chf Lungs - normal respiratory effort, clear to auscultation bilaterally, no wheezing Abdomen - soft, nontender, no rebound or guarding Extremities - no edema bilaterally Neuro - more awake and appears to be appearing to communicate Objective Data Current Medications Generic Name Dose Route Start Last Admin Trade Name Freq PRN Reason Stop Dose Admin Acetaminophen 650 mg 06/02/20 06:21 06/17/20 09:25 Acetaminophen 325 Mg Tablet PO 650 mg Q6H PRN Administration Pain, Mild (Pain Scale 1-3) Albuterol Sulfate 2 puff 06/02/20 06:21 Albuterol Sulfate 90 Mcg 8 Gm Inhaler INHALE Q4H PRN Wheezing Amlodipine Besylate 10 mg 06/14/20 09:00 06/17/20 09:25 Amlodipine Besylate 5 Mg Tablet G-TUBE 10 mg DAILY CARIN Administration Protocol Atorvastatin Calcium 40 mg 06/02/20 09:00 06/17/20 09:26 Atorvastatin Calcium 40 Mg Tablet PO 40 mg DAILY CARIN Administration Carvedilol 25 mg 06/13/20 21:00 06/17/20 09:25 Carvedilol 12.5 Mg Tablet G-TUBE 25 mg BID CARIN Administration Protocol Docusate Sodium 100 mg 06/02/20 06:21 Docusate Sodium 100 Mg Capsule PO DAILY PRN Constipation Enoxaparin Sodium 40 mg 06/02/20 08:00 06/17/20 09:29 Enoxaparin Sodium 40 Mg/0.4 Ml Syringe SUBCUT 40 mg Q24H CARIN Administration Finasteride 5 mg 06/02/20 09:00 06/17/20 09:57 Finasteride 5 Mg Tablet PO Not Given DAILY CARIN Gabapentin 300 mg 06/02/20 09:00 06/17/20 09:24 Gabapentin 300 Mg Capsule PO 300 mg DAILY CARIN Administration Levetiracetam 500 mg in 100 mls @ 400 mls/hr 06/03/20 10:00 06/17/20 09:55 Keppra IV Infused Q12H CARIN Infusion Insulin Glargine 10 unit 06/09/20 14:52 06/17/20 09:27 Insulin Glargine,Hum.Rec.Anlog 100 Unit/Ml 10 Ml Vial SUBCUT 10 unit DAILY CARIN Administration Insulin Human Lispro 0 unit 06/06/20 21:00 06/17/20 12:17 Insulin Lispro 100 Unit/Ml 3 Ml Vial SUBCUT 4 unit QIDACHS CARIN Administration Protocol Lisinopril 20 mg 06/14/20 09:00 06/17/20 09:26 Lisinopril 20 Mg Tablet G-TUBE 20 mg DAILY CARIN Administration Protocol Ondansetron HCl 4 mg 06/02/20 06:21 Ondansetron Hcl 4 Mg/2 Ml Vial IVPUSH Q8H PRN Nausea and Vomiting Polyethylene Glycol 17 gm 06/02/20 09:00 06/17/20 09:27 Polyethylene Glycol 3350 17 Gm Powd.Pack PO 17 gm DAILY CARIN Administration Prednisone 30 mg 06/16/20 09:00 06/17/20 09:25 Prednisone 10 Mg Tablet PO 06/18/20 23:59 30 mg DAILY CARIN Administration Quetiapine Fumarate 25 mg 06/02/20 21:00 06/16/20 23:05 Quetiapine Fumarate 25 Mg Tablet PO 25 mg BEDTIME CARIN Administration Sertraline HCl 200 mg 06/02/20 09:00 06/17/20 09:24 Sertraline Hcl 100 Mg Tablet PO 200 mg DAILY CARIN Administration Sodium Chloride 3 ml 06/02/20 08:00 06/17/20 09:29 0.9 % Sodium Chloride Flush 3 Ml Syringe IVFLUSH 3 ml QSHIFT CARIN Administration Tamsulosin HCl 0.4 mg 06/02/20 09:00 06/17/20 09:26 Tamsulosin Hcl 0.4 Mg Capsule PO 0.4 mg DAILY CARIN Administration Tizanidine HCl 2 mg 06/02/20 09:00 06/17/20 09:26 Tizanidine Hcl 4 Mg Tablet PO 2 mg BID CARIN Administration Labs CBC & Chem 7: 06/16/20 08:31 06/16/20 08:31 Microbiology Microbiology Results: Microbiology 06/02/20 00:39 Blood - Venous Blood Culture - Final No growth after 5 days. 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 He was also found to be covid positive, but had no respiratory symptoms including hypoxia. He was sent to SNF and returned less than 12 hours later for hypoxia and likely aspirated Acute Respiratory failure d/t aspiration pneumonia. Resolved and on room air. Aspiration Pneumonia improving--has completed Abx Acute Encephalopathy --resolved at baseline mental status Dysphagia--s/p PEG. Continue NPO per speech Neuro-Bachet's Solu-Medrol -- started on 60mg, being tapered by 10mg q3 days;currently on 30 mg daily for 3 days HTN-- Continue Coreg labetalol amlodipine DM blood glucose improving Continue SSI continue Lantus monitor blood glucose HyperNa resolved Monitor sodium Leukocytosis likely secondary to steroid Monitor CBC Full Code DVT pptx, Lovenox Plan to discharge home on bolus tube feeding on friday case management making arrangement for VNS Friday
[2020-06-17 16:05] LABS: Glucose, Whole Blood 303 mg/dL (60-115)
[2020-06-17 19:45] LABS: Glucose, Whole Blood 251 mg/dL (60-115)
[2020-06-17] MEDS: QUEtiapine Fumarate 25 MG TABLET PO (21:07)
[2020-06-17 22:36] LABS: Magnesium 1.6 mg/dL (1.6-2.6)
[2020-06-18 03:51] VITALS: BP 121/84; PULSE 71; RESP 18; TEMP 36.9; O2SAT 97
--- NOTE | 2020-06-18 05:56 | PC.NURSE ---
06/17/20 @ 21:30 pt had two episodes of high heart rates (180-200) lasting 15-20 seconds. Md was made aware. Mag was ordered. It was normal. No more episodes for the night
[2020-06-18 06:53] VITALS: BP 156/85; PULSE 84; RESP 20; TEMP 36.6; O2SAT 95
[2020-06-18 07:12] LABS: Glucose, Whole Blood 164 mg/dL (60-115)
[2020-06-18] MEDS: Insulin Glargine,Hum.rec.anlog 100 UNIT/ML 10 ML VIAL 10 UNIT SUBCUT (09:01)
[2020-06-18] MEDS: polyethylene glycoL 3350 17 GM POWD.PACK PO (09:02)
[2020-06-18] MEDS: Insulin Lispro 100 UNIT/ML 3 ML VIAL SUBCUT ×4 (09:02→21:12)
[2020-06-18] MEDS: Enoxaparin Sodium 40 MG/0.4 ML SYRINGE SUBCUT (09:02)
[2020-06-18] MEDS: Acetaminophen 325 MG TABLET 650 MG PO (09:03)
[2020-06-18] MEDS: levETIRAcetam in NaCl (iso-os) 500 MG/100 ML PIGGYBACK 400 MG IV (09:03)
[2020-06-18] MEDS: 0.9 % Sodium Chloride Flush 3 ML SYRINGE IVFLUSH ×2 (09:03→15:58)
[2020-06-18] MEDS: amLODIPine Besylate 5 MG TABLET 10 MG G-TUBE (09:04)
[2020-06-18] MEDS: Atorvastatin Calcium 40 MG TABLET PO (09:04)
[2020-06-18] MEDS: Gabapentin 300 MG CAPSULE PO (09:04)
[2020-06-18] MEDS: TiZANidine HCL 4 MG TABLET 2 MG PO ×2 (09:04→21:12)
[2020-06-18] MEDS: Sertraline HCL 100 MG TABLET 200 MG PO (09:05)
[2020-06-18] MEDS: Tamsulosin HCL 0.4 MG CAPSULE PO (09:05)
[2020-06-18] MEDS: predniSONE 10 MG TABLET 30 MG PO (09:05)
[2020-06-18] MEDS: carvediloL 12.5 MG TABLET 25 MG G-TUBE ×2 (09:38→21:11)
--- NOTE | 2020-06-18 10:38 | HO.PM.IMPN ---
Subjective Subjective Date of Service: 06/18/20 Interval History: Seen in f/u for PNA, aspiration likely. No new issues, tolerating tube feed Review of Systems Unable to do review of systems questioning. Physical Exam Vital Signs: Vital Signs: Last Vital Signs Temp 98 F 06/18/20 06:53 Pulse 84 06/18/20 06:53 Resp 20 06/18/20 06:53 BP 156/85 H 06/18/20 06:53 Pulse Ox 95 06/18/20 06:53 Body Mass Index 28.3 Const: Other: General - awake and alert, doesn't follow direction Cardiovascular - regular rate and rhythm, S1-S2, body fluid fluid overaload, no chf Lungs - normal respiratory effort, clear to auscultation bilaterally, no wheezing Abdomen - soft, nontender, no rebound or guarding Extremities - no edema bilaterally Neuro - more awake and appears to be appearing to communicate Objective Data Current Medications Generic Name Dose Route Start Last Admin Trade Name Freq PRN Reason Stop Dose Admin Acetaminophen 650 mg 06/02/20 06:21 06/18/20 09:03 Acetaminophen 325 Mg Tablet PO 650 mg Q6H PRN Administration Pain, Mild (Pain Scale 1-3) Albuterol Sulfate 2 puff 06/02/20 06:21 Albuterol Sulfate 90 Mcg 8 Gm Inhaler INHALE Q4H PRN Wheezing Amlodipine Besylate 10 mg 06/14/20 09:00 06/18/20 09:04 Amlodipine Besylate 5 Mg Tablet G-TUBE 10 mg DAILY CARIN Administration Protocol Atorvastatin Calcium 40 mg 06/02/20 09:00 06/18/20 09:04 Atorvastatin Calcium 40 Mg Tablet PO 40 mg DAILY CARIN Administration Carvedilol 25 mg 06/13/20 21:00 06/18/20 09:38 Carvedilol 12.5 Mg Tablet G-TUBE 25 mg BID CARIN Administration Protocol Docusate Sodium 100 mg 06/02/20 06:21 Docusate Sodium 100 Mg Capsule PO DAILY PRN Constipation Enoxaparin Sodium 40 mg 06/02/20 08:00 06/18/20 09:02 Enoxaparin Sodium 40 Mg/0.4 Ml Syringe SUBCUT 40 mg Q24H CARIN Administration Finasteride 5 mg 06/02/20 09:00 06/18/20 09:28 Finasteride 5 Mg Tablet PO Not Given DAILY CARIN Gabapentin 300 mg 06/02/20 09:00 06/18/20 09:04 Gabapentin 300 Mg Capsule PO 300 mg DAILY CARIN Administration Levetiracetam 500 mg in 100 mls @ 400 mls/hr 06/03/20 10:00 06/18/20 09:25 Keppra IV Infused Q12H CARIN Infusion Insulin Glargine 10 unit 06/09/20 14:52 06/18/20 09:01 Insulin Glargine,Hum.Rec.Anlog 100 Unit/Ml 10 Ml Vial SUBCUT 10 unit DAILY CARIN Administration Insulin Human Lispro 0 unit 06/06/20 21:00 06/18/20 09:02 Insulin Lispro 100 Unit/Ml 3 Ml Vial SUBCUT 1 unit QIDACHS [facility] Administration Protocol Lisinopril 20 mg 06/14/20 09:00 06/18/20 09:04 Lisinopril 20 Mg Tablet G-TUBE 20 mg DAILY CARIN Administration Protocol Ondansetron HCl 4 mg 06/02/20 06:21 Ondansetron Hcl 4 Mg/2 Ml Vial IVPUSH Q8H PRN Nausea and Vomiting Polyethylene Glycol 17 gm 06/02/20 09:00 06/18/20 09:02 Polyethylene Glycol 3350 17 Gm Powd.Pack PO 17 gm DAILY CARIN Administration Prednisone 30 mg 06/16/20 09:00 06/18/20 09:05 Prednisone 10 Mg Tablet PO 06/18/20 23:59 30 mg DAILY CARIN Administration Quetiapine Fumarate 25 mg 06/02/20 21:00 06/17/20 21:07 Quetiapine Fumarate 25 Mg Tablet PO 25 mg BEDTIME CARIN Administration Sertraline HCl 200 mg 06/02/20 09:00 06/18/20 09:05 Sertraline Hcl 100 Mg Tablet PO 200 mg DAILY CARIN Administration Sodium Chloride 3 ml 06/02/20 08:00 06/18/20 09:03 0.9 % Sodium Chloride Flush 3 Ml Syringe IVFLUSH 3 ml QSHIFT CARIN Administration Tamsulosin HCl 0.4 mg 06/02/20 09:00 06/18/20 09:05 Tamsulosin Hcl 0.4 Mg Capsule PO 0.4 mg DAILY CARIN Administration Tizanidine HCl 2 mg 06/02/20 09:00 06/18/20 09:04 Tizanidine Hcl 4 Mg Tablet PO 2 mg BID CARIN Administration Labs CBC & Chem 7: 06/16/20 08:31 06/16/20 08:31 Microbiology Microbiology Results: Microbiology 06/02/20 00:39 Blood - Venous Blood Culture - Final No growth after 5 days. 06/02/20 Unknown Urine clean catch - Clean Catch Midstream Urine Culture - Final Faye rugosa 06/02/20 00:35 Blood - Venous Blood Culture - Final Coag negative Staphylococcus Assessment and Plan (1) Acute respiratory failure: Status: Acute (2) Pneumonia due to 2019 novel coronavirus: Status: Acute Assessment and Plan: 59-year-old male with a past medical history of prior CVA and resultant hemiplegia and dysarthria. 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 He was also found to be covid positive, but had no respiratory symptoms including hypoxia. He was sent to SNF and returned less than 12 hours later for hypoxia and likely aspirated Acute Respiratory failure d/t aspiration pneumonia. Resolved and on room air. Aspiration Pneumonia improving--has completed Abx Acute Encephalopathy --resolved at baseline mental status Dysphagia--s/p PEG. Continue NPO per speech Neuro-Bachet's --Prednisone presently 30 rojas since , change to 20 tomorrow HTN-- Continue Coreg labetalol amlodipine DM blood glucose improving Continue SSI continue Lantus monitor blood glucose HyperNa resolved Monitor sodium Leukocytosis likely secondary to steroid Monitor CBC Full Code DVT pptx, Lovenox Plan to discharge home on bolus tube feeding on friday case management making arrangement for VNS Friday
[2020-06-18 10:52] VITALS: BP 132/64; PULSE 56; RESP 20; TEMP 36.6; O2SAT 97
[2020-06-18 11:10] LABS: Glucose, Whole Blood 179 mg/dL (60-115)
[2020-06-18 15:23] VITALS: BP 139/76; PULSE 75; RESP 20; TEMP 36; O2SAT 96
[2020-06-18 16:10] LABS: Glucose, Whole Blood 326 mg/dL (60-115)
[2020-06-18 20:00] VITALS: BP 178/93; PULSE 73; RESP 20; TEMP 36.4; O2SAT 96
[2020-06-18 20:43] LABS: Glucose, Whole Blood 222 mg/dL (60-115)
[2020-06-18] MEDS: levETIRAcetam 500 MG TABLET PO (21:12)
[2020-06-18] MEDS: QUEtiapine Fumarate 25 MG TABLET PO (21:12)
[2020-06-19] VITALS: BP 146/77; PULSE 72; RESP 20; TEMP 36.4; O2SAT 96
[2020-06-19] MEDS: 0.9 % Sodium Chloride Flush 3 ML SYRINGE IVFLUSH ×2 (00:50→08:13)
[2020-06-19 04:00] VITALS: BP 148/62; PULSE 82; RESP 20; TEMP 36.6; O2SAT 92
[2020-06-19 06:54] LABS: Anion Gap 13 (12-20); Blood Urea Nitrogen 17 mg/dL (9-16); Calcium 8.6 mg/dL (8.4-10.2); Carbon Dioxide 26 mmol/L (22-29); Chloride 106 mmol/L (96-108); Creatinine Clr Calc Pharmacy 134.3; Estimated Glomerular Filt Rate > 60; Glucose Random 186 mg/dL (60-115); Potassium 4.7 mmol/L (3.3-5.1); Sodium 140 mmol/L (135-145)
[2020-06-19 07:43] LABS: Glucose, Whole Blood 201 mg/dL (60-115)
[2020-06-19 08:00] VITALS: BP 179/77; PULSE 83; RESP 20; TEMP 36.2; O2SAT 91
[2020-06-19] MEDS: Atorvastatin Calcium 40 MG TABLET PO (08:12)
[2020-06-19] MEDS: levETIRAcetam 500 MG TABLET PO (08:12)
[2020-06-19] MEDS: amLODIPine Besylate 5 MG TABLET 10 MG G-TUBE (08:12)
[2020-06-19] MEDS: Insulin Lispro 100 UNIT/ML 3 ML VIAL SUBCUT ×2 (08:13→12:05)
[2020-06-19] MEDS: Sertraline HCL 100 MG TABLET 200 MG PO (08:13)
[2020-06-19] MEDS: carvediloL 12.5 MG TABLET 25 MG G-TUBE (08:13)
[2020-06-19] MEDS: Finasteride 5 MG TABLET PO (08:13)
[2020-06-19] MEDS: Enoxaparin Sodium 40 MG/0.4 ML SYRINGE SUBCUT (08:13)
[2020-06-19] MEDS: Gabapentin 300 MG CAPSULE PO (08:13)
[2020-06-19] MEDS: polyethylene glycoL 3350 17 GM POWD.PACK PO (08:14)
[2020-06-19] MEDS: Insulin Glargine,Hum.rec.anlog 100 UNIT/ML 10 ML VIAL 10 UNIT SUBCUT (08:14)
[2020-06-19] MEDS: TiZANidine HCL 4 MG TABLET 2 MG PO (08:14)
[2020-06-19 08:43] VITALS: O2SAT 94
--- NOTE | 2020-06-19 10:35 | MHC.CM.PN ---
Patient will be discharged home today via BLS transport at 1pm. [facility] and [facility] are aware and will meet patient at home. Nalini and nurse are all aware.
--- NOTE | 2020-06-19 10:44 | MHC.CM.PN ---
CM also LM with Nicolle at [facility] to patients discharge home today with [facility] and [facility].
--- NOTE | 2020-06-19 11:11 | P.DS_ITS ---
DS: Providers Provider Date of Service: 08/19/20 Date of admission: 06/02/20 05:53 Primary care physician: Unknown Physician Consults: 06/03/20 09:22 Consult to Neurology Routine Consulting Provider: [facility] Reason for consultation: Neuro-Bachet's syndrome, now increasing confusion / altered 06/07/20 17:12 Consult to General Surgery Routine Consulting Provider: Deepak Castañeda Reason for consultation: assess for PEG DS: Diagnosis Discharge Diagnosis (1) Acute respiratory failure: Status: Resolved (2) Pneumonia due to 2019 novel coronavirus: Status: Resolved DS: Medications Discharge Medications Home Medications: Home Medications Medication Instructions Recorded Confirmed atorvastatin 40 mg PO DAILY 04/09/20 06/02/20 polyethylene glycol 3350 [Miralax] 17 g PO DAILY 04/09/20 06/02/20 tamsulosin [Flomax] 0.4 mg PO DAILY 04/09/20 06/02/20 tizanidine [Zanaflex] 2 mg PO BID PRN 04/09/20 06/02/20 quetiapine 25 mg PO BEDTIME 05/25/20 06/02/20 albuterol sulfate [ProAir HFA] 2 puff INHALATION Q4-6H PRN 05/26/20 06/02/20 amlodipine 10 mg PO DAILY 05/26/20 06/02/20 carvedilol 25 mg PO BID 05/26/20 06/02/20 lisinopril 20 mg PO DAILY 05/26/20 06/02/20 aspirin 81 mg PO DAILY 06/02/20 06/02/20 gabapentin 300 mg PO DAILY 06/02/20 06/02/20 insulin aspart U-100 [Novolog See Protocol SUBCUT TID 06/02/20 06/02/20 Flexpen U-100 Insulin] insulin glargine [Lantus U-100 15 unit SUBCUT BEDTIME 06/02/20 06/02/20 Insulin] sertraline 200 mg PO DAILY 06/02/20 06/02/20 sitagliptin [Januvia] 100 mg PO DAILY 06/02/20 06/02/20 Previous Rx's Medication Instructions Recorded levetiracetam [Keppra] 500 mg PO BID #60 tab 01/25/20 finasteride [Proscar] 5 mg PO DAILY #30 tab 06/01/20 DS: Summary Hospital Course Hospital Course: Date of admission 06/02/20 Date of discharge: June 19, 2020 Chief Complaint: increased work of breathing, hypoxic with past medical history of diabetes, seizure, paresthesia, CVA, who presents to the hospital from custodial with complaints of increased work of breathing and hypoxia. Patient has baseline CVA, and at this time he is not really giving me any history. When talked to the nurse at bedside reports that she knows am and he usually is communicated of and response questions although today he is alert, awake, but is refusing to answer my questions. Per nurse depression is mad because they moved him and he is angry that they had to also restrain him due to agitation. tharefore hisotry is obtained from EMR as well as ED physician and staff Of note patient was discharged from the hospital on 06/01 after being treated for UTI as well as Neuro Behcet's disease with iv steroids and discharged to on PO prednisone. Of note while in the hospital patient was also diagnosed with COVID-19 on 05/25, but had no respiratory symptoms at that time. EMS was called due to pt having hypoxia as well as AMS. Per EMS report, pt was found to be hypooxic on rm air in the 70s-80s. On arrival to the ED. pt was alert, awake and had tyra coma score of 11 Other findings included temp of 97.6?, heart rate of 93, respiratory rate of 30, blood pressure of 211/115. EMS had placed a nitro paste on the patient with blood pressure dropping a 40s, now on haste with a blood pressure of 174/93. Patient was initially placed on BiPAP for increased work of breathing but has now improved and is now on 4 L of oxygen satting 96%. For WBC to count of 18.2 from 9.2 on 05/31, around his baseline, PT of 13.9, INR of 1.2, pH of 7.42, BUN of 26 with a creatinine of 0.73, AST of 80, ALT of 63, alk-phos of 143, BNP of 39, D-dimer less than 200, UA negative. Chest x-ray does not show significant findings except for possible it looked assist in the left lung base Hospital course: [facility] [place] [address] Hospitalist - Progress NoteSigned Patient: Gustavo GomezMR#: [id number]: 1960Acct:[id number]/Sex: 59 / MLoc:[id number]: Morgan Solitario MD cc: ~ Subjective Subjective Date of Service: 06/18/20 Interval History: Seen in f/u for PNA, aspiration likely. No new issues, tolerating tube feed Review of Systems Unable to do review of systems questioning. Physical Exam Vital Signs: Vital Signs: Last Vital Signs Temp 98 F 06/18/20 06:53 Pulse 84 06/18/20 06:53 Resp 20 06/18/20 06:53 BP 156/85 H 06/18/20 06:53 Pulse Ox 95 06/18/20 06:53 Body Mass Index 28.3 Const: Other: General - awake and alert, doesn't follow direction Cardiovascular - regular rate and rhythm, S1-S2, body fluid fluid overaload, no chf Lungs - normal respiratory effort, clear to auscultation bilaterally, no wheezing Abdomen - soft, nontender, no rebound or guarding Extremities - no edema bilaterally Neuro - more awake and appears to be appearing to communicate Objective Data Current Medications Generic Name Dose Route Start Last Admin Trade Name Freq PRN Reason Stop Dose Admin Acetaminophen 650 mg 06/02/20 06:21 06/18/20 09:03 Acetaminophen 325 Mg Tablet PO 650 mg Q6H PRN Administration Pain, Mild (Pain Scale 1-3) Albuterol Sulfate 2 puff 06/02/20 06:21 Albuterol Sulfate 90 Mcg 8 Gm Inhaler INHALE Q4H PRN Wheezing Amlodipine Besylate 10 mg 06/14/20 09:00 06/18/20 09:04 Amlodipine Besylate 5 Mg Tablet G-TUBE 10 mg DAILY CARIN Administration Protocol Atorvastatin Calcium 40 mg 06/02/20 09:00 06/18/20 09:04 Atorvastatin Calcium 40 Mg Tablet PO 40 mg DAILY CARIN Administration Carvedilol 25 mg 06/13/20 21:00 06/18/20 09:38 Carvedilol 12.5 Mg Tablet G-TUBE 25 mg BID CARIN Administration Protocol Docusate Sodium 100 mg 06/02/20 06:21 Docusate Sodium 100 Mg Capsule PO DAILY PRN Constipation Enoxaparin Sodium 40 mg 06/02/20 08:00 06/18/20 09:02 Enoxaparin Sodium 40 Mg/0.4 Ml Syringe SUBCUT 40 mg Q24H CARIN Administration Finasteride 5 mg 06/02/20 09:00 06/18/20 09:28 Finasteride 5 Mg Tablet PO Not Given DAILY CARIN Gabapentin 300 mg 06/02/20 09:00 06/18/20 09:04 Gabapentin 300 Mg Capsule PO 300 mg DAILY CARIN Administration Levetiracetam 500 mg in 100 mls @ 400 mls/hr 06/03/20 10:00 06/18/20 09:25 Keppra IV Infused Q12H CARIN Infusion Insulin Glargine 10 unit 06/09/20 14:52 06/18/20 09:01 Insulin Glargine,Hum.Rec.Anlog 100 Unit/Ml 10 Ml Vial SUBCUT 10 unit DAILY CARIN Administration Insulin Human Lispro 0 unit 06/06/20 21:00 06/18/20 09:02 Insulin Lispro 100 Unit/Ml 3 Ml Vial SUBCUT 1 unit QIDACHS CARIN Administration Protocol Lisinopril 20 mg 06/14/20 09:00 06/18/20 09:04 Lisinopril 20 Mg Tablet G-TUBE 20 mg DAILY CARIN Administration Protocol Ondansetron HCl 4 mg 06/02/20 06:21 Ondansetron Hcl 4 Mg/2 Ml Vial IVPUSH Q8H PRN Nausea and Vomiting Polyethylene Glycol 17 gm 06/02/20 09:00 06/18/20 09:02 Polyethylene Glycol 3350 17 Gm Powd.Pack PO 17 gm DAILY CARIN Administration Prednisone 30 mg 06/16/20 09:00 06/18/20 09:05 Prednisone 10 Mg Tablet PO 06/18/20 23:59 30 mg DAILY CARIN Administration Quetiapine Fumarate 25 mg 06/02/20 21:00 06/17/20 21:07 Quetiapine Fumarate 25 Mg Tablet PO 25 mg BEDTIME CARIN Administration Sertraline HCl 200 mg 06/02/20 09:00 06/18/20 09:05 Sertraline Hcl 100 Mg Tablet PO 200 mg DAILY CARIN Administration Sodium Chloride 3 ml 06/02/20 08:00 06/18/20 09:03 0.9 % Sodium Chloride Flush 3 Ml Syringe IVFLUSH 3 ml QSHIFT CARIN Administration Tamsulosin HCl 0.4 mg 06/02/20 09:00 06/18/20 09:05 Tamsulosin Hcl 0.4 Mg Capsule PO 0.4 mg DAILY CARIN Administration Tizanidine HCl 2 mg 06/02/20 09:00 06/18/20 09:04 Tizanidine Hcl 4 Mg Tablet PO 2 mg BID CARIN Administration Labs CBC & Chem 7: 06/16/20 08:31 document embedded image 06/16/20 08:31 document embedded image Microbiology Microbiology Results:Microbiology 06/02/20 00:39 Blood - Venous Blood Culture - Final No growth after 5 days. 06/02/20 Unknown Urine clean catch - Clean Catch Midstream Urine Culture - Final Faye rugosa 06/02/20 00:35 Blood - Venous Blood Culture - Final Coag negative Staphylococcus Assessment and Plan (1) Acute respiratory failure: Status: Acute (2) Pneumonia due to 2019 novel coronavirus: Status: Acute Assessment and Plan: 59-year-old male with a past medical history of prior CVA and resultant hemiplegia and dysarthria. 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 He was also found to be covid positive, but had no respiratory symptoms including no hypoxia. He was sent to SNF and returned less than 12 hours later for hypoxia and likely aspirated and during hospitalization had issues with dysphagia and ultimately required a PEG for feeding. Acute Respiratory failure d/t aspiration pneumonia. Resolved and has been saturation well on room air. Aspiration Pneumonia improving--has completed a course of ampicillin, presently has no fever or hypoxia, elevated WBC is due to steroid. Acute Encephalopathy --resolved at baseline mental status Dysphagia--He was briefly on PPN and had a PEG placed by Dr. Castañeda on 06/12/20. He has been tolerating tube feed and Speech recommend continuing NPO at this time Neuro-Bachet's --Prednisone presently 30 rojas since . Will discharge with 20 mg daily HTN--Continue Coreg labetalol amlodipine DM blood glucose improving Continue SSI continue Lantus monitor blood glucose HyperNa resolved Monitor sodium Leukocytosis likely secondary to steroid Monitor CBC Time Spent with Patient Time attestation: Total time spent providing and/or coordinating discharge services: Discharge coordination time: Greater than 30 minutes Physical Exam Vital Signs: Vital Signs: Last Vital Signs Temp 97.2 F 06/19/20 08:00 Pulse 83 06/19/20 08:00 Resp 20 06/19/20 08:00 BP 179/77 H 06/19/20 08:00 Pulse Ox 94 06/19/20 08:43 Body Mass Index 28.3 DS: Data Data Completed and Pending Completed studies during hospitalization [Text1]: Procedures Drainage of Spinal Canal, Percutaneous Approach, Diagnostic (05/26/20) Fluoroscopy of Spinal Cord (05/26/20) Labs on day of discharge: Laboratory Results - last 24 hr 06/18/20 06/18/20 06/18/20 10:52 16:05 20:39 Sodium Potassium Chloride Carbon Dioxide Anion Gap BUN Creatinine Estim Creat Clear Calc Estimated GFR POC Glucose 179 H 326 H 222 H Random Glucose Calcium 06/19/20 06/19/20 05:36 07:39 Sodium 140 Potassium 4.7 D Chloride 106 Carbon Dioxide 26 Anion Gap 13 BUN 17 H Creatinine 0.58 Estim Creat Clear Calc 134.3 Estimated GFR > 60 POC Glucose 201 H Random Glucose 186 H Calcium 8.6 D Discharge Plan Discharge Anticipated Discharge Date/Time: 06/19/20 11:40 Patient Disposition: Home Health Service Discharge Diagnosis: Aspiration Referrals: [facility] [Outside] Alistair Gottlieb MD [Physician] - 1 Week (Nurse will call you with a follow up appointment.) Discharge Medications: Continued levetiracetam [Keppra] 500 mg tablet 500 mg PO BID Qty: 60 RF: 0 tamsulosin [Flomax] 0.4 mg Capsule 0.4 mg PO DAILY RF: 0 albuterol sulfate [ProAir HFA] 90 mcg/actuation Hfa Aerosol Inhaler 2 puff INHALATION Q4-6H PRN (Reason: Wheezing) RF: 0 insulin aspart U-100 [Novolog Flexpen U-100 Insulin] 100 unit/mL (3 mL) Insulin Pen See Protocol unit SUBCUT TID RF: 0 Lantus U-100 Insulin 100 unit/mL Solution 15 unit SUBCUT BEDTIME RF: 0 Changed quetiapine 25 mg Tablet 25 mg feeding tube BEDTIME Qty: 0 RF: 0 atorvastatin 40 mg Tablet 40 mg feeding tube DAILY Qty: 0 RF: 0 carvedilol 25 mg Tablet 25 mg feeding tube BID Qty: 0 RF: 0 polyethylene glycol 3350 [Miralax] 17 gram Powder In Packet 17 g feeding tube DAILY Qty: 0 RF: 0 lisinopril 20 mg Tablet 20 mg feeding tube DAILY Qty: 0 RF: 0 sertraline 100 mg tablet 200 mg feeding tube DAILY Qty: 0 RF: 0 amlodipine 10 mg Tablet 10 mg feeding tube DAILY Qty: 0 RF: 0 gabapentin 300 mg capsule 300 mg feeding tube DAILY Qty: 0 RF: 0 finasteride [Proscar] 5 mg Tablet 5 mg feeding tube DAILY Qty: 30 RF: 0 tizanidine [Zanaflex] 2 mg Capsule 2 mg feeding tube BID PRN (Reason: Pain) Qty: 0 RF: 0 Januvia 100 mg tablet 100 mg feeding tube DAILY Qty: 0 RF: 0 aspirin 81 mg tablet,chewable 81 mg feeding tube DAILY Qty: 0 RF: 0 Discharge Orders: Discharge Order (Routine); Ordered 06/19/20 Ordered By: Morgan Solitario Diet: other Activity on Discharge: As tolerated Stand Alone Forms: Patient Portal Discharge page Care Plan Goals: Prevent hospitalization Health Concerns: Aspiration Plan of Treatment: Tube as recommended and follow up with your Doctor in a week Assessment: Aspiration Discharge Date/Time: 06/19/20 13:52
[2020-06-19 11:19] VITALS: BP 107/60; PULSE 71; RESP 20; TEMP 36.1; O2SAT 96
[2020-06-19 11:49] LABS: Glucose, Whole Blood 186 mg/dL (60-115)
--- NOTE | 2020-06-19 12:25 | MHC.SLORD ---
Per medical chart review, there is a plan to discharge home today with tube feeds and [facility] services. Recommend outpatient MBSS to provide further recommendations. Name: Gustavo Gomez Date of : 1960 Age: 59 Date of Registration: 06/02/20 Speech Language Pathology Order Status:
== END 2020-06-19 13:52 | disposition home health service (06) | DRG 177 ==
LOC: HO.ED 01:59 → HO.EDOVER 06:07 → HO.IMC 15:44
PROVIDERS: Family Medicine; Internal Medicine; Surgery; Admitting Provider Internal Medicine; Emergency Provider Student in an Organized Health Care Education/Training Program; PCP Family Medicine; Visit Provider Internal Medicine
PROC: 0DH63UZ Insertion of Feeding Device into Stomach, Percutaneous Approach (ICD-10-PCS; CPT 43246; principal; 2020-06-12 09:00)
DX: U07.1 COVID-19 (principal); J69.0 Pneumonitis due to inhalation of food and vomit; J96.01 Acute respiratory failure with hypoxia; J12.82 Pneumonia due to coronavirus disease 2019; G92 Toxic encephalopathy; M35.2 Behcet's disease; E87.0 Hyperosmolality and hypernatremia; I69.951 Hemiplegia and hemiparesis following unspecified cerebrovascular disease affecting right dominant side; E11.65 Type 2 diabetes mellitus with hyperglycemia; I10 Essential (primary) hypertension; R13.10 Dysphagia, unspecified; E87.5 Hyperkalemia; D72.829 Elevated white blood cell count, unspecified; T38.0X5A Adverse effect of glucocorticoids and synthetic analogues, initial encounter; Y92.239 Unspecified place in hospital as the place of occurrence of the external cause; Z79.4 Long term (current) use of insulin; Z79.82 Long term (current) use of aspirin; Z79.899 Other long term (current) drug therapy
CPT/HCPCS: 36415; 36600; 70450; 71045; 71250; 80048; 80053; 80177; 80307; 81001; 81003; 82009; 82040; 82140; 82803; 82947; 83605; 83690; 83735; 83880; 84100; 84145; 84478; 85025; 85027; 85379; 85610; 86850; 86900; 86901; 86923; 87040; 87086; 87088; 87147; 87205; 87635; 92610; 93005; 96374; 96376; 99024; 99284; 99285; J0295; J0330; J0610; J0690; J1100; J1650; J1940; J1953; J2270; J2405; J2920; J2930; J3475; P9016